=== PATIENT | male | born 1955 | race Caucasian/White ===

== ENCOUNTER 2017-03-02 05:39 | Outpatient (CLI) | payer MEDICAID ==
[~2017-03-02 05:39] MED LIST: AC500T PO; ASP325T PO; ASP81TEC PO; BUPR150T14 PO; CARV3.122 PO; CARV6.252 PO; CEFU500T34 PO; CEPH500C PO; CLPD75T PO; COLC0.6T7 PO; DIGO125T18 PO; DIGO125T91 PO; DIGO250T PO; FINA5TAB6 PO; FURO20TA4 PO; HYDR1TAB86 PO; IBP800T PO; LISI-556 PO; NAPR-243 PO; NAPR500T3 PO; POTA10CA43 PO; SIMV20TA3 PO; SIMV40TA4 PO; SPRN25T PO; TRAZ-28 PO
[2017-03-02] MEDS ORDERED: LISI40TA PO (13:13)
[2017-03-02] MEDS ORDERED: CARV12.53 PO (13:13)
[2017-03-02] MEDS ORDERED: HYDR12.56 PO (13:13)
[2017-03-02] MEDS ORDERED: LIFI1DRO OU (13:13)
== END 2017-03-02 13:20 ==
DX: Z01.818 Encounter for other preprocedural examination (principal); D22.61 Melanocytic nevi of right upper limb, including shoulder

== ENCOUNTER → 2017-12-11 | Outpatient (CLI) | payer MEDICAID ==
[~2017-12-11] MED LIST changes: +CARV12.53 PO; +HYDR-3820 PO; +HYDR12.56 PO; +LIFI1DRO OU; +LISI40TA PO; +NAPR-915 PO; -NAPR500T3 PO; +RT-ALBUINH IH
== END ==
LOC: CARD 07:45
PROVIDERS: ATTEND Internal Medicine Cardiovascular Disease
DX: I48.0 Paroxysmal atrial fibrillation (principal); I50.22 Chronic systolic (congestive) heart failure; I25.5 Ischemic cardiomyopathy; R55 Syncope and collapse; Z95.810 Presence of automatic (implantable) cardiac defibrillator
CPT/HCPCS: 93225; 93226

== ENCOUNTER 2018-10-23 09:39 | Outpatient (RCR) | payer MEDICAID ==
[2018-07-26 09:58] LABS: PROTHROMBIN TIME PATIENT 22.5 SEC (12.2-14.7)
[2018-08-06 09:47] LABS: INR 2.7 (0.8-1.4); PROTHROMBIN TIME PATIENT 28.6 SEC (12.2-14.7)
[2018-08-22 12:45] LABS: INR 2.6 (0.8-1.4); PROTHROMBIN TIME PATIENT 28.2 SEC (12.2-14.7)
[2018-09-19 09:06] LABS: INR 1.9 (0.8-1.4); PROTHROMBIN TIME PATIENT 21.5 SEC (12.2-14.7)
[~2018-10-23 09:39] MED LIST changes: +TRAZ-189 PO; -TRAZ-28 PO
[2018-10-23 10:04] LABS: INR 1.7 (0.8-1.4); PROTHROMBIN TIME PATIENT 20.4 SEC (12.2-14.7)
== END 2018-10-24 | disposition home or self-care (01) ==
LOC: LAB 09:39
PROVIDERS: ATTEND Internal Medicine Cardiovascular Disease
DX: I48.0 Paroxysmal atrial fibrillation (principal)
CPT/HCPCS: 36415; 85610

== ENCOUNTER 2018-11-09 12:26 | Outpatient (RCR) | payer MEDICAID, OTHER ==
[~2018-11-09 12:26] MED LIST changes: -TRAZ-189 PO; +TRAZ-222 PO
[2018-11-09 13:33] LABS: INR 3.1 (0.8-1.4); PROTHROMBIN TIME PATIENT 32.1 SEC (12.2-14.7)
[2018-11-16 09:06] LABS: INR 2.4 (0.8-1.4); PROTHROMBIN TIME PATIENT 26.3 SEC (12.2-14.7)
[2018-12-05 09:20] LABS: INR 2.5 (0.8-1.4); PROTHROMBIN TIME PATIENT 27.8 SEC (12.2-14.7)
== END 2019-02-07 | disposition home or self-care (01) ==
LOC: LAB 12:26
PROVIDERS: ATTEND Internal Medicine Cardiovascular Disease
DX: I48.0 Paroxysmal atrial fibrillation (principal)
CPT/HCPCS: 36415; 85610

== ENCOUNTER → 2018-11-20 | Outpatient (CLI) | payer MEDICAID, OTHER ==
[~2018-11-20] MED LIST changes: +CATHETER FLUSH 10 ML SYR IV PRN; +REGADENOSON 0.4 MG/5 ML SYR (LEXISCAN) IV ONE; +TRAZ-189 PO; -TRAZ-222 PO
[2018-11-20 09:25] VITALS: BP 132/91
[2018-11-20 09:28] VITALS: BP 136/92
--- NOTE | 2018-11-21 04:37 | STRESS TEST ---
DATE OF SERVICE: 11/20/2018 RESTING AND POST REGADENOSON TECHNETIUM-99M TETROFOSMIN SPECT CT IMAGING ORDERING PHYSICIAN: Idania Gardner APRN. PRIMARY PHYSICIAN: [facility]. OTHER PHYSICIAN: DESTINY Lin. CLINICAL DIAGNOSES: Coronary artery disease. Baseline images were carried out after injection of 10.73 mCi of technetium-99m Tetrofosmin. This was followed by 0.4 mg regadenoson and 29.4 mCi of technetium-99m Tetrofosmin for stress imaging. The electrocardiogram showed atrial fibrillation/flutter throughout the study. The electrocardiogram did not change significantly with the regadenoson infusion. The patient did not report any significant symptoms. Review of images at rest and following stress indicates anteroseptal and apical perfusion defect which is predominantly fixed. Gated images show anteroapical and septal hypokinesis. Left ventricular ejection fraction of 33%. Left ventricular end diastolic volume is 86 mL. TID is absent (0.9). CONCLUSIONS: 1. The study is indicative of anteroseptal and apical infarction with only a small amount of jacque-infarct ischemia. 2. Anteroseptal and apical hypokinesis. 3. Left ventricular ejection fraction is calculated to be 33%. 4. Atrial flutter/fibrillation is seen throughout the study. Job ID: [id number] DocumentID: [id number] Dictated Date: 11/20/2018 23:09:00 [employer] Date: 11/21/2018 04:36:08 Dictated By: JERRY MCGUIRE MD, MA, FACP, FACC,
== END ==
LOC: CARD 08:00
PROVIDERS: ATTEND Nurse Practitioner Family
DX: I25.10 Atherosclerotic heart disease of native coronary artery without angina pectoris (principal)
CPT/HCPCS: 78452; 93017

== ENCOUNTER 2019-01-04 09:20 | Outpatient (RCR) | payer OTHER ==
[~2019-01-04 09:20] MED LIST changes: -CATHETER FLUSH 10 ML SYR IV PRN; -REGADENOSON 0.4 MG/5 ML SYR (LEXISCAN) IV ONE; -TRAZ-189 PO; +TRAZ-222 PO
[2019-01-04 10:01] LABS: INR 2.6 (0.8-1.4); PROTHROMBIN TIME PATIENT 28.9 SEC (12.2-14.7)
== END 2019-04-04 | disposition still patient (30) ==
LOC: LAB 09:20
PROVIDERS: ATTEND Internal Medicine Cardiovascular Disease
DX: I48.0 Paroxysmal atrial fibrillation (principal)
CPT/HCPCS: 36415; 85610

== ENCOUNTER 2019-04-12 10:16 | Outpatient (RCR) | payer MEDICAID, OTHER ==
[2019-02-11 11:39] LABS: INR 2.4 (0.8-1.4); PROTHROMBIN TIME PATIENT 27.6 SEC (12.2-14.7)
[2019-03-13 10:53] LABS: INR 2.8 (0.8-1.4); PROTHROMBIN TIME PATIENT 30.3 SEC (12.2-14.7)
[2019-04-12 10:39] LABS: INR 2.7 (0.8-1.4); PROTHROMBIN TIME PATIENT 29.7 SEC (12.2-14.7)
== END 2019-05-12 | disposition home or self-care (01) ==
LOC: LAB 10:16
PROVIDERS: ATTEND Internal Medicine Cardiovascular Disease
DX: I48.0 Paroxysmal atrial fibrillation (principal)
CPT/HCPCS: 36415; 85610

== ENCOUNTER 2019-05-14 11:10 | Outpatient (RCR) | payer MEDICAID, OTHER ==
[2019-05-14 11:39] LABS: INR 2.8 (0.8-1.4); PROTHROMBIN TIME PATIENT 30.9 SEC (12.2-14.7)
== END 2019-08-12 | disposition home or self-care (01) ==
LOC: LAB 11:10
PROVIDERS: ATTEND Internal Medicine Cardiovascular Disease
DX: I48.0 Paroxysmal atrial fibrillation (principal)
CPT/HCPCS: 36415; 85610

== ENCOUNTER → 2019-06-13 | Outpatient (CLI) | payer MEDICAID ==
[2019-06-13 11:09] LABS: BASOPHILS % (AUTO) 1 % (0-10); EOSINOPHILS # (AUTO) 0.1 10^3/uL (0.0-0.3); EOSINOPHILS % (AUTO) 1 % (0-10); HEMATOCRIT 45 % (40-54); HEMOGLOBIN 15.6 G/DL (13.3-17.7); LYMPHOCYTES # (AUTO) 1.1 X 10^3 (1.0-4.0); LYMPHOCYTES % (AUTO) 17 % (12-44); MEAN CORPUSCULAR HEMOGLOBIN 32 PG (25-34); MEAN CORPUSCULAR HGB CONC 35 G/DL (32-36); MEAN CORPUSCULAR VOLUME 93 FL (80-99); MEAN PLATELET VOLUME 10.2 FL (7.4-10.4); MONOCYTES # (AUTO) 0.5 X 10^3 (0.0-1.0); MONOCYTES % (AUTO) 8 % (0-12); NEUTROPHILS # (AUTO) 4.8 X 10^3 (1.8-7.8); NEUTROPHILS % (AUTO) 74 % (42-75); PLATELET COUNT 195 10^3/uL (130-400); WHITE BLOOD COUNT 6.5 10^3/uL (4.3-11.0)
[2019-06-13 11:22] LABS: INR 2.8 (0.8-1.4); PROTHROMBIN TIME PATIENT 30.8 SEC (12.2-14.7)
[2019-06-13 11:30] LABS: ALANINE AMINOTRANSFERASE 18 U/L (0-55); ALBUMIN 4.3 GM/DL (3.2-4.5); ALKALINE PHOSPHATASE 59 U/L (40-136); BILIRUBIN,TOTAL 0.9 MG/DL (0.1-1.0); BUN/CREATININE RATIO 15; CALCIUM 9.4 MG/DL (8.5-10.1); CARBON DIOXIDE 30 MMOL/L (21-32); CHLORIDE 106 MMOL/L (98-107); CREATININE SERUM 1.17 MG/DL (0.60-1.30); GFR ESTIMATED > 60; GLUCOSE 82 MG/DL (70-105); MAGNESIUM 2.1 MG/DL (1.6-2.4); POTASSIUM 3.7 MMOL/L (3.6-5.0); SODIUM 143 MMOL/L (135-145); TOTAL PROTEIN 7.5 GM/DL (6.4-8.2)
== END ==
LOC: CARD 10:53
PROVIDERS: ATTEND Nurse Practitioner Family
DX: I48.0 Paroxysmal atrial fibrillation (principal)
CPT/HCPCS: 36415; 80053; 80162; 83735; 84443; 85025; 85610; 93225; 93226

== ENCOUNTER 2019-07-12 10:18 | Outpatient (RCR) | payer MEDICAID, OTHER ==
[2019-07-12 10:48] LABS: INR 2.8 (0.8-1.4); PROTHROMBIN TIME PATIENT 30.8 SEC (12.2-14.7)
== END 2019-09-11 | disposition home or self-care (01) ==
LOC: LAB 10:18
PROVIDERS: ATTEND Internal Medicine Cardiovascular Disease
DX: I48.0 Paroxysmal atrial fibrillation (principal)
CPT/HCPCS: 36415; 85610

== ENCOUNTER 2019-10-14 10:04 | Outpatient (RCR) | payer MEDICAID ==
[2019-08-13 11:29] LABS: INR 3.1 (0.8-1.4); PROTHROMBIN TIME PATIENT 33.3 SEC (12.2-14.7)
[2019-08-29 10:10] LABS: INR 3.3 (0.8-1.4)
[2019-09-13 10:38] LABS: PROTHROMBIN TIME PATIENT 32.3 SEC (12.2-14.7)
[2019-09-26 08:48] LABS: INR 1.4 (0.8-1.4)
[~2019-10-14 10:04] MED LIST changes: +ACHYD1T PO; -HYDR-3820 PO; -TRAZ-222 PO; +TRZ50T PO
[2019-10-14 10:23] LABS: INR 2.7 (0.8-1.4); PROTHROMBIN TIME PATIENT 29.7 SEC (12.2-14.7)
== END 2019-11-11 | disposition home or self-care (01) ==
LOC: LAB 10:04
PROVIDERS: ATTEND Internal Medicine Cardiovascular Disease
DX: I48.0 Paroxysmal atrial fibrillation (principal)
CPT/HCPCS: 36415; 85610

== ENCOUNTER 2020-02-06 07:57 | Outpatient (RCR) | payer MEDICAID, MEDICARE ==
[2019-11-12 10:45] LABS: INR 2.1 (0.8-1.4); PROTHROMBIN TIME PATIENT 24.8 SEC (12.2-14.7)
[2019-12-13 10:39] LABS: INR 3.2 (0.8-1.4); PROTHROMBIN TIME PATIENT 34.4 SEC (12.2-14.7)
[2019-12-23 10:07] LABS: INR 1.5 (0.8-1.4); PROTHROMBIN TIME PATIENT 18.6 SEC (12.2-14.7)
[2020-01-07 09:13] LABS: INR 2.6 (0.8-1.4)
[2020-02-06 08:21] LABS: INR 1.8 (0.8-1.4); PROTHROMBIN TIME PATIENT 21.2 SEC (12.2-14.7)
== END 2020-02-10 | disposition home or self-care (01) ==
LOC: LAB 07:57
PROVIDERS: ATTEND Internal Medicine Cardiovascular Disease
DX: I25.10 Atherosclerotic heart disease of native coronary artery without angina pectoris (principal); I48.0 Paroxysmal atrial fibrillation; I25.5 Ischemic cardiomyopathy
CPT/HCPCS: 36415; 85610

== ENCOUNTER 2020-04-18 15:05 | Emergency (ER) | payer MEDICARE, MEDICAID ==
[~2020-04-18] VITALS: Ht 183 cm; Wt 91.0 kg
[2020-04-18] MEDS ORDERED: HYDROcodone/APAP 5 MG/325 MG (LORTAB) TAB PO ONE (15:30)
--- NOTE | 2020-04-18 15:31 | ED GU-Male ---
General Chief Complaint: Male Reproductive Stated Complaint: TESTICLE PAIN/SWELLING Nursing Triage Note: Patient reports pain and L testiculer swelling. states it started yesterday evening and did not improve with pain medication Source: patient Exam Limitations: no limitations History of Present Illness Date Seen by Provider: Apr 18, 2020 Time Seen by Provider: 15:09 Initial Comments This 64-year-old man presents to the emergency room with complaints of left testicular pain and swelling that started yesterday. It has become intolerable today. He has had prior intermittent episodes which have typically been responsive to "pain pill". He has not been able to effectively treat it this ti me. He reports a remote history of testicular rupture that did not require orchiectomy. Knee rupture was caused by being kicked by a calf. He denies any significant dysuria. He is afebrile. He is on warfarin therapy for A. fib and had an INR of 1.6 yesterday. Allergies and Home Medications Allergies Coded Allergies: No Known Drug Allergies (Unverified , 10/08/10) Home Medications Albuterol Sulfate 1 Puff Puff, 2 PUFF IH Q4H 1 PUFF = 90 MCG Prescribed by: SAUNDRA MARTINEZ on 03/06/17 0909 Aspirin 81 Mg Tabec, 81 MG PO DAILY, (Reported) Bupropion HCl 150 Mg Tablet.er, 150 MG PO BID, (Reported) Carvedilol 12.5 Mg Tablet, 12.5 MG PO BID, (Reported) Digoxin 125 Mcg Tablet, 125 MCG PO DAILY, (Reported) Finasteride 5 Mg Tablet, 1 TAB PO DAILY, (Reported) Hydrochlorothiazide 12.5 Mg Tablet, 12.5 MG PO DAILY, (Reported) Hydrocodone Bit/Acetaminophen 1 Each Tablet, 1 TAB PO Q6H Prescribed by: ELIE CAMPBELL on 03/06/17 1020 Lifitegrast 1 Each Droperette, 1 DROP OU BID, (Reported) Lisinopril 40 Mg Tablet, 40 MG PO DAILY, (Reported) Naproxen 500 Mg Tablet, 500 MG PO BID, (Reported) Simvastatin 40 Mg Tablet, 40 MG PO HS, (Reported) Trazodone HCl 50 Mg Tablet, 25-100 MG PO HS PRN for PAIN-MILD, (Reported) take 1/2 to 2 (50mg) tab Patient Home Medication List Home Medication List Reviewed: Yes Review of Systems Review of Systems Constitutional: no symptoms reported EENTM: no symptoms reported Respiratory: no symptoms reported Cardiovascular: see HPI Gastrointestinal: no symptoms reported Genitourinary: see HPI Musculoskeletal: no symptoms reported Skin: no symptoms reported Psychiatric/Neurological: No Symptoms Reported Endocrine: No Symptoms Reported Hematologic/Lymphatic: See HPI Past Elwtncd-Wvnunb-Zjeeub Hx Past Med/Social Hx: Reviewed Nursing Past Med/Soc Hx Patient Social History Alcohol Use: Denies Use Recreational Drug Use: No Smoking Status: Former Smoker Former Smoker, Quit: Mar 02, 2013 Recent Foreign Travel: No Contact w/Someone Who Travel: No Recent Infectious Disease Expo: No Recent Hopitalizations: No Seasonal Allergies Seasonal Allergies: Yes (at times) Past Medical History Surgeries: Yes (nose x2, stents x2, ) Appendectomy, Coronary Stent, Pacemaker, Tonsillectomy Respiratory: Yes (REPORTS SOB WITH PHYSICAL EXERTION, RELATES TO POLLEN/GRASS ALLERGIES) Cardiac: Yes (pacemaker) Atrial Fibrillation, Coronary Artery Disease, Heart Attack, Hypertension Neurological: Yes Headaches /Migraines Reproductive Disorders: No Genitourinary: Yes (history of testicular rupture) Gastrointestinal: No Musculoskeletal: No Endocrine: No Cancer: No Psychosocial: No Integumentary: No Blood Disorders: No Family Medical History No Pertinent Family Hx Physical Exam Vital Signs Vital Signs - First Documented 04/18/20 15:11 Temp 36.8 Pulse 140 Resp 18 B/P (MAP) 118/105 (109) Pulse Ox 98 O2 Delivery Room Air Capillary Refill : Less Than 3 Seconds Height, Weight, BMI Height: 6'3.00" Weight: 214lbs. 0.0oz. 97.065755jq; 27.00 BMI Method:Stated General Appearance: WD/WN, no apparent distress HEENT: normal ENT inspection Cardiovascular: regular rate, rhythm, no edema, no murmur Respiratory: lungs clear, normal breath sounds, no respiratory distress Gastrointestinal: normal bowel sounds, non tender, soft Male: inguinal tenderness, testicular tenderness, other (there is tenderness throughout the left inguinal canal and left scrotum. The scrotal surface is e rythematous and tender. Testicle appears enlarged and firm. He does not tolerate palpation well. Right scrotum and testicles appear normal.) Extremities: normal inspection, no pedal edema Neurologic/Psychiatric: inventory management specialist II-XII nml as tested, no motor/sensory deficits, alert, normal mood/affect, oriented x 3 Skin: warm/dry, other (erythematous left scrotum) Progress/Results/Core Measures Suspected Sepsis Recent Fever Within 48 Hours: No Infection Criteria Present: None New/Unexplained Altered Menta: No Sepsis Screen: No Definite Risk SIRS Temperature: Pulse: 140 Respiratory Rate: 18 Blood Pressure 118 /105 Mean: 109 Results/Orders My Orders Orders - EMANUEL FISH MD Ua Culture If Indicated (04/18/20 15:09) Hydrocodone/Apap 5/325 Tablet (Lortab 5 (04/18/20 15:30) Vital Signs/I&O 04/18/20 15:11 Temp 36.8 Pulse 140 Resp 18 B/P (MAP) 118/105 (109) Pulse Ox 98 O2 Delivery Room Air Capillary Refill : Less Than 3 Seconds Blood Pressure Mean: 109 Progress Note : Progress Note Although I suspect epididymitis and/or orchitis, a torsion, abscess, or incarcerated hernia cannot be completely ruled out without ultrasound. Ultrasound services are not available at [facility] this weekend. Patient is being referred to [facility] for ultrasound. Case was discussed with Dr. Chamorro in the ER who accepts the transfer. Patient will go by private vehicle. He received a one hydrocodone tablet with a sip of water prior to transfer. Departure Impression Primary Impression: Left testicular pain Disposition: SHT-TRM HOSP Condition: Stable Departure-Patient Inst. Decision time for Depature: 15:32 Referrals: [facility] (PCP) Primary Care Physician JENI CLOUD (Family) Primary Care Physician Patient Instructions: NO INSTRUCTIONS GIVEN Add. Discharge Instructions: Go directly to [facility] and check into the ER for ultrasound of the scrotum. Do not eat or drink anything until otherwise instructed. [facility]'s address is: [address] [place] [address] All discharge instructions reviewed with patient and/or family. Voiced understanding. EMANUEL FISH MD Apr 18, 2020 15:30
[2020-04-18 15:50] VITALS: BP 128/93
== END 2020-04-18 15:50 | disposition short-term general hospital (02) ==
LOC: EDUNIT# 15:05 → ER 15:06
DX: N50.812 Left testicular pain (principal); I48.91 Unspecified atrial fibrillation; I10 Essential (primary) hypertension; I25.10 Atherosclerotic heart disease of native coronary artery without angina pectoris; I25.2 Old myocardial infarction; G43.909 Migraine, unspecified, not intractable, without status migrainosus; Z95.5 Presence of coronary angioplasty implant and graft; Z95.0 Presence of cardiac pacemaker; Z79.01 Long term (current) use of anticoagulants; Z79.82 Long term (current) use of aspirin; Z87.891 Personal history of nicotine dependence

== ENCOUNTER → 2020-04-21 | Outpatient (CLI) | payer MEDICARE, MEDICAID ==
[2020-04-21 12:22] LABS: BASOPHILS % (AUTO) 0 % (0-10); EOSINOPHILS # (AUTO) 0.1 10^3/uL (0.0-0.3); EOSINOPHILS % (AUTO) 1 % (0-10); HEMATOCRIT 41 % (40-54); HEMOGLOBIN 13.9 G/DL (13.3-17.7); LYMPHOCYTES # (AUTO) 0.5 X 10^3 (1.0-4.0); LYMPHOCYTES % (AUTO) 5 % (12-44); MEAN CORPUSCULAR HEMOGLOBIN 32 PG (25-34); MEAN CORPUSCULAR HGB CONC 34 G/DL (32-36); MEAN CORPUSCULAR VOLUME 93 FL (80-99); MONOCYTES % (AUTO) 10 % (0-12); NEUTROPHILS # (AUTO) 8.4 X 10^3 (1.8-7.8); NEUTROPHILS % (AUTO) 85 % (42-75); PLATELET COUNT 255 10^3/uL (130-400); RED CELL DISTRIBUTION WIDTH 12.1 % (10.0-14.5); WHITE BLOOD COUNT 9.9 10^3/uL (4.3-11.0)
[2020-04-21 12:42] LABS: ALBUMIN 3.9 GM/DL (3.2-4.5); BILIRUBIN,TOTAL 0.7 MG/DL (0.1-1.0); CALCIUM 9.4 MG/DL (8.5-10.1); CREATININE SERUM 2.21 MG/DL (0.60-1.30); POTASSIUM 3.4 MMOL/L (3.6-5.0); TOTAL PROTEIN 7.7 GM/DL (6.4-8.2)
[2020-04-21 13:06] LABS: EOSINOPHILS % (MANUAL) 1 %; LYMPHOCYTES % (MANUAL) 8 %; MONOCYTES % (MANUAL) 11 %; NEUTROPHILS % (MANUAL) 80 %; RBC MORPH NORMAL
== END ==
LOC: LAB 11:59
PROVIDERS: ATTEND Nurse Practitioner Family
DX: I25.10 Atherosclerotic heart disease of native coronary artery without angina pectoris (principal); I10 Essential (primary) hypertension
CPT/HCPCS: 36415; 80053; 80061; 85007; 85027

== ENCOUNTER 2020-05-11 07:58 | Outpatient (RCR) | payer MEDICARE, MEDICAID ==
[2020-02-18 08:09] LABS: BASOPHILS % (AUTO) 1 % (0-10); EOSINOPHILS # (AUTO) 0.1 10^3/uL (0.0-0.3); EOSINOPHILS % (AUTO) 1 % (0-10); HEMATOCRIT 44 % (40-54); LYMPHOCYTES # (AUTO) 1.2 X 10^3 (1.0-4.0); LYMPHOCYTES % (AUTO) 15 % (12-44); MEAN CORPUSCULAR HEMOGLOBIN 32 PG (25-34); MEAN CORPUSCULAR HGB CONC 34 G/DL (32-36); MEAN CORPUSCULAR VOLUME 93 FL (80-99); MEAN PLATELET VOLUME 9.8 FL (7.4-10.4); MONOCYTES # (AUTO) 0.7 X 10^3 (0.0-1.0); MONOCYTES % (AUTO) 8 % (0-12); NEUTROPHILS # (AUTO) 6.5 X 10^3 (1.8-7.8); NEUTROPHILS % (AUTO) 76 % (42-75); PLATELET COUNT 224 10^3/uL (130-400); WHITE BLOOD COUNT 8.5 10^3/uL (4.3-11.0)
[2020-02-18 08:17] LABS: INR 2.3 (0.8-1.4); PROTHROMBIN TIME PATIENT 26.7 SEC (12.2-14.7)
[2020-02-18 08:24] LABS: ALBUMIN 4.1 GM/DL (3.2-4.5); BILIRUBIN,TOTAL 0.8 MG/DL (0.1-1.0); CALCIUM 9.1 MG/DL (8.5-10.1); CREATININE SERUM 1.37 MG/DL (0.60-1.30); MAGNESIUM 2.1 MG/DL (1.6-2.4); POTASSIUM 3.7 MMOL/L (3.6-5.0); TOTAL PROTEIN 7.3 GM/DL (6.4-8.2)
[2020-03-02 08:33] LABS: INR 2.2 (0.8-1.4); PROTHROMBIN TIME PATIENT 25.3 SEC (12.2-14.7)
[2020-04-01 08:43] LABS: INR 3.3 (0.8-1.4); PROTHROMBIN TIME PATIENT 33.7 SEC (12.2-14.7)
[2020-04-17 09:07] LABS: INR 1.6 (0.8-1.4); PROTHROMBIN TIME PATIENT 19.6 SEC (12.2-14.7)
[2020-04-21 12:33] LABS: INR 2.9 (0.8-1.4); PROTHROMBIN TIME PATIENT 30.5 SEC (12.2-14.7)
[2020-04-24 08:52] LABS: INR 2.9 (0.8-1.4); PROTHROMBIN TIME PATIENT 30.9 SEC (12.2-14.7)
[2020-04-28 08:29] LABS: INR 3.4 (0.8-1.4); PROTHROMBIN TIME PATIENT 34.9 SEC (12.2-14.7)
[2020-04-30 09:11] LABS: INR 2.4 (0.8-1.4); PROTHROMBIN TIME PATIENT 26.8 SEC (12.2-14.7)
[2020-05-07 08:56] LABS: INR 4.5 (0.8-1.4)
[2020-05-11 08:46] LABS: INR 1.4 (0.8-1.4); PROTHROMBIN TIME PATIENT 17.3 SEC (12.2-14.7)
== END 2020-05-18 | disposition home or self-care (01) ==
LOC: LAB 07:58
PROVIDERS: ATTEND Internal Medicine Cardiovascular Disease
DX: I25.10 Atherosclerotic heart disease of native coronary artery without angina pectoris (principal); I48.0 Paroxysmal atrial fibrillation; I25.5 Ischemic cardiomyopathy; I65.23 Occlusion and stenosis of bilateral carotid arteries; I50.22 Chronic systolic (congestive) heart failure; E78.5 Hyperlipidemia, unspecified; Z87.898 Personal history of other specified conditions; Z95.810 Presence of automatic (implantable) cardiac defibrillator
CPT/HCPCS: 36415; 80053; 80061; 80162; 83735; 85025; 85610

== ENCOUNTER 2020-06-18 08:35 | Outpatient (RCR) | payer MEDICARE, MEDICAID ==
[2020-05-20 09:11] LABS: INR 2.8 (0.8-1.4)
[2020-06-18 08:59] LABS: INR 2.8 (0.8-1.4); PROTHROMBIN TIME PATIENT 29.6 SEC (12.2-14.7)
[2020-07-17 08:23] LABS: INR 2.7 (0.8-1.4); PROTHROMBIN TIME PATIENT 28.9 SEC (12.2-14.7)
== END 2020-08-18 | disposition home or self-care (01) ==
LOC: LAB 08:35
PROVIDERS: ATTEND Internal Medicine Cardiovascular Disease
DX: I25.10 Atherosclerotic heart disease of native coronary artery without angina pectoris (principal); I48.0 Paroxysmal atrial fibrillation; I25.5 Ischemic cardiomyopathy; I65.23 Occlusion and stenosis of bilateral carotid arteries; I50.22 Chronic systolic (congestive) heart failure; E78.5 Hyperlipidemia, unspecified; Z87.898 Personal history of other specified conditions; Z95.810 Presence of automatic (implantable) cardiac defibrillator
CPT/HCPCS: 36415; 85610

== ENCOUNTER 2020-08-13 09:03 | Outpatient (RCR) | payer MEDICARE, MEDICAID ==
[~2020-08-13 09:03] MED LIST changes: -LISI40TA PO; +LISI40TA9 PO
[2020-08-13 09:38] LABS: INR 2.8 (0.8-1.4); PROTHROMBIN TIME PATIENT 29.9 SEC (12.2-14.7)
[2020-08-13 09:43] LABS: ALBUMIN 4.5 GM/DL (3.2-4.5); POTASSIUM 4.2 MMOL/L (3.6-5.0)
[2020-08-13 09:44] LABS: CALCIUM 9.1 MG/DL (8.5-10.1)
[2020-08-13 09:46] LABS: TOTAL PROTEIN 8.2 GM/DL (6.4-8.2)
[2020-08-13 09:48] LABS: BILIRUBIN,TOTAL 0.8 MG/DL (0.1-1.0)
[2020-08-13 09:49] LABS: CREATININE SERUM 1.23 MG/DL (0.60-1.30)
== END 2020-11-11 | disposition home or self-care (01) ==
LOC: LAB 09:03
PROVIDERS: ATTEND Internal Medicine Cardiovascular Disease
DX: I25.10 Atherosclerotic heart disease of native coronary artery without angina pectoris (principal); I48.0 Paroxysmal atrial fibrillation; I25.5 Ischemic cardiomyopathy; E78.5 Hyperlipidemia, unspecified
CPT/HCPCS: 36415; 80053; 80061; 85610

== ENCOUNTER → 2020-09-15 | Outpatient (CLI) | payer MEDICARE, MEDICAID ==
[~2020-09-15] MED LIST changes: +LISI40TA PO; -LISI40TA9 PO
== END ==
LOC: LAB 09:53
PROVIDERS: ATTEND Urology
DX: N40.1 Benign prostatic hyperplasia with lower urinary tract symptoms (principal)
CPT/HCPCS: 36415; 84153

== ENCOUNTER 2020-11-11 09:38 | Outpatient (RCR) | payer MEDICAID, MEDICARE ==
[2020-09-15 10:29] LABS: INR 3.2 (0.8-1.4)
[2020-09-28 09:26] LABS: INR 2.6 (0.8-1.4); PROTHROMBIN TIME PATIENT 27.9 SEC (12.2-14.7)
[~2020-11-11 09:38] MED LIST changes: -LISI40TA PO; +LISI40TA9 PO
[2020-11-11 10:05] LABS: INR 2.4 (0.8-1.4); PROTHROMBIN TIME PATIENT 26.1 SEC (12.2-14.7)
== END 2020-12-14 | disposition home or self-care (01) ==
LOC: LAB 09:38
PROVIDERS: ATTEND Internal Medicine Cardiovascular Disease
DX: I48.0 Paroxysmal atrial fibrillation (principal); I25.10 Atherosclerotic heart disease of native coronary artery without angina pectoris; I25.5 Ischemic cardiomyopathy; I65.29 Occlusion and stenosis of unspecified carotid artery; I50.22 Chronic systolic (congestive) heart failure; E78.5 Hyperlipidemia, unspecified; Z87.898 Personal history of other specified conditions; Z95.810 Presence of automatic (implantable) cardiac defibrillator
CPT/HCPCS: 36415; 85610

== ENCOUNTER 2021-01-12 08:00 | Outpatient (RCR) | payer MEDICARE ==
[2021-01-12 08:34] LABS: INR 2.8 (0.8-1.4); PROTHROMBIN TIME PATIENT 30.1 SEC (12.2-14.7)
== END 2021-04-12 | disposition home or self-care (01) ==
LOC: LAB 08:00
PROVIDERS: ATTEND Internal Medicine Cardiovascular Disease
DX: I48.0 Paroxysmal atrial fibrillation (principal); I25.10 Atherosclerotic heart disease of native coronary artery without angina pectoris; I65.23 Occlusion and stenosis of bilateral carotid arteries; I25.5 Ischemic cardiomyopathy; I50.22 Chronic systolic (congestive) heart failure; E78.5 Hyperlipidemia, unspecified; R06.02 Shortness of breath; Z95.810 Presence of automatic (implantable) cardiac defibrillator
CPT/HCPCS: 36415; 85610

== ENCOUNTER 2021-02-11 09:05 | Outpatient (RCR) | payer MEDICARE ==
[2020-12-14 08:52] LABS: INR 2.4 (0.8-1.4); PROTHROMBIN TIME PATIENT 26.6 SEC (12.2-14.7)
[2020-12-14 09:34] LABS: ALANINE AMINOTRANSFERASE 26 U/L (0-55); ALBUMIN 4.2 GM/DL (3.2-4.5); ALKALINE PHOSPHATASE 60 U/L (40-136); BILIRUBIN,TOTAL 0.6 MG/DL (0.1-1.0); BUN/CREATININE RATIO 12; CARBON DIOXIDE 27 MMOL/L (21-32); CHLORIDE 104 MMOL/L (98-107); CHOLESTEROL 119 MG/DL (< 200); CREATININE SERUM 1.16 MG/DL (0.60-1.30); GFR ESTIMATED > 60; GLUCOSE 91 MG/DL (70-105); HDL CHOLESTEROL 33 MG/DL (40-60); POTASSIUM 3.8 MMOL/L (3.6-5.0); SODIUM 141 MMOL/L (135-145); TOTAL PROTEIN 7.1 GM/DL (6.4-8.2); TRIGLYCERIDES 253 MG/DL (<150); VLDL CHOLESTEROL 51 MG/DL (5-40)
[2021-02-11 09:27] LABS: INR 2.4 (0.8-1.4); PROTHROMBIN TIME PATIENT 26.8 SEC (12.2-14.7)
== END 2021-03-14 | disposition home or self-care (01) ==
LOC: LAB 09:05
PROVIDERS: ATTEND Internal Medicine Cardiovascular Disease
DX: I25.10 Atherosclerotic heart disease of native coronary artery without angina pectoris (principal); I48.0 Paroxysmal atrial fibrillation; I25.5 Ischemic cardiomyopathy; E78.5 Hyperlipidemia, unspecified
CPT/HCPCS: 36415; 80053; 80061; 85610

== ENCOUNTER → 2021-03-16 | Outpatient (CLI) | payer MEDICARE | LOC: LAB 07:37 | PROVIDERS: ATTEND Urology | DX: R97.20 Elevated prostate specific antigen [PSA] (principal) | CPT/HCPCS: 36415; 84153 ==

== ENCOUNTER → 2021-03-16 | Outpatient (CLI) | payer MEDICARE ==
[2021-03-16 08:08] LABS: INR 2.4 (0.8-1.4); PROTHROMBIN TIME PATIENT 26.5 SEC (12.2-14.7)
== END ==
LOC: LAB 07:34
PROVIDERS: ATTEND Internal Medicine Cardiovascular Disease
DX: I48.0 Paroxysmal atrial fibrillation (principal)
CPT/HCPCS: 36415; 85610

== ENCOUNTER 2021-04-13 08:00 | Outpatient (RCR) | payer MEDICARE ==
[2021-04-13 09:37] LABS: INR 1.5 (0.8-1.4); PROTHROMBIN TIME PATIENT 18.9 SEC (12.2-14.7)
[2021-04-21 07:26] LABS: INR 2.4 (0.8-1.4); PROTHROMBIN TIME PATIENT 26.4 SEC (12.2-14.7)
[2021-05-25] MEDS ORDERED: BUPR200T3 PO (10:19)
[2021-05-25] MEDS ORDERED: LISI-729 PO (10:19)
[2021-05-25] MEDS ORDERED: SIMV40TA25 PO (10:19)
[2021-05-25] MEDS ORDERED: WARF-48 PO ×2 (10:19)
[2021-05-25] MEDS ORDERED: DIGO250T3 PO (10:19)
[2021-05-25] MEDS ORDERED: DILT240C53 PO (10:19)
[2021-05-25] MEDS ORDERED: MECL-215 PO (10:19)
[2021-05-25] MEDS ORDERED: ASPI-1238 PO (10:19)
[2021-05-27] MEDS ORDERED: CEFD300C3 PO (12:29)
== END 2021-07-12 | disposition home or self-care (01) ==
LOC: LAB 08:00
PROVIDERS: ATTEND Internal Medicine Cardiovascular Disease
DX: I48.0 Paroxysmal atrial fibrillation (principal); I25.10 Atherosclerotic heart disease of native coronary artery without angina pectoris; I65.23 Occlusion and stenosis of bilateral carotid arteries; I25.5 Ischemic cardiomyopathy; I50.22 Chronic systolic (congestive) heart failure; E78.5 Hyperlipidemia, unspecified; Z87.898 Personal history of other specified conditions; Z95.810 Presence of automatic (implantable) cardiac defibrillator
CPT/HCPCS: 36415; 85610

== ENCOUNTER 2021-06-11 09:20 | Outpatient (RCR) | payer MEDICARE ==
[2021-05-03 09:14] LABS: INR 2.1 (0.8-1.4)
[2021-06-02 08:34] LABS: INR 1.5 (0.8-1.4); PROTHROMBIN TIME PATIENT 18.6 SEC (12.2-14.7)
[~2021-06-11 09:20] MED LIST changes: +ASPI-1238 PO; +BUPR200T3 PO; +CEFD300C3 PO; +DIGO250T3 PO; +DILT240C53 PO; +LISI5TAB20 PO; +MECL-215 PO; +SIMV40TA25 PO; +WARF-48 PO
[2021-06-11 10:04] LABS: INR 2.4 (0.8-1.4); PROTHROMBIN TIME PATIENT 26.2 SEC (12.2-14.7)
[2021-06-28 09:08] LABS: INR 3.6 (0.8-1.4); PROTHROMBIN TIME PATIENT 36.2 SEC (12.2-14.7)
[2021-07-05 10:12] LABS: INR 3.2 (0.8-1.4); PROTHROMBIN TIME PATIENT 32.9 SEC (12.2-14.7)
[2021-07-12 09:56] LABS: INR 2.6 (0.8-1.4); PROTHROMBIN TIME PATIENT 28.6 SEC (12.2-14.7)
[2021-07-21 08:30] LABS: INR 2.3 (0.8-1.4); PROTHROMBIN TIME PATIENT 25.3 SEC (12.2-14.7)
== END 2021-08-01 | disposition home or self-care (01) ==
LOC: LAB 09:20
PROVIDERS: ATTEND Internal Medicine Cardiovascular Disease
DX: I48.0 Paroxysmal atrial fibrillation (principal)
CPT/HCPCS: 36415; 85610

== ENCOUNTER 2021-08-13 09:33 | Outpatient (RCR) | payer MEDICARE ==
[2021-08-13 10:14] LABS: INR 2.3 (0.8-1.4); PROTHROMBIN TIME PATIENT 25.6 SEC (12.2-14.7)
== END 2021-09-10 | disposition home or self-care (01) ==
LOC: LAB 09:33
PROVIDERS: ATTEND Internal Medicine Cardiovascular Disease
DX: I48.0 Paroxysmal atrial fibrillation (principal)
CPT/HCPCS: 36415; 85610

== ENCOUNTER 2021-09-11 08:00 | Outpatient (RCR) | payer MEDICARE ==
[2021-09-15 09:36] LABS: INR 2.8 (0.8-1.4); PROTHROMBIN TIME PATIENT 30.1 SEC (12.2-14.7)
== END 2021-10-11 | disposition home or self-care (01) ==
LOC: LAB 08:00
PROVIDERS: ATTEND Internal Medicine Cardiovascular Disease
DX: I48.0 Paroxysmal atrial fibrillation (principal)
CPT/HCPCS: 36415; 85610

== ENCOUNTER → 2021-09-15 | Outpatient (CLI) | payer MEDICARE | LOC: LAB 08:31 | PROVIDERS: ATTEND Urology | DX: N40.1 Benign prostatic hyperplasia with lower urinary tract symptoms (principal); E29.1 Testicular hypofunction; R97.20 Elevated prostate specific antigen [PSA] | CPT/HCPCS: 36415; 84153; 84402; 84403 ==

== ENCOUNTER 2021-10-21 08:07 | Outpatient (RCR) | payer MEDICARE ==
[2021-10-21 08:44] LABS: INR 2.9 (0.8-1.4)
== END 2021-11-08 | disposition home or self-care (01) ==
LOC: LAB 08:07
PROVIDERS: ATTEND Internal Medicine Cardiovascular Disease
DX: I48.0 Paroxysmal atrial fibrillation (principal)
CPT/HCPCS: 36415; 85610

== ENCOUNTER → 2021-11-12 | Outpatient (CLI) | payer MEDICARE ==
[~2021-11-12] MED LIST changes: +CATHETER FLUSH 10 ML SYR IVP PRN; +REGADENOSON 0.4 MG/5 ML SYR (LEXISCAN) IV ONE
[2021-11-12 08:49] VITALS: BP 140/82
--- NOTE | 2021-11-14 15:24 | STRESS TEST ---
DATE OF SERVICE: 11/12/2021 RESTING AND POST REGADENOSON TECHNETIUM-99M TETROFOSMIN SPECT CT IMAGING ORDERING PHYSICIAN: Idania Gardner APRN PRIMARY PHYSICIAN: [facility]. OTHER PHYSICIAN: DESTINY Lin. CLINICAL DIAGNOSIS: Coronary artery disease. Baseline images were carried out after injection of 10.91 mCi of technetium-99m Tetrofosmin. This was followed by 0.4 mg regadenoson and 28.4 mCi of technetium-99m Tetrofosmin for stress imaging. Electrocardiogram showed atrial fibrillation at baseline. Ventricular rate was well controlled. There was incomplete right bundle branch block. The electrocardiogram did not change significantly with regadenoson infusion. The patient tolerated the procedure well. Review of images at rest and following stress indicates an apical and inferoseptal perfusion defect that appears fixed. Gated images show apical and inferoseptal hypokinesis. Left ventricular ejection fraction is calculated to be 51%. Left ventricular end-diastolic volume is 97 mL. CONCLUSIONS: 1. This study indicates apical and inferoseptal infarcts without significant ischemia. 2. Apical and inferoseptal hypokinesis. 3. Well preserved global left ventricular systolic function with a calculated ejection fraction of 51%. Job ID: [id number] DocumentID: [id number] Dictated Date: 11/14/2021 14:29:01 [employer] Date: 11/14/2021 15:23:05 Dictated By: JERRY MCGUIRE MD, MA, FACP, FACC,
== END ==
LOC: CARD 07:30
PROVIDERS: ATTEND Nurse Practitioner Family
DX: I25.10 Atherosclerotic heart disease of native coronary artery without angina pectoris (principal)
CPT/HCPCS: 78452; 93017; A9502

== ENCOUNTER 2021-11-16 08:22 | Outpatient (RCR) | payer MEDICARE ==
[~2021-11-16 08:22] MED LIST changes: -CATHETER FLUSH 10 ML SYR IVP PRN; -REGADENOSON 0.4 MG/5 ML SYR (LEXISCAN) IV ONE
[2021-11-16 08:59] LABS: INR 2.5 (0.8-1.4); PROTHROMBIN TIME PATIENT 27.5 SEC (12.2-14.7)
== END 2021-12-09 | disposition home or self-care (01) ==
LOC: LAB 08:22
PROVIDERS: ATTEND Internal Medicine Cardiovascular Disease
DX: I48.0 Paroxysmal atrial fibrillation (principal)
CPT/HCPCS: 36415; 85610

== ENCOUNTER 2021-12-10 08:00 | Outpatient (RCR) | payer MEDICARE ==
[~2021-12-10 08:00] MED LIST changes: +BUPR-105 PO; -BUPR150T14 PO; -BUPR200T3 PO; +BUPR200T7 PO
[2021-12-13 08:42] LABS: INR 2.3 (0.8-1.4)
== END 2022-01-08 | disposition home or self-care (01) ==
LOC: LAB 08:00
PROVIDERS: ATTEND Internal Medicine Cardiovascular Disease
DX: I48.0 Paroxysmal atrial fibrillation (principal)
CPT/HCPCS: 36415; 85610

== ENCOUNTER → 2021-12-30 | Outpatient (CLI) | payer MEDICARE ==
[~2021-12-30] MED LIST changes: -BUPR-105 PO; +BUPR150T14 PO; +BUPR200T3 PO; -BUPR200T7 PO
[2021-12-30 08:22] LABS: HEMATOCRIT 47 % (40-54); HEMOGLOBIN 15.8 g/dL (13.3-17.7); MEAN CORPUSCULAR HEMOGLOBIN 31 pg (25-34); MEAN CORPUSCULAR HGB CONC 34 g/dL (32-36); MEAN CORPUSCULAR VOLUME 93 fL (80-99); MEAN PLATELET VOLUME 9.3 fL (9.0-12.2); PLATELET COUNT 254 10^3/uL (130-400)
[2021-12-30 08:26] LABS: BILIRUBIN,URINE NEGATIVE (NEGATIVE); CLARITY,URINE CLOUDY; COLOR,URINE YELLOW; GLUCOSE, URINE (UA) NEGATIVE (NEGATIVE); KETONES,URINE NEGATIVE (NEGATIVE); LEUKOCYTE ESTERASE ,URINE TRACE (NEGATIVE); NITRITE,URINE POSITIVE (NEGATIVE); PROTEIN,URINE NEGATIVE (NEGATIVE)
[2021-12-30 08:45] LABS: BACTERIA,URINE LARGE /HPF
[2021-12-30 08:52] LABS: ALBUMIN 4.1 GM/DL (3.2-4.5); BILIRUBIN,TOTAL 0.8 MG/DL (0.1-1.0); CALCIUM 9.5 MG/DL (8.5-10.1); CREATININE SERUM 1.26 MG/DL (0.60-1.30); POTASSIUM 3.4 MMOL/L (3.6-5.0); TOTAL PROTEIN 7.7 GM/DL (6.4-8.2)
== END ==
LOC: LAB 08:05
PROVIDERS: ATTEND Internal Medicine Cardiovascular Disease
DX: R42 Dizziness and giddiness (principal); I48.0 Paroxysmal atrial fibrillation; I25.10 Atherosclerotic heart disease of native coronary artery without angina pectoris; I25.5 Ischemic cardiomyopathy; E78.2 Mixed hyperlipidemia; I11.0 Hypertensive heart disease with heart failure; I50.22 Chronic systolic (congestive) heart failure; I65.23 Occlusion and stenosis of bilateral carotid arteries; Z79.01 Long term (current) use of anticoagulants; Z95.810 Presence of automatic (implantable) cardiac defibrillator
CPT/HCPCS: 36415; 80053; 81000; 83735; 84443; 85027; 87077; 87088

== ENCOUNTER → 2022-01-06 | Outpatient (CLI) | payer MEDICARE ==
[~2022-01-06] MED LIST changes: +BUPR-105 PO; -BUPR150T14 PO; -BUPR200T3 PO; +BUPR200T7 PO
== END ==
LOC: CARD 13:00
PROVIDERS: ATTEND Internal Medicine Cardiovascular Disease
DX: R42 Dizziness and giddiness (principal)
CPT/HCPCS: 93225; 93226

== ENCOUNTER 2022-01-12 07:57 | Outpatient (RCR) | payer MEDICARE ==
[2022-01-12 08:22] LABS: INR 2.1 (0.8-1.4); PROTHROMBIN TIME PATIENT 23.8 SEC (12.2-14.7)
== END 2022-02-08 | disposition home or self-care (01) ==
LOC: LAB 07:57
PROVIDERS: ATTEND Internal Medicine Cardiovascular Disease
DX: I48.0 Paroxysmal atrial fibrillation (principal)
CPT/HCPCS: 36415; 85610

== ENCOUNTER 2022-02-24 07:47 | Outpatient (RCR) | payer MEDICARE ==
[2022-02-11 09:58] LABS: INR 1.8 (0.8-1.4); PROTHROMBIN TIME PATIENT 21.2 SEC (12.2-14.7)
[2022-02-24 08:16] LABS: INR 2.2 (0.8-1.4)
[2022-03-16] MEDS ORDERED: CEFD300C3 PO (11:47)
== END 2022-03-10 | disposition home or self-care (01) ==
LOC: LAB 07:47
PROVIDERS: ATTEND Nurse Practitioner Family
DX: I48.0 Paroxysmal atrial fibrillation (principal)
CPT/HCPCS: 36415; 85610

== ENCOUNTER 2022-03-13 07:54 | Observation (INO) | payer MEDICARE ==
[~2022-03-13] VITALS: Ht 188 cm; Wt 97.6 kg
[2022-03-13] VITALS (7 sets, daily range): BP systolic 114–170; BP diastolic 65–108
--- NOTE | 2022-03-13 08:14 | ED EENT ---
History of Present Illness General Chief Complaint: Ear Problems Stated Complaint: EAR PAIN/DIZZINESS Nursing Triage Note: PT ARRIVED PER EMS, PT CO OF L EAR PAIN FOR A FEW DAYS, PT HAS BEEN TAKING ANTI EAR GTT AND MECLAZINE. PT RATES PAIN . PT STATES OUT OF MECLAZINE. Source: patient Exam Limitations: no limitations History of Present Illness Date Seen by Provider: Mar 13, 2022 Time Seen by Provider: 07:52 Initial Comments Patient to the ER by EMS from home with chief complaint that he was trying to get out of the car to come be seen in the ER for his dizziness and had difficulty with standing up. For the past 2 to 3 weeks has been dealing with dizziness and left ear pain discomfort and pressure. He was diagnosed by Harrison Cloud his primary care provider with otitis externa and put on a topical antibiotic and steroid combination. He has been using this as well as meclizine but ran out of meclizine yesterday and now the dizziness is too great for him. He does not endorse a tremendous amount of pain. He has not had any fevers chills nausea vomiting diarrhea constipation chest pain shortness of air. He does not have a chronic history of ear infections or follow-up with an ENT. They noted at the time they started him on antibiotics he had quite a bit of dried wax occluding his ear canal and attempted to flush it out unsuccessfully. He was unable to tolerate the procedure due to pain. Allergies and Home Medications Allergies Coded Allergies: No Known Drug Allergies (Unverified , 10/08/10) Patient Home Medication List Home Medication List Reviewed: Yes Aspirin (Aspirin EC) 81 Mg Tablet.dr, 81 MG PO DAILY, (Reported) Entered as Reported by: JAQUELINE BOSWELL on 05/25/21 1019 Bupropion HCl (Bupropion HCl Sr) 200 Mg Tablet.er, 200 MG PO BID, (Reported) Entered as Reported by: JAQUELINE BOSWELL on 05/25/21 1019 Carvedilol (Carvedilol) 12.5 Mg Tablet, 12.5 MG PO BID, (Reported) Entered as Reported by: CAMILA VERGARA on 03/02/17 1313 Cefdinir (Cefdinir) 300 Mg Capsule, 300 MG PO BID Prescribed by: VEE BRAND on 05/27/21 1229 Digoxin (Digoxin) 250 Mcg Tablet, 250 MCG PO DAILY, (Reported) Entered as Reported by: JAQUELINE BOSWELL on 05/25/21 1019 Diltiazem HCl (Cartia Xt) 240 Mg Cap.er.24h, 240 MG PO DAILY, (Reported) Entered as Reported by: JAQUELINE BOSWELL on 05/25/21 101 Lisinopril (Lisinopril) 5 Mg Tablet, 5 MG PO DAILY, (Reported) Entered as Reported by: JAQUELINE BOSWELL on 05/25/21 101 Meclizine HCl (Meclizine HCl) 12.5 Mg Tablet, 12.5-25 MG PO Q8H PRN for DIZZINESS, (Reported) Entered as Reported by: JAQUELINE BOSWELL on 05/25/21 101 Simvastatin (Simvastatin) 40 Mg Tablet, 40 MG PO HS, (Reported) Entered as Reported by: JAQUELINE BOSWELL on 05/25/21 101 Warfarin Sodium (Warfarin Sodium) 5 Mg Tablet, 5 MG PO PERAZA,MO,TU,WE,TH,SA , (Reported) Entered as Reported by: JAQUELINE BOSWELL on 05/25/21 101 Warfarin Sodium (Warfarin Sodium) 5 Mg Tablet, 7.5 MG PO FRI, (Reported) Entered as Reported by: JAQUELINE BOSWELL on 05/25/21 101 Review of Systems Review of Systems Constitutional: No chills; dizziness; No fever Eyes: Denies Blindness, Denies Drainage Ears: See HPI, Pain; Denies Tinnitus, Denies Bloody Discharge, Denies Clear Discharge Nose: denies clots, denies congestion Mouth: denies clots, denies pain Throat: denies pain, denies swelling Respiratory: No cough, No phlegm Cardiovascular: No chest pain, No palpitations Gastrointestinal: No abdominal pain, No nausea, No vomiting All Other Systems Reviewed Negative Unless Noted: Yes Past Klczuyi-Utqnbi-Gnlyep Hx Patient Social History Tobacco Use?: No Smoking Status: Former Smoker Substance use?: No Alcohol Use?: No Pt feels they are or have been: No Immunizations Up To Date First/Initial COVID19 Vaccinat: 2020 Second COVID19 Vaccination Rory: 2020 Third COVID19 Vaccination Date: 2020 Seasonal Allergies Seasonal Allergies: Yes (at times) Past Medical History Surgery/Hospitalization HX: HEART SURG, APPY. B/P, AFIB Surgeries: Yes (nose x2, stents x2, ) Appendectomy, Coronary Stent, Pacemaker, Tonsillectomy Respiratory: Yes (REPORTS SOB WITH PHYSICAL EXERTION, RELATES TO POLLEN/GRASS ALLERGIES) Cardiac: Yes (pacemaker, ischemic cardiomyopathy) Atrial Fibrillation, Coronary Artery Disease, Heart Attack, Hypertension Neurological: Yes Headaches /Migraines Reproductive Disorders: No Genitourinary: Yes (history of testicular rupture) Gastrointestinal: No Musculoskeletal: No Endocrine: No HEENT: No Cancer: No Psychosocial: No Integumentary: No Blood Disorders: No Family Medical History Other Conditions/Hx Physical Exam Vital Signs Vital Signs - First Documented 03/13/22 07:56 Temp 36.7 Pulse 57 Resp 18 B/P (MAP) 146/90 (108) Pulse Ox 95 Height, Weight, BMI Height: 6'3.00" Weight: 214lbs. 0.0oz. [id number]; 28.00 BMI Method:Stated General Appearance: WD/WN, mild distress Eyes: bilateral eye normal inspection, bilateral eye PERRL Ears: right ear canal normal, right ear TM normal; left ear erythema (Mild ear canal erythema with swelling and tenderness to palpation and manipulation), left ear swelling, left ear tenderness, left ear other (TM unable to be seen as he has an occluded ear canal with dried cerumen.); bilateral ear auricle normal Nose: normal inspection, active bleeding, discharge Mouth/Throat: normal mouth inspection, pharynx normal Neck: full range of motion, normal inspection Cardiovascular: normal peripheral pulses, regular rate, rhythm Respiratory: lungs clear, normal breath sounds, no respiratory distress, no accessory muscle use Gastrointestinal: normal bowel sounds, non tender, soft Neurologic/Psychiatric: alert, normal mood/affect, oriented x 3 Progress/Results/Core Measures Results/Orders Lab Results Laboratory Tests Test 03/13/22 08:15 03/13/22 10:35 Range/Units White Blood Count 7.4 4.3-11.0 10^3/uL Red Blood Count 4.70 4.30-5.52 10^6/uL Hemoglobin 14.9 13.3-17.7 g/dL Hematocrit 44 40-54 % Mean Corpuscular Volume 93 80-99 fL Mean Corpuscular Hemoglobin 32 25-34 pg Mean Corpuscular Hemoglobin Concent 34 32-36 g/dL Red Cell Distribution Width 12.0 10.0-14.5 % Platelet Count 208 130-400 10^3/uL Mean Platelet Volume 10.2 9.0-12.2 fL Immature Granulocyte % (Auto) 1 % Neutrophils (%) (Auto) 79 H 42-75 % Lymphocytes (%) (Auto) 13 12-44 % Monocytes (%) (Auto) 7 0-12 % Eosinophils (%) (Auto) 0 0-10 % Basophils (%) (Auto) 1 0-10 % Neutrophils # (Auto) 5.8 1.8-7.8 10^3/uL Lymphocytes # (Auto) 1.0 1.0-4.0 10^3/uL Monocytes # (Auto) 0.5 0.0-1.0 10^3/uL Eosinophils # (Auto) 0.0 0.0-0.3 10^3/uL Basophils # (Auto) 0.0 0.0-0.1 10^3/uL Immature Granulocyte # (Auto) 0.0 0.0-0.1 10^3/uL Prothrombin Time 20.2 H 12.2-14.7 SEC INR Comment 1.7 H 0.8-1.4 Sodium Level 144 135-145 MMOL/L Potassium Level 3.6 3.6-5.0 MMOL/L Chloride Level 102 98-107 MMOL/L Carbon Dioxide Level 22 21-32 MMOL/L Anion Gap 20 H 5-14 MMOL/L Blood Urea Nitrogen 13 7-18 MG/DL Creatinine 0.96 0.60-1.30 MG/DL Estimat Glomerular Filtration Rate 87 BUN/Creatinine Ratio 14 Glucose Level 99 70-105 MG/DL Calcium Level 8.8 8.5-10.1 MG/DL Urine Color YELLOW Urine Clarity CLEAR Urine pH 6.0 5-9 Urine Specific [place] >=1.030 1.016-1.022 Urine Protein TRACE H NEGATIVE Urine Glucose (UA) NEGATIVE NEGATIVE Urine Ketones NEGATIVE NEGATIVE Urine Nitrite NEGATIVE NEGATIVE Urine Bilirubin NEGATIVE NEGATIVE Urine Urobilinogen 4.0 < = 1.0 MG/DL Urine Leukocyte Esterase 1+ H NEGATIVE Urine RBC (Auto) TRACE-I H NEGATIVE Urine RBC 2-5 H /HPF Urine WBC 10-25 H /HPF Urine Squamous Epithelial Cells NONE /HPF Urine Crystals NONE /LPF Urine Bacteria LARGE H /HPF Urine Casts NONE /LPF Urine Mucus NEGATIVE /LPF Urine Culture Indicated YES My Orders Orders - ILA LAY Meclizine Tablet (Antivert Tablet) (03/13/22 08:15) Amoxicillin/Clavulanate Tablet (Augmenti (03/13/22 08:15) Acetaminophen Tablet (Tylenol Tablet) (03/13/22 08:15) Orthostatic Vital Signs (Adult (03/13/22 08:05) Ed Iv/Invasive Line Start (03/13/22 08:58) Lactated Ringers (Lr 1000 Ml Iv Solution (03/13/22 09:00) Cbc With Automated Diff (03/13/22 08:58) Basic Metabolic Panel (03/13/22 08:58) Lactated Ringers (Lr 1000 Ml Iv Solution (03/13/22 09:02) Protime With Inr (03/13/22 09:25) Ua Culture If Indicated (03/13/22 10:36) Urine Culture (03/13/22 10:35) Ceftriaxone 1 Gm Pre-Mix (Rocephin 1 Gm (03/13/22 11:00) Medications Given in ED Current Medications Medications Dose Ordered Sig/Feliz Route Start Time Stop Time Status Last Admin Dose Admin Acetaminophen 1,000 mg ONCE ONCE PO 03/13/22 08:15 03/13/22 08:16 DC 03/13/22 08:14 1,000 MG Amoxicillin/ Clavulanate Potassium 875 mg ONCE ONCE PO 03/13/22 08:15 03/13/22 08:16 DC 03/13/22 08:14 875 MG Lactated Ringer's 1,000 ml @ 0 mls/hr Q0M ONCE IV 03/13/22 09:00 03/13/22 09:01 DC 03/13/22 09:19 1,000 MLS/HR Meclizine HCl 25 mg ONCE ONCE PO 03/13/22 08:15 03/13/22 08:16 DC 03/13/22 08:14 25 MG Vital Signs/I&O 03/13/22 03/13/22 07:56 08:56 Temp 36.7 Pulse 57 68 89 74 Resp 18 B/P (MAP) 146/90 (108) 148/78 (101) 154/101 (118) 156/108 (124) Pulse Ox 95 Blood Pressure Mean: 108 Progress Progress Note #1: Time: 08:22 Progress Note Plan to give a dose of meclizine and something to drink. Will also give him the first dose of antibiotics and some Tylenol for his discomfort which he rates as very mild. After his meclizine is kicked in we will try some orthostatic vital signs. If he is orthostatic in addition to being dizzy from his ear infection and will give him some IV fluids. In addition to his topical antibiotic and steroid we will put him on a p.o. antibiotic, refer him to ENT as well as put him on either Debrox or a solution to help loosen and remove the wax which may be complicating his ability to treat an otitis externa topically considering cerumen impaction. He has declined more aggressive measures of flushing out the wax at this time. Progress Note #2: Time: 10:04 Progress Note Orthostats were positive with an significant elevation in heart rate upon standing. A liter of fluids and check some basic labs later and the patient's symptoms are somewhat improved. No nausea or vomiting. We will try getting him up and walking him. Departure Communication (Admissions) Time/Spoke to Admitting Phy: 10:55 Discussed the case with Dr. Pham who agrees to do observation on the floor. Impression Primary Impression: UTI (urinary tract infection) Qualified Codes: N30.01 - Acute cystitis with hematuria Additional Impression: Dizziness Disposition: ADMITTED INPATIENT Condition: Stable Admissions Decision to Admit Reason: Admit from ER (General) Decision to Admit/Date: Mar 13, 2022 Time/Decision to Admit Time: 10:55 Departure-Patient Inst. Referrals: [facility] (PCP) Primary Care Physician JENI CLOUD (Family) Primary Care Physician ILA LAY Mar 13, 2022 08:14
[2022-03-13] MEDS ORDERED: ACETAMINOPHEN 500 MG TAB (TYLENOL) PO ONE (08:15)
[2022-03-13] MEDS ORDERED: AUGMENTIN 875 MG TAB (AMOXICILLIN/CLAVULANATE) PO ONE (08:15)
[2022-03-13] MEDS ORDERED: MECLIZINE 25 MG (ANTIVERT) TAB PO ONE (08:15)
[2022-03-13] MEDS ORDERED: LACTATED RINGERS 1,000 ML IV ONE ×2 (09:00→09:02)
[2022-03-13 09:27] LABS: BASOPHILS % (AUTO) 1 % (0-10); EOSINOPHILS % (AUTO) 0 % (0-10); HEMATOCRIT 44 % (40-54); HEMOGLOBIN 14.9 g/dL (13.3-17.7); LYMPHOCYTES % (AUTO) 13 % (12-44); MEAN CORPUSCULAR HEMOGLOBIN 32 pg (25-34); MEAN CORPUSCULAR HGB CONC 34 g/dL (32-36); MEAN CORPUSCULAR VOLUME 93 fL (80-99); MEAN PLATELET VOLUME 10.2 fL (9.0-12.2); MONOCYTES # (AUTO) 0.5 10^3/uL (0.0-1.0); MONOCYTES % (AUTO) 7 % (0-12); NEUTROPHILS # (AUTO) 5.8 10^3/uL (1.8-7.8); NEUTROPHILS % (AUTO) 79 % (42-75); PLATELET COUNT 208 10^3/uL (130-400); WHITE BLOOD COUNT 7.4 10^3/uL (4.3-11.0)
[2022-03-13 09:42] LABS: INR 1.7 (0.8-1.4); PROTHROMBIN TIME PATIENT 20.2 SEC (12.2-14.7)
[2022-03-13 09:48] LABS: POTASSIUM 3.6 MMOL/L (3.6-5.0)
[2022-03-13 09:49] LABS: CALCIUM 8.8 MG/DL (8.5-10.1)
[2022-03-13 09:54] LABS: CREATININE SERUM 0.96 MG/DL (0.60-1.30)
[2022-03-13 10:41] LABS: BILIRUBIN,URINE NEGATIVE (NEGATIVE); CLARITY,URINE CLEAR; COLOR,URINE YELLOW; GLUCOSE, URINE (UA) NEGATIVE (NEGATIVE); KETONES,URINE NEGATIVE (NEGATIVE); LEUKOCYTE ESTERASE ,URINE 1+ (NEGATIVE); NITRITE,URINE NEGATIVE (NEGATIVE); PROTEIN,URINE TRACE (NEGATIVE)
[2022-03-13 10:51] LABS: BACTERIA,URINE LARGE /HPF
[2022-03-13] MEDS ORDERED: cefTRIAXone 1 GM PRE-MIX 50 ML IV ONE (11:00)
[2022-03-13] MEDS ORDERED: CALCIUM CARBONATE 500 MG (TUMS) TAB.CHEW PO PRN (12:15)
[2022-03-13] MEDS ORDERED: diphenhydrAMINE 25 MG TAB (BENADRYL) PO PRN (12:15)
[2022-03-13] MEDS ORDERED: LACTULOSE SYRUP 10GM/15ML (ENULOSE) 30ML UDC PO PRN (12:15)
[2022-03-13] MEDS ORDERED: ONDANSETRON 4 MG (ZOFRAN) ORAL DISSOLVE TAB PO PRN (12:15)
[2022-03-13] MEDS ORDERED: polyethylene glycoL POWDER 17 GM (MIRALAX) PACK PO PRN (12:15)
[2022-03-13] MEDS ORDERED: MELATONIN 3 MG TABLET PO PRN (12:15)
[2022-03-13] MEDS ORDERED: ENOXAPARIN 40 MG/0.4 ML (LOVENOX) SYR SC SCH (12:15)
[2022-03-13] MEDS ORDERED: ACETAMINOPHEN 500 MG TAB (TYLENOL) PO PRN (12:15)
[2022-03-13] MEDS ORDERED: MECLIZINE 25 MG (ANTIVERT) TAB PO PRN ×2 (12:15)
[2022-03-13] MEDS ORDERED: diphenhydrAMINE 50 MG/ML INJ (BENADRYL) IVP PRN (12:15)
[2022-03-13] MEDS ORDERED: ONDANSETRON 4 MG/2 ML (SDV) Z0FRAN IV PRN (12:15)
[2022-03-13] MEDS ORDERED: morphine INJ 4 MG/ML 1 ML (VIAL/SYRINGE) IV PRN (12:15)
[2022-03-13] MEDS ORDERED: MILK OF MAGNESIA 400 MG/5 ML 30 ML UDC PO PRN (12:15)
[2022-03-13] MEDS ORDERED: ACETAMINOPHEN 325 MG TABLET PO PRN (12:15)
[2022-03-13] MEDS ORDERED: BISACODYL 10 MG SUPP (DULCOLAX) PR PRN (12:15)
[2022-03-13] MEDS ORDERED: cefTRIAXone 1 GM PRE-MIX 50 ML IV SCH (12:15)
[2022-03-13] MEDS ORDERED: ANTACID SUSP 30 ML UDC (MYLANTA) PO PRN (12:15)
[2022-03-13] MEDS ORDERED: LACTATED RINGERS 1,000 ML IV SCH (12:15)
[2022-03-13] MEDS: NS IV 1000 ML 1,000 ML IV SCH ×2 (12:16→23:42)
[2022-03-13] MEDS ORDERED: RT-ALBUTEROL SULF 2.5 MG/3 ML PRE-MIX VIAL INH PRN (14:15)
[2022-03-13] MEDS ORDERED: warFARin 5 MG (COUMADIN) TAB PO SCH (18:00)
[2022-03-13] MEDS: warFARin 5 MG (COUMADIN) TAB PO SCH (18:33)
[2022-03-13] MEDS: buPROPion SR 100 MG (WELLBUTRIN SR) TAB PO SCH (20:45)
[2022-03-13] MEDS: DOCUSATE SODIUM 100 MG (COLACE) CAP PO SCH (20:45)
[2022-03-13] MEDS: SENNOSIDES 8.6 MG (SENOKOT) TAB PO SCH (20:47)
[2022-03-13] MEDS ORDERED: NON-FORMULARY MEDICATION 1 EA EA (Simvastatin 40 MG) PO SCH (21:00)
[2022-03-13] MEDS ORDERED: BUPROPION HCL 200 MG PO SCH (21:00)
[2022-03-14 04:11] VITALS: BP 144/77
--- NOTE | 2022-03-14 05:35 | History & Physical-Hospitalist ---
History of Present Illness HPI/Chief Complaint Chief complaint: Vertigo with ear pain History of present illness: This is a 66-year-old male who presented to the ER w ith severe vertigo and otitis externa who could not return home due to severe dizziness. He was given Rocephin and gentle IV fluid and he feels much better but still very dizzy. We will continue supportive care. Source: patient Exam Limitations: no limitations Date Seen 03/14/22 Time Seen by a Provider: 05:45 Attending Physician Bladimir Niño - [facility] Admitting Physician: Angy Pham DO Attending Physician: Angy Pham DO Referring Physician Date of Admission Mar 13, 2022 at 11:00 Home Medications & Allergies Home Medications Reviewed patient Home Medication Reconciliation performed by pharmacy medication reconciliations timber management technician and/or nursing. Patients Allergies have been reviewed. Allergies Allergies Coded Allergies No Known Drug Allergies (Unverified10/08/10) Past Lpdtmpe-Uuvaas-Vcorvy Hx Patient Social History Marrital Status: single Employed/Student: retired Tobacco Use?: No Smoking Status: Former Smoker Use of E-Cig and/or Vaping dev: No Substance use?: No Alcohol Use?: No Pt feels they are or have been: No Immunizations Up To Date First/Initial COVID19 Vaccinat: 2020 Second COVID19 Vaccination Rory: 2020 Seasonal Allergies Seasonal Allergies: Yes (at times) Current Status Advance Directives: No Advance Directive Location: Home Communicates: Does Not Communicate Primary Language: Ugandan Preferred Spoken Language: Ugandan Is interpretation needed?: No Implanted or Applied Medical D: Pacemaker, Stents Past Medical History Surgeries: Appendectomy, Coronary Stent, Pacemaker, Tonsillectomy Atrial Fibrillation, Coronary Artery Disease, Heart Attack, Hypertension Headaches /Migraines Blood Disorders: No PMHx: Coronary artery disease with stenting and ballooning HTN Atrial flutter SurgHx: Appendectomy Mass removed from posterior neck, noncancerous Family Medical History Other Conditions/Hx Review of Systems Constitutional: see HPI, dizziness, malaise, weakness EENTM: no symptoms reported Respiratory: no symptoms reported Cardiovascular: no symptoms reported Gastrointestinal: no symptoms reported Genitourinary: no symptoms reported Musculoskeletal: no symptoms reported Skin: no symptoms reported All Other Systems Reviewed Negative Unless Noted: Yes Physical Exam Physical Exam Vital Signs Vital Signs - First Documented 03/13/22 03/13/22 07:56 12:25 Temp 36.7 Pulse 57 Resp 18 B/P (MAP) 146/90 (108) Pulse Ox 95 O2 Delivery Room Air Capillary Refill : Less Than 3 Seconds Height, Weight, BMI Height: 6'3.00" Weight: 214lbs. 0.0oz. 97.037100dn; 27.61 BMI Method:Stated General Appearance: No Apparent Distress Eyes: Right Eye Normal Inspection, Right Eye PERRL HEENT: PERRL/EOMI, TMs Normal, Normal ENT Inspection, Pharynx Normal, Moist Mucous Membranes Neck: Full Range of Motion, Normal Inspection, Non Tender Respiratory: Chest Non Tender, Lungs Clear, Normal Breath Sounds, No Accessory Muscle Use, No Respiratory Distress Cardiovascular: Regular Rate, Rhythm, No Edema, No Gallop, No JVD, No Murmur, Normal Peripheral Pulses Gastrointestinal: Normal Bowel Sounds, No Organomegaly, No Pulsatile Mass, Non Tender, Soft Back: Normal Inspection, No CVA Tenderness, No Vertebral Tenderness Extremity: Normal Capillary Refill, Normal Inspection, Normal Range of Motion, Non Tender, No Calf Tenderness, No Pedal Edema Neurologic/Psychiatric: Alert, Oriented x3, No Motor/Sensory Deficits, Normal Mood/Affect, Abnormal Gait Skin: Normal Color, Warm/Dry Lymphatic: No Adenopathy Results Results/Procedures Labs Laboratory Tests 03/13/22 08:15 03/14/22 05:18 Patient resulted labs reviewed. Assessment/Plan Admission Diagnosis Assessment: Severe vertigo Otitis externa Abnormal UA Plan: Supportive care PT Admission Status: Observation Diagnosis/Problems Diagnosis/Problems (1) Vertigo (2) UTI (urinary tract infection) Status: Acute Qualifiers: Urinary tract infection type: acute cystitis Hematuria presence: with hematuria Qualified Codes: N30.01 - Acute cystitis with hematuria ANGY PHAM DO Mar 14, 2022 05:34
[2022-03-14 05:48] LABS: BASOPHILS # (AUTO) 0.1 10^3/uL (0.0-0.1); BASOPHILS % (AUTO) 1 % (0-10); EOSINOPHILS % (AUTO) 1 % (0-10); HEMATOCRIT 43 % (40-54); HEMOGLOBIN 14.1 g/dL (13.3-17.7); LYMPHOCYTES # (AUTO) 1.2 10^3/uL (1.0-4.0); LYMPHOCYTES % (AUTO) 18 % (12-44); MEAN CORPUSCULAR HEMOGLOBIN 31 pg (25-34); MEAN CORPUSCULAR HGB CONC 33 g/dL (32-36); MEAN CORPUSCULAR VOLUME 94 fL (80-99); MEAN PLATELET VOLUME 9.5 fL (9.0-12.2); MONOCYTES # (AUTO) 0.7 10^3/uL (0.0-1.0); MONOCYTES % (AUTO) 10 % (0-12); NEUTROPHILS # (AUTO) 4.4 10^3/uL (1.8-7.8); NEUTROPHILS % (AUTO) 69 % (42-75); PLATELET COUNT 200 10^3/uL (130-400); WHITE BLOOD COUNT 6.3 10^3/uL (4.3-11.0)
[2022-03-14 05:57] LABS: ALBUMIN 3.7 GM/DL (3.2-4.5)
[2022-03-14 05:59] LABS: CALCIUM 8.9 MG/DL (8.5-10.1); INR 1.5 (0.8-1.4); PROTHROMBIN TIME PATIENT 18.4 SEC (12.2-14.7)
[2022-03-14 06:00] LABS: TOTAL PROTEIN 6.6 GM/DL (6.4-8.2)
[2022-03-14 06:02] LABS: BILIRUBIN,TOTAL 0.6 MG/DL (0.1-1.0)
[2022-03-14 06:03] LABS: CREATININE SERUM 0.95 MG/DL (0.60-1.30)
[2022-03-14 07:20] VITALS: BP 128/97
[2022-03-14] MEDS: ASPIRIN E.C. 81 MG (ECOTRIN) TAB PO SCH (08:08)
[2022-03-14] MEDS: lisINopril 5 MG (PRINIVIL) TABLET PO SCH (08:08)
[2022-03-14] MEDS: cefTRIAXone 1 GM PRE-MIX 50 ML IV SCH (08:08)
[2022-03-14] MEDS: DOCUSATE SODIUM 100 MG (COLACE) CAP PO SCH ×2 (08:09→20:32)
[2022-03-14] MEDS: buPROPion SR 100 MG (WELLBUTRIN SR) TAB PO SCH ×2 (08:09→20:32)
[2022-03-14] MEDS: SENNOSIDES 8.6 MG (SENOKOT) TAB PO SCH ×2 (08:09→20:32)
[2022-03-14] MEDS: DIGOXIN 0.25 MG (LANOXIN) TAB PO SCH (08:09)
[2022-03-14 11:30] VITALS: BP 135/82
--- NOTE | 2022-03-14 13:48 | Occupational Therapy Eval ---
OT Evaluation-General/PLF Medical Diagnosis Admission Date Mar 13, 2022 at 11:00 Medical Diagnosis: UTI, L middle ear infection Onset Date: Mar 13, 2022 Therapy Diagnosis Therapy Diagnosis: reduced balance, endurance Height/Weight Height (Feet): 6 Height (Inches): 3.00 Weight (Pounds): 214 Weight (Ounces): 0.0 Precautions Precautions/Isolations: Fall Prevention, Standard Precautions Referral Referral Reason: Evaluation/Treatment Medical History Pertinent Medical History: Atrial Fib, CAD, HTN Current History Pt presented to hospital with dizziness and weakness. Found to have UTI. 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 He was indep with adls and iadls prior to admission. He does not use any AD, but does own a walker. Reviewed History: Yes Social History Home: Apartment Current Living Status: Spouse Entry Into Home: Level Entry ADL-Prior Level of Function SCALE: Activities may be completed with or without assistive devices. 3-Zogwbbcpto-yntjrew completes the activity by him/herself with no assistance from a helper. 5-Set-up or Clean-up Assistance-helper sets up or cleans up; patient completes activity. [place] assists only prior to or following the activity. 4-Supervision or Touching Assistance-helper provides verbal cues and/or touching/steadying and/or contact guard assistance as patient completes activity. Assistance may be provided throughout the activity or intermittently. 3-Partial/Moderate Assistance-helper does LESS THAN HALF the effort. [place] lifts, holds or supports trunk or limbs, but provides less than half the effort. 2-Substantial/Maximal Assistance-helper does MORE THAN HALF the effort. [place] lifts or holds trunk or limbs and provides more than half the effort. 8-Crqxkabsw-htpscc does ALL the effort. Patient does none of the effort to complete the activity. Or, the assistance of 2 or more helpers is required for the patient to complete the activity. If activity was not attempted, code reason: 7-Patient Refused. 9-Not Applicable-not attempted and the patient did not perform the activity befo re the current illness, exacerbation or injury. 10-Not Attempted due to Environmental Limitations-(lack of equipment, weather re straints, etc.). 88-Not Attempted due to Medical Conditions or Safety Concerns. Self Care: Independent Functional Cognition: Independent OT Current Status Subjective Pt denies pain, pleasant, very talkative. Appearance Pt returned to supine in bed, all needs within reach at therapy departure. Mental Status/Objective Patient Orientation: Person, Place, Situation Attachments: IV Current Hand Dominance: Right Upper Extremity ROM WNL Upper Extremity Strength 4/5 throughout ADL-Treatment Eating (QC): 6 On/Off Footwear (QC): 4 Toileting Hygiene (QC): 4 Supine<>sit: indep. Pt demonstrated ability to don socks without difficulty. SBA to stand. After ~10 seconds of standing, pt losing balance x2 but able to self c orrect. Pt c/o dizziness. He was returned to sitting until dizziness subsided. He stood again, attempted to ambulate without AD. Again, loses balance. Pt provided with walker. Initially, CGA needed yet improves to SBA with increased distance and time. He was able to stand and lower onto toilet with SBA and use of grab bar. CGA for safety during clothing management. Education OT Patient Education: Correct positioning, Modified ADL techniques, Purpose of tx/functional activities, Safety issues, Transfer techniques Teaching Recipient: Patient Teaching Methods: Demonstration, Discussion Response to Teaching: Verbalize Understanding, Return Demonstration, Reinforce ment Needed OT Yarn Man Goals Yarn Man Goals Time Frame: Mar 25, 2022 Oral Hygiene (QC): 6 Shower/Bathe Self (QC): 5 Lower Body Dressing (QC): 5 On/Off Footwear (QC): 6 1=Demonstrate adherence to instructed precautions during ADL tasks. 2=Patient will verbalize/demonstrate understanding of assistive devices/modifications for ADL. 3=Patient will improve strength/tolerance for activity to enable patient to perform ADL's. OT Education/Plan Problem List/Assessment Assessment: Decreased Activ Tolerance, Decreased Safety Aware, Impaired Funct Balance, Impaired I ADL's, Impaired Self-Care Skills Discharge Recommendations Plan/Recommendations: Continue POC Therapy Discharge Recommendati: Post Acute OT (Home with family vs Home health pending progress ) Treatment Plan/Plan of Care Treatment,Training & Education: Yes Patient would benefit from OT for education, treatment and training to promote independence in ADL's, mobility, safety and/or upper extremity function for ADL's. Plan of Care: ADL Retraining, Functional Mobility, Group Exercise/Act as Ind, UE Funct Exercise/Act Treatment Duration: Mar 25, 2022 Frequency: 3 times per week (3-5x/week ) Estimated Hrs Per Day: .25 hour per day Agreement: Yes Time/GCodes Start Time: 13:09 Stop Time: 13:24 Total Time Billed (hr/min): 15 Billed Treatment Time 1 visit Dori Retana OT Mar 14, 2022 13:48
--- NOTE | 2022-03-14 13:52 | Physical Therapy Evaluation ---
PT Evaluation-General Medical Diagnosis Admission Date Mar 13, 2022 at 11:00 Medical Diagnosis: UTI, dizziness Onset Date: Mar 13, 2022 Therapy Diagnosis Therapy Diagnosis: impaired mobility, balance Height/Weight Height (Feet): 6 Height (Inches): 3.00 Weight (Pounds): 214 Weight (Ounces): 0.0 Precautions Precautions/Isolations: Fall Prevention, Standard Precautions Referral Physician: Angy Pham DO Reason for Referral: Evaluation/Treatment Medical History Additional Medical History Past Medical History Surgeries: Appendectomy, Coronary Stent, Pacemaker, Tonsillectomy Atrial Fibrillation, Coronary Artery Disease, Heart Attack, Hypertension Headaches /Migraines Blood Disorders: No PMHx: Coronary artery disease with stenting and ballooning HTN Atrial flutter SurgHx: Appendectomy Mass removed from posterior neck, noncancerous Reviewed History: Yes Social History Home: Apartment Current Living Status: Spouse Entry Into Home: Level Entry Prior Prior Level of Function SCALE: Activities may be completed with or without assistive devices. 3-Kpxoitjalh-psdledc completes the activity by him/herself with no assistance f rom a helper. 5-Set-up or Clean-up Assistance-helper sets up or cleans up; patient completes activity. [place] assists only prior to or following the activity. 4-Supervision or Touching Assistance-helper provides verbal cues and/or touching/steadying and/or contact guard assistance as patient completes activity. Assistance may be provided throughout the activity or intermittently. 3-Partial/Moderate Assistance-helper does LESS THAN HALF the effort. [place] lifts, holds or supports trunk or limbs, but provides less than half the effort. 2-Substantial/Maximal Assistance-helper does MORE THAN HALF the effort. [place] lifts or holds trunk or limbs and provides more than half the effort. 5-Iyktrcung-kzjofu does ALL the effort. Patient does none of the effort to complete the activity. Or, the assistance of 2 or more helpers is required for the patient to complete the activity. If activity was not attempted, code reason: 7-Patient Refused. 9-Not Applicable-not attempted and the patient did not perform the activity before the current illness, exacerbation or injury. 10-Not Attempted due to Environmental Limitations-(lack of equipment, weather restraints, etc.). 88-Not Attempted due to Medical Conditions or Safety Concerns. Bed Mobility: 6 Transfers (B,C,W/C): 6 Gait: 6 Stairs: 6 Indoor Mobility (Ambulation): Independent Stairs: Independent PT Evaluation-Current Subjective Patient in bed pre tx, agrees to PT, has no complaints of pain. Pt/Family Goals to be independent at home Objective Patient Orientation: Person, Place, Situation ROM/Strength ROM Lower Extremities WNL Strength Lower Extremities grossly 5/5 BLE Sensory Vision: Functional Hearing: Functional Sensation Right Lower Extremit: Intact Sensation Left Lower Extremity: Intact Transfers Roll Left to Right (QC): 6 Sit to Lying (QC): 6 Lying to Sitting/Side of Bed(Q: 6 Sit to Stand (QC): 4 Chair/Kjp-ng-Gnomd Xfer(QC): 4 Gait Does the Patient Walk?: Yes Mode of Locomotion: Walk Anticipated Mode of Locomotion: Walk Walk 10 feet (QC): 4 Walk 50 ft with 2 Turns(QC): 4 Walk 150 ft (QC): 4 Distance: 150' Gait Assistive Device: FWW Comments/Gait Description slow ambulation, unsteady on turns but no total LOB Balance Sitting Static: Normal Sitting Dynamic: Normal Standing Static: Fair Standing Dynamic: Poor Treatment BLE supine exercises x20 (AP, HS) Assessment/Needs Patient in bed post tx with nurse call, phone, tray, all needs met, bed alarm on. Patient is unsteady during transfers and ambulation and needs CGA and the use of a walker at this time Rehab Potential: Fair PT Coroner Forensic Technician Goals Usp Goals PT Usp Goals Time Frame: Mar 21, 2022 Roll Left & Right (QC): 6 Sit to Lying (QC): 6 Lying-Sitting on Side/Bed(QC): 6 Sit to Stand (QC): 6 Chair/Lej-tj-Ugape Xfer(QC): 6 Walk 10 feet (QC): 6 Walk 50ft with 2 Turns (QC): 6 Walk 150 ft (QC): 6 PT Plan Problem List Problem List: Activity Tolerance, Functional Strength, Safety, Balance, Gait, Transfer, ROM Treatment/Plan Treatment Plan: Continue Plan of Care Treatment Plan: Education, Functional Activity Faraz, Functional Strength, Gait, Safety, Therapeutic Exercise, Transfers Treatment Duration: Mar 21, 2022 Frequency: 6 times per week Estimated Hrs Per Day: .25 hour per day Patient and/or Family Agrees t: Yes Safety Risks/Education Patient Education: Gait Training, Transfer Techniques, Correct Positioning, Safety Issues Teaching Recipient: Patient Teaching Methods: Demonstration, Discussion Response to Teaching: Reinforcement Needed Discharge Recommendations Plan Patient will perform bed mobility and transfer training, balance and endurance training, functional strengthening, stair training, gait training, and education, to improve functional mobility and independence at home. Therapy Discharge Recommendati: Home & Family, Post Acute PT Time/GCodes Time In: 1309 Time Out: 1323 Total Billed Treatment Time: 14 Total Billed Treatment 1 visit MARLENY MCCOLLUM PT Mar 14, 2022 13:51
[2022-03-14 15:21] VITALS: BP 113/67
[2022-03-14] MEDS ORDERED: warFARin 5 MG (COUMADIN) TAB PO SCH (18:00)
[2022-03-14 19:24] VITALS: BP 165/86
[2022-03-15] VITALS (7 sets, daily range): BP systolic 105–134; BP diastolic 58–81
[2022-03-15 06:51] LABS: BASOPHILS # (AUTO) 0.1 10^3/uL (0.0-0.1); BASOPHILS % (AUTO) 1 % (0-10); EOSINOPHILS # (AUTO) 0.1 10^3/uL (0.0-0.3); EOSINOPHILS % (AUTO) 1 % (0-10); HEMATOCRIT 45 % (40-54); LYMPHOCYTES # (AUTO) 1.3 10^3/uL (1.0-4.0); LYMPHOCYTES % (AUTO) 19 % (12-44); MEAN CORPUSCULAR HEMOGLOBIN 31 pg (25-34); MEAN CORPUSCULAR HGB CONC 34 g/dL (32-36); MEAN CORPUSCULAR VOLUME 93 fL (80-99); MEAN PLATELET VOLUME 9.5 fL (9.0-12.2); MONOCYTES # (AUTO) 0.7 10^3/uL (0.0-1.0); MONOCYTES % (AUTO) 9 % (0-12); NEUTROPHILS % (AUTO) 70 % (42-75); PLATELET COUNT 210 10^3/uL (130-400); WHITE BLOOD COUNT 7.1 10^3/uL (4.3-11.0)
[2022-03-15 07:00] LABS: POTASSIUM 3.8 MMOL/L (3.6-5.0)
[2022-03-15 07:01] LABS: CALCIUM 9.2 MG/DL (8.5-10.1)
[2022-03-15 07:03] LABS: TOTAL PROTEIN 7.1 GM/DL (6.4-8.2)
[2022-03-15 07:04] LABS: BILIRUBIN,TOTAL 0.8 MG/DL (0.1-1.0)
[2022-03-15 07:06] LABS: CREATININE SERUM 1.06 MG/DL (0.60-1.30)
[2022-03-15] MEDS: ASPIRIN E.C. 81 MG (ECOTRIN) TAB PO SCH (09:41)
[2022-03-15] MEDS: DIGOXIN 0.25 MG (LANOXIN) TAB PO SCH (09:41)
[2022-03-15] MEDS: buPROPion SR 100 MG (WELLBUTRIN SR) TAB PO SCH ×2 (09:41→20:22)
[2022-03-15] MEDS: DOCUSATE SODIUM 100 MG (COLACE) CAP PO SCH ×2 (09:41→20:22)
[2022-03-15] MEDS: lisINopril 5 MG (PRINIVIL) TABLET PO SCH (09:41)
[2022-03-15] MEDS: SENNOSIDES 8.6 MG (SENOKOT) TAB PO SCH ×2 (09:41→20:22)
[2022-03-15] MEDS: cefTRIAXone 1 GM PRE-MIX 50 ML IV SCH (09:41)
--- NOTE | 2022-03-15 11:41 | Physical Therapy Daily Note ---
PT Daily Note-Current Subjective Patient agrees to PT. Mental Status Patient Orientation: Normal For Age Attachments: IV Transfers SCALE: Activities may be completed with or without assistive devices. 0-Pwolmvoixs-gnjsnva completes the activity by him/herself with no assistance from a helper. 5-Set-up or Clean-up Assistance-helper sets up or cleans up; patient completes activity. [place] assists only prior to or following the activity. 4-Supervision or Touching Assistance-helper provides verbal cues and/or touching/steadying and/or contact guard assistance as patient completes activity. Assistance may be provided throughout the activity or intermittently. 3-Partial/Moderate Assistance-helper does LESS THAN HALF the effort. [place] lifts, holds or supports trunk or limbs, but provides less than half the effort. 2-Substantial/Maximal Assistance-helper does MORE THAN HALF the effort. [place] lifts or holds trunk or limbs and provides more than half the effort. 0-Tneuyrehl-cypsgd does ALL the effort. Patient does none of the effort to complete the activity. Or, the assistance of 2 or more helpers is required for the patient to complete the activity. If activity was not attempted, code reason: 7-Patient Refused. 9-Not Applicable-not attempted and the patient did not perform the activity before the current illness, exacerbation or injury. 10-Not Attempted due to Environmental Limitations-(lack of equipment, weather restraints, etc.). 88-Not Attempted due to Medical Conditions or Safety Concerns. Lying to Sitting/Side of Bed(Q: 4 Sit to Stand (QC): 4 Chair/Oxd-im-Ntbyc Xfer(QC): 4 Gait Training Distance: 200' Walk 10 feet (QC): 4 Walk 50 ft with 2 Turns(QC): 4 Walk 150 ft (QC): 4 Gait Assistive Device: FWW safe and functional gait sequence with FWW use Assessment Patient up in recliner with needs met. Patient improved with gross motor skills and distance with ambulation. Continue to increase activity as tolerated by patient. PT Line Inspector Goals Line Inspector Goals PT Alf Goals Time Frame: Mar 21, 2022 Roll Left & Right (QC): 6 Sit to Lying (QC): 6 Lying-Sitting on Side/Bed(QC): 6 Sit to Stand (QC): 6 Chair/Eoc-sl-Istst Xfer(QC): 6 Walk 10 feet (QC): 6 Walk 50ft with 2 Turns (QC): 6 Walk 150 ft (QC): 6 PT Plan Treatment/Plan Treatment Plan: Continue Plan of Care Treatment Plan: Education, Functional Activity Faraz, Functional Strength, Gait, Safety, Therapeutic Exercise, Transfers Treatment Duration: Mar 21, 2022 Frequency: 6 times per week Estimated Hrs Per Day: .25 hour per day Patient and/or Family Agrees t: Yes Time/GCodes Time In: 1034 Time Out: 1044 Total Billed Treatment Time: 10 Total Billed Treatment 1 visit FA 10 min JERRY العلي PT Mar 15, 2022 11:41
[2022-03-15] MEDS ORDERED: RT-ALBUINH IH (13:08)
[2022-03-15] MEDS ORDERED: ATOR40TA70 PO (13:08)
[2022-03-15] MEDS ORDERED: ACET-2267 PO (13:09)
--- NOTE | 2022-03-15 14:36 | Occupational Ther Daily Note ---
OT Current Status-Daily Note Subjective Pt alert, sitting in recliner. Pt agrees to therapy. No c/o pain. Mental Status/Objective Patient Orientation: Person, Place, Time, Situation Attachments: IV ADL-Treatment Pt agrees to shower. Close SBA to CGA to ambulate using FWW from recliner to bed, 1 LOB. Pt sat throughout shower using shower bench, grabbars and hand held shower with supervision for safety. Pt leaning on wall in standing to don/doff underwear, SBA for safety. Pt able to don/doff upper body clothing by self after set up. After session, pt sitting in recliner with call light/phone in reach. All needs met in room. Therapy Code Descriptions/Definitions Functional [place] Measure: 0=Not Assessed/NA 4=Minimal Assistance 1=Total Assistance 5=Supervision or Setup 2=Maximal Assistance 6=Modified [place] 3=Moderate Assistance 7=Complete IndependenceSCALE: Activities may be completed with or without assistive devices. 0-Ugwiylcjiu-dzklpcs completes the activity by him/herself with no assistance from a helper. 5-Set-up or Clean-up Assistance-helper sets up or cleans up; patient completes activity. [place] assists only prior to or following the activity. 4-Supervision or Touching Assistance-helper provides verbal cues and/or touching/steadying and/or contact guard assistance as patient completes activity. Assistance may be provided throughout the activity or intermittently. 3-Partial/Moderate Assistance-helper does LESS THAN HALF the effort. [place] lifts, holds or supports trunk or limbs, but provides less than half the effort. 2-Substantial/Maximal Assistance-helper does MORE THAN HALF the effort. [place] lifts or holds trunk or limbs and provides more than half the effort. 9-Eryfqndyc-tabebl does ALL the effort. Patient does none of the effort to complete the activity. Or, the assistance of 2 or more helpers is required for the patient to complete the activity. If activity was not attempted, code reason: 7-Patient Refused. 9-Not Applicable-not attempted and the patient did not perform the activity before the current illness, exacerbation or injury. 10-Not Attempted due to Environmental Limitations-(lack of equipment, weather restraints, etc.). 88-Not Attempted due to Medical Conditions or Safety Concerns. Shower/Bathe Self (QC): 4 Lower Body Dressing (QC): 4 On/Off Footwear: 5 OT Fci Goals Fci Goals Time Frame: Mar 25, 2022 Oral Hygiene (QC): 6 Shower/Bathe Self (QC): 5 Lower Body Dressing (QC): 5 On/Off Footwear (QC): 6 1=Demonstrate adherence to instructed precautions during ADL tasks. 2=Patient will verbalize/demonstrate understanding of assistive devices/modifications for ADL. 3=Patient will improve strength/tolerance for activity to enable patient to perform ADL's. OT Education/Plan Problem List/Assessment Assessment: Decreased Activ Tolerance, Decreased Safety Aware, Impaired Funct Balance, Impaired Self-Care Skills Discharge Recommendations Plan/Recommendations: Continue POC Treatment Plan/Plan of Care Patient would benefit from OT for education, treatment and training to promote independence in ADL's, mobility, safety and/or upper extremity function for ADL's. Plan of Care: ADL Retraining, Functional Mobility, Group Exercise/Act as Ind, UE Funct Exercise/Act Treatment Duration: Mar 25, 2022 Frequency: 3 times per week (3-5x/week ) Estimated Hrs Per Day: .25 hour per day Agreement: Yes Rehab Potential: Fair Time/GCodes Start Time: 13:30 Stop Time: 14:00 Total Time Billed (hr/min): 30 Billed Treatment Time 1visit-ADL 2 (30 min) GLORIA PEREZ Mar 15, 2022 14:36
--- NOTE | 2022-03-15 15:42 | Progress Note ---
Subjective Subjective/Events-last exam Pt states he is feeling better but still dizzy when he gets up, sometimes when he turns his head. He was able to walk with PT, but feels he might be worried if he was to try to walk completely independently. Objective Exam Last Set of Vital Signs Vital Signs Date Time Temp Pulse Resp B/P (MAP) Pulse Ox O2 Delivery O2 Flow Rate FiO2 03/15/22 11:13 37.0 69 18 131/67 (88) 92 Room Air Capillary Refill : Less Than 3 Seconds I&O Intake and Output 03/15/22 00:00 Intake Total 2500 ml Output Total 2525 ml Balance -25 ml Intake Oral 1500 ml IV Total 1000 ml Output Urine Total 2525 ml # Voids 1 # Bowel Movements 1 General: Alert, No Acute Distress HEENT: Other (bilateral debris in ear canals, no clear erythema of TMs bilaterally) Lungs: Clear to Auscultation, Normal Air Movement Heart: Regular Rate, No Murmurs Neuro: Normal Speech Psych/Mental Status: Mood NL Results/Procedures Lab Laboratory Tests 03/15/22 06:37: White Blood Count 7.1, Red Blood Count 4.83, Hemoglobin 15.0, Hematocrit 45, Mean Corpuscular Volume 93, Mean Corpuscular Hemoglobin 31, Mean Corpuscular Hemoglobin Concent 34, Red Cell Distribution Width 12.4, Platelet Count 210, Mean Platelet Volume 9.5, Immature Granulocyte % (Auto) 0, Neutrophils (%) (Auto) 70, Lymphocytes (%) (Auto) 19, Monocytes (%) (Auto) 9, Eosinophils (%) (Auto) 1, Basophils (%) (Auto) 1, Neutrophils # (Auto) 5.0, Lymphocytes # (Auto) 1.3, Monocytes # (Auto) 0.7, Eosinophils # (Auto) 0.1, Basophils # (Auto) 0.1, Immature Granulocyte # (Auto) 0.0, Sodium Level 140, Potassium Level 3.8, Chloride Level 102, Carbon Dioxide Level 25, Anion Gap 13, Blood Urea Nitrogen 12, Creatinine 1.06, Estimat Glomerular Filtration Rate 77, BUN/Creatinine Ratio 11, Glucose Level 91, Calcium Level 9.2, Corrected Calcium 9.2, Total Bilirubin 0.8, Aspartate Amino Transf (AST/SGOT) 17, Alanine Aminotransferase (ALT/SGPT) 18, Alkaline Phosphatase 79, Total Protein 7.1, Albumin 4.0 Microbiology 03/13/22 Urine Culture - Final, Complete Escherichia coli Assessment/Plan Assessment/Plan (1) Urinary tract infection Status: Acute Assessment & Plan: E coli resistant to amp and floxacins. On ceftriaxone. Qualifiers: Qualified Codes: N30.01 - Acute cystitis with hematuria (2) Dizziness Status: Acute Assessment & Plan: Possibly partly related to ear infection/cerumen. (3) Vertigo Status: Acute Assessment & Plan: Meclizine as needed. PT. (4) Coronary artery disease Status: Chronic (5) Chronic systolic (congestive) heart failure Status: Chronic (6) Atrial flutter, chronic Status: Chronic (7) DVT prophylaxis Status: Acute Assessment & Plan: Home coumadin VEE BRAND MD Mar 15, 2022 15:42
[2022-03-15] MEDS: warFARin 5 MG (COUMADIN) TAB PO SCH (17:48)
[2022-03-16 05:20] LABS: BASOPHILS # (AUTO) 0.1 10^3/uL (0.0-0.1); BASOPHILS % (AUTO) 1 % (0-10); EOSINOPHILS # (AUTO) 0.1 10^3/uL (0.0-0.3); EOSINOPHILS % (AUTO) 1 % (0-10); HEMATOCRIT 46 % (40-54); HEMOGLOBIN 15.1 g/dL (13.3-17.7); LYMPHOCYTES # (AUTO) 1.3 10^3/uL (1.0-4.0); LYMPHOCYTES % (AUTO) 18 % (12-44); MEAN CORPUSCULAR HEMOGLOBIN 31 pg (25-34); MEAN CORPUSCULAR HGB CONC 33 g/dL (32-36); MEAN CORPUSCULAR VOLUME 94 fL (80-99); MEAN PLATELET VOLUME 9.6 fL (9.0-12.2); MONOCYTES # (AUTO) 0.7 10^3/uL (0.0-1.0); MONOCYTES % (AUTO) 10 % (0-12); NEUTROPHILS # (AUTO) 4.9 10^3/uL (1.8-7.8); NEUTROPHILS % (AUTO) 69 % (42-75); PLATELET COUNT 204 10^3/uL (130-400); WHITE BLOOD COUNT 7.1 10^3/uL (4.3-11.0)
[2022-03-16 05:37] LABS: INR 1.4 (0.8-1.4); PROTHROMBIN TIME PATIENT 17.3 SEC (12.2-14.7)
[2022-03-16 05:38] LABS: ALBUMIN 3.9 GM/DL (3.2-4.5); POTASSIUM 4.1 MMOL/L (3.6-5.0)
[2022-03-16 05:40] LABS: TOTAL PROTEIN 6.9 GM/DL (6.4-8.2)
[2022-03-16 05:42] LABS: BILIRUBIN,TOTAL 0.8 MG/DL (0.1-1.0)
[2022-03-16 05:44] LABS: CREATININE SERUM 1.24 MG/DL (0.60-1.30)
[2022-03-16 07:31] VITALS: BP 141/79
[2022-03-16] MEDS: cefTRIAXone 1 GM PRE-MIX 50 ML IV SCH (08:49)
[2022-03-16] MEDS: DOCUSATE SODIUM 100 MG (COLACE) CAP PO SCH ×2 (08:57→09:34)
[2022-03-16] MEDS: SENNOSIDES 8.6 MG (SENOKOT) TAB PO SCH ×2 (08:57→09:35)
[2022-03-16] MEDS: buPROPion SR 100 MG (WELLBUTRIN SR) TAB PO SCH (08:57)
[2022-03-16] MEDS: lisINopril 5 MG (PRINIVIL) TABLET PO SCH (08:57)
[2022-03-16] MEDS: ASPIRIN E.C. 81 MG (ECOTRIN) TAB PO SCH (08:57)
[2022-03-16] MEDS: DIGOXIN 0.25 MG (LANOXIN) TAB PO SCH (09:01)
--- NOTE | 2022-03-16 09:49 | Physical Therapy Daily Note ---
PT Daily Note-Current Subjective Patient in bed pre tx, agrees to PT, has no complaints of pain. Appearance Patient in bed post tx with nurse call, phone, tray, all needs met. Mental Status Patient Orientation: Person, Place, Situation Transfers SCALE: Activities may be completed with or without assistive devices. 7-Xwkmvubthh-rvwssfc completes the activity by him/herself with no assistance from a helper. 5-Set-up or Clean-up Assistance-helper sets up or cleans up; patient completes activity. Wayne assists only prior to or following the activity. 4-Supervision or Touching Assistance-helper provides verbal cues and/or touching/steadying and/or contact guard assistance as patient completes activity. Assistance may be provided throughout the activity or intermittently. 3-Partial/Moderate Assistance-helper does LESS THAN HALF the effort. Wayne lifts, holds or supports trunk or limbs, but provides less than half the effort. 2-Substantial/Maximal Assistance-helper does MORE THAN HALF the effort. Wayne lifts or holds trunk or limbs and provides more than half the effort. 7-Uzjgyghsz-jzzhee does ALL the effort. Patient does none of the effort to complete the activity. Or, the assistance of 2 or more helpers is required for the patient to complete the activity. If activity was not attempted, code reason: 7-Patient Refused. 9-Not Applicable-not attempted and the patient did not perform the activity before the current illness, exacerbation or injury. 10-Not Attempted due to Environmental Limitations-(lack of equipment, weather restraints, etc.). 88-Not Attempted due to Medical Conditions or Safety Concerns. Roll Left & Right (QC): 6 Sit to Lying (QC): 6 Lying to Sitting/Side of Bed(Q: 6 Sit to Stand (QC): 4 Chair/Iap-xb-Bnyed Xfer(QC): 4 Gait Training Distance: 200' Walk 10 feet (QC): 4 Walk 50 ft with 2 Turns(QC): 4 Walk 150 ft (QC): 4 Gait Persons Needed: 1 Gait Assistive Device: None Patient insisted on not using the rolling walker to ambulate. He was unsteady initially upon standing, CGA during ambulation, had unsteadiness but no LOB, very slow ambulation. Treatments bed mobility and transfers, ambulation Assessment Current Status: Poor Progress Patient CGA for ambulation due to unsteadiness, would benefit from using a walker to improve balance and prevent falls at home PT Senior Care Goals Cloth Doffer Goals PT Senior Care Goals Time Frame: Mar 21, 2022 Roll Left & Right (QC): 6 Sit to Lying (QC): 6 Lying-Sitting on Side/Bed(QC): 6 Sit to Stand (QC): 6 Chair/Bed-zo-Qqrrc Xfer(QC): 6 Walk 10 feet (QC): 6 Walk 50ft with 2 Turns (QC): 6 Walk 150 ft (QC): 6 PT Plan Problem List Problem List: Activity Tolerance, Functional Strength, Safety, Balance, Gait, Transfer, ROM Treatment/Plan Treatment Plan: Continue Plan of Care Treatment Plan: Education, Functional Activity Faraz, Functional Strength, Gait, Safety, Therapeutic Exercise, Transfers Treatment Duration: Mar 21, 2022 Frequency: 6 times per week Estimated Hrs Per Day: .25 hour per day Patient and/or Family Agrees t: Yes Safety Risks/Education Patient Education: Gait Training, Transfer Techniques, Correct Positioning, Safety Issues Teaching Recipient: Patient Teaching Methods: Demonstration, Discussion Response to Teaching: Reinforcement Needed Time/GCodes Time In: 926 Time Out: 935 Total Billed Treatment Time: 9 Total Billed Treatment 1 visit GT 9' MARLENY GREGORIO PT Mar 16, 2022 09:49
--- NOTE | 2022-03-16 11:23 | Occupational Ther Daily Note ---
OT Current Status-Daily Note Subjective Pt alert, lying in bed. Pt hyperverbal during session, cues to focus on task required. No c/o pain. Pt states that the physician said he could go home after dinner. Mental Status/Objective Patient Orientation: Person, Place, Time, Situation Attachments: IV ADL-Treatment Therapy Code Descriptions/Definitions Functional [place] Measure: 0=Not Assessed/NA 4=Minimal Assistance 1=Total Assistance 5=Supervision or Setup 2=Maximal Assistance 6=Modified [place] 3=Moderate Assistance 7=Complete IndependenceSCALE: Activities may be completed with or without assistive devices. 0-Dxyhosbxql-aklatwt completes the activity by him/herself with no assistance from a helper. 5-Set-up or Clean-up Assistance-helper sets up or cleans up; patient completes activity. Vado assists only prior to or following the activity. 4-Supervision or Touching Assistance-helper provides verbal cues and/or touching/steadying and/or contact guard assistance as patient completes activity. Assistance may be provided throughout the activity or intermittently. 3-Partial/Moderate Assistance-helper does LESS THAN HALF the effort. Vado lifts, holds or supports trunk or limbs, but provides less than half the effort. 2-Substantial/Maximal Assistance-helper does MORE THAN HALF the effort. Vado lifts or holds trunk or limbs and provides more than half the effort. 9-Asdkwroxy-lttnsz does ALL the effort. Patient does none of the effort to complete the activity. Or, the assistance of 2 or more helpers is required for the patient to complete the activity. If activity was not attempted, code reason: 7-Patient Refused. 9-Not Applicable-not attempted and the patient did not perform the activity before the current illness, exacerbation or injury. 10-Not Attempted due to Environmental Limitations-(lack of equipment, weather restraints, etc.). 88-Not Attempted due to Medical Conditions or Safety Concerns. Other Treatment Skilled instruction for correct technique when completing B UE exercises to increase strength. Pt required gestural and verbal cues to complete with correct technique. 3 B UE exercises against gravity completed 2 sets 10 reps with min cues to complete. Pt demonstrated decreased B UE coordination and fatigue during exercises and required cue to refocus pt on task. Pt stated that he has been getting up and taking self to bathroom. After session, pt lying in bed with call light/phone in reach. All needs met in room. OT Shelter Goals Shelter Goals Time Frame: Mar 25, 2022 Oral Hygiene (QC): 6 Shower/Bathe Self (QC): 5 Lower Body Dressing (QC): 5 On/Off Footwear (QC): 6 1=Demonstrate adherence to instructed precautions during ADL tasks. 2=Patient will verbalize/demonstrate understanding of assistive devices/modifications for ADL. 3=Patient will improve strength/tolerance for activity to enable patient to perform ADL's. OT Education/Plan Problem List/Assessment Assessment: Decreased Activ Tolerance, Decreased UE Strength, Impaired Coordination, Impaired Funct Balance Discharge Recommendations Plan/Recommendations: Continue POC Treatment Plan/Plan of Care Patient would benefit from OT for education, treatment and training to promote independence in ADL's, mobility, safety and/or upper extremity function for ADL's. Plan of Care: ADL Retraining, Functional Mobility, Group Exercise/Act as Ind, UE Funct Exercise/Act Treatment Duration: Mar 25, 2022 Frequency: 3 times per week (3-5x/week ) Estimated Hrs Per Day: .25 hour per day Agreement: Yes Rehab Potential: Fair Time/GCodes Start Time: 10:50 Stop Time: 11:07 Total Time Billed (hr/min): 17 Billed Treatment Time 1 visit-EX 1 (17 min) GLORIA PEREZ Mar 16, 2022 11:23
[2022-03-16] MEDS ORDERED: CEFD300C3 PO (11:47)
--- NOTE | 2022-03-16 11:51 | Discharge Summary ---
Discharge Summary Hospital Course Problems/Diagnosis: (1) Urinary tract infection Status: Acute Assessment & Plan: E coli resistant to amp and floxacins. On ceftriaxone inpatient, discharged with cefdinir to complete total of 7 day course. Qualifiers: Qualified Codes: N30.01 - Acute cystitis with hematuria (2) Dizziness Status: Acute Assessment & Plan: Possibly partly related to ear infection/cerumen. Improved and able to walk independently in halls before discharge. (3) Vertigo Status: Acute Assessment & Plan: Meclizine as needed. PT. (4) Coronary artery disease Status: Chronic (5) Chronic systolic (congestive) heart failure Status: Chronic (6) Atrial flutter, chronic Status: Chronic Hospital Course Date of Admission: Mar 13, 2022 at 11:00 Admission Diagnosis : Family Physician/Provider: Sai Holliday Date of Discharge: 03/16/22 Discharge Diagnosis: See problem list Hospital Course: See problem list Labs and Pending Lab Test: Laboratory Tests 03/16/22 05:10: White Blood Count 7.1, Red Blood Count 4.87, Hemoglobin 15.1, Hematocrit 46, Mean Corpuscular Volume 94, Mean Corpuscular Hemoglobin 31, Mean Corpuscular Hemoglobin Concent 33, Red Cell Distribution Width 12.3, Platelet Count 204, Mean Platelet Volume 9.6, Immature Granulocyte % (Auto) 1, Neutrophils (%) (Auto) 69, Lymphocytes (%) (Auto) 18, Monocytes (%) (Auto) 10, Eosinophils (%) (Auto) 1, Basophils (%) (Auto) 1, Neutrophils # (Auto) 4.9, Lymphocytes # (Auto) 1.3, Monocytes # (Auto) 0.7, Eosinophils # (Auto) 0.1, Basophils # (Auto) 0.1, Immature Granulocyte # (Auto) 0.0, Prothrombin Time 17.3H, INR Comment 1.4, Sodium Level 138, Potassium Level 4.1, Chloride Level 104, Carbon Dioxide Level 23, Anion Gap 11, Blood Urea Nitrogen 21H, Creatinine 1.24, Estimat Glomerular Filtration Rate 64, BUN/Creatinine Ratio 17, Glucose Level 102, Calcium Level 9.0, Corrected Calcium 9.1, Total Bilirubin 0.8, Aspartate Amino Transf ( AST/SGOT) 18, Alanine Aminotransferase (ALT/SGPT) 19, Alkaline Phosphatase 70, Total Protein 6.9, Albumin 3.9 Microbiology 03/13/22 Urine Culture - Final, Complete Escherichia coli Home Meds Active Cefdinir 300 Mg Capsule 300 Mg PO BID Reported Tylenol Extra Strength (Acetaminophen) 500 Mg Tablet 2,000 Mg PO Q8H PRN TAKES 4 (500MG) TABS Proair Hfa (Albuterol Sulfate) 1 Puff Puff 2 Puff IH Q4H PRN 1 PUFF = 90 MCG Atorvastatin Calcium 40 Mg Tablet 40 Mg PO DAILY Meclizine HCl 12.5 Mg Tablet 12.5-25 Mg PO Q8H PRN Aspirin EC (Aspirin) 81 Mg Tablet.dr 81 Mg PO DAILY Warfarin Sodium 5 Mg Tablet 7.5 Mg PO FRI TAKES 1 & (5MG) TABS TAKES AT BEDTIME Warfarin Sodium 5 Mg Tablet 5 Mg PO PERAZA,MO,,,,SA TAKES AT BEDTIME Digoxin 250 Mcg Tablet 250 Mcg PO DAILY Bupropion HCl Sr (Bupropion HCl) 200 Mg Tablet.er 200 Mg PO BID Lisinopril 5 Mg Tablet 5 Mg PO DAILY Cartia Xt (Diltiazem HCl) 240 Mg Cap.er.24h 240 Mg PO DAILY Carvedilol 12.5 Mg Tablet 12.5 Mg PO BID Assessment/Pt DC Instructions Follow up with primary provider within a week of discharge. Discharge Diet: Cardiac Diet Activity as Tolerated: Yes Discharge Physical Examination Allergies: Coded Allergies: No Known Drug Allergies (Unverified , 10/08/10) General Appearance: WD/WN Respiratory: Lungs Clear, Normal Breath Sounds Cardiovascular: Regular Rate, Rhythm, No Murmur Gastrointestinal: Normal Bowel Sounds, Non Tender, Soft Skin: Warm/Dry Neurologic/Psychiatric: Alert, Normal Mood/Affect VEE BRAND MD Mar 16, 2022 11:51
[2022-03-16 14:23] VITALS: BP 141/79
[2022-03-18] MEDS ORDERED: warFARin 5 MG (COUMADIN) TAB PO SCH (18:00)
== END 2022-03-16 14:25 | disposition home or self-care (01) ==
LOC: EDUNIT# 07:54 → ER 07:55 → 4TH 11:00
PROVIDERS: ADMIT Internal Medicine; ATTEND Family Medicine
DX: N39.0 Urinary tract infection, site not specified (principal); B96.20 Unspecified Escherichia coli [E. coli] as the cause of diseases classified elsewhere; Z16.11 Resistance to penicillins; R42 Dizziness and giddiness; I25.10 Atherosclerotic heart disease of native coronary artery without angina pectoris; I48.92 Unspecified atrial flutter; I50.22 Chronic systolic (congestive) heart failure; Z79.899 Other long term (current) drug therapy; Z87.891 Personal history of nicotine dependence
CPT/HCPCS: 80048; 80053 ×3; 81000; 85025 ×4; 85610 ×3; 87077; 87088; 87186; 94760; 96361 ×3; 96366; 96374; 96376 ×2; 97110; 97116; 97162; 97165; 97530; 97535; 99284; G0378; 36415

== ENCOUNTER 2022-03-25 08:15 | Outpatient (RCR) | payer MEDICARE ==
[~2022-03-25 08:15] MED LIST changes: +ACET-2267 PO; +ATOR40TA70 PO
[2022-03-25 08:49] LABS: INR 1.8 (0.8-1.4); PROTHROMBIN TIME PATIENT 21.4 SEC (12.2-14.7)
== END 2022-04-10 | disposition home or self-care (01) ==
LOC: LAB 08:15
PROVIDERS: ATTEND Nurse Practitioner Family
DX: I48.0 Paroxysmal atrial fibrillation (principal)
CPT/HCPCS: 36415; 85610

== ENCOUNTER 2022-04-29 08:26 | Outpatient (RCR) | payer MEDICARE ==
[2022-04-15 08:40] LABS: INR 1.5 (0.8-1.4); PROTHROMBIN TIME PATIENT 18.7 SEC (12.2-14.7)
[2022-04-29 08:46] LABS: PROTHROMBIN TIME PATIENT 23.4 SEC (12.2-14.7)
== END 2022-05-11 | disposition home or self-care (01) ==
LOC: LAB 08:26
PROVIDERS: ATTEND Nurse Practitioner Family
DX: I48.0 Paroxysmal atrial fibrillation (principal)
CPT/HCPCS: 36415; 85610

== ENCOUNTER → 2022-06-10 | Outpatient (RCR) | payer MEDICARE ==
[2022-05-27 12:45] LABS: INR 1.6 (0.8-1.4); PROTHROMBIN TIME PATIENT 19.7 SEC (12.2-14.7)
[2022-06-10 08:54] LABS: INR 2.8 (0.8-1.4)
== END | disposition home or self-care (01) ==
LOC: LAB 05-27 08:26
PROVIDERS: ATTEND Nurse Practitioner Family
DX: I48.0 Paroxysmal atrial fibrillation (principal)
CPT/HCPCS: 36415; 85610

== ENCOUNTER 2022-07-15 09:35 | Outpatient (RCR) | payer MEDICARE ==
[~2022-07-15 09:35] MED LIST changes: +ALBU8.5H6 IH; -RT-ALBUINH IH
[2022-07-15 10:22] LABS: PROTHROMBIN TIME PATIENT 23.5 SEC (12.2-14.7)
== END 2022-08-10 | disposition home or self-care (01) ==
LOC: LAB 09:35
PROVIDERS: ATTEND Nurse Practitioner Family
DX: I48.0 Paroxysmal atrial fibrillation (principal)
CPT/HCPCS: 36415; 85610

== ENCOUNTER 2022-08-15 09:59 | Outpatient (RCR) | payer MEDICARE ==
[2022-08-15 10:47] LABS: INR 1.7 (0.8-1.4); PROTHROMBIN TIME PATIENT 20.5 SEC (12.2-14.7)
[2022-08-26 09:33] LABS: PROTHROMBIN TIME PATIENT 31.3 SEC (12.2-14.7)
[2022-08-26 09:45] LABS: CALCIUM 9.8 MG/DL (8.5-10.1); CREATININE SERUM 1.31 MG/DL (0.60-1.30); POTASSIUM 3.9 MMOL/L (3.6-5.0)
== END 2022-09-10 | disposition home or self-care (01) ==
LOC: LAB 09:59
PROVIDERS: ATTEND Nurse Practitioner Family
DX: I48.0 Paroxysmal atrial fibrillation (principal)
CPT/HCPCS: 36415; 80048; 85610

== ENCOUNTER 2022-10-18 17:14 | Emergency (ER) | payer MEDICARE ==
[2022-10-18 18:17] LABS: BASOPHILS # (AUTO) 0.1 10^3/uL (0.0-0.1); BASOPHILS % (AUTO) 1 % (0-10); EOSINOPHILS % (AUTO) 0 % (0-10); HEMATOCRIT 40 % (40-54); LYMPHOCYTES % (AUTO) 8 % (12-44); MEAN CORPUSCULAR HEMOGLOBIN 32 pg (25-34); MEAN CORPUSCULAR HGB CONC 35 g/dL (32-36); MEAN CORPUSCULAR VOLUME 93 fL (80-99); MEAN PLATELET VOLUME 9.6 fL (9.0-12.2); MONOCYTES # (AUTO) 0.8 10^3/uL (0.0-1.0); MONOCYTES % (AUTO) 6 % (0-12); NEUTROPHILS # (AUTO) 11.2 10^3/uL (1.8-7.8); NEUTROPHILS % (AUTO) 85 % (42-75); PLATELET COUNT 235 10^3/uL (130-400); WHITE BLOOD COUNT 13.2 10^3/uL (4.3-11.0)
[2022-10-18 18:26] LABS: ALBUMIN 3.8 GM/DL (3.2-4.5); POTASSIUM 3.9 MMOL/L (3.6-5.0)
[2022-10-18 18:27] LABS: CALCIUM 8.9 MG/DL (8.5-10.1)
[2022-10-18 18:29] LABS: TOTAL PROTEIN 6.9 GM/DL (6.4-8.2)
[2022-10-18 18:30] LABS: BILIRUBIN,TOTAL 0.8 MG/DL (0.1-1.0)
[2022-10-18] MEDS ORDERED: LACTATED RINGERS 1,000 ML IV SCH (18:30)
[2022-10-18 18:32] LABS: CREATININE SERUM 1.11 MG/DL (0.60-1.30)
--- NOTE | 2022-10-18 18:33 | Diagnostic Imaging Report ---
Indication: Shoulder pain, fall. Time of Exam: 6:04 PM Correlation is made with prior chest 05/24/2021. Cardiac defibrillator is in place. Right hemidiaphragm appears elevated. There is some atelectasis in the right base. There may be some pleural fluid as well. No definite rib fracture is seen. There is no pneumothorax. The left lung is clear. IMPRESSION: There is right basilar atelectasis and potentially minimal pleural fluid. No definite rib fracture is seen, however, if there is concern for a rib fracture, dedicated rib films would be useful for further evaluation. Dictated by: Dictated on workstation # [id number]
--- NOTE | 2022-10-18 18:34 | Diagnostic Imaging Report ---
Indication: Fall and right shoulder pain. Time of Exam: 6:08 PM 2 views right clavicle show normal acromioclavicular alignment. Clavicle appears intact. No fractures are seen. IMPRESSION: No acute abnormality is detected. Dictated by: Dictated on workstation # [id number]
[2022-10-18] MEDS ORDERED: ONDANSETRON 4 MG/2 ML (SDV) Z0FRAN IVP ONE (18:45)
--- NOTE | 2022-10-18 19:41 | ED Fall/Injury ---
General Chief Complaint: Trauma-Non Activation Stated Complaint: FALL Nursing Triage Note: PT TO [facility] BY [facility] WITH C/O R SHOULDER PAIN AFTER FALLING IN THE DIRT AROUND 330 THIS AFTERNOON. PT ALSO C/O R RIB PAIN Source: patient Exam Limitations: no limitations History of Present Illness Date Seen by Provider: Oct 18, 2022 Time Seen by Provider: 17:15 Initial Comments Patient is a 67-year-old male who presents to the emergency department via EMS with right shoulder and right lateral rib pain after mechanical fall at 330 this afternoon. He states he was trying to stay home but states his rib pain got progressively worse thus he came to the ER for further evaluation. Repeatedly s tates he did not hit his head. Patient is currently on Coumadin. Denies any pain or injury outside of his right shoulder and right chest wall. States the chest pain is worse with deep inspiration or palpation of the affected area. Patient states he took 7 regular strength Tylenols since the injury occurred but states the pain has not been decreased. Allergies and Home Medications Allergies Coded Allergies: No Known Drug Allergies (Unverified , 10/08/10) Patient Home Medication List Home Medication List Reviewed: Yes Acetaminophen (Tylenol Extra Strength) 500 Mg Tablet, 2,000 MG PO Q8H PRN for PAIN-MILD (1-4), (Reported) Entered as Reported by: BLAIRE OTT on 03/15/22 1309 Albuterol Sulfate (Ventolin Hfa) 1 Puff Puff, 2 PUFF IH Q4H PRN for SHORTNESS OF BREATH, (Reported) Entered as Reported by: BLAIRE OTT on 03/15/22 1308 Aspirin (Aspirin EC) 81 Mg Tablet.dr, 81 MG PO DAILY, (Reported) Entered as Reported by: JAQUELINE BOSWELL on 05/25/21 1019 Atorvastatin Calcium (Atorvastatin Calcium) 40 Mg Tablet, 40 MG PO DAILY, (Reported) Entered as Reported by: BLAIRE OTT on 03/15/22 1308 Bupropion HCl (Bupropion HCl Sr) 200 Mg Tablet.er, 200 MG PO BID, (Reported) Entered as Reported by: JAQUELINE BOSWELL on 05/25/21 1019 Carvedilol (Carvedilol) 12.5 Mg Tablet, 12.5 MG PO BID, (Reported) Entered as Reported by: CAMILA VERGARA on 03/02/17 1313 Cefdinir (Cefdinir) 300 Mg Capsule, 300 MG PO BID Prescribed by: VEE BRAND on 03/16/22 1147 Digoxin (Digoxin) 250 Mcg Tablet, 250 MCG PO DAILY, (Reported) Entered as Reported by: JAQUELINE BOSWELL on 05/25/21 1019 Diltiazem HCl (Cartia Xt) 240 Mg Cap.er.24h, 240 MG PO DAILY, (Reported) Entered as Reported by: JAQUELINE BOSWELL on 05/25/21 1019 Lisinopril (Lisinopril) 5 Mg Tablet, 5 MG PO DAILY, (Reported) Entered as Reported by: JAQUELINE BOSWELL on 05/25/21 1019 Meclizine HCl (Meclizine HCl) 12.5 Mg Tablet, 12.5-25 MG PO Q8H PRN for DIZZINESS, (Reported) Entered as Reported by: JAQUELINE BOSWELL on 05/25/21 1019 Warfarin Sodium (Warfarin Sodium) 5 Mg Tablet, 5 MG PO PERAZA,MO,TU,WE,TH,SA , (Reported) Entered as Reported by: JAQUELINE BOSWELL on 05/25/21 1019 Warfarin Sodium (Warfarin Sodium) 5 Mg Tablet, 7.5 MG PO FRI, (Reported) Entered as Reported by: JAQUELINE BOSWELL on 05/25/21 1019 Review of Systems Review of Systems Constitutional: no symptoms reported Eyes: No Symptoms Reported Ears, Nose, Mouth, Throat: no symptoms reported Respiratory: no symptoms reported Cardiovascular: see HPI, chest pain Gastrointestinal: no symptoms reported Genitourinary: no symptoms reported Musculoskeletal: see HPI, joint pain Skin: no symptoms reported Psychiatric/Neurological: No Symptoms Reported Past Psvfetr-Kzqtfo-Sqgzoe Hx Patient Social History Tobacco Use?: No Substance use?: No Alcohol Use?: No Pt feels they are or have been: No Immunizations Up To Date Influenza Vaccine Up-to-Date: No; Not Current First/Initial COVID19 Vaccinat: 2020 Second COVID19 Vaccination Rory: 2020 Third COVID19 Vaccination Date: 2020 COVID19 Vaccine Paste Maker: Teravac Seasonal Allergies Seasonal Allergies: Yes (at times) Past Medical History Surgery/Hospitalization HX: HEART SURG, APPY. B/P, AFIB HTN, COPD Surgeries: Yes (nose x2, stents x2, ) Appendectomy, Coronary Stent, Pacemaker, Tonsillectomy Respiratory: Yes (REPORTS SOB WITH PHYSICAL EXERTION, RELATES TO POLLEN/GRASS ALLERGIES) Cardiac: Yes (pacemaker, ischemic cardiomyopathy) Atrial Fibrillation, Coronary Artery Disease, Heart Attack, Hypertension Neurological: Yes Headaches /Migraines Reproductive Disorders: No Genitourinary: Yes (history of testicular rupture) Gastrointestinal: No Musculoskeletal: No Endocrine: No HEENT: No Cancer: No Psychosocial: No Integumentary: No Blood Disorders: No Family Medical History Other Conditions/Hx Physical Exam Vital Signs Vital Signs - First Documented 10/18/22 17:15 Temp 37.1 Pulse 65 Resp 18 B/P (MAP) 125/81 (96) Capillary Refill : Height, Weight, BMI Height: 6'3.00" Weight: 214lbs. 0.0oz. [id number]; 27.61 BMI Method:Stated General Appearance: WD/WN, no apparent distress HEENT: PERRL/EOMI, normal ENT inspection, TMs normal, pharynx normal Neck: non-tender, full range of motion Cardiovascular: regular rate, rhythm Respiratory: chest non-tender, lungs clear, normal breath sounds, no respiratory distress, no accessory muscle use Gastrointestinal: normal bowel sounds, non tender, soft, no organomegaly, no pulsatile mass Extremities: normal range of motion, non-tender, normal inspection, no pedal edema, no calf tenderness Neurologic/Psychiatric: no motor/sensory deficits, alert, normal mood/affect, oriented x 3 Skin: normal color, warm/dry Brooke Coma Score Best Eye Response: (4) Open Spontaneously Best Verbal Response: (5) Oriented Best Motor Response: (6) Obeys Commands [place] Total: 15 Progress/Results/Core Measures Results/Orders Lab Results Laboratory Tests Test 10/18/22 18:01 10/18/22 18:05 Range/Units Glucometer 125 H 70-110 MG/DL White Blood Count 13.2 H 4.3-11.0 10^3/uL Red Blood Count 4.35 4.30-5.52 10^6/uL Hemoglobin 14.0 13.3-17.7 g/dL Hematocrit 40 40-54 % Mean Corpuscular Volume 93 80-99 fL Mean Corpuscular Hemoglobin 32 25-34 pg Mean Corpuscular Hemoglobin Concent 35 32-36 g/dL Red Cell Distribution Width 11.9 10.0-14.5 % Platelet Count 235 130-400 10^3/uL Mean Platelet Volume 9.6 9.0-12.2 fL Immature Granulocyte % (Auto) 1 % Neutrophils (%) (Auto) 85 H 42-75 % Lymphocytes (%) (Auto) 8 L 12-44 % Monocytes (%) (Auto) 6 0-12 % Eosinophils (%) (Auto) 0 0-10 % Basophils (%) (Auto) 1 0-10 % Neutrophils # (Auto) 11.2 H 1.8-7.8 10^3/uL Lymphocytes # (Auto) 1.0 1.0-4.0 10^3/uL Monocytes # (Auto) 0.8 0.0-1.0 10^3/uL Eosinophils # (Auto) 0.0 0.0-0.3 10^3/uL Basophils # (Auto) 0.1 0.0-0.1 10^3/uL Immature Granulocyte # (Auto) 0.1 0.0-0.1 10^3/uL Sodium Level 137 135-145 MMOL/L Potassium Level 3.9 3.6-5.0 MMOL/L Chloride Level 103 98-107 MMOL/L Carbon Dioxide Level 22 21-32 MMOL/L Anion Gap 12 5-14 MMOL/L Blood Urea Nitrogen 15 7-18 MG/DL Creatinine 1.11 0.60-1.30 MG/DL Estimat Glomerular Filtration Rate 72 BUN/Creatinine Ratio 14 Glucose Level 141 H 70-105 MG/DL Calcium Level 8.9 8.5-10.1 MG/DL Corrected Calcium 9.1 8.5-10.1 MG/DL Total Bilirubin 0.8 0.1-1.0 MG/DL Aspartate Amino Transf (AST/SGOT) 18 5-34 U/L Alanine Aminotransferase (ALT/SGPT) 24 0-55 U/L Alkaline Phosphatase 66 40-136 U/L Total Protein 6.9 6.4-8.2 GM/DL Albumin 3.8 3.2-4.5 GM/DL My Orders Orders - DANIELLE HENDRIX APRN Chest 1 View, Ap/Pa Only (10/18/22 17:19) Oxycodone Immediate Rel Tablet (Oxyir Ta (10/18/22 17:30) Cbc With Automated Diff (10/18/22 18:01) Comprehensive Metabolic Panel (10/18/22 18:01) Iv/Invasive Line Insertion .IV INSERT (10/18/22 18:01) Ekg Tracing (10/18/22 18:01) Clavicle, Right (10/18/22 18:09) Lactated Ringers (Lr 1000 Ml Iv Solution (10/18/22 18:30) Ondansetron Injection (Zofran Injectio (10/18/22 18:45) Orthostatic Vital Signs (Adult (10/18/22 18:49) Rx-Hydrocodone/Apap 5-325 Mg (Rx-Vicodin (10/18/22 20:15) Medications Given in ED Current Medications Medications Dose Ordered Sig/Feliz Route Start Time Stop Time Status Last Admin Dose Admin Ondansetron HCl 4 mg ONCE ONCE IVP 10/18/22 18:45 10/18/22 18:46 DC 10/18/22 18:47 4 MG Oxycodone HCl 5 mg ONCE ONCE PO 10/18/22 17:30 10/18/22 17:31 DC 10/18/22 17:33 5 MG Vital Signs/I&O 10/18/22 10/18/22 10/18/22 17:15 19:58 20:15 Temp 37.1 37.1 Pulse 65 85 80 89 86 Resp 18 18 B/P (MAP) 125/81 (96) 104/72 (83) 115/77 109/72 (84) 108/50 (69) Blood Pressure Mean: 96 FSBG Bedside Testing Finger Stick Blood Glucose: 125 Blood Glucose Action Taken: HENDRIX NOTIFIED Progress Progress Note : Progress Note Patient is nontoxic and well-hydrated on exam. No focal neurologic deficits appreciated. No adventitious lung sounds or increased work of breathing noted. Vital signs are reassuring. No step-off or crepitus noted on examination of the right lateral chest wall. Patient endorses pain in the right clavicular area. Patient was able to move himself with minimal assistance from the EMS stretcher to the ER stretcher. Orders placed for chest x-ray and right clavicle x-ray. Reportedly have a witnessed syncopal episode while in the radiology suite. Patient was sitting upright on a stool anticipation of obtaining radiographs when he syncopized. Patient did not fall and patient did not hit his head. The loss of consciousness only lasted handful of seconds before the patient awoke. Patient does state he feels weak and "not good" after the loss of consciousness occurred. Patient denies any chest pain, shortness of air, headache. Patient is still able to answer questions appropriately. No indication for cross- sectional imaging of the head this patient persists in his statement that he did not hit his head and there are no focal neurologic deficits appreciated. Patient's vital signs remained stable. Orders placed for CBC, CMP, IV placement, and liter bolus of LR. Patient was also given an oral dose of oxycodone shortly after his arrival. Acetaminophen containing narcotic combination unable to be given due to patient's large ingestion of acetaminophen shortly prior to arrival. X-ray of the chest and x-ray of the right clavicle are both acutely negative. CBC and CMP are unremarkable. Specifically there is no evidence of anemia on CBC and there is no significant metabolic derangement on CMP. Patient will be discharged home with recommendations for supportive care and close follow-up with PCP. Return precautions for symptomology daniel stearns Patient verbalized understanding. Departure Impression Primary Impression: Fall on same level Qualified Codes: W18.30XA - Fall on same level, unspecified, initial encoun ter Additional Impression: Contusion of ribs Qualified Codes: S20.211A - Contusion of right front wall of thorax, initial encounter Disposition: 01 HOME, SELF-CARE Condition: Stable Departure-Patient Inst. Decision time for Depature: 20:00 Referrals: [facility] (PCP) Primary Care Physician JENI CLOUD (Family) Primary Care Physician Patient Instructions: Rib Fracture or Bruised Rib ED DANIELLE HENDRIX APRN Oct 18, 2022 19:41
[2022-10-18 19:58] VITALS: BP_SYST 104; BP_SYST 108; BP_SYST 109; BP_DIAS 50; BP_DIAS 72
[2022-10-18 20:15] VITALS: BP 115/77
== END 2022-10-18 20:24 | disposition home or self-care (01) ==
LOC: EDUNIT# 17:14 → ER 17:15
DX: S20.211A Contusion of right front wall of thorax, initial encounter (principal); I48.91 Unspecified atrial fibrillation; Z79.01 Long term (current) use of anticoagulants; W18.30XA Fall on same level, unspecified, initial encounter
CPT/HCPCS: 36415; 71045; 73000; 80053; 82947; 85025; 93005

== ENCOUNTER → 2022-11-29 | Outpatient (CLI) | payer MEDICARE ==
[2022-11-29 09:06] LABS: BASOPHILS # (AUTO) 0.1 10^3/uL (0.0-0.1); BASOPHILS % (AUTO) 1 % (0-10); EOSINOPHILS # (AUTO) 0.2 10^3/uL (0.0-0.3); EOSINOPHILS % (AUTO) 3 % (0-10); HEMATOCRIT 43 % (40-54); HEMOGLOBIN 14.4 g/dL (13.3-17.7); LYMPHOCYTES # (AUTO) 1.1 10^3/uL (1.0-4.0); LYMPHOCYTES % (AUTO) 17 % (12-44); MEAN CORPUSCULAR HEMOGLOBIN 31 pg (25-34); MEAN CORPUSCULAR HGB CONC 33 g/dL (32-36); MEAN CORPUSCULAR VOLUME 94 fL (80-99); MEAN PLATELET VOLUME 9.5 fL (9.0-12.2); MONOCYTES # (AUTO) 0.5 10^3/uL (0.0-1.0); MONOCYTES % (AUTO) 8 % (0-12); NEUTROPHILS # (AUTO) 4.4 10^3/uL (1.8-7.8); NEUTROPHILS % (AUTO) 70 % (42-75); PLATELET COUNT 244 10^3/uL (130-400); WHITE BLOOD COUNT 6.3 10^3/uL (4.3-11.0)
[2022-11-29 09:16] LABS: POTASSIUM 3.5 MMOL/L (3.6-5.0)
[2022-11-29 09:17] LABS: CALCIUM 9.5 MG/DL (8.5-10.1)
[2022-11-29 09:18] LABS: PROTHROMBIN TIME PATIENT 14.1 SEC (12.2-14.7)
[2022-11-29 09:22] LABS: CREATININE SERUM 1.16 MG/DL (0.60-1.30)
[2022-11-29 09:24] LABS: MAGNESIUM 1.7 MG/DL (1.6-2.4)
== END ==
LOC: LAB 08:42
PROVIDERS: ATTEND Internal Medicine Cardiovascular Disease
DX: I48.0 Paroxysmal atrial fibrillation (principal)
CPT/HCPCS: 36415; 80048; 83735; 85025; 85610

== ENCOUNTER → 2022-12-12 | Outpatient (CLI) | payer MEDICARE ==
[2022-12-12 09:22] LABS: BASOPHILS # (AUTO) 0.1 10^3/uL (0.0-0.1); BASOPHILS % (AUTO) 1 % (0-10); EOSINOPHILS # (AUTO) 0.4 10^3/uL (0.0-0.3); EOSINOPHILS % (AUTO) 5 % (0-10); HEMATOCRIT 47 % (40-54); HEMOGLOBIN 15.7 g/dL (13.3-17.7); LYMPHOCYTES # (AUTO) 1.2 10^3/uL (1.0-4.0); LYMPHOCYTES % (AUTO) 17 % (12-44); MEAN CORPUSCULAR HEMOGLOBIN 31 pg (25-34); MEAN CORPUSCULAR HGB CONC 34 g/dL (32-36); MEAN CORPUSCULAR VOLUME 92 fL (80-99); MEAN PLATELET VOLUME 9.3 fL (9.0-12.2); MONOCYTES # (AUTO) 0.6 10^3/uL (0.0-1.0); MONOCYTES % (AUTO) 8 % (0-12); NEUTROPHILS # (AUTO) 5.1 10^3/uL (1.8-7.8); NEUTROPHILS % (AUTO) 69 % (42-75); PLATELET COUNT 268 10^3/uL (130-400); WHITE BLOOD COUNT 7.4 10^3/uL (4.3-11.0)
[2022-12-12 09:33] LABS: INR 3.5 (0.8-1.4); PROTHROMBIN TIME PATIENT 35.5 SEC (12.2-14.7)
[2022-12-12 09:35] LABS: ALBUMIN 4.2 GM/DL (3.2-4.5); POTASSIUM 3.2 MMOL/L (3.6-5.0)
[2022-12-12 09:36] LABS: CALCIUM 9.5 MG/DL (8.5-10.1)
[2022-12-12 09:37] LABS: TOTAL PROTEIN 7.6 GM/DL (6.4-8.2)
[2022-12-12 09:39] LABS: BILIRUBIN,TOTAL 0.7 MG/DL (0.1-1.0)
[2022-12-12 09:41] LABS: CREATININE SERUM 1.08 MG/DL (0.60-1.30)
== END ==
LOC: LAB 09:03
PROVIDERS: ATTEND Internal Medicine Cardiovascular Disease
DX: I48.0 Paroxysmal atrial fibrillation (principal); I25.10 Atherosclerotic heart disease of native coronary artery without angina pectoris; I25.5 Ischemic cardiomyopathy; I11.0 Hypertensive heart disease with heart failure; I50.22 Chronic systolic (congestive) heart failure; I65.23 Occlusion and stenosis of bilateral carotid arteries; R42 Dizziness and giddiness; E78.2 Mixed hyperlipidemia; Z95.810 Presence of automatic (implantable) cardiac defibrillator; Z79.01 Long term (current) use of anticoagulants
CPT/HCPCS: 36415; 80053; 80061; 80162; 84443; 85025; 85610

== ENCOUNTER → 2022-12-19 | Outpatient (CLI) | payer MEDICARE ==
[~2022-12-19] MED LIST changes: +TMSL.4C PO
[2022-12-19 09:08] LABS: POTASSIUM 3.5 MMOL/L (3.6-5.0)
[2022-12-19 09:10] LABS: CALCIUM 9.2 MG/DL (8.5-10.1)
[2022-12-19 09:14] LABS: CREATININE SERUM 1.15 MG/DL (0.60-1.30)
[2022-12-19 09:17] LABS: MAGNESIUM 1.9 MG/DL (1.6-2.4)
== END ==
LOC: LAB 08:44
PROVIDERS: ATTEND Internal Medicine Cardiovascular Disease
DX: E87.6 Hypokalemia (principal)
CPT/HCPCS: 36415; 80048; 83735

== ENCOUNTER 2022-12-20 15:30 | Emergency (ER) | payer MEDICARE ==
[~2022-12-20] VITALS: Ht 185 cm; Wt 92.0 kg
[~2022-12-20 15:30] MED LIST changes: -TMSL.4C PO
[2022-12-20] MEDS ORDERED: morphine INJ 10 MG/ML 1ML (SYR OR VIAL) IVP STA (16:52)
[2022-12-20 16:54] LABS: BILIRUBIN,URINE NEGATIVE (NEGATIVE); CLARITY,URINE CLEAR; COLOR,URINE ORANGE; GLUCOSE, URINE (UA) NEGATIVE (NEGATIVE); KETONES,URINE NEGATIVE (NEGATIVE); LEUKOCYTE ESTERASE ,URINE TRACE (NEGATIVE); NITRITE,URINE NEGATIVE (NEGATIVE); PROTEIN,URINE TRACE (NEGATIVE)
--- NOTE | 2022-12-20 16:57 | ED Abdominal Pain ---
General Chief Complaint: Abdominal/GI Problems Stated Complaint: ABDOMINAL PAIN Nursing Triage Note: PT STATES LRQ PAIN FOR 2 DAYS, PAINFUL URINATION AND CONSTIPATION FOR ABOUT A WK Source of Information: Patient Exam Limitations: No Limitations History of Present Illness Date Seen by Provider: Dec 20, 2022 Time Seen by Provider: 15:35 Initial Comments 67yoM with PMH of CAD s/p stenting, ischemic cardiomyopathy, A-fib on warfarin coming in due to right lower quadrant abdominal pain. This been going on for 2 days. He states it is difficult to urinate and hurts at times. Is been constipated for the past several days, last bowel movement 2 to 3 days ago. He is passing flatus. He was referred from [facility]. Denies any prior abdominal surgery history, but does have BPH. Otherwise denying any chest pain, shortness of breath, nausea, vomiting, diarrhea, weakness, numbness, or any other concerns. Allergies and Home Medications Allergies Coded Allergies: No Known Drug Allergies (Unverified , 10/08/10) Patient Home Medication List Home Medication List Reviewed: Yes Acetaminophen (Tylenol Extra Strength) 500 Mg Tablet, 2,000 MG PO Q8H PRN for PAIN-MILD (1-4), (Reported) Entered as Reported by: BLAIRE OTT on 03/15/22 1309 Albuterol Sulfate (Ventolin Hfa) 1 Puff Puff, 2 PUFF IH Q4H PRN for SHORTNESS OF BREATH, (Reported) Entered as Reported by: BLAIRE OTT on 03/15/22 1308 Aspirin (Aspirin EC) 81 Mg Tablet.dr, 81 MG PO DAILY, (Reported) Entered as Reported by: JAQUELINE BOSWELL on 05/25/21 1019 Atorvastatin Calcium (Atorvastatin Calcium) 40 Mg Tablet, 40 MG PO DAILY, (Reported) Entered as Reported by: BLAIRE OTT on 03/15/22 1308 Bupropion HCl (Bupropion HCl Sr) 200 Mg Tablet.er, 200 MG PO BID, (Reported) Entered as Reported by: JAQUELINE BOSWELL on 05/25/21 1019 Carvedilol (Carvedilol) 12.5 Mg Tablet, 12.5 MG PO BID, (Reported) Entered as Reported by: CAMILA VERGARA on 03/02/17 1313 Cefdinir (Cefdinir) 300 Mg Capsule, 300 MG PO BID Prescribed by: VEE BRAND on 03/16/22 1147 Digoxin (Digoxin) 250 Mcg Tablet, 250 MCG PO DAILY, (Reported) Entered as Reported by: JAQUELINE BOSEWLL on 05/25/21 1019 Diltiazem HCl (Cartia Xt) 240 Mg Cap.er.24h, 240 MG PO DAILY, (Reported) Entered as Reported by: JAQUELINE BOSWELL on 05/25/21 1019 Lisinopril (Lisinopril) 5 Mg Tablet, 5 MG PO DAILY, (Reported) Entered as Reported by: JAQUELINE BOSWELL on 05/25/21 1019 Meclizine HCl (Meclizine HCl) 12.5 Mg Tablet, 12.5-25 MG PO Q8H PRN for DIZZINESS, (Reported) Entered as Reported by: JAQUELINE BOSWELL on 05/25/21 1019 Warfarin Sodium (Warfarin Sodium) 5 Mg Tablet, 5 MG PO PERAZA,MO,TU,WE,TH,SA , (Reported) Entered as Reported by: JAQUELINE BOSWELL on 05/25/21 1019 Warfarin Sodium (Warfarin Sodium) 5 Mg Tablet, 7.5 MG PO FRI, (Reported) Entered as Reported by: JAQUELINE BOSWELL on 05/25/21 1019 Review of Systems Review of Systems Constitutional: No fever EENTM: No Symptoms Reported Respiratory: No Symptoms Reported Cardiovascular: No Symptoms Reported Gastrointestinal: See HPI Genitourinary: See HPI Musculoskeletal: no symptoms reported Skin: no symptoms reported Psychiatric/Neurological: No Symptoms Reported Endocrine: No Symptoms Reported Hematologic/Lymphatic: No Symptoms Reported Past Rttwuyu-Xtouss-Ntjgkt Hx Patient Social History Tobacco Use?: Yes Smoking Status: Former Smoker Substance use?: No Alcohol Use?: No Immunizations Up To Date First/Initial COVID19 Vaccinat: 2020 Second COVID19 Vaccination Rory: 2020 Third COVID19 Vaccination Date: 2020 Seasonal Allergies Seasonal Allergies: Yes (at times) Past Medical History Surgery/Hospitalization HX: HEART SURG, APPY. B/P, AFIB HTN, COPD Surgeries: Yes (nose x2, stents x2, ) Appendectomy, Coronary Stent, Pacemaker, Tonsillectomy Respiratory: Yes (REPORTS SOB WITH PHYSICAL EXERTION, RELATES TO POLLEN/GRASS ALLERGIES) Cardiac: Yes (pacemaker, ischemic cardiomyopathy) Atrial Fibrillation, Coronary Artery Disease, Heart Attack, Hypertension Neurological: Yes Headaches /Migraines Reproductive Disorders: No Genitourinary: Yes (history of testicular rupture) Gastrointestinal: No Musculoskeletal: No Endocrine: No HEENT: No Cancer: No Psychosocial: No Integumentary: No Blood Disorders: No Family Medical History Other Conditions/Hx Physical Exam Vital Signs Vital Signs - First Documented 12/20/22 16:15 Temp 36.9 Pulse 99 Resp 20 B/P (MAP) 117/81 (93) Pulse Ox 94 O2 Delivery Room Air Capillary Refill : Less Than 3 Seconds Height/Weight/BMI Height: 6'3.00" Weight: 214lbs. 0.0oz. 97.898910cw; 26.00 BMI Method:Stated General Appearance: WD/WN, no apparent distress HEENT: PERRL/EOMI, normal ENT inspection, pharynx normal Neck: non-tender, full range of motion, supple, normal inspection Respiratory: chest non-tender, lungs clear, normal breath sounds, no r espiratory distress, no accessory muscle use Cardiovascular: regular rate, rhythm, no edema, no murmur Gastrointestinal: normal bowel sounds, soft; No distended, No guarding, No rebound; tenderness Extremities: normal range of motion, non-tender, normal inspection, no pedal edema, no calf tenderness, normal capillary refill Back: normal inspection, no CVA tenderness Neurologic/Psychiatric: no motor/sensory deficits, alert, normal mood/affect Skin: normal color, warm/dry Progress/Results/Core Measures Results/Orders Lab Results Laboratory Tests Test 12/20/22 16:35 12/20/22 16:58 Range/Units Urine Color ORANGE Urine Clarity CLEAR Urine pH 6.0 5-9 Urine Specific [place] >=1.030 1.016-1.022 Urine Protein TRACE H NEGATIVE Urine Glucose (UA) NEGATIVE NEGATIVE Urine Ketones NEGATIVE NEGATIVE Urine Nitrite NEGATIVE NEGATIVE Urine Bilirubin NEGATIVE NEGATIVE Urine Urobilinogen 2.0 < = 1.0 MG/DL Urine Leukocyte Esterase TRACE H NEGATIVE Urine RBC (Auto) NEGATIVE NEGATIVE Urine RBC 0-2 /HPF Urine WBC 5-10 H /HPF Urine Squamous Epithelial Cells 0-2 /HPF Urine Crystals NONE /LPF Urine Bacteria FEW H /HPF Urine Casts PRESENT /LPF Urine Hyaline Casts 2-5 H /LPF Urine Mucus LARGE H /LPF Urine Culture Indicated YES White Blood Count 11.2 H 4.3-11.0 10^3/uL Red Blood Count 4.82 4.30-5.52 10^6/uL Hemoglobin 15.1 13.3-17.7 g/dL Hematocrit 43 40-54 % Mean Corpuscular Volume 90 80-99 fL Mean Corpuscular Hemoglobin 31 25-34 pg Mean Corpuscular Hemoglobin Concent 35 32-36 g/dL Red Cell Distribution Width 11.9 10.0-14.5 % Platelet Count 301 130-400 10^3/uL Mean Platelet Volume 9.4 9.0-12.2 fL Immature Granulocyte % (Auto) 0 % Neutrophils (%) (Auto) 72 42-75 % Lymphocytes (%) (Auto) 11 L 12-44 % Monocytes (%) (Auto) 10 0-12 % Eosinophils (%) (Auto) 6 0-10 % Basophils (%) (Auto) 1 0-10 % Neutrophils # (Auto) 8.1 H 1.8-7.8 10^3/uL Lymphocytes # (Auto) 1.2 1.0-4.0 10^3/uL Monocytes # (Auto) 1.1 H 0.0-1.0 10^3/uL Eosinophils # (Auto) 0.6 H 0.0-0.3 10^3/uL Basophils # (Auto) 0.1 0.0-0.1 10^3/uL Immature Granulocyte # (Auto) 0.1 0.0-0.1 10^3/uL Sodium Level 138 135-145 MMOL/L Potassium Level 3.1 L 3.6-5.0 MMOL/L Chloride Level 102 98-107 MMOL/L Carbon Dioxide Level 24 21-32 MMOL/L Anion Gap 12 5-14 MMOL/L Blood Urea Nitrogen 19 H 7-18 MG/DL Creatinine 1.07 0.60-1.30 MG/DL Estimat Glomerular Filtration Rate 76 BUN/Creatinine Ratio 18 Glucose Level 98 70-105 MG/DL Calcium Level 9.5 8.5-10.1 MG/DL Corrected Calcium 9.4 8.5-10.1 MG/DL Magnesium Level 2.0 1.6-2.4 MG/DL Total Bilirubin 1.0 0.1-1.0 MG/DL Aspartate Amino Transf (AST/SGOT) 15 5-34 U/L Alanine Aminotransferase (ALT/SGPT) 20 0-55 U/L Alkaline Phosphatase 90 40-136 U/L Total Protein 7.6 6.4-8.2 GM/DL Albumin 4.1 3.2-4.5 GM/DL Lipase 32 8-78 U/L My Orders Orders - CHELA DOOLEY MD Ct Abd/Pelv W (Appendicitis) (12/20/22 16:52) Ed Iv/Invasive Line Start (12/20/22 16:52) Cbc With Automated Diff (12/20/22 16:52) Comprehensive Metabolic Panel (12/20/22 16:52) Lipase (12/20/22 16:52) Magnesium (12/20/22 16:52) Morphine Injection (Morphine Injection (12/20/22 16:52) Ondansetron Injection (Zofran Injectio (12/20/22 17:00) Iohexol Injection (Omnipaque 350 Mg/Ml 1 (12/20/22 17:00) Ns (Ivpb) (Sodium Chloride 0.9% Ivpb Bag (12/20/22 17:00) Ceftriaxone 1 Gm Pre-Mix (Rocephin 1 Gm (12/20/22 18:30) Medications Given in ED Current Medications Medications Dose Ordered Sig/Feliz Route Start Time Stop Time Status Last Admin Dose Admin Iohexol 100 ml ONCE ONCE IV 12/20/22 17:00 12/20/22 17:01 DC 12/20/22 17:38 80 ML Ondansetron HCl 4 mg ONCE ONCE IVP 12/20/22 17:00 12/20/22 17:01 DC 12/20/22 17:02 4 MG Sodium Chloride 100 ml ONCE ONCE IV 12/20/22 17:00 12/20/22 17:01 DC 12/20/22 17:38 80 ML Vital Signs/I&O 12/20/22 16:15 Temp 36.9 Pulse 99 Resp 20 B/P (MAP) 117/81 (93) Pulse Ox 94 O2 Delivery Room Air Blood Pressure Mean: 93 Progress Progress Note : Progress Note 67-year-old male presenting for lower abdominal pain. ABCs were intact and vitals were stable on presentation. Physical exam with right lower quadrant tenderness. An IV was placed and basic labs were obtained and were significant for normal white blood cell count, normal kidney function, essentially normal electrolytes. CT abdomen and pelvis ordered and interpreted by me showing no obvious hydronephrosis, no inflammation in his right lower quadrant. The radiology read shows enlarged prostate and a ring object in his bladder. He is emptying his bladder decently, does not require Torres at this time. His urine does have some concerns for infection so he was given ceftriaxone and will be sent home on antibiotics. He has a pleural effusion on his CT, he is not complaining of shortness of breath or chest pain, and this was not his issue today. I will have him follow-up as an outpatient regarding this. Diagnostic Imaging Diagonstic Imaging: CT (abd/pelvis) Comments [facility] [place], [place] NAME: ROB SHELTON [facility] REC#: [id number] PT STATUS: REG ER : 1955 PHYSICIAN: CHELA DOOLEY MD ADMIT DATE: 12/20/22/ER Draft Date of Exam:12/20/22 CT ABD/PELV W (APPENDICITIS) PROCEDURE: CT abdomen and pelvis with contrast, rule out appendicitis. TECHNIQUE: Multiple contiguous axial images were obtained through the abdomen and pelvis after the administration of intravenous contrast. All CT scans use one or more of the following dose optimizing techniques: automated exposure control, MA and/or KvP adjustment based on patient size and exam type or iterative reconstruction. INDICATION: Right lower quadrant abdominal pain COMPARISON: 03/05/2014 There is a large right pleural effusion. Coronary artery calcifications are noted. No focal hepatic, gallbladder, pancreatic, adrenal gland or splenic abnormality is seen. Kidneys are also unremarkable. There is no hydronephrosis. The appendix is surgically absent. Numerous diverticula are again seen along the left colon most pronounced in the sigmoid segment, however, there is no evidence of pericolonic edema or inflammation. There is marked prostamegaly which indents the bladder base in a similar fashion to the previous study. There is now an approximately 1.7 x 0.4 cm ring shaped object within the lumen of the urinary bladder. This could represent stone or other retained object. Induration in the right inguinal canal is again noted. IMPRESSION: Large right pleural effusion has developed since previous study. There is extensive prostamegaly with ring shaped object in the bladder lumen which could be calcific or other retained object and clinical correlation would be useful. There is no evidence of focal inflammation in patient who has undergone previous appendectomy. Dictated on workstation # [id number] Dict: 12/20/22 1749 Trans: 12/20/22 1756 SHAYAN [id number] Interpreted by: REZA PRUETT MD Electronically signed by: Departure Impression Primary Impression: Cystitis Additional Impression: BPH (benign prostatic hyperplasia) Qualified Codes: N40.1 - Benign prostatic hyperplasia with lower urinary tract symptoms; R35.0 - Frequency of micturition Disposition: HOME, SELF-CARE Condition: Stable Departure-Patient Inst. Decision time for Depature: 18:25 [facility] Physician JENI CLOUD (Family) Primary Care Physician Patient Instructions: Urinary Tract Infection, Adult ED Add. Discharge Instructions: You have an infection in your bladder which is likely the cause of the pain. Your prostate is enlarged which makes this difficult to treat. You will be on antibiotics for the next week. Follow-up with your regular doctor as you do have some fluid on your right lung as well. Scripts Tamsulosin HCl (Flomax) 0.4 Mg Cap 0.4 MG PO DAILY for 30 Days, #30 CAP Prov: CHELA DOOLEY MD 12/20/22 Cefdinir (Cefdinir) 300 Mg Capsule 300 MG PO BID for 7 Days, #14 CAP 0 Refills Prov: CHELA DOOLEY MD 12/20/22 CHELA DOOLEY MD Dec 20, 2022 16:57
[2022-12-20] MEDS ORDERED: IOHEXOL 350 MG/ML 100 ML (OMNIPAQUE 350) VIAL IV ONE (17:00)
[2022-12-20] MEDS ORDERED: NS 100 ML (IVPB) BAG IV ONE (17:00)
[2022-12-20] MEDS ORDERED: ONDANSETRON 4 MG/2 ML (SDV) Z0FRAN IVP ONE (17:00)
[2022-12-20 17:06] LABS: BASOPHILS # (AUTO) 0.1 10^3/uL (0.0-0.1); BASOPHILS % (AUTO) 1 % (0-10); EOSINOPHILS # (AUTO) 0.6 10^3/uL (0.0-0.3); EOSINOPHILS % (AUTO) 6 % (0-10); HEMATOCRIT 43 % (40-54); HEMOGLOBIN 15.1 g/dL (13.3-17.7); LYMPHOCYTES # (AUTO) 1.2 10^3/uL (1.0-4.0); LYMPHOCYTES % (AUTO) 11 % (12-44); MEAN CORPUSCULAR HEMOGLOBIN 31 pg (25-34); MEAN CORPUSCULAR HGB CONC 35 g/dL (32-36); MEAN CORPUSCULAR VOLUME 90 fL (80-99); MEAN PLATELET VOLUME 9.4 fL (9.0-12.2); MONOCYTES # (AUTO) 1.1 10^3/uL (0.0-1.0); MONOCYTES % (AUTO) 10 % (0-12); NEUTROPHILS # (AUTO) 8.1 10^3/uL (1.8-7.8); NEUTROPHILS % (AUTO) 72 % (42-75); PLATELET COUNT 301 10^3/uL (130-400); WHITE BLOOD COUNT 11.2 10^3/uL (4.3-11.0)
[2022-12-20 17:07] LABS: BACTERIA,URINE FEW /HPF; RBC,URINE 0-2 /HPF; SQUAMOUS EPITHELIAL CELL,UR 0-2 /HPF
[2022-12-20 17:13] LABS: ALBUMIN 4.1 GM/DL (3.2-4.5); POTASSIUM 3.1 MMOL/L (3.6-5.0)
[2022-12-20 17:14] LABS: CALCIUM 9.5 MG/DL (8.5-10.1)
[2022-12-20 17:15] LABS: TOTAL PROTEIN 7.6 GM/DL (6.4-8.2)
[2022-12-20 17:19] LABS: CREATININE SERUM 1.07 MG/DL (0.60-1.30)
--- NOTE | 2022-12-20 17:58 | Diagnostic Imaging Report ---
PROCEDURE: CT abdomen and pelvis with contrast, rule out appendicitis. TECHNIQUE: Multiple contiguous axial images were obtained through the abdomen and pelvis after the administration of intravenous contrast. All CT scans use one or more of the following dose optimizing techniques: automated exposure control, MA and/or KvP adjustment based on patient size and exam type or iterative reconstruction. INDICATION: Right lower quadrant abdominal pain COMPARISON: 03/05/2014 There is a large right pleural effusion. Coronary artery calcifications are noted. No focal hepatic, gallbladder, pancreatic, adrenal gland or splenic abnormality is seen. Kidneys are also unremarkable. There is no hydronephrosis. The appendix is surgically absent. Numerous diverticula are again seen along the left colon most pronounced in the sigmoid segment, however, there is no evidence of pericolonic edema or inflammation. There is marked prostamegaly which indents the bladder base in a similar fashion to the previous study. There is now an approximately 1.7 x 0.4 cm ring shaped object within the lumen of the urinary bladder. This could represent stone or other retained object. Induration in the right inguinal canal is again noted. IMPRESSION: Large right pleural effusion has developed since previous study. There is extensive prostamegaly with ring shaped object in the bladder lumen which could be calcific or other retained object and clinical correlation would be useful. There is no evidence of focal inflammation in patient who has undergone previous appendectomy. Dictated by: Dictated on workstation # [id number]
[2022-12-20] MEDS ORDERED: CEFD300C3 PO (18:19)
[2022-12-20] MEDS ORDERED: TMSL.4C PO (18:22)
[2022-12-20] MEDS ORDERED: cefTRIAXone PRE-MIX 50 ML IV ONE (18:30)
[2022-12-20 19:15] VITALS: BP 129/89
== END 2022-12-20 19:15 | disposition home or self-care (01) ==
LOC: EDUNIT# 15:30 → ER 15:33
DX: N30.90 Cystitis, unspecified without hematuria (principal); N40.1 Benign prostatic hyperplasia with lower urinary tract symptoms; R30.0 Dysuria; I48.91 Unspecified atrial fibrillation; Z79.01 Long term (current) use of anticoagulants; Z87.891 Personal history of nicotine dependence
CPT/HCPCS: 36415; 74177; 80053; 81000; 83690; 83735; 85025; 87088

== ENCOUNTER 2022-12-28 14:08 | Inpatient (IN) | payer MEDICARE ==
[~2022-12-28] VITALS: Ht 185.4 cm; Wt 83.1 kg
[~2022-12-28 14:08] MED LIST changes: +TMSL.4C PO
[2022-12-28] MEDS ORDERED: NS IV 1000 ML 1,000 ML IV STA ×2 (14:21→17:31)
--- NOTE | 2022-12-28 14:21 | ED General ---
General Stated Complaint: NAUSEA | VOMITING | ABD PAIN History of Present Illness Date Seen by Provider: Dec 28, 2022 Time Seen by Provider: 14:21 Initial Comments 67-year-old male sent in from Dr. Edwards's office. Patient was seen and because he is "ill" patient been ill for at least a week. Patient was seen here on 12/20/2022 and diagnosed with acute cystitis. He presents today because 7 lower abdominal pain, dry heaving nausea vomiting difficulty keeping anything down. He has been seen at [place] also. Patient has a history of A-fib, flutter that is chronic with a EF of 40% per Dr. Edwards. He does not feel it is tachycardia her symptoms are cardiac related but more dehydration and ill. Allergies and Home Medications Allergies Coded Allergies: No Known Drug Allergies (Unverified , 12/28/22) Patient Home Medication List Home Medication List Reviewed: Yes Acetaminophen (Tylenol Extra Strength) 500 Mg Tablet, 2,000 MG PO Q8H PRN for PAIN-MILD (1-4), (Reported) Entered as Reported by: BLAIRE OTT on 03/15/22 1309 Albuterol Sulfate (Ventolin Hfa) 1 Puff Puff, 2 PUFF IH Q4H PRN for SHORTNESS OF BREATH, (Reported) Entered as Reported by: BLAIRE OTT on 03/15/22 1308 Aspirin (Aspirin EC) 81 Mg Tablet.dr, 81 MG PO DAILY, (Reported) Entered as Reported by: JAQUELINE BOSWELL on 05/25/21 1019 Atorvastatin Calcium (Atorvastatin Calcium) 40 Mg Tablet, 40 MG PO DAILY, (Reported) Entered as Reported by: BLAIRE OTT on 03/15/22 1308 Bupropion HCl (Bupropion HCl Sr) 200 Mg Tablet.er, 200 MG PO BID, (Reported) Entered as Reported by: JAQUELINE BOSWELL on 05/25/21 1019 Carvedilol (Carvedilol) 12.5 Mg Tablet, 12.5 MG PO BID, (Reported) Entered as Reported by: CAMILA VERGARA on 03/02/17 1313 Cefdinir (Cefdinir) 300 Mg Capsule, 300 MG PO BID Prescribed by: VEE BRAND on 03/16/22 1147 Cefdinir (Cefdinir) 300 Mg Capsule, 300 MG PO BID Prescribed by: CHELA DOOLEY on 12/20/22 1819 Digoxin (Digoxin) 250 Mcg Tablet, 250 MCG PO DAILY, (Reported) Entered as Reported by: JAQUELINE BOSWELL on 05/25/21 101 Diltiazem HCl (Cartia Xt) 240 Mg Cap.er.24h, 240 MG PO DAILY, (Reported) Entered as Reported by: JAQUELINE BOSWELL on 05/25/21 101 Lisinopril (Lisinopril) 5 Mg Tablet, 5 MG PO DAILY, (Reported) Entered as Reported by: JAQUELINE BOSWELL on 05/25/21 1019 Meclizine HCl (Meclizine HCl) 12.5 Mg Tablet, 12.5-25 MG PO Q8H PRN for DIZZINESS, (Reported) Entered as Reported by: JAQUELINE BOSWELL on 05/25/21 1019 Tamsulosin HCl (Flomax) 0.4 Mg Cap, 0.4 MG PO DAILY Prescribed by: CHELA DOOLEY on 12/20/22 182 Warfarin Sodium (Warfarin Sodium) 5 Mg Tablet, 5 MG PO PERAZA,MO,TU,WE,TH,SA , (Reported) Entered as Reported by: JAQUELINE BOSWELL on 05/25/21 101 Warfarin Sodium (Warfarin Sodium) 5 Mg Tablet, 7.5 MG PO MON, (Reported) Entered as Reported by: JAQUELINE BOSWELL on 05/25/21 101 Review of Systems Review of Systems Constitutional: malaise Cardiovascular: no symptoms reported Gastrointestinal: abdominal pain, nausea, vomiting Musculoskeletal: no symptoms reported Psychiatric/Neurological: No Symptoms Reported Past Kprwclz-Hoswug-Fldclt Hx Immunizations Up To Date First/Initial COVID19 Vaccinat: 2020 Second COVID19 Vaccination Rory: 2020 Third COVID19 Vaccination Date: 2020 Seasonal Allergies Seasonal Allergies: Yes (at times) Past Medical History Surgery/Hospitalization HX: HEART SURG, APPY. B/P, AFIB HTN, COPD Surgeries: Yes (nose x2, stents x2, ) Appendectomy, Coronary Stent, Pacemaker, Tonsillectomy Respiratory: Yes (REPORTS SOB WITH PHYSICAL EXERTION, RELATES TO POLLEN/GRASS ALLERGIES) Cardiac: Yes (pacemaker, ischemic cardiomyopathy) Atrial Fibrillation, Coronary Artery Disease, Heart Attack, Hypertension Neurological: Yes Headaches /Migraines Reproductive Disorders: No Genitourinary: Yes (history of testicular rupture) Gastrointestinal: No Musculoskeletal: No Endocrine: No HEENT: No Cancer: No Psychosocial: No Integumentary: No Blood Disorders: No Family Medical History Other Conditions/Hx Physical Exam Vital Signs Vital Signs - First Documented 12/28/22 12/28/22 14:15 15:23 Temp 37.3 Pulse 154 Resp 18 B/P (MAP) 126/92 (103) Pulse Ox 95 O2 Delivery Room Air O2 Flow Rate 2.00 Capillary Refill : Height, Weight, BMI Height: 6'3.00" Weight: 214lbs. 0.0oz. 97.125484pd; 26.00 BMI Method:Stated General Appearance: Chronically ill, Other (Disheveled/unkept) Respiratory: Lungs Clear, Normal Breath Sounds Cardiovascular: No Edema, Tachycardia Gastrointestinal: Non Tender, Soft Neurologic/Psychiatric: Alert, Normal Mood/Affect Focused Exam Lactate Level 12/28/22 14:30: Lactic Acid Level 1.85 Lactic Acid Level Laboratory Tests Test 12/28/22 14:30 Lactic Acid Level 1.85 MMOL/L (0.50-2.00) Progress/Results/Core Measures Suspected Sepsis SIRS Temperature: Pulse: Respiratory Rate: Laboratory Tests 12/28/22 14:30: White Blood Count 14.6H Blood Pressure / Mean: 12/28/22 14:30: Lactic Acid Level 1.85 Laboratory Tests 12/28/22 14:30: Creatinine 1.23, Platelet Count 477H, Total Bilirubin 1.2H Results/Orders Lab Results Laboratory Tests Test 12/28/22 14:30 12/28/22 14:50 Range/Units White Blood Count 14.6 H 4.3-11.0 10^3/uL Red Blood Count 5.38 4.30-5.52 10^6/uL Hemoglobin 16.5 13.3-17.7 g/dL Hematocrit 48 40-54 % Mean Corpuscular Volume 90 80-99 fL Mean Corpuscular Hemoglobin 31 25-34 pg Mean Corpuscular Hemoglobin Concent 34 32-36 g/dL Red Cell Distribution Width 12.0 10.0-14.5 % Platelet Count 477 H 130-400 10^3/uL Mean Platelet Volume 9.7 9.0-12.2 fL Immature Granulocyte % (Auto) 1 % Neutrophils (%) (Auto) 76 H 42-75 % Lymphocytes (%) (Auto) 9 L 12-44 % Monocytes (%) (Auto) 11 0-12 % Eosinophils (%) (Auto) 3 0-10 % Basophils (%) (Auto) 1 0-10 % Neutrophils # (Auto) 11.1 H 1.8-7.8 10^3/uL Lymphocytes # (Auto) 1.4 1.0-4.0 10^3/uL Monocytes # (Auto) 1.6 H 0.0-1.0 10^3/uL Eosinophils # (Auto) 0.4 H 0.0-0.3 10^3/uL Basophils # (Auto) 0.1 0.0-0.1 10^3/uL Immature Granulocyte # (Auto) 0.1 0.0-0.1 10^3/uL Neutrophils % (Manual) 83 % Lymphocytes % (Manual) 9 % Monocytes % (Manual) 6 % Eosinophils % (Manual) 2 % Basophils % (Manual) 0 % Band Neutrophils 0 % Blood Morphology Comment NORMAL Sodium Level 139 135-145 MMOL/L Potassium Level 3.0 L 3.6-5.0 MMOL/L Chloride Level 93 L 98-107 MMOL/L Carbon Dioxide Level 29 21-32 MMOL/L Anion Gap 17 H 5-14 MMOL/L Blood Urea Nitrogen 18 7-18 MG/DL Creatinine 1.23 0.60-1.30 MG/DL Estimat Glomerular Filtration Rate 64 BUN/Creatinine Ratio 15 Glucose Level 122 H 70-105 MG/DL Lactic Acid Level 1.85 0.50-2.00 MMOL/L Calcium Level 10.0 8.5-10.1 MG/DL Corrected Calcium 10.2 H 8.5-10.1 MG/DL Total Bilirubin 1.2 H 0.1-1.0 MG/DL Aspartate Amino Transf (AST/SGOT) 44 H 5-34 U/L Alanine Aminotransferase (ALT/SGPT) 48 0-55 U/L Alkaline Phosphatase 97 40-136 U/L Total Protein 8.4 H 6.4-8.2 GM/DL Albumin 3.8 3.2-4.5 GM/DL Lipase 130 H 8-78 U/L Serum Alcohol < 10 <10 MG/DL Urine Color ORANGE Urine Clarity SL CLOUDY Urine pH 6.0 5-9 Urine Specific [place] >=1.030 1.016-1.022 Urine Protein 2+ H NEGATIVE Urine Glucose (UA) TRACE H NEGATIVE Urine Ketones NEGATIVE NEGATIVE Urine Nitrite NEGATIVE NEGATIVE Urine Bilirubin 2+ H NEGATIVE Urine Urobilinogen 4.0 < = 1.0 MG/DL Urine Leukocyte Esterase 1+ H NEGATIVE Urine RBC (Auto) TRACE-I H NEGATIVE Urine RBC RARE /HPF Urine WBC 10-25 H /HPF Urine Squamous Epithelial Cells RARE /HPF Urine Crystals NONE /LPF Urine Bacteria FEW H /HPF Urine Casts NONE /LPF Urine Mucus SMALL H /LPF Urine Culture Indicated YES Urine Opiates Screen NEGATIVE NEGATIVE Urine Oxycodone Screen NEGATIVE NEGATIVE Urine Methadone Screen NEGATIVE NEGATIVE Urine Propoxyphene Screen NEGATIVE NEGATIVE Urine Barbiturates Screen NEGATIVE NEGATIVE Ur Tricyclic Antidepressants Screen NEGATIVE NEGATIVE Urine Phencyclidine Screen NEGATIVE NEGATIVE Urine Amphetamines Screen NEGATIVE NEGATIVE Urine Methamphetamines Screen NEGATIVE NEGATIVE Urine Benzodiazepines Screen NEGATIVE NEGATIVE Urine Cocaine Screen NEGATIVE NEGATIVE Urine Cannabinoids Screen NEGATIVE NEGATIVE My Orders Orders - RENO,SHEYLA L DO Alcohol (12/28/22 14:21) Cbc With Automated Diff (12/28/22 14:21) Comprehensive Metabolic Panel (12/28/22 14:21) Drug Screen Stat (Urine) (12/28/22 14:21) Lactic Acid Analyzer (12/28/22 14:21) Lipase (12/28/22 14:21) Ua Culture If Indicated (12/28/22 14:21) Ondansetron Injection (Zofran Injectio (12/28/22 14:30) Ns Iv 1000 Ml (Sodium Chloride 0.9%) (12/28/22 14:21) Manual Differential (12/28/22 14:30) Urine Culture (12/28/22 14:50) Diltiazem Injection (Cardizem Injection) (12/28/22 15:15) Chest Pa/Lat (2 View) (12/28/22 15:31) Abdomen, Flat & Upright/Decub (12/28/22 15:31) Enoxaparin Injection (Lovenox Injection) (12/28/22 15:45) Diltiazem Injection (Cardizem Injection) (12/28/22 16:15) Ekg Tracing (12/28/22 16:51) Diltiazem Cd 24 Hr Capsule (Cardizem Cd (12/29/22 09:00) Diltiazem Cd 24 Hr Capsule (Cardizem Cd (12/28/22 17:08) Metoprolol Tartrate Injection (Lopressor (12/28/22 17:30) Potassium Cl 10meq/50ml Ivpb (Kcl 10 Meq (12/28/22 17:30) Ns Iv 1000 Ml (Sodium Chloride 0.9%) (12/28/22 17:31) Lactic Acid Analyzer (12/28/22 17:55) Blood Culture (12/28/22 17:55) Ed Admission (Communication) (12/28/22 17:55) Medications Given in ED Current Medications Medications Dose Ordered Sig/Feliz Route Start Time Stop Time Status Last Admin Dose Admin Diltiazem HCl 20 mg ONCE ONCE IVP 12/28/22 15:15 12/28/22 15:16 DC 12/28/22 15:23 20 MG Diltiazem HCl 30 mg ONCE ONCE IVP 12/28/22 16:15 12/28/22 16:16 DC 12/28/22 16:17 30 MG Enoxaparin Sodium 90 mg ONCE ONCE SC 12/28/22 15:45 12/28/22 15:46 DC 12/28/22 15:46 90 MG Metoprolol Tartrate 5 mg ONCE ONCE IV 12/28/22 17:30 12/28/22 17:31 DC 12/28/22 17:42 5 MG Ondansetron HCl 4 mg ONCE ONCE IVP 12/28/22 14:30 12/28/22 14:31 DC 12/28/22 14:37 4 MG Vital Signs/I&O 12/28/22 12/28/22 12/28/22 12/28/22 14:15 15:23 15:23 16:17 Temp 37.3 Pulse 154 147 156 Resp 18 B/P (MAP) 126/92 (103) 127/95 122/100 Pulse Ox 95 O2 Delivery Room Air Nasal Cannula O2 Flow Rate 2.00 Capillary Refill : Progress Note : Progress Note Patient's diagnostic studies were ordered reviewed and interpreted by me. Patient's chest x-ray and abdominal x-ray were ordered, reviewed with initial in terpretation by me and findings with patient per radiology report. Patient with known chronic atrial for flutter. Despite IV fluids he had remained in flutter so he was given 20 Cardizem initially IV then additional 30 mg Cardizem as needed with showing response. I did provide him with 240 mg Cardizem extended release and 5 metoprolol IV. He had tremendous response with heart rates in the 70s. Patient does have known pleural effusion. I will admit patient to Dr. Pham for observation to ensure that he keeps his p.o. fluids down and is fully hydrated. Dr. Lau was notified after admission and visit with Dr. Pham for evaluation of patient's pleural effusion. Patient is stable and discharged home. Dr. Pham will put an acute admission orders. Patient EKG x2 were ordered with initial evaluation by me. Please see EKG results. Patient was stable upon admission to the floor ECG Initial ECG Impression Date: Dec 28, 2022 Initial ECG Impression Time: 15:40 Initial ECG Rate: 154 Initial ECG Rhythm: A Fib/Flutter Comment atrial flutter EKG : EKG Time: 16:59 Rhythm: A Fib/Flutter Comment atrial flutter 2:1 Departure Impression Primary Impression: Nausea & vomiting Qualified Codes: R11.2 - Nausea with vomiting, unspecified Additional Impressions: Atrial flutter, chronic Pleural effusion Hypokalemia Disposition: ADMITTED INPATIENT Condition: Stable Admissions Decision to Admit Reason: Admit from ER (General) Decision to Admit/Date: Dec 28, 2022 Time/Decision to Admit Time: 17:45 Departure-Patient Inst. Referrals: ANJEL MURPHY (PCP/Family) Primary Care Physician SHEYLA RENO DO Dec 28, 2022 14:21
[2022-12-28] MEDS ORDERED: ONDANSETRON 4 MG/2 ML (SDV) Z0FRAN IVP ONE (14:30)
[2022-12-28 14:34] LABS: BASOPHILS # (AUTO) 0.1 10^3/uL (0.0-0.1); BASOPHILS % (AUTO) 1 % (0-10); EOSINOPHILS # (AUTO) 0.4 10^3/uL (0.0-0.3); EOSINOPHILS % (AUTO) 3 % (0-10); HEMATOCRIT 48 % (40-54); HEMOGLOBIN 16.5 g/dL (13.3-17.7); LYMPHOCYTES # (AUTO) 1.4 10^3/uL (1.0-4.0); LYMPHOCYTES % (AUTO) 9 % (12-44); MEAN CORPUSCULAR HEMOGLOBIN 31 pg (25-34); MEAN CORPUSCULAR HGB CONC 34 g/dL (32-36); MEAN CORPUSCULAR VOLUME 90 fL (80-99); MEAN PLATELET VOLUME 9.7 fL (9.0-12.2); MONOCYTES # (AUTO) 1.6 10^3/uL (0.0-1.0); MONOCYTES % (AUTO) 11 % (0-12); NEUTROPHILS # (AUTO) 11.1 10^3/uL (1.8-7.8); NEUTROPHILS % (AUTO) 76 % (42-75); PLATELET COUNT 477 10^3/uL (130-400); WHITE BLOOD COUNT 14.6 10^3/uL (4.3-11.0)
[2022-12-28 14:52] LABS: BAND NEUTROPHILS 0 %; BASOPHILS % (MANUAL) 0 %; EOSINOPHILS % (MANUAL) 2 %; LYMPHOCYTES % (MANUAL) 9 %; MONOCYTES % (MANUAL) 6 %; NEUTROPHILS % (MANUAL) 83 %; RBC MORPH NORMAL
[2022-12-28 14:53] LABS: ALBUMIN 3.8 GM/DL (3.2-4.5); CHLORIDE 93 MMOL/L (98-107); SODIUM 139 MMOL/L (135-145)
[2022-12-28 14:55] LABS: GLUCOSE 122 MG/DL (70-105); TOTAL PROTEIN 8.4 GM/DL (6.4-8.2)
[2022-12-28 14:56] LABS: CLARITY,URINE SL CLOUDY; COLOR,URINE ORANGE; GLUCOSE, URINE (UA) TRACE (NEGATIVE); KETONES,URINE NEGATIVE (NEGATIVE); LEUKOCYTE ESTERASE ,URINE 1+ (NEGATIVE); NITRITE,URINE NEGATIVE (NEGATIVE); PROTEIN,URINE 2+ (NEGATIVE)
[2022-12-28 14:56] LABS: CARBON DIOXIDE 29 MMOL/L (21-32)
[2022-12-28 14:57] LABS: BILIRUBIN,TOTAL 1.2 MG/DL (0.1-1.0)
[2022-12-28 14:59] LABS: ALKALINE PHOSPHATASE 97 U/L (40-136); CREATININE SERUM 1.23 MG/DL (0.60-1.30); GFR ESTIMATED 64
[2022-12-28 15:00] LABS: BUN/CREATININE RATIO 15
[2022-12-28 15:02] LABS: ALANINE AMINOTRANSFERASE 48 U/L (0-55); LIPASE 130 U/L (8-78)
[2022-12-28 15:04] LABS: BACTERIA,URINE FEW /HPF; BILIRUBIN,URINE 2+ (NEGATIVE); RBC,URINE RARE /HPF; SQUAMOUS EPITHELIAL CELL,UR RARE /HPF
[2022-12-28 15:07] LABS: AMPHETAMINE SCREEN, URINE NEGATIVE (NEGATIVE); BARBITURATE SCREEN URINE NEGATIVE (NEGATIVE); BENZODIAZEPINES SCREEN URINE NEGATIVE (NEGATIVE); CANNABINOID SCREEN, URINE NEGATIVE (NEGATIVE); COCAINE SCREEN URINE NEGATIVE (NEGATIVE); METHADONE STAT NEGATIVE (NEGATIVE); OPIATE SCREEN URINE NEGATIVE (NEGATIVE); OXYCODONE STAT NEGATIVE (NEGATIVE); PROPOXYPHENE STAT NEGATIVE (NEGATIVE); TRICYCLIC ANTIDEPRESSANTS SCRE NEGATIVE (NEGATIVE)
[2022-12-28] MEDS ORDERED: ENOXAPARIN 100 MG/1 ML (LOVENOX) SYR SC ONE (15:45)
--- NOTE | 2022-12-28 16:14 | Diagnostic Imaging Report ---
INDICATION: Hypoxia. PA and lateral views of the chest are obtained with comparison made to study of 08/27/2013. FINDINGS: There has been significant volume loss in the right lung with elevated right hemidiaphragm as well as right upper lobe atelectasis. There is also right pleural fluid and/or thickening. Left chest wall pacemaker device remains in place. There is no evidence of pneumothorax, and the left lung remains well expanded. IMPRESSION: Pleural fluid and atelectasis in the right lung with associated diaphragmatic elevation. Consideration could be given to bronchoscopy for further assessment, or diagnostic thoracentesis could be considered. Dictated by: Dictated on workstation # [id number]
--- NOTE | 2022-12-28 16:26 | Diagnostic Imaging Report ---
ABDOMEN, FLAT UPRIGHT/DECUB INDICATION: Abdominal pain. COMPARISON: Chest radiograph from earlier same day. TECHNIQUE: Supine and upright AP views of the abdomen. FINDINGS: Nonobstructive bowel gas pattern. No free intraperitoneal air. No abnormal soft tissue mineralizations. Please see chest radiograph report for details of pathology in the right lower hemithorax. IMPRESSION: No free intraperitoneal air or bowel obstruction. Dictated by: Dictated on workstation # [id number]
[2022-12-28] MEDS ORDERED: dilTIAZem120 MG (CARDIZEM CD) CAP PO ONE (17:08)
[2022-12-28] MEDS ORDERED: meTOprolol 5 MG/5 ML (LOPRESSOR) VIAL IV ONE (17:30)
[2022-12-28] MEDS: POTASSIUM CL 10MEQ/50ML IVPB 50 ML IV SCH ×2 (17:42→18:59)
[2022-12-28] MEDS ORDERED: ONDANSETRON 4 MG/2 ML (SDV) Z0FRAN IV PRN (19:00)
[2022-12-28] MEDS ORDERED: CALCIUM CARBONATE 500 MG (TUMS) TAB.CHEW PO PRN (19:00)
[2022-12-28] MEDS ORDERED: ANTACID SUSP 30 ML UDC (MYLANTA) PO PRN (19:00)
[2022-12-28] MEDS ORDERED: HYDROmorphone 2 MG/ML VIAL (DILAUDID) IV PRN (19:00)
[2022-12-28] MEDS ORDERED: ONDANSETRON 4 MG (ZOFRAN) ORAL DISSOLVE TAB PO PRN (19:00)
[2022-12-28] MEDS ORDERED: polyethylene glycoL POWDER 17 GM (MIRALAX) PACK PO PRN (19:00)
[2022-12-28] MEDS ORDERED: BISACODYL 10 MG SUPP (DULCOLAX) PR PRN (19:00)
[2022-12-28] MEDS ORDERED: PHARMACY TO DOSE IV SCH (19:00)
[2022-12-28] MEDS ORDERED: MELATONIN 3 MG TABLET PO PRN (19:00)
[2022-12-28] MEDS ORDERED: NS IV 500 ML 500 ML IV PRN (19:00)
[2022-12-28] MEDS ORDERED: diphenhydrAMINE 50 MG/ML INJ (BENADRYL) IVP PRN (19:00)
[2022-12-28] MEDS ORDERED: LACTULOSE SYRUP 10GM/15ML (ENULOSE) 30ML UDC PO PRN (19:00)
[2022-12-28] MEDS ORDERED: ACETAMINOPHEN 325 MG TABLET PO PRN (19:00)
[2022-12-28] MEDS ORDERED: diphenhydrAMINE 25 MG TAB (BENADRYL) PO PRN (19:00)
[2022-12-28] MEDS ORDERED: dilTIAZem DRIP PRE-MIX 125 ML IV SCH (19:00)
[2022-12-28] MEDS ORDERED: MILK OF MAGNESIA 400 MG/5 ML 30 ML UDC PO PRN (19:00)
[2022-12-28] MEDS ORDERED: dilTIAZem DRIP PRE-MIX 125 ML IV ONE (19:03)
[2022-12-28] MEDS: NOREPINEPHRINE 8 MG/250 ML 250 ML IV SCH (19:07)
[2022-12-28 19:12] LABS: INR 2.7 (0.8-1.4); PROTHROMBIN TIME PATIENT 28.8 SEC (12.2-14.7)
[2022-12-28 19:27] VITALS: BP 126/92
[2022-12-28] MEDS ORDERED: VANCOMYCIN 1,750 MG/NS 500 ML IVPB IV NR ×2 (19:30)
--- NOTE | 2022-12-28 19:38 | Tele-ICU Consult ---
History of Present Illness History of Present Illness Date Seen by Provider: Dec 28, 2022 Time Seen by Provider: 19:38 Date of Admission 12/28/22 History of Present Illness (Tele-ICU Physician , Progress Note ) Service provided via interactive audio and video telecommunications [facility] to a patient admitted to ICU bed in [facility]. Patient is seen today due to persistent need of ICU care Available chart/ vitals / labs / Images reviewed Video assessment done using teleICU camera, rest of exam as per RN He is a 67-year-old male with past medical history of coronary artery disease status post stent placement, hypertension, chronic atrial fibrillation with pacemaker placement presented to the emergency room with a complaint of nausea vomiting not feeling well for about a week. In the emergency room he is found to have a atrial fibrillation with rapid ventricular rate and urine analysis suggestive of urinary tract infection. Hence he is admitted to the intensive care unit on a Cardizem drip. He denies any fever. Now after giving Zofran he does not have vomitings but he still feels some nauseous. He is started on meropenem by the primary care physician. Impression 1. Atrial fibrillation with rapid ventricular rate 2. Possible urinary tract infection 3. Dehydration 4. History of coronary artery disease and hypertension Recommendations 1. Continue hydration with IV fluids 2. Cardizem drip to control atrial fibrillation and as needed Lopressor per cardiology. Cardiology consultation has been requested 3. IV meropenem to be continued and monitor any urine cultures. 4. DVT prophylaxis and anticoagulation per cardiology to prevent stroke. He is already given 1 dose of Lovenox. Coordination of care with primary care physician and bedside consultants. I am remotely monitoring this patient from Tele icu station in [place]. I am unable to do the bedside exam, and history/physical and pertinent information is taken from other notes in the computer and bedside staff. Certain portions of this document may have been dictated utilizing voice recognition technology such as [employer]. Inherent to this technology, typographical and grammatical errors may exist. As much as I am diligent to identify and correct to these mistakes, some errors may remain in the document. Critical care time devoted to this patient today is approximately is 35 minutes Allergies and Home Medications Allergies Coded Allergies: No Known Drug Allergies (Unverified , 12/28/22) Home Medications Acetaminophen 500 Mg Tablet, 2,000 MG PO Q8H PRN for PAIN-MILD (1-4), (Reported) TAKES 4 (500MG) TABS Albuterol Sulfate 1 Puff Puff, 2 PUFF IH Q4H PRN for SHORTNESS OF BREATH, (Reported) 1 PUFF = 90 MCG Aspirin 81 Mg Tablet.dr, 81 MG PO DAILY, (Reported) Atorvastatin Calcium 40 Mg Tablet, 40 MG PO DAILY, (Reported) Bupropion HCl 200 Mg Tablet.er, 200 MG PO BID, (Reported) Carvedilol 12.5 Mg Tablet, 12.5 MG PO BID, (Reported) Cefdinir 300 Mg Capsule, 300 MG PO BID Prescribed by: VEE BRAND on 03/16/22 1147 Cefdinir 300 Mg Capsule, 300 MG PO BID Prescribed by: CHELA DOOLEY on 12/20/22 181 Digoxin 250 Mcg Tablet, 250 MCG PO DAILY, (Reported) Diltiazem HCl 240 Mg Cap.er.24h, 240 MG PO DAILY, (Reported) Lisinopril 5 Mg Tablet, 5 MG PO DAILY, (Reported) Meclizine HCl 12.5 Mg Tablet, 12.5-25 MG PO Q8H PRN for DIZZINESS, (Reported) Tamsulosin HCl 0.4 Mg Cap, 0.4 MG PO DAILY Prescribed by: CHELA DOOLEY on 12/20/22 182 Warfarin Sodium 5 Mg Tablet, 5 MG PO PERAZA,MO,,,,SA , (Reported) TAKES AT BEDTIME Warfarin Sodium 5 Mg Tablet, 7.5 MG PO FRI, (Reported) TAKES 1 & (5MG) TABS TAKES AT BEDTIME Past Medical/Social/Family Hx Patient Social History Tobacco Use?: No Substance use?: No Alcohol Use?: No Pt stated abuse/neglect: No Immunizations Up To Date Influenza Vaccine Up-to-Date: No; Not Current First/Initial COVID19 Vaccinat: 2020, ONE SHOT Second COVID19 Vaccination Rory: 2020 Tetanus Booster (TDap): Unknown Current Status Advance Directives: Yes Advance Directive Location: FULL CODE Communicates: Verbally Primary Language: Colombian Preferred Spoken Language: Colombian Implanted or Applied Medical D: None Past Medical History PMHx: Coronary artery disease with stenting and ballooning HTN Atrial flutter SurgHx: Appendectomy Mass removed from posterior neck, noncancerous Review of Systems Constitutional: see HPI, weakness Focused Exam Lactate Level 12/28/22 14:30: Lactic Acid Level 1.85 12/28/22 18:05: Lactic Acid Level 1.07 Height, Weight, BMI Height: 6'3.00" Weight: 214lbs. 0.0oz. 97.015171ez; 26.00 BMI Method:Stated Lactic Acid Level Laboratory Tests Test 12/28/22 18:05 Lactic Acid Level 1.07 MMOL/L (0.50-2.00) Exam Exam Patient acknowledged, consented, and participated in this virtual visit which was conducted using real time audio/video Vital Signs Date Time Temp Pulse Resp B/P (MAP) Pulse Ox O2 Delivery O2 Flow Rate FiO2 12/28/22 19:07 126 117/84 12/28/22 19:00 37.0 121 20 117/84 (95) Nasal Cannula 2.00 95.00 12/28/22 18:59 122 12/28/22 18:30 74 121/82 95 Nasal Cannula 12/28/22 16:17 156 122/100 12/28/22 15:23 Nasal Cannula 2.00 12/28/22 15:23 147 127/95 12/28/22 14:15 37.3 154 18 126/92 (103) 95 Room Air Height & Weight Height: 6'3.00" Weight: 214lbs. 0.0oz. 97.589413gs; 26.00 BMI Method:Stated General Appearance: Chronically ill, Other (Disheveled/unkept) Respiratory: Lungs Clear, Normal Breath Sounds Cardiovascular: No Edema, Tachycardia Capillary Refill: Less Than 3 Seconds Neurologic/Psychiatric: Alert, Normal Mood/Affect Results Lab Laboratory Tests 12/28/22 14:30 Assessment/Plan Assessment/Plan as above Critical Care: Critically Ill Patient Time spent with patient (mins): 35 ISAAC RUBIO MD Dec 28, 2022 19:38
[2022-12-28] MEDS ORDERED: RT-ALBUTEROL SULF 2.5 MG/3 ML PRE-MIX VIAL INH PRN (19:45)
[2022-12-28] MEDS: NS IV 1000 ML 1,000 ML IV SCH (19:56)
[2022-12-28] MEDS: MEROPENEM 500 MG in NS (IVPB) 100 ML IV SCH (20:04)
--- NOTE | 2022-12-28 20:32 | Tele-ICU Consult ---
History of Present Illness History of Present Illness Date of Admission History of Present Illness (Tele-ICU Physician , Progress Note ) Service provided via interactive audio and video telecommunications E-CARE system to a patient admitted to ICU bed in [facility]. Patient is seen today due to persistent need of ICU care Available chart/ vitals / labs / Images reviewed Video assessment done using teleICU camera, rest of exam as per RN He is a 67-year-old male with past medical history of coronary artery disease status post stent placement, hypertension, chronic atrial fibrillation with pacemaker placement presented to the emergency room with a complaint of nausea vomiting not feeling well for about a week. In the emergency room he is found to have a atrial fibrillation with rapid ventricular rate and urine analysis suggestive of urinary tract infection. Hence he is admitted to the intensive care unit on a Cardizem drip. He denies any fever. Now after giving Zofran he does not have vomitings but he still feels some nauseous. He is started on meropenem by the primary care physician. Impression 1. Atrial fibrillation with rapid ventricular rate 2. Possible urinary tract infection 3. Dehydration 4. History of coronary artery disease and hypertension 5. Right sided large pleural effusion most likely due to chf however other etiologies can not be ruled out. Recommendations 1. Continue hydration with IV fluids 2. Cardizem drip to control atrial fibrillation and as needed Lopressor per cardiology. Cardiology consultation has been requested 3. IV meropenem to be continued and monitor any urine cultures. 4. DVT prophylaxis and anticoagulation per cardiology to prevent stroke. He is already given 1 dose of Lovenox. 5. Surgical consultation for thoracentesis Coordination of care with primary care physician and bedside consultants. I am remotely monitoring this patient from Tele icu station in [place]. I am unable to do the bedside exam, and history/physical and pertinent information is taken from other notes in the computer and bedside staff. Certain portions of this document may have been dictated utilizing voice recognition technology such as Lorena Gaxiola. Inherent to this technology, typographical and grammatical errors may exist. As much as I am diligent to identify and correct to these mistakes, some errors may remain in the document. Critical care time devoted to this patient today is approximately is 35 minutes Allergies and Home Medications Allergies Coded Allergies: No Known Drug Allergies (Unverified , 12/28/22) Home Medications Acetaminophen 500 Mg Tablet, 2,000 MG PO Q8H PRN for PAIN-MILD (1-4), (Reported) TAKES 4 (500MG) TABS Albuterol Sulfate 1 Puff Puff, 2 PUFF IH Q4H PRN for SHORTNESS OF BREATH, (Reported) 1 PUFF = 90 MCG Aspirin 81 Mg Tablet.dr, 81 MG PO DAILY, (Reported) Atorvastatin Calcium 40 Mg Tablet, 40 MG PO DAILY, (Reported) Bupropion HCl 200 Mg Tablet.er, 200 MG PO BID, (Reported) Carvedilol 12.5 Mg Tablet, 12.5 MG PO BID, (Reported) Cefdinir 300 Mg Capsule, 300 MG PO BID Prescribed by: VEE BRAND on 03/16/22 1147 Cefdinir 300 Mg Capsule, 300 MG PO BID Prescribed by: CHELA DOOLEY on 12/20/22 181 Digoxin 250 Mcg Tablet, 250 MCG PO DAILY, (Reported) Diltiazem HCl 240 Mg Cap.er.24h, 240 MG PO DAILY, (Reported) Lisinopril 5 Mg Tablet, 5 MG PO DAILY, (Reported) Meclizine HCl 12.5 Mg Tablet, 12.5-25 MG PO Q8H PRN for DIZZINESS, (Reported) Tamsulosin HCl 0.4 Mg Cap, 0.4 MG PO DAILY Prescribed by: CHELA DOOLEY on 12/20/22 182 Warfarin Sodium 5 Mg Tablet, 5 MG PO PERAZA,MO,,,,SA , (Reported) TAKES AT BEDTIME Warfarin Sodium 5 Mg Tablet, 7.5 MG PO FRI, (Reported) TAKES 1 & (5MG) TABS TAKES AT BEDTIME Past Medical/Social/Family Hx Patient Social History Tobacco Use?: No Substance use?: No Alcohol Use?: No Pt stated abuse/neglect: No Immunizations Up To Date Influenza Vaccine Up-to-Date: No; Not Current First/Initial COVID19 Vaccinat: 2020, ONE SHOT Second COVID19 Vaccination Rory: 2020 Tetanus Booster (TDap): Unknown Current Status Advance Directives: Yes Advance Directive Location: FULL CODE Communicates: Verbally Primary Language: Chinese Preferred Spoken Language: Chinese Implanted or Applied Medical D: None Past Medical History PMHx: Coronary artery disease with stenting and ballooning HTN Atrial flutter SurgHx: Appendectomy Mass removed from posterior neck, noncancerous Focused Exam Lactate Level 12/28/22 14:30: Lactic Acid Level 1.85 12/28/22 18:05: Lactic Acid Level 1.07 Height, Weight, BMI Height: 6'3.00" Weight: 214lbs. 0.0oz. 97.274333yp; 26.00 BMI Method:Stated Lactic Acid Level Laboratory Tests Test 12/28/22 18:05 Lactic Acid Level 1.07 MMOL/L (0.50-2.00) Exam Exam Patient acknowledged, consented, and participated in this virtual visit which was conducted using real time audio/video Vital Signs Date Time Temp Pulse Resp B/P (MAP) Pulse Ox O2 Delivery O2 Flow Rate FiO2 12/28/22 19:39 36.5 12/28/22 19:27 37.3 154 95 21 12/28/22 19:07 126 117/84 12/28/22 19:00 121 12/28/22 19:00 37.0 121 20 117/84 (95) Nasal Cannula 2.00 95.00 12/28/22 18:59 122 12/28/22 18:30 74 121/82 95 Nasal Cannula 12/28/22 16:17 156 122/100 12/28/22 15:23 Nasal Cannula 2.00 12/28/22 15:23 147 127/95 12/28/22 14:15 37.3 154 18 126/92 (103) 95 Room Air Height & Weight Height: 6'3.00" Weight: 214lbs. 0.0oz. 97.362488eu; 26.00 BMI Method:Stated General Appearance: Chronically ill, Other (Disheveled/unkept) Respiratory: Lungs Clear, Normal Breath Sounds Cardiovascular: No Edema, Tachycardia Capillary Refill: Less Than 3 Seconds Neurologic/Psychiatric: Alert, Normal Mood/Affect Results Lab Laboratory Tests 12/28/22 14:30 ISAAC RUBIO MD Dec 28, 2022 20:32
[2022-12-28] MEDS ORDERED: NS IV 500 ML 500 ML ONE (20:34)
[2022-12-28] MEDS ORDERED: VANCOMYCIN 1000 MG/VIAL ONE (20:34)
[2022-12-28] MEDS ORDERED: VANCOMYCIN 750 MG/VIAL IV ONE (20:34)
[2022-12-28] MEDS: DOCUSATE SODIUM 100 MG (COLACE) CAP PO SCH (21:39)
[2022-12-28] MEDS: SENNOSIDES 8.6 MG (SENOKOT) TAB PO SCH (21:39)
--- NOTE | 2022-12-29 00:04 | CONSULTATION REPORT ---
ADMITTING PHYSICIAN: Dr. Pham. ATTENDING SUB ARC OPERATOR: JENI Rocha. HISTORY OF PRESENT ILLNESS: The patient is a 67-year-old male with history of multiple medical problems encompassing atrial fibrillation, heart failure and coronary artery disease. He was seen at his drugless doctor's office for feeling ill for the past week as well as worsening shortness of breath. He also reports lower abdominal pain as well as nausea. Laboratory work did show that he is dehydrated and also had a urinary tract infection. Chest x-ray was also performed, which did show consolidation of the right upper lobe of the lung as well as possible pleural effusion as well as a possible pleural thickening. He has also had a previous history of pleural effusion in the past as well. PAST MEDICAL HISTORY: Hypertension, coronary artery disease, hypercholesterolemia, atrial fibrillation, COPD, ischemic cardiomyopathy, migraine headaches. PAST SURGICAL HISTORY: Appendectomy, nasal surgery, cardiac catheterization with stent placement x2, pacemaker implantation. ALLERGIES: NO KNOWN DRUG ALLERGIES. MEDICATIONS: Albuterol 1 puff q.4 hours p.r.n., aspirin 81 mg daily, atorvastatin 40 mg daily, bupropion 200 mg b.i.d., carvedilol 12.5 mg b.i.d., cefdinir 300 mg b.i.d., digoxin 250 mcg daily, diltiazem 240 mg daily, lisinopril 5 mg daily, meclizine 12.5/25 mg every 8 hours p.r.n., tamsulosin 0.4 mg daily. Coumadin 5 mg 5 days a week, 7.5 mg 2 days a week. SOCIAL HISTORY: Previous smoke, negative alcohol. FAMILY HISTORY: Noncontributory. REVIEW OF SYSTEMS: This is a well-nourished male. Currently in no acute distress. He does have feelings of fatigue as well as exertional shortness of breath. No new cough or sputum production. No chest pain, palpitations, diaphoresis. Intermittent episodes of nausea and anorexia. No vomiting. No known red blood per rectum, nor any dark tarry stools. No fever, chills, no recent inadvertent weight loss. All other review of systems negative. PHYSICAL EXAMINATION: VITAL Signs: Temperature 36.5, blood pressure 116/90, pulse 74, respirations 19, pulse ox 91% on room air. CHEST: Decreased breath sounds bilaterally, greater on the right side. Scattered wheezes and rhonchi bilaterally. HEART: Regular. No murmurs. EXTREMITIES: +1/3 bilateral lower extremity edema. Negative Homans sign. HEENT: No scleral icterus. No cervical lymphadenopathy. ABDOMEN: Soft, nondistended, mild discomfort upon deep palpation. No peritoneal signs. No hernias. SKIN: Warm, dry. LABORATORY DATA: WBC 14.6, hemoglobin 16.5, hematocrit 48, platelets 477, BUN 18, creatinine 1.23, total bilirubin 1.2, lipase 130. INR 2.7. Urinalysis, positive leukocyte esterase and few bacteria. ASSESSMENT AND PLAN: A 67-year-old male with history of atrial fibrillation, coronary artery disease, ischemic cardiomyopathy and congestive heart failure with worsening shortness of breath as well as possible right-sided pleural effusion and consolidation of the right upper lobe of the lung. He also has developed nausea as well as crampy abdominal pain. We will get an ultrasound of the right chest to identify possibility of pleural effusion as well as possible marking for the thoracentesis. We will also proceed with an ultrasound of the gallbladder for possibility of gallbladder disease including chronic calculous cholecystitis or acalculous cholecystitis, which may be the etiology of his nausea and abdominal pain. Also, if after thoracentesis and evacuation of pleural effusion, and the patient continues to have consolidation of the right upper lobe. This may indicate mucus plugging and he may benefit from therapeutic bronchoscopy, bronchial washout and evacuation of mucus plugs. Job ID: [id number] DocumentID: [id number] Dictated Date: 12/28/2022 23:16:43 Manager Logistic Date: 12/29/2022 00:02:00 Dictated By: ERNST OLMOS MD [facility]
[2022-12-29] MEDS: MEROPENEM 500 MG in NS (IVPB) 100 ML IV SCH ×4 (01:57→19:48)
[2022-12-29 05:09] LABS: ALBUMIN 2.8 GM/DL (3.2-4.5); POTASSIUM 3.1 MMOL/L (3.6-5.0)
[2022-12-29 05:11] LABS: CALCIUM 8.3 MG/DL (8.5-10.1)
[2022-12-29 05:12] LABS: TOTAL PROTEIN 6.3 GM/DL (6.4-8.2)
[2022-12-29 05:14] LABS: BILIRUBIN,TOTAL 0.7 MG/DL (0.1-1.0)
[2022-12-29 05:16] LABS: CREATININE SERUM 0.81 MG/DL (0.60-1.30)
[2022-12-29 05:24] LABS: BASOPHILS # (AUTO) 0.1 10^3/uL (0.0-0.1); BASOPHILS % (AUTO) 1 % (0-10); EOSINOPHILS # (AUTO) 0.4 10^3/uL (0.0-0.3); EOSINOPHILS % (AUTO) 5 % (0-10); HEMATOCRIT 38 % (40-54); HEMOGLOBIN 12.7 g/dL (13.3-17.7); LYMPHOCYTES # (AUTO) 0.8 10^3/uL (1.0-4.0); LYMPHOCYTES % (AUTO) 9 % (12-44); MEAN CORPUSCULAR HEMOGLOBIN 31 pg (25-34); MEAN CORPUSCULAR HGB CONC 34 g/dL (32-36); MEAN CORPUSCULAR VOLUME 92 fL (80-99); MEAN PLATELET VOLUME 9.7 fL (9.0-12.2); MONOCYTES # (AUTO) 0.9 10^3/uL (0.0-1.0); MONOCYTES % (AUTO) 11 % (0-12); NEUTROPHILS # (AUTO) 6.1 10^3/uL (1.8-7.8); NEUTROPHILS % (AUTO) 74 % (42-75); PLATELET COUNT 304 10^3/uL (130-400); WHITE BLOOD COUNT 8.3 10^3/uL (4.3-11.0)
[2022-12-29] MEDS: NS IV 1000 ML 1,000 ML IV SCH ×2 (05:31→05:55)
[2022-12-29 05:37] LABS: INR 2.7 (0.8-1.4); PROTHROMBIN TIME PATIENT 29.1 SEC (12.2-14.7)
[2022-12-29] MEDS ORDERED: POTASSIUM CL 10MEQ/50ML IVPB 50 ML IV SCH (06:00)
[2022-12-29] MEDS ORDERED: KCL 20 MEQ TAB (K-DUR) PO SCH (06:00)
[2022-12-29] MEDS ORDERED: MAGNESIUM 1 GM/100 ML IVPB 100 ML IV SCH (06:00)
[2022-12-29] MEDS ORDERED: KCL 20 MEQ TAB (K-DUR) PO ONE ×2 (06:00→08:00)
--- NOTE | 2022-12-29 07:55 | Consultation-Cardiology ---
HPI-Cardiology Cardiology Consultation: Date of Consultation 12/29/22 Time Seen by a Provider: 08:25 Date of Admission 12-28-22 Attending Physician Noe Mace Admitting Physician Admitting Physician: Angy Pham DO Attending Physician: Angy hPam DO Consulting Physician Kera Prince MD Provider requesting consult: Dr. Pham HPI: Chief Complaint: Lower abd pain, low urine out put Mr. Shelton is a 67 yo man admittd to ICU 7 from the ED with lower abdominal pain for nearly a week, worsening. Has had a low urine output. has had nausea and dry heaves. Has not been able to keep any meds down. Had not had any meds yesterday. Spit up meds from the night before as well. was diagnosed with UTI at [facility]. Since then, he has also been to the ER at [facility] and was diagnosed with cystitis and prostate enlargement. Does not report specific chest pain. Notes shortness of breath that is much worse than before. Review of Systems-Cardiology Review of Systems Constitutional: As described under HPI Eyes: No vision change Ears/Nose/Throat: No epistaxis, No recent hearing loss Respiratory: As described under HPI Cardiovascular: As described under HPI Gastrointestinal: As described under HPI Genitourinary: As described under HPI Musculoskeletal: No joint pain Skin: No rash on exposed areas, No ulcerations on exposed areas Psychiatric/Neurological: No anxiety, No depression, No seizure, No focal weakness, No syncope Hematologic: No bleeding abnormalities [id number] Hx Patient Social History Smoking Status: Former Smoker Have you traveled recently?: No Alcohol Use?: No Pt feels they are or have been: No Past Medical History PMH As described under Assessment. Family Medical History Family Medical History: Reports father had CAD and mother had HTN. Allergies and Home Medications Allergies Coded Allergies: No Known Drug Allergies (Unverified , 12/28/22) Patient Home Medication List Acetaminophen (Tylenol Extra Strength) 500 Mg Tablet, 2,000 MG PO Q6H PRN for PAIN-MILD (1-4), (Reported) Entered as Reported by: BLAIRE OTT on 03/15/22 1309 Last Action: Reviewed Aspirin (Aspirin EC) 81 Mg Tablet., 81 MG PO DAILY, (Reported) Entered as Reported by: JAQUELINE BOSWELL on 05/25/21 1019 Last Action: Reviewed Atorvastatin Calcium (Atorvastatin Calcium) 40 Mg Tablet, 40 MG PO DAILY, (Reported) Entered as Reported by: BLAIRE OTT on 03/15/22 1308 Last Action: Reviewed Bupropion HCl (Bupropion HCl Sr) 200 Mg Tablet.er, 200 MG PO BID, (Reported) Entered as Reported by: JAQUELINE BOSWELL on 05/25/21 101 Last Action: Reviewed Carvedilol (Carvedilol) 12.5 Mg Tablet, 12.5 MG PO BID, (Reported) Entered as Reported by: CAMILA VERGARA on 03/02/17 1313 Last Action: Reviewed Digoxin (Digoxin) 250 Mcg Tablet, 250 MCG PO DAILY, (Reported) Entered as Reported by: JAQUELINE BOSWELL on 05/25/211018 Last Action: Reviewed Diltiazem HCl (Cartia Xt) 240 Mg Cap.er.24h, 240 MG PO DAILY, (Reported) Entered as Reported by: JAQUELINE BOSWELL on 05/25/21 101 Last Action: Reviewed Lisinopril (Lisinopril) 5 Mg Tablet, 5 MG PO DAILY, (Reported) Entered as Reported by: JAQUELINE BOSWELL on 05/25/211018 Last Action: Reviewed Magnesium Hydroxide (Dulcolax) 1,200 Mg Tab.chew, 600 MG PO Q6H PRN for CONSTIPATION-7TH LINE, (Reported) Entered as Reported by: JAQUELINE BOSWELL on 12/29/22 113 Last Action: Reviewed Tamsulosin HCl (Flomax) 0.4 Mg Cap, 0.4 MG PO DAILY, (Reported) Entered as Reported by: JAQUELINE BOSWELL on 12/29/221132 Last Action: Reviewed Tramadol HCl (Tramadol HCl) 50 Mg Tablet, 50 MG PO Q8H PRN for PAIN-MODERATE (5- 7), (Reported) Entered as Reported by: JAQUELINE BOSWELL on 12/29/221132 Last Action: Reviewed Warfarin Sodium (Warfarin Sodium) 5 Mg Tablet, 5 MG PO PERAZA,MO,WE,TH,FR @HS, (Reported) Entered as Reported by: JAQUELINE BOSWELL on 05/25/211018 Last Action: Reviewed Warfarin Sodium (Warfarin Sodium) 5 Mg Tablet, 7.5 MG PO TU,SA @HS, (Reported) Entered as Reported by: JAQUELINE BOSWELL on 05/25/21 1019 Last Action: Reviewed Discontinued Medications Albuterol Sulfate (Ventolin Hfa) 1 Puff Puff, 2 PUFF IH Q4H PRN for SHORTNESS OF BREATH, (Reported) Discontinued Reason: No Longer Taking Entered as Reported by: BLAIRE OTT on 03/15/22 1308 Last Action: Discontinued Cefdinir (Cefdinir) 300 Mg Capsule, 300 MG PO BID Discontinued Reason: No Longer Taking Prescribed by: VEE BRAND on 03/16/22 1147 Last Action: Discontinued Cefdinir (Cefdinir) 300 Mg Capsule, 300 MG PO BID Discontinued Reason: No Longer Taking Prescribed by: CHELA DOOLEY on 12/20/22 181 Last Action: Discontinued Meclizine HCl (Meclizine HCl) 12.5 Mg Tablet, 12.5-25 MG PO Q8H PRN for DIZZINESS, (Reported) Discontinued Reason: No Longer Taking Entered as Reported by: JAQUELINE BOSWELL on 05/25/21 1019 Last Action: Discontinued Tamsulosin HCl (Flomax) 0.4 Mg Cap, 0.4 MG PO DAILY Discontinued Reason: Duplicate Order Prescribed by: CHELA DOOLEY on 12/20/22 182 Last Action: Discontinued Physical Exam-Cardiology Physical Exam Vital Signs/I&O 12/29/22 12/29/22 12/29/22 12/29/22 04:00 04:00 05:00 06:00 Temp 36.5 Pulse 73 73 73 Resp 24 24 22 B/P (MAP) 118/73 (88) 127/72 (90) 126/78 (94) Pulse Ox 92 92 93 O2 Delivery Nasal Cannula Nasal Cannula Nasal Cannula O2 Flow Rate 2.00 2.00 2.00 12/29/22 12/29/22 12/29/22 12/29/22 07:00 07:00 08:00 08:01 Temp 36.9 Pulse 73 73 73 Resp 23 29 B/P (MAP) 129/77 (94) 124/75 (91) Pulse Ox 91 93 O2 Delivery Nasal Cannula Nasal Cannula O2 Flow Rate 2.00 2.00 12/29/22 12/29/22 12/29/22 09:00 10:00 13:00 Pulse 88 93 74 Resp 20 18 B/P (MAP) 128/75 (92) 136/80 (98) Pulse Ox 91 93 O2 Delivery Nasal Cannula Nasal Cannula O2 Flow Rate 2.00 2.00 12/29/22 00:00 Intake Total 1967.5 ml Output Total 150 ml Balance 1817.5 ml Capillary Refill : Less Than 3 Seconds Constitutional: AAO x 3, well-developed, well-nourished HEENT: PERRL, hearing is well preserved; No oral hygience is good Neck: No carotid bruit; carotid pulses are 2 + bilaterally Respiratory: No accessory muscle use, No respiratory distress; other (diminished RLL) Cardiovascular: irregularly irregular; No JVD; S1 and S2 Gastrointestinal: tender (LLQ tenderness), soft; No guarding Extremities: no lower extremity edema bilateral Neurologic/Psychiatric: grossly intact (moves all extremities) Skin: No rash on exposed areas, No ulcerations on exposed areas Data Review Labs Laboratory Tests 12/28/22 18:05: Lactic Acid Level 1.07 12/29/22 04:05: Sodium Level 139, Potassium Level 3.1L, Chloride Level 101, Carbon Dioxide Level 24, Anion Gap 14, Blood Urea Nitrogen 16, Creatinine 0.81, Estimat Glomerular Filtration Rate 96, BUN/Creatinine Ratio 20, Glucose Level 88, Calcium Level 8.3L, Corrected Calcium 9.3, Phosphorus Level 3.0, Magnesium Level 2.0, Total Bilirubin 0.7, Aspartate Amino Transf (AST/SGOT) 26, Alanine Aminotransferase (ALT/SGPT) 32, Alkaline Phosphatase 67, Total Protein 6.3L, Albumin 2.8L 12/29/22 05:17: White Blood Count 8.3, Red Blood Count 4.11L, Hemoglobin 12.7#L, Hematocrit 38L, Mean Corpuscular Volume 92, Mean Corpuscular Hemoglobin 31, Mean Corpuscular Hemoglobin Concent 34, Red Cell Distribution Width 12.1, Platelet Count 304, Mean Platelet Volume 9.7, Immature Granulocyte % (Auto) 0, Neutrophils (%) (Auto) 74, Lymphocytes (%) (Auto) 9L, Monocytes (%) (Auto) 11, Eosinophils (%) (Auto) 5, Basophils (%) (Auto) 1, Neutrophils # (Auto) 6.1, Lymphocytes # (Auto) 0.8L, Monocytes # (Auto) 0.9, Eosinophils # (Auto) 0.4H, Basophils # (Auto) 0.1, Immature Granulocyte # (Auto) 0.0, Prothrombin Time 29.1H, INR Comment 2.7H Microbiology 12/28/22 MRSA Screen - Final, Complete MRSA not isolated Radiology NAME: ROB SHELTON [facility] REC#: [id number] PT STATUS: ADM [place] : 1955 PHYSICIAN: SHEYLA RENO DO ADMIT DATE: 12/28/22/ICU Signed Date of Exam:12/28/22 ABDOMEN, FLAT & UPRIGHT/DECUB ABDOMEN, FLAT UPRIGHT/DECUB INDICATION: Abdominal pain. COMPARISON: Chest radiograph from earlier same day. TECHNIQUE: Supine and upright AP views of the abdomen. FINDINGS: Nonobstructive bowel gas pattern. No free intraperitoneal air. No abnormal soft tissue mineralizations. Please see chest radiograph report for details of pathology in the right lower hemithorax. IMPRESSION: No free intraperitoneal air or bowel obstruction. Dictated by: Dictated on workstation # [id number] Dict: 12/28/221622 Trans: 12/28/221941 [id number] [id number] Interpreted by: NANDO MEJIA MD Electronically signed by: NANDO MEJIA MD 12/28/221941 NAME: ROB SHELTON [facility] REC#: [id number] PT STATUS: REG ER : 1955 PHYSICIAN: SHEYLA RENO DO ADMIT DATE: 12/28/22/ER Draft Date of Exam:12/28/22 CHEST PA/LAT (2 VIEW) INDICATION: Hypoxia. PA and lateral views of the chest are obtained with comparison made to study of 08/27/2013. FINDINGS: There has been significant volume loss in the right lung with elevated right hemidiaphragm as well as right upper lobe atelectasis. There is also right pleural fluid and/or thickening. Left chest wall pacemaker device remains in place. There is no evidence of pneumothorax, and the left lung remains well expanded. IMPRESSION: Pleural fluid and atelectasis in the right lung with associated diaphragmatic elevation. Consideration could be given to bronchoscopy for further assessment, or diagnostic thoracentesis could be considered. Dictated on workstation # [id number] Dict: 12/28/22 1606 Trans: 12/28/22 1614 [id number] Interpreted by: REZA PRUETT MD Electronically signed by: ECG Impression ECG Comment A-flutter A/P-Cardiology Assessment/Admission Diagnosis Acute illness: - UTI - management per medical services - Acute abdomen - managed by Dr. Lau Large right pleural effusion - ?thoracentesis today per Dr. Lau Dizziness and poor balance since early December 2021 - Holter of 01-06-22 showed rare PVC, infreq PAC, A-fib throughout the study with controlled vent response. Av HR 70 bpm. No signif monster. No VT - symptoms improved after stopping Xarelto Permanent a-fib/flutter - first diagnosed on ECG of 12/06/17, now permanent - OAC with warfarin for stroke prophylaxis - Holter of 06/13/19: A fib throughout study, avg vent rate 91 bpm, no VT or significant monster - rate controlled Intolerant to Xarelto (marked dizziness and poor balance) CAD - Coronary artery disease with history of Promus 3x18 mm stent to the LAD per cardiac cath by Dr. Aaron in September 2010. - Most recent Cardiac cath of Aug 2013 showed patent LAD stent, LVEF 30-35%, and normal LVEDP - MPI of November 2018 showed anteroseptal and apical myocardial infarction with only a small amt of jacque-infarct ischemia. Anteroseptal and apical hypokinesis. Atrial flutter/fib seen throughout the study. LVEF 38%. - MPI of 11-14-21 showed: This study indicates apical and inferoseptal infarcts without significant ischemia. Apical and inferoseptal hypokinesis. Well preserved global left ventricular systolic function with a calculated ejection fraction of 51%. Ischemic CM - Chronic systolic CHF, clinically compensated - S/p single chamber ICD: placement on 08/27/13 for SCD prophylaxis, functioning normally per interrogation of 10/20/21 - Echocardiogram of 01/01/18 showed mild impairment of LV systolic funciton with and LVEF of 35-40%, apical hypokinesis, enlargement of LA, PASP WNL - Echocardiogram of 05-25-21 showed LVEF 40-45%. LA mod dilated. PASP 25-30 mmHg HLP - statin therapy Carotid dz: - Mild carotid arterial disease per u/s of 06/11/21 HTN - controlled H/o Tobaccoism - quit in early January 2014. We have advised him to continue to refrain from tobacco use - Elevated PSA being followed by Dr Lisa Hollingsworth-sided epididymoorchitis and hydrocele in 2018 or 2019, managed at [facility] ER and f/u with Dr Favio Aguirre (urologist) and with his pcp. Currently followed by Dr Gonzalez, according to the patient Discussion and Recomendations Abdominal pain - undetermined etiology - management per Dr. Lau Large right pleural effusion - ? thoracentesis later today by Dr. Lau A-fib/flutter - rate improved with Cardizem gtt - change to oral Cardizem - hold home dose of Dig - OAC with Coumadin - INR therapeutic - currently being held d/t possible thoracentesis later today - ok to hold - resume when ok with surgical services - cover with Lovenox if needed Hypokalemia - undetermined etiology - replace Further recs will be based on his hospital course We would like to thank Dr. Pham for this consult RUBEN LEGGETT Dec 29, 2022 07:55
--- NOTE | 2022-12-29 08:56 | Diagnostic Imaging Report ---
INDICATION: Pneumonia. Comparison is made with prior exam of 10/18/22 FINDINGS: There is an increasing infiltrate and effusion in the right lung. Heart size is normal. Left lung is clear. No pneumothorax. Pacemaker overlies left hemithorax. IMPRESSION: Increasing infiltrate and effusion in the right lung. Dictated by: Dictated on workstation # [id number]
[2022-12-29] MEDS: DOCUSATE SODIUM 100 MG (COLACE) CAP PO SCH ×2 (09:00→21:02)
[2022-12-29] MEDS: SENNOSIDES 8.6 MG (SENOKOT) TAB PO SCH ×2 (09:00→21:02)
[2022-12-29] MEDS: NOREPINEPHRINE 8 MG/250 ML 250 ML IV SCH (09:01)
[2022-12-29] MEDS: VANCOMYCIN 1 GM/NS 250 ML IVPB IV SCH ×4 (09:23→19:50)
[2022-12-29] MEDS ORDERED: TMSL.4C PO (11:33)
[2022-12-29] MEDS ORDERED: TRM50T PO (11:33)
[2022-12-29] MEDS ORDERED: [UNRECOGNIZED DRUG - CODE] PO (11:33)
--- NOTE | 2022-12-29 13:17 | Consultation-Cardiology ---
HPI-Cardiology Cardiology Consultation: Date of Consultation 12/29/22 Time Seen by a Provider: 12:10 Date of Admission Attending Physician Noe Mace Admitting Physician Admitting Physician: Angy Pham DO Attending Physician: Angy Pham DO Consulting Physician JERRY MCGUIRE MD, MA, FACP, FACC, FSCAI, CCDS Physician requesting consultation: Dr Pham HPI: Chief Complaint: Lower abd pain, low urine out put Mr. Laurent is a 67 yo man admittd to ICU 7 from the ED with lower abdominal pain for nearly a week, worsening. Has had a low urine output. has had nausea and dry heaves. Has not been able to keep any meds down. Had not had any meds yesterday. Spit up meds from the night before as well. was diagnosed with UTI at [facility]. Since then, he has also been to the ER at [facility] and was diagnosed with cystitis and prostate enlargement. Does not report specific chest pain. Notes shortness of breath that is much worse than before. Notes improvement of symptoms since admission. Review of Systems-Cardiology Review of Systems Constitutional: As described under HPI Eyes: No vision change Ears/Nose/Throat: No epistaxis, No recent hearing loss Respiratory: As described under HPI Cardiovascular: As described under HPI Gastrointestinal: As described under HPI Genitourinary: As described under HPI Musculoskeletal: No joint pain Skin: No rash on exposed areas, No ulcerations on exposed areas Psychiatric/Neurological: No anxiety, No depression, No seizure, No focal weakness, No syncope Hematologic: No bleeding abnormalities KTO-Bivwcy-Whgcgv Hx Patient Social History Smoking Status: Former Smoker Have you traveled recently?: No Alcohol Use?: No Pt feels they are or have been: No Past Medical History PMH As described under Assessment. Family Medical History Family Medical History: Reports father had CAD and mother had HTN. Allergies and Home Medications Allergies Coded Allergies: No Known Drug Allergies (Unverified , 12/28/22) Patient Home Medication List Home Medication List Reviewed: Yes Acetaminophen (Tylenol Extra Strength) 500 Mg Tablet, 2,000 MG PO Q6H PRN for PAIN-MILD (1-4), (Reported) Entered as Reported by: BLAIRE OTT on 03/15/22 8728 Last Action: Reviewed Aspirin (Aspirin EC) 81 Mg Tablet., 81 MG PO DAILY, (Reported) Entered as Reported by: JAQUELINE BOSWELL on 05/25/21 101 Last Action: Reviewed Atorvastatin Calcium (Atorvastatin Calcium) 40 Mg Tablet, 40 MG PO DAILY, (Reported) Entered as Reported by: BLAIRE OTT on 03/15/22 1308 Last Action: Reviewed Bupropion HCl (Bupropion HCl Sr) 200 Mg Tablet.er, 200 MG PO BID, (Reported) Entered as Reported by: JAQUELINE BOSWELL on 05/25/21 101 Last Action: Reviewed Carvedilol (Carvedilol) 12.5 Mg Tablet, 12.5 MG PO BID, (Reported) Entered as Reported by: CAMILA VERGARA on 03/02/17 1313 Last Action: Reviewed Digoxin (Digoxin) 250 Mcg Tablet, 250 MCG PO DAILY, (Reported) Entered as Reported by: JAQUELINE BOSWELL on 05/25/211018 Last Action: Reviewed Diltiazem HCl (Cartia Xt) 240 Mg Cap.er.24h, 240 MG PO DAILY, (Reported) Entered as Reported by: JAQUELINE BOSWLEL on 05/25/21 101 Last Action: Reviewed Lisinopril (Lisinopril) 5 Mg Tablet, 5 MG PO DAILY, (Reported) Entered as Reported by: JAQUELINE BOSWELL on 05/25/211018 Last Action: Reviewed Magnesium Hydroxide (Dulcolax) 1,200 Mg Tab.chew, 600 MG PO Q6H PRN for CONSTIPATION-7TH LINE, (Reported) Entered as Reported by: JAQUELINE BOSWELL on 12/29/22 113 Last Action: Reviewed Tamsulosin HCl (Flomax) 0.4 Mg Cap, 0.4 MG PO DAILY, (Reported) Entered as Reported by: JAQUELINE BOSWELL on 12/29/221132 Last Action: Reviewed Tramadol HCl (Tramadol HCl) 50 Mg Tablet, 50 MG PO Q8H PRN for PAIN-MODERATE (5- 7), (Reported) Entered as Reported by: JAQUELINE BOSWELL on 12/29/221132 Last Action: Reviewed Warfarin Sodium (Warfarin Sodium) 5 Mg Tablet, 5 MG PO PERAZA,MO,WE,TH,FR @HS, (Reported) Entered as Reported by: JAQUELINE BOSWELL on 05/25/211018 Last Action: Reviewed Warfarin Sodium (Warfarin Sodium) 5 Mg Tablet, 7.5 MG PO TU,SA @HS, (Reported) Entered as Reported by: JAQUELINE BOSWELL on 05/25/21 1019 Last Action: Reviewed Discontinued Medications Albuterol Sulfate (Ventolin Hfa) 1 Puff Puff, 2 PUFF IH Q4H PRN for SHORTNESS OF BREATH, (Reported) Discontinued Reason: No Longer Taking Entered as Reported by: BLAIRE OTT on 03/15/22 1308 Last Action: Discontinued Cefdinir (Cefdinir) 300 Mg Capsule, 300 MG PO BID Discontinued Reason: No Longer Taking Prescribed by: VEE BRAND on 03/16/22 1147 Last Action: Discontinued Cefdinir (Cefdinir) 300 Mg Capsule, 300 MG PO BID Discontinued Reason: No Longer Taking Prescribed by: CHELA DOOLEY on 12/20/22 1819 Last Action: Discontinued Meclizine HCl (Meclizine HCl) 12.5 Mg Tablet, 12.5-25 MG PO Q8H PRN for DIZZINESS, (Reported) Discontinued Reason: No Longer Taking Entered as Reported by: JAQUELINE BOSWELL on 05/25/21 1019 Last Action: Discontinued Tamsulosin HCl (Flomax) 0.4 Mg Cap, 0.4 MG PO DAILY Discontinued Reason: Duplicate Order Prescribed by: CHELA DOOLEY on 12/20/22 182 Last Action: Discontinued Physical Exam-Cardiology Physical Exam Vital Signs/I&O 12/29/22 12/29/22 12/29/22 12/29/22 02:00 03:00 04:00 04:00 Temp 36.5 Pulse 72 72 73 Resp 14 17 24 B/P (MAP) 121/73 (89) 117/73 (88) 118/73 (88) Pulse Ox 94 93 92 O2 Delivery Nasal Cannula Nasal Cannula Nasal Cannula O2 Flow Rate 2.00 2.00 2.00 12/29/22 12/29/22 12/29/22 12/29/22 05:00 06:00 07:00 07:00 Pulse 73 73 73 73 Resp B/P (MAP) 127/72 (90) 126/78 (94) 129/77 (94) Pulse Ox 92 93 91 O2 Delivery Nasal Cannula Nasal Cannula Nasal Cannula O2 Flow Rate 2.00 2.00 2.00 12/29/22 12/29/22 12/29/22 12/29/22 08:00 08:01 09:00 10:00 Temp 36.9 Pulse 73 88 93 Resp 29 20 18 B/P (MAP) 124/75 (91) 128/75 (92) 136/80 (98) Pulse Ox 93 91 93 O2 Delivery Nasal Cannula Nasal Cannula Nasal Cannula O2 Flow Rate 2.00 2.00 2.00 12/29/22 00:00 Intake Total 1967.5 ml Output Total 150 ml Balance 1817.5 ml Capillary Refill : Less Than 3 Seconds Constitutional: AAO x 3, well-developed, well-nourished HEENT: PERRL, hearing is well preserved; No oral hygience is good Neck: No carotid bruit; carotid pulses are 2 + bilaterally Respiratory: No accessory muscle use, No respiratory distress; other ( diminished RLL) Cardiovascular: irregularly irregular; No JVD; S1 and S2 Gastrointestinal: tender (LLQ tenderness), soft; No guarding Extremities: no lower extremity edema bilateral Neurologic/Psychiatric: grossly intact (moves all extremities) Skin: No rash on exposed areas, No ulcerations on exposed areas Data Review Labs Laboratory Tests 12/28/22 14:24: Prothrombin Time 28.8H, INR Comment 2.7H 12/28/22 14:30: White Blood Count 14.6H, Red Blood Count 5.38, Hemoglobin 16.5, Hematocrit 48, Mean Corpuscular Volume 90, Mean Corpuscular Hemoglobin 31, Mean Corpuscular Hemoglobin Concent 34, Red Cell Distribution Width 12.0, Platelet Count 477H, Mean Platelet Volume 9.7, Immature Granulocyte % (Auto) 1, Neutrophils (%) (Auto) 76H, Lymphocytes (%) (Auto) 9L, Monocytes (%) (Auto) 11, Eosinophils (%) (Auto) 3, Basophils (%) (Auto) 1, Neutrophils # (Auto) 11.1H, Lymphocytes # (Auto) 1.4, Monocytes # (Auto) 1.6H, Eosinophils # (Auto) 0.4H, Basophils # (Auto) 0.1, Immature Granulocyte # (Auto) 0.1, Neutrophils % (Manual) 83, Lymphocytes % (Manual) 9, Monocytes % (Manual) 6, Eosinophils % (Manual) 2, Basophils % (Manual) 0, Band Neutrophils 0, Blood Morphology Comment NORMAL, Sodium Level 139, Potassium Level 3.0L, Chloride Level 93L, Carbon Dioxide Level 29, Anion Gap 17H, Blood Urea Nitrogen 18, Creatinine 1.23, Estimat Glomerular Filtration Rate 64, BUN/Creatinine Ratio 15, Glucose Level 122H, Lactic Acid Level 1.85, Calcium Level 10.0, Corrected Calcium 10.2H, Total Bilirubin 1.2H, Aspartate Amino Transf (AST/SGOT) 44H, Alanine Aminotransferase (ALT/SGPT) 48, Alkaline Phosphatase 97, Total Protein 8.4H, Albumin 3.8, Lipase 130H, Serum Alcohol < 10 12/28/22 14:50: Urine Color ORANGE, Urine Clarity SL CLOUDY, Urine pH 6.0, Urine Specific Chester >=1.030, Urine Protein 2+H, Urine Glucose (UA) TRACEH, Urine Ketones NEGATIVE, Urine Nitrite NEGATIVE, Urine Bilirubin 2+H, Urine Urobilinogen 4.0, Urine Leukocyte Esterase 1+H, Urine RBC (Auto) TRACE-IH, Urine RBC RARE, Urine WBC 10-25H, Urine Squamous Epithelial Cells RARE, Urine Crystals NONE, Urine Bacteria FEWH, Urine Casts NONE, Urine Mucus SMALLH, Urine Culture Indicated YES, Urine Opiates Screen NEGATIVE, Urine Oxycodone Screen NEGATIVE, Urine Methadone Screen NEGATIVE, Urine Propoxyphene Screen NEGATIVE, Urine Barbiturates Screen NEGATIVE, Ur Tricyclic Antidepressants Screen NEGATIVE, Urine Phencyclidine Screen NEGATIVE, Urine Amphetamines Screen NEGATIVE, Urine Methamphetamines Screen NEGATIVE, Urine Benzodiazepines Screen NEGATIVE, Urine Cocaine Screen NEGATIVE, Urine Cannabinoids Screen NEGATIVE 12/28/22 18:05: Lactic Acid Level 1.07 12/29/22 04:05: Sodium Level 139, Potassium Level 3.1L, Chloride Level 101, Carbon Dioxide Level 24, Anion Gap 14, Blood Urea Nitrogen 16, Creatinine 0.81, Estimat Glomerular Filtration Rate 96, BUN/Creatinine Ratio 20, Glucose Level 88, Calcium Level 8.3L, Corrected Calcium 9.3, Phosphorus Level 3.0, Magnesium Level 2.0, Total Bilirubin 0.7, Aspartate Amino Transf (AST/SGOT) 26, Alanine Aminotransferase (ALT/SGPT) 32, Alkaline Phosphatase 67, Total Protein 6.3L, Albumin 2.8L 12/29/22 05:17: White Blood Count 8.3, Red Blood Count 4.11L, Hemoglobin 12.7#L, Hematocrit 38L, Mean Corpuscular Volume 92, Mean Corpuscular Hemoglobin 31, Mean Corpuscular Hemoglobin Concent 34, Red Cell Distribution Width 12.1, Platelet Count 304, Mean Platelet Volume 9.7, Immature Granulocyte % (Auto) 0, Neutrophils (%) (Auto) 74, Lymphocytes (%) (Auto) 9L, Monocytes (%) (Auto) 11, Eosinophils (%) (Auto) 5, Basophils (%) (Auto) 1, Neutrophils # (Auto) 6.1, Lymphocytes # (Auto) 0.8L, Monocytes # (Auto) 0.9, Eosinophils # (Auto) 0.4H, Basophils # (Auto) 0.1, Immature Granulocyte # (Auto) 0.0, Prothrombin Time 29.1H, INR Comment 2.7H A/P-Cardiology Assessment/Admission Diagnosis Acute illness: - UTI - management per Medical services - Acute abdomen - managed by Dr. Lau Large right pleural effusion - thoracentesis planned by Dr. Lau Dizziness and poor balance since early December 2021 - Holter of 01-06-22 showed rare PVC, infreq PAC, A-fib throughout the study with controlled vent response. Av HR 70 bpm. No signif monster. No VT - symptoms improved after stopping Xarelto Permanent a-fib/flutter - first diagnosed on ECG of 12/06/17, now permanent - OAC with warfarin for stroke prophylaxis - Holter of 06/13/19: A fib throughout study, avg vent rate 91 bpm, no VT or significant monster - rate controlled Intolerant to Xarelto (marked dizziness and poor balance) CAD - Coronary artery disease with history of Promus 3x18 mm stent to the LAD per cardiac cath by Dr. Aaron in September 2010. - Most recent Cardiac cath of Aug 2013 showed patent LAD stent, LVEF 30-35%, and normal LVEDP - MPI of November 2018 showed anteroseptal and apical myocardial infarction with only a small amt of jacque-infarct ischemia. Anteroseptal and apical hypokinesis. Atrial flutter/fib seen throughout the study. LVEF 38%. - MPI of 11-14-21 showed: This study indicates apical and inferoseptal infarcts without significant ischemia. Apical and inferoseptal hypokinesis. Well preserved global left ventricular systolic function with a calculated ejection fraction of 51%. Ischemic CM - Chronic systolic CHF, clinically compensated - S/p single chamber ICD: placement on 08/27/13 for SCD prophylaxis, functioning normally per interrogation of 10/20/21 - Echocardiogram of 01/01/18 showed mild impairment of LV systolic funciton with and LVEF of 35-40%, apical hypokinesis, enlargement of LA, PASP WNL - Echocardiogram of 05-25-21 showed LVEF 40-45%. LA mod dilated. PASP 25-30 mmHg HLP - statin therapy Carotid dz: - Mild carotid arterial disease per u/s of 06/11/21 HTN - controlled H/o Tobaccoism - quit in early January 2014. We have advised him to continue to refrain from tobacco use - Elevated PSA being followed by Dr Gonzalez - L-sided epididymoorchitis and hydrocele in 2018 or 2019, managed at [facility] ER and f/u with Dr Favio Aguirre (urologist) and with his pcp. Currently followed by Dr Gonzalez, according to the patient Discussion and Recomendations * Warfarin being held for thoracentesis. Please resume after procedure safely concluded * Abdominal pain and UTI are being managed by Dr Pham * Has chronically been on long-acting dilt with good vent rate control and has done well on this med. Continue * Replenish electrolytes * iv fluids as needed and as tolerated * Monitor labs JERRY MCGUIRE MD FACP [facility] CCDS Dec 29, 2022 13:17
--- NOTE | 2022-12-29 13:44 | History & Physical-Hospitalist ---
KELVIN JAIMES 12/29/22 1343: History of Present Illness HPI/Chief Complaint This patient is a 67 year old male with a past medicla history significant for Chronic Atrial Flutter, CAD w/ stents, and HTN who presented to the ED yesterday for acute lower abd pain (03/20) and N/V for the past 1.5 weeks. He was recently here on 12/20 for cystitis at which point he was given a prescription for cefdinir 300mg PO BID. In the ED he was found to be in atrial flutter with RVR and was started on cardizem drip and given IV Metoprolol. He is on warfarin and asa at home. He reports being unable to keep down his medications at home. His vitals were otherwise unremarkable. His labwork revealed WBC 14.6, K+ 3.o. His urinalysis was postive for Protein, glucose, Leuk, RBC, WBC and few bacteria. It was sent for culture. His Coag study revelaed INR was appropriate at 2.7. CXR in the ED incidentally showed significant volume loss in right lung second to pleuratl fluid and atelectasis w/ associated diaphragmatic elevation and the recommendation by radiology for thoracentsis. The patient reports having some fatigue at this time but otherwise reports feeling well. He denies LH, CP, palpitations, abd pain, N/V, numbness/weakness at this time. Source: patient, old records Date Seen 12/29/22 Time Seen by a Provider: 08:40 Attending Physician Noe Mace PCP Admitting Physician: Angy Mcfadden DO Attending Physician: Angy Mcfadden DO Referring Physician Date of Admission Dec 28, 2022 at 18:36 Home Medications & Allergies Home Medications Reviewed patient Home Medication Reconciliation performed by pharmacy medication reconciliations plastic surgery technician and/or nursing. Patients Allergies have been reviewed. Allergies Allergies Coded Allergies No Known Drug Allergies (Unverified12/28/22) Past Gpgxyyg-Itoynv-Nzigvb Hx Patient Social History Tobacco Use?: No Smoking Status: Former Smoker Smokeless Tobacco Frequency: Never a User Use of E-Cig and/or Vaping dev: No Substance use?: No Alcohol Use?: No Pt feels they are or have been: No Immunizations Up To Date First/Initial COVID19 Vaccinat: 2020, ONE SHOT Second COVID19 Vaccination Rory: 2020 Tetanus Booster (TDap): Unknown Seasonal Allergies Seasonal Allergies: Yes (at times) Current Status Advance Directives: No Advance Directive Location: FULL CODE Communicates: Verbally Primary Language: Frisian Preferred Spoken Language: Frisian Is interpretation needed?: No Implanted or Applied Medical D: Stents Past Medical History Surgeries: Appendectomy, Coronary Stent, Pacemaker, Tonsillectomy Atrial Fibrillation, Coronary Artery Disease, Heart Attack, Hypertension Headaches /Migraines Blood Disorders: No PMHx: Coronary artery disease with stenting and ballooning HTN Atrial flutter SurgHx: Appendectomy Mass removed from posterior neck, noncancerous Family Medical History No Pertinent Family Hx, Other Conditions/Hx Review of Systems Constitutional: malaise EENTM: No hearing loss, No vision loss Respiratory: No cough, No short of breath Cardiovascular: No chest pain, No palpitations Gastrointestinal: No abdominal pain; nausea (none currently), vomiting (none currently) Genitourinary: No dysuria, No hematuria Musculoskeletal: no symptoms reported Skin: no symptoms reported Psychiatric/Neurological: No Symptoms Reported Physical Exam Physical Exam Vital Signs Vital Signs - First Documented 12/28/22 12/28/22 12/28/22 14:15 15:23 19:27 Temp 37.3 Pulse 154 Resp 18 B/P (MAP) 126/92 (103) Pulse Ox 95 O2 Delivery Room Air O2 Flow Rate 2.00 FiO2 21 Capillary Refill : Less Than 3 Seconds Height, Weight, BMI Height: 6'3.00" Weight: 214lbs. 0.0oz. [id number]; 26.06 BMI Method:Stated General Appearance: No Apparent Distress, WD/WN Eyes: Bilateral Eye PERRL, Bilateral Eye EOMI HEENT: PERRL/EOMI, Moist Mucous Membranes Neck: Non Tender, Supple Respiratory: Chest Non Tender, Lungs Clear, No Accessory Muscle Use, No Respiratory Distress, Decreased Breath Sounds (RLL) Cardiovascular: No Murmur, Normal Peripheral Pulses, Irregularly Irregular Back: No CVA Tenderness, No Vertebral Tenderness Extremity: Normal Capillary Refill, Non Tender, No Calf Tenderness, No Pedal Edema Neurologic/Psychiatric: Alert, Oriented x3, No Motor/Sensory Deficits Skin: Normal Color, Warm/Dry Lymphatic: No Adenopathy Results Results/Procedures Labs Laboratory Tests 12/28/22 14:30 12/29/22 04:05 12/29/22 05:17 Patient resulted labs reviewed. Imaging: Reviewed Imaging Films Imaging NAME: ROB [facility] REC#: [id number] PT STATUS: ADM [place] : 1955 PHYSICIAN: SHEYLA RENO DO ADMIT DATE: 12/28/22/ICU Signed Date of Exam:12/28/22 CHEST PA/LAT (2 VIEW) INDICATION: Hypoxia. PA and lateral views of the chest are obtained with comparison made to study of 08/27/2013. FINDINGS: There has been significant volume loss in the right lung with elevated right hemidiaphragm as well as right upper lobe atelectasis. There is also right pleural fluid and/or thickening. Left chest wall pacemaker device remains in place. There is no evidence of pneumothorax, and the left lung remains well expanded. IMPRESSION: Pleural fluid and atelectasis in the right lung with associated diaphragmatic elevation. Consideration could be given to bronchoscopy for further assessment, or diagnostic thoracentesis could be considered. Dictated by: Dictated on workstation # [id number] Dict: 12/28/22 1606 Trans: 12/29/22 0834 MK [id number] Interpreted by: REZA PRUETT MD Electronically signed by: REZA PRUETT MD 12/29/22 0834 NAME: ROB [facility] REC#: [id number] PT STATUS: ADM [place] : 1955 PHYSICIAN: ANGY MCFADDEN DO ADMIT DATE: 12/28/22/ICU Signed Date of Exam:12/29/22 CHEST 1 VIEW, AP/PA ONLY INDICATION: Pneumonia. Comparison is made with prior exam of 10/18/22 FINDINGS: There is an increasing infiltrate and effusion in the right lung. Heart size is normal. Left lung is clear. No pneumothorax. Pacemaker overlies left hemithorax. IMPRESSION: Increasing infiltrate and effusion in the right lung. Dictated by: Dictated on workstation # [id number] Dict: 12/29/22 [id number] Trans: 12/29/22 1202 CLIFFORD [id number] Interpreted by: FELIX LUCIO MD Electronically signed by: FELIX LUCIO MD 12/29/22 1202 Assessment/Plan Admission Diagnosis Atrial flutter w/ RVR, UTI Assessment and Plan afib/flutter with RVR -Rate controlled at this time. still in afib. Switched from Cardizem IV --> oral this morning. ASA and therapeutic lovenox rather than warfarin. -Consult cardiology and appreciate recommendations UTI -Failed outpatient therapy. Meropenem 500mg Q6 IV and Vancomycin 1g Q12 IV. For UTI and probable RLL pneumonia RLL pneumonia/effusion -Per 12/28 CXR report -> significant volume loss in right lung due to pleural fluid & atelectasis w/ associated diaphragm elevation -12/29 CXR showed similar effusion with increased infiltrate suggestive of RLL pneumonia. -IV abx initiated as above and Dr. Quiroz consulted for possible thoracentesis. Hx CAD HTN HLD Diet: as tolerated DVT proph: Lovenox ANGY MCFADDEN DO 12/30/22 0447: History of Present Illness Source: patient Past Vsjfcqh-Jizysn-Pvdkpx Hx Patient Social History Marrital Status: single Employed/Student: retired Smoking Status: Current Everyday Smoker Past Medical History Atrial Fibrillation, High Cholesterol, Hypertension Review of Systems Constitutional: see HPI Respiratory: dyspnea on exertion Physical Exam Physical Exam General Appearance: No Apparent Distress, Chronically ill Respiratory: No Accessory Muscle Use, No Respiratory Distress, Decreased Breath Sounds (RLL) Cardiovascular: Irregularly Irregular Assessment/Plan Admission Diagnosis Admission Status: Inpatient Order (span 2 midnights) Reason for Inpatient Admission: effusion with af rvr Supervisory-Addendum Brief Verification & Attestation Participated in pt care: history, MDM, physical Personally performed: exam, history, MDM, supervision of care Care discussed with: Medical Student Procedures: n/a Results interpretation: Verified all documentation Verification and Attestation of Medical Student E/M Service A medical student performed and documented this service in my presence. I reviewed and verified all information documented by the medical student and made modifications to such information, when appropriate. I personally performed the physical exam and medical decision making. Angy Mcfadden, Dec 30, 2022,04:47 KELVIN JAIMES Dec 29, 2022 13:43 ANGY MCFADDEN DO Dec 30, 2022 04:47
--- NOTE | 2022-12-29 15:42 | Diagnostic Imaging Report ---
PROCEDURE: US Abdomen, limited. TECHNIQUE: Multiple realtime grayscale images were obtained over the abdomen in various projections. INDICATION: Abdominal pain. FINDINGS: Grayscale imaging of the gallbladder reveals no intraluminal filling defect apart from possible gallbladder sludge. There is no gallbladder wall thickening or pericholecystic fluid. No intra or extrahepatic biliary ductal dilatation is identified. Bowel gas does limit assessment of the abdominal contents. No pancreatic, right renal, abdominal aortic or inferior vena caval abnormality is documented. No ascites was noted. IMPRESSION: There may be sludge in the gallbladder lumen without other evidence of acute abnormality in the right upper quadrant. Dictated by: Dictated on workstation # [id number]
[2022-12-29 17:39] VITALS: BP 133/77
[2022-12-29 19:50] VITALS: BP 112/69
[2022-12-29 19:54] VITALS: BP 148/90
[2022-12-29 23:28] VITALS: BP 131/88
[2022-12-30] MEDS: MEROPENEM 500 MG in NS (IVPB) 100 ML IV SCH ×4 (00:39→19:24)
[2022-12-30 03:49] VITALS: BP 136/76
[2022-12-30 05:56] LABS: BASOPHILS # (AUTO) 0.1 10^3/uL (0.0-0.1); BASOPHILS % (AUTO) 1 % (0-10); EOSINOPHILS # (AUTO) 0.3 10^3/uL (0.0-0.3); EOSINOPHILS % (AUTO) 4 % (0-10); HEMATOCRIT 40 % (40-54); HEMOGLOBIN 13.2 g/dL (13.3-17.7); LYMPHOCYTES # (AUTO) 0.8 10^3/uL (1.0-4.0); LYMPHOCYTES % (AUTO) 11 % (12-44); MEAN CORPUSCULAR HEMOGLOBIN 30 pg (25-34); MEAN CORPUSCULAR HGB CONC 33 g/dL (32-36); MEAN CORPUSCULAR VOLUME 92 fL (80-99); MONOCYTES # (AUTO) 0.5 10^3/uL (0.0-1.0); MONOCYTES % (AUTO) 7 % (0-12); NEUTROPHILS # (AUTO) 5.9 10^3/uL (1.8-7.8); NEUTROPHILS % (AUTO) 77 % (42-75); PLATELET COUNT 310 10^3/uL (130-400); WHITE BLOOD COUNT 7.7 10^3/uL (4.3-11.0)
[2022-12-30 06:25] LABS: ALBUMIN 3.3 GM/DL (3.2-4.5); BILIRUBIN,TOTAL 0.9 MG/DL (0.1-1.0); CALCIUM 9.2 MG/DL (8.5-10.1); CREATININE SERUM 0.84 MG/DL (0.60-1.30); MAGNESIUM 1.7 MG/DL (1.6-2.4); POTASSIUM 3.8 MMOL/L (3.6-5.0); TOTAL PROTEIN 7.2 GM/DL (6.4-8.2)
[2022-12-30] MEDS: VANCOMYCIN 1 GM/NS 250 ML IVPB IV SCH ×2 (08:21)
[2022-12-30] MEDS: DOCUSATE SODIUM 100 MG (COLACE) CAP PO SCH ×2 (08:30→20:28)
[2022-12-30] MEDS: SENNOSIDES 8.6 MG (SENOKOT) TAB PO SCH ×2 (08:31→20:28)
[2022-12-30 08:37] VITALS: BP 147/87
[2022-12-30 08:40] VITALS: BP 147/87
--- NOTE | 2022-12-30 10:31 | Diagnostic Imaging Report ---
CHEST 1 VIEW, AP/PA ONLY Indication: Pneumonia Comparison: 12/29/2022 Findings: Persistent large right pleural effusion. Right basilar pulmonary opacities are similar. Left lung remains clear. No mediastinal shift. Normal heart size. Stable left pectoral transvenous AICD. Impression: 1. Unchanged large right pleural effusion. Dictated by: Dictated on workstation # [id number]
--- NOTE | 2022-12-30 11:58 | Progress Note ---
Subjective Date Seen by a Provider: Dec 30, 2022 Time Seen by a Provider: 11:30 Subjective/Events-last exam doing better. still has some SOB however much improved since admission. cxr today shows the right pleural eff. Focused Exam Lactate Level 12/28/22 14:30: Lactic Acid Level 1.85 12/28/22 18:05: Lactic Acid Level 1.07 Objective Exam Vital Signs Date Time Temp Pulse Resp B/P (MAP) Pulse Ox O2 Delivery O2 Flow Rate FiO2 12/30/22 08:40 37.2 113 20 147/87 (107) 92 Nasal Cannula 2.00 12/30/22 08:37 37.8 113 20 147/87 (107) 92 Nasal Cannula 2.00 12/30/22 08:00 Nasal Cannula 2.00 12/30/22 07:00 123 12/30/22 03:49 36.2 78 18 136/76 (96) 92 Nasal Cannula 2.00 12/30/22 01:00 97 12/29/22 23:28 36.8 101 18 131/88 (102) 92 Nasal Cannula 2.00 12/29/22 20:56 Nasal Cannula 2.00 12/29/22 19:54 37.2 105 18 148/90 (109) 91 Nasal Cannula 2.00 12/29/22 19:50 37.2 100 18 112/69 (83) 90 Nasal Cannula 2.00 12/29/22 19:00 99 12/29/22 17:39 36.8 94 18 133/77 (95) 91 Nasal Cannula 2.00 12/29/22 17:15 Nasal Cannula 2.00 12/29/22 15:50 37.2 12/29/22 13:00 74 I & O 12/30/22 07:00 Intake Total 850 ml Output Total 1225 ml Balance -375 ml Capillary Refill : Less Than 3 Seconds General Appearance: No Apparent Distress HEENT: PERRL/EOMI Neck: Full Range of Motion Respiratory: Chest Non Tender, Decreased Breath Sounds, Wheezing Cardiovascular: Regular Rate, Rhythm Gastrointestinal: normal bowel sounds, soft, tenderness Extremity: Normal Capillary Refill Neurologic/Psychiatric: Alert, Oriented x3 Skin: Normal Color Lymphatic: No Adenopathy Results Lab Laboratory Tests 12/30/22 05:15: White Blood Count 7.7, Red Blood Count 4.38, Hemoglobin 13.2L, Hematocrit 40, Mean Corpuscular Volume 92, Mean Corpuscular Hemoglobin 30, Mean Corpuscular Hemoglobin Concent 33, Red Cell Distribution Width 12.1, Platelet Count 310, Mean Platelet Volume 10.0, Immature Granulocyte % (Auto) 1, Neutrophils (%) (Auto) 77H, Lymphocytes (%) (Auto) 11L, Monocytes (%) (Auto) 7, Eosinophils (%) (Auto) 4, Basophils (%) (Auto) 1, Neutrophils # (Auto) 5.9, Lymphocytes # (Auto) 0.8L, Monocytes # (Auto) 0.5, Eosinophils # (Auto) 0.3, Basophils # (Auto) 0.1, Immature Granulocyte # (Auto) 0.1, Sodium Level 140, Potassium Level 3.8, Chloride Level 101, Carbon Dioxide Level 24, Anion Gap 15H, Blood Urea Nitrogen 14, Creatinine 0.84, Estimat Glomerular Filtration Rate 95, BUN/Creatinine Ratio 17, Glucose Level 84, Calcium Level 9.2, Corrected Calcium 9.8, Magnesium Level 1.7, Total Bilirubin 0.9, Aspartate Amino Transf (AST/SGOT) 45H, Alanine Aminotransferase (ALT/SGPT) 42, Alkaline Phosphatase 77, Total Protein 7.2, Albumin 3.3 Microbiology 12/28/22 Blood Culture - Preliminary, Resulted No growth 12/28/22 MRSA Screen - Final, Complete MRSA not isolated 12/28/22 Urine Culture - Final, Complete NO GROWTH Assessment/Plan Assessment/Plan Assess & Plan/Chief Complaint sx right pleural effusion and chronic calculous cholecystitis. will proceed with right thorocentesis. likely proceed with laparoscopic cholecystectomy as OP when cardiac cleared and able to ween down coumadin anticoagulation. ERNST OLMOS MD Dec 30, 2022 11:58
--- NOTE | 2022-12-30 12:04 | Progress Note - Hospitalist ---
KELVIN JAIMES 12/30/22 1204: Subjective HPI/CC On Admission Date Seen by Provider: Dec 30, 2022 Time Seen by Provider: 08:30 This patient is a 67 year old male with a past medicla history significant for Chronic Atrial Flutter, CAD w/ stents, and HTN who presented to the ED yesterday for acute lower abd pain (03/20) and N/V for the past 1.5 weeks. He was recently here on 12/20 for cystitis at which point he was given a prescription for cefdinir 300mg PO BID. In the ED he was found to be in atrial flutter with RVR and was started on cardizem drip and given IV Metoprolol. He is on warfarin and asa at home. He reports being unable to keep down his medications at home. His vitals were otherwise unremarkable. His labwork revealed WBC 14.6, K+ 3.o. His urinalysis was postive for Protein, glucose, Leuk, RBC, WBC and few bacteria. It was sent for culture. His Coag study revelaed INR was appropriate at 2.7. CXR in the ED incidentally showed significant volume loss in right lung second to pleuratl fluid and atelectasis w/ associated diaphragmatic elevation and the recommendation by radiology for thoracentsis. The patient reports having some fatigue at this time but otherwise reports feeling well. He denies LH, CP, palpitations, abd pain, N/V, numbness/weakness at this time. Subjective/Events-last exam This patient was awake sitting up in bed eating breakfast when seen this morning. He ended up not having the thoracentesis yesterday due to Concerns By Dr. Quiroz who he reports was planning to reassess today. Repeat CXR this morning appears similar to yesterday's imaging if not mildly worse. Radiology report is pending. He continues to have irregular heart beat with times of RVR. He was tachycardic this morning wheen seen at around 120bpm but had just received his cardizem 240mg PO QD. He reports feeling well at time and denies LH, CP, palpitations, SOB, abd pain, Numbness/weakness arms or legs. Review of Systems General: No Chills, No Fatigue HEENT: No Head Aches, No Visual Changes Pulmonary: No Dyspnea, No Cough Cardiovascular: No: Chest Pain, Palpitations Gastrointestinal: No: Nausea, Vomiting, Abdominal Pain Genitourinary: No Dysuria, No Hematuria Neurological: No: Weakness, Numbness Focused Exam Lactate Level 12/28/22 14:30: Lactic Acid Level 1.85 12/28/22 18:05: Lactic Acid Level 1.07 Objective Exam Vital Signs Vital Signs Date Time Temp Pulse Resp B/P (MAP) Pulse Ox O2 Delivery O2 Flow Rate FiO2 12/30/22 08:40 37.2 113 20 147/87 (107) 92 Nasal Cannula 2.00 12/28/22 19:27 21 Capillary Refill : Less Than 3 Seconds General Appearance: No Apparent Distress, WD/WN HEENT: PERRL/EOMI, Pharynx Normal, Moist Mucous Membranes Respiratory: Chest Non Tender; No No Accessory Muscle Use; Decreased Breath Sounds (RML & RLL); No Wheezing Cardiovascular: No Murmur, Normal Peripheral Pulses, Irregularly Irregular, Tachycardia (120's whilein the room) Gastrointestinal: Normal Bowel Sounds, Non Tender, Soft Extremity: Normal Capillary Refill, Non Tender, No Calf Tenderness, No Pedal Edema Neurologic/Psychiatric: Alert, Oriented x3, No Motor/Sensory Deficits, Normal Mood/Affect Skin: Normal Color, Warm/Dry Lymphatic: No Adenopathy Results/Procedures Lab Laboratory Tests 12/30/22 05:15 Patient resulted labs reviewed. Imaging: Reviewed Imaging Films Assessment/Plan Assessment and Plan Assess & Plan/Chief Complaint afib/flutter with RVR -Overnight the patient was having elevated HR in the 90's-100's that elevated up to the 120's this morning. EKG this morning showed a flutter with RVR. Was given cardizem 240mg PO this morning. Lovenox held at this time for planned thoracentesis. Cardiology consulted and helping manage. -Consult cardiology and appreciate recommendations UTI -Urine culture revealed No growth. Will continue abx for possible pneumonia, but does not appear to have UTI based on results. RLL pneumonia/effusion -Per 12/28 CXR report -> significant volume loss in right lung due to pleural fluid & atelectasis w/ associated diaphragm elevation -12/29 CXR showed similar effusion with increased infiltrate suggestive of RLL pneumonia. -12/30 CXR unchanged from previous -IV abx initiated as above and Dr. Quiroz consulted for possible thor acentesis. Unable to yesterday due to risk for bleeding. ASA and lovenox held for now. HTN HLD Diet: as tolerated DVT proph: SCD's ANGY MCFADDEN DO 12/30/22 1641: Supervisory-Addendum Brief Verification & Attestation Participated in pt care: history, MDM, physical Personally performed: exam, history, MDM, supervision of care Care discussed with: Medical Student Procedures: n/a Results interpretation: Verified all documentation Verification and Attestation of Medical Student E/M Service A medical student performed and documented this service in my presence. I reviewed and verified all information documented by the medical student and made modifications to such information, when appropriate. I personally performed the physical exam and medical decision making. Angy Mcfadden, Dec 30, 2022,16:41 KELVIN JAIMES Dec 30, 2022 12:04 ANGY MCFADDEN DO Dec 30, 2022 16:41
[2022-12-30] MEDS ORDERED: LIDOCAINE 1% INJ 10 ML VIAL ONE (12:52)
--- NOTE | 2022-12-30 13:33 | Physical Therapy Evaluation ---
PT Evaluation-General Medical Diagnosis Admission Date Dec 30, 2022 at 11:10 Medical Diagnosis: A-flutter, chronic N/V Onset Date: Dec 30, 2022 Therapy Diagnosis Therapy Diagnosis: debility Height/Weight Height (Feet): 6 Height (Inches): 3.00 Weight (Pounds): 214 Weight (Ounces): 0.0 Precautions Precautions/Isolations: Fall Prevention, Standard Precautions Referral Physician: Vero Reason for Referral: Evaluation/Treatment Medical History Pertinent Medical History: Atrial Fib, CAD, HTN, [place] Current History ER secondary to feeling ill Reviewed History: Yes Social History Home: Apartment Current Living Status: Spouse Prior Prior Level of Function SCALE: Activities may be completed with or without assistive devices. 0-Racqjsozsb-gbjtfie completes the activity by him/herself with no assistance from a helper. 5-Set-up or Clean-up Assistance-helper sets up or cleans up; patient completes activity. [place] assists only prior to or following the activity. 4-Supervision or Touching Assistance-helper provides verbal cues and/or touchi ng/steadying and/or contact guard assistance as patient completes activity. Assistance may be provided throughout the activity or intermittently. 3-Partial/Moderate Assistance-helper does LESS THAN HALF the effort. [place] lifts, holds or supports trunk or limbs, but provides less than half the effort. 2-Substantial/Maximal Assistance-helper does MORE THAN HALF the effort. [place] lifts or holds trunk or limbs and provides more than half the effort. 8-Cqarsopjy-gwyvuf does ALL the effort. Patient does none of the effort to complete the activity. Or, the assistance of 2 or more helpers is required for the patient to complete the activity. If activity was not attempted, code reason: 7-Patient Refused. 9-Not Applicable-not attempted and the patient did not perform the activity before the current illness, exacerbation or injury. 10-Not Attempted due to Environmental Limitations-(lack of equipment, weather restraints, etc.). 88-Not Attempted due to Medical Conditions or Safety Concerns. Bed Mobility: 6 Transfers (B,C,W/C): 6 Gait: 6 Stairs: 6 Indoor Mobility (Ambulation): Independent Stairs: Independent Prior Devices Use: None PT Evaluation-Current Subjective Patient agrees to PT. Objective Patient Orientation: Normal For Age ROM/Strength ROM Lower Extremities bilateral LE WFL Strength Lower Extremities 4/5 grossly bilateral LE all planes Integumentary/Posture Bowel Incontinence: No Bladder Incontinence: No Posture slightly kyphotic Neuromuscular (Tone, Coordination, Reflexes) grossly intact Sensory Vision: Functional Hearing: Functional Transfers Lying to Sitting/Side of Bed(Q: 6 Sit to Stand (QC): 6 Chair/Ndc-ws-Drccj Xfer(QC): 6 Gait Mode of Locomotion: Walk Anticipated Mode of Locomotion: Walk Walk 10 feet (QC): 6 Walk 50 ft with 2 Turns(QC): 6 Walk 150 ft (QC): 6 Distance: 500' Gait Assistive Device: None Comments/Gait Description safe and functional with no deviation Balance Sitting Static: Normal Sitting Dynamic: Normal Standing Static: Normal Standing Dynamic: Normal Assessment/Needs Patient is currently at independent [facility] with all gross motor skills and does not require skilled PT intervention. Rehab Potential: Fair PT Plan Treatment/Plan Treatment Plan: Discontinue PT, goals met Treatment Duration: Dec 30, 2022 Frequency: 1 time per week Estimated Hrs Per Day: .25 hour per day Patient and/or Family Agrees t: Yes Time Time In: 1245 Time Out: 1257 DATE: Dec 30, 2022 Total Billed Treatment Time: 12 Total Billed Treatment 1 visit EVLow 12 min JERRY العلي PT Dec 30, 2022 13:32
[2022-12-30 14:01] LABS: BODY FLUID RBC COUNT 0.592 10^6/uL; BODY FLUID WBC TOTAL COUNT 2.389 10^3/uL
[2022-12-30 14:04] LABS: BODY FLUID APPEARENCE MKD BLDY; BODY FLUID COLOR RED
[2022-12-30 14:52] LABS: BODY FLUID SOURCE PLEURAL; GLUCOSE,BODY FLUID 95 MG/DL; TOTAL PROTEIN,BODY FLUID 4.3 G/DL
[2022-12-30 15:25] VITALS: BP 132/72
[2022-12-30 16:22] LABS: BODY FLUID PH 7.7
--- NOTE | 2022-12-30 16:27 | Diagnostic Imaging Report ---
EXAMINATION: Chest 1 view HISTORY: Post thoracentesis. COMPARISON: 12/30/2022. FINDINGS: Right pleural effusion has decreased in size and is small to moderate. No pneumothorax. Left lung is clear. Heart size is normal. Pacemaker is present. IMPRESSION: 1. Decrease in size with ohxeg-en-kwqggajq right pleural effusion without pneumothorax. Dictated by: Dictated on workstation # [id number]
[2022-12-30 19:37] VITALS: BP 136/86
--- NOTE | 2022-12-30 21:10 | OPERATIVE REPORT ---
DATE OF SERVICE: 12/30/2022 ADMITTING PHYSICIAN: Dr. Pham. PREOPERATIVE DIAGNOSIS: Symptomatic right pleural effusion. POSTOPERATIVE DIAGNOSES: Chronic hemothorax likely mixed with transudative fluid from the pleural lining. PROCEDURE: Right thoracentesis. SURGEON: Ernst Olmos MD ANESTHESIA: Local. ESTIMATED BLOOD LOSS: Minimal. FINDINGS: A 2800 mL of blood-tinged thin transudative fluid, likely indicating a previous intraparietal bleed. DISPOSITION: The patient tolerated the procedure well. INDICATIONS: The patient is a 67-year-old male who presented to the Emergency Department with a 1-week history of worsening shortness of breath as well as weakness. He does have underlying medical problems including COPD, ischemic cardiomyopathy and congestive heart failure. The patient is also on Coumadin. He also reports that he has fallen a few times in the past few weeks due to his weakness. Chest x-rays were consistent with a significant sized right sided pleural effusion as well as ultrasound. DESCRIPTION OF PROCEDURE: Back was prepped and draped in standard surgical fashion. 1% lidocaine was then used to anesthetize the overlying skin, muscle layers as well as the pleural lining at approximately the eighth intercostal space posterolaterally. A vertical skin incision was then made using an 11 blade and the catheter and trocar were then introduced withdrawing of old dark blood-tinged transudative fluid. The catheter was then advanced over trocar and connected to vacuum bottles where 2800 mL of the same type of fluid was evacuated. Catheter was then removed under positive pressure ventilation and Op-Site placed. The patient tolerated the procedure well. We will get a post-procedure chest x-ray and send the fluid off for cytology as well as laboratory analysis. Job ID: [id number] DocumentID: [id number] Dictated Date: 12/30/2022 13:35:02 [employer] Date: 12/30/2022 21:08:00 Dictated By: ERNST OLMOS MD [facility]
[2022-12-30 23:11] VITALS: BP 150/86
[2022-12-31] MEDS: MEROPENEM 500 MG in NS (IVPB) 100 ML IV SCH ×4 (02:00→20:12)
[2022-12-31 03:38] VITALS: BP 118/69
[2022-12-31 05:23] LABS: BASOPHILS # (AUTO) 0.1 10^3/uL (0.0-0.1); BASOPHILS % (AUTO) 1 % (0-10); EOSINOPHILS # (AUTO) 0.4 10^3/uL (0.0-0.3); EOSINOPHILS % (AUTO) 4 % (0-10); HEMATOCRIT 39 % (40-54); LYMPHOCYTES # (AUTO) 1.1 10^3/uL (1.0-4.0); LYMPHOCYTES % (AUTO) 12 % (12-44); MEAN CORPUSCULAR HEMOGLOBIN 30 pg (25-34); MEAN CORPUSCULAR HGB CONC 34 g/dL (32-36); MEAN CORPUSCULAR VOLUME 90 fL (80-99); MEAN PLATELET VOLUME 9.6 fL (9.0-12.2); MONOCYTES # (AUTO) 0.8 10^3/uL (0.0-1.0); MONOCYTES % (AUTO) 9 % (0-12); NEUTROPHILS # (AUTO) 6.6 10^3/uL (1.8-7.8); NEUTROPHILS % (AUTO) 73 % (42-75); PLATELET COUNT 311 10^3/uL (130-400)
[2022-12-31 05:50] LABS: ALBUMIN 2.9 GM/DL (3.2-4.5); BILIRUBIN,TOTAL 0.7 MG/DL (0.1-1.0); CALCIUM 8.7 MG/DL (8.5-10.1); CREATININE SERUM 0.79 MG/DL (0.60-1.30); MAGNESIUM 1.6 MG/DL (1.6-2.4); POTASSIUM 3.2 MMOL/L (3.6-5.0); TOTAL PROTEIN 6.2 GM/DL (6.4-8.2)
--- NOTE | 2022-12-31 06:01 | Progress Note - Hospitalist ---
Subjective HPI/CC On Admission Date Seen by Provider: Dec 31, 2022 Time Seen by Provider: 11:00 This patient is a 67 year old male with a past medicla history significant for Chronic Atrial Flutter, CAD w/ stents, and HTN who presented to the ED yesterday for acute lower abd pain (03/20) and N/V for the past 1.5 weeks. He was recently here on 12/20 for cystitis at which point he was given a prescription for cefdinir 300mg PO BID. In the ED he was found to be in atrial flutter with RVR and was started on cardizem drip and given IV Metoprolol. He is on warfarin and asa at home. He reports being unable to keep down his medications at home. His vitals were otherwise unremarkable. His labwork revealed WBC 14.6, K+ 3.o. His urinalysis was postive for Protein, glucose, Leuk, RBC, WBC and few bacteria. It was sent for culture. His Coag study revelaed INR was appropriate at 2.7. CXR in the ED incidentally showed significant volume loss in right lung second to pleuratl fluid and atelectasis w/ associated diaphragmatic elevation and the recommendation by radiology for thoracentsis. The patient reports having some fatigue at this time but otherwise reports feeling well. He denies LH, CP, palpitations, abd pain, N/V, numbness/weakness at this time. Subjective/Events-last exam Thoracentesis yesterday removed [id number] Reviewed cultures No pain reported at bedside No BM yet Eating well O2 maintained he does not use it at home Review of Systems General: Fatigue, Malaise Pulmonary: Dyspnea Focused Exam Lactate Level 12/28/22 18:05: Lactic Acid Level 1.07 Objective Exam Vital Signs Vital Signs Date Time Temp Pulse Resp B/P (MAP) Pulse Ox O2 Delivery O2 Flow Rate FiO2 12/31/22 12:48 116 12/31/22 11:18 36.8 18 111/65 (80) 93 Nasal Cannula 2.00 12/28/22 19:27 21 Capillary Refill : Less Than 3 Seconds General Appearance: No Apparent Distress, WD/WN, Chronically ill Respiratory: Lungs Clear, Normal Breath Sounds, Decreased Breath Sounds (right) Cardiovascular: Regular Rate, Rhythm Neurologic/Psychiatric: Alert, Oriented x3, No Motor/Sensory Deficits, Normal Mood/Affect Results/Procedures Lab Laboratory Tests 12/31/22 05:12 Patient resulted labs reviewed. Imaging: Reviewed Imaging Films Assessment/Plan Assessment and Plan Assess & Plan/Chief Complaint afib/flutter with RVR -Overnight the patient was having elevated HR in the 90's-100's that elevated up to the 120's this morning. EKG this morning showed a flutter with RVR. Was given cardizem 240mg PO this morning. Lovenox held at this time for planned thoracentesis. Cardiology consulted and helping manage. -Consult cardiology and appreciate recommendations UTI -Urine culture revealed No growth. Will continue abx for possible pneumonia, but does not appear to have UTI based on results. RLL pneumonia/effusion -Per 12/28 CXR report -> significant volume loss in right lung due to pleural fluid & atelectasis w/ associated diaphragm elevation -12/29 CXR showed similar effusion with increased infiltrate suggestive of RLL pneumonia. -12/30 CXR unchanged from previous -IV abx initiated as above and Dr. Quiroz consulted for possible thoracentesis. Unable to yesterday due to risk for bleeding. ASA and lovenox held for now. HTN HLD Diet: as tolerated DVT proph: SCD's Critical Care Critically Ill Patient LESADYAN GALLAGHER Dec 31, 2022 06:01
[2022-12-31 07:41] VITALS: BP 114/68
[2022-12-31] MEDS: DOCUSATE SODIUM 100 MG (COLACE) CAP PO SCH ×2 (08:06→20:13)
[2022-12-31] MEDS: SENNOSIDES 8.6 MG (SENOKOT) TAB PO SCH ×2 (08:06→20:13)
--- NOTE | 2022-12-31 09:49 | Diagnostic Imaging Report ---
EXAMINATION: Chest 1 view HISTORY: Pneumonia COMPARISON: 12/30/2022 FINDINGS: Extensive right-sided airspace opacities and moderate right pleural effusion are unchanged. Left lung is clear. Pacemaker is present. Heart size is normal. IMPRESSION: 1. Extensive right-sided airspace opacities and moderate pleural effusion are unchanged in keeping with pneumonia. Dictated by: Dictated on workstation # [id number]
[2022-12-31] MEDS: MAGNESIUM 1 GM/100 ML IVPB 100 ML IV SCH ×4 (11:11→13:50)
[2022-12-31] MEDS: POTASSIUM CL 10MEQ/50ML IVPB 50 ML IV SCH ×4 (11:11→13:50)
[2022-12-31 11:18] VITALS: BP 111/65
--- NOTE | 2022-12-31 11:37 | Progress Note ---
Subjective Date Seen by a Provider: Dec 31, 2022 Time Seen by a Provider: 10:40 Subjective/Events-last exam Patient seen with Dr. Lau. Patient reports doing well. Denies any chest pain, SOB, abdominal pain, nausea, or vomiting. Tolerating diet and ambulating. Focused Exam Lactate Level 12/28/22 14:30: Lactic Acid Level 1.85 12/28/22 18:05: Lactic Acid Level 1.07 Objective Exam Vital Signs Date Time Temp Pulse Resp B/P (MAP) Pulse Ox O2 Delivery O2 Flow Rate FiO2 12/31/22 11:18 36.8 55 18 111/65 (80) 93 Nasal Cannula 2.00 12/31/22 10:49 95 Nasal Cannula 2.00 12/31/22 08:00 Nasal Cannula 4.00 12/31/22 07:41 36.9 53 18 114/68 (83) 92 Nasal Cannula 5.00 12/31/22 07:00 121 12/31/22 03:38 36.9 59 18 118/69 (85) 93 Nasal Cannula 5.00 12/31/22 01:00 118 12/30/22 23:11 37.1 103 20 150/86 (107) 91 Nasal Cannula 5.00 12/30/22 19:46 93 Nasal Cannula 4.00 12/30/22 19:37 37.3 108 20 136/86 (103) 93 Nasal Cannula 4.00 12/30/22 19:00 119 12/30/22 15:25 36.8 100 22 132/72 (92) 92 Nasal Cannula 2.00 12/30/22 14:37 76 98 Nasal Cannula 2.00 12/30/22 13:45 115 90 Nasal Cannula 2.00 12/30/22 12:46 130 12/30/22 12:30 37.1 124 20 91 Nasal Cannula 2.00 I & O 12/31/22 07:00 Intake Total 2420 ml Output Total 1200 ml Balance 1220 ml Capillary Refill : Less Than 3 Seconds General Appearance: No Apparent Distress, WD/WN Neck: Normal Inspection, Supple Respiratory: No Accessory Muscle Use, No Respiratory Distress Gastrointestinal: normal bowel sounds, non tender, soft Extremity: Normal Inspection, Normal Range of Motion Neurologic/Psychiatric: Alert, Oriented x3 Skin: Normal Color, Warm/Dry Results Lab Laboratory Tests 12/30/22 13:15: Body Fluid Source PLEURAL, Body Fluid Color RED, Body Fluid Appearance MKD BLDY, Body Fluid pH 7.7, Body Fluid WBC 2.389, Body Fluid RBC 0.592, Body Fl Polynuc lear WBCs (%)(Auto) 28.8, Body Fluid Mononuclear Cells % Auto 71.2, Body Fluid Slide Review Yes, Body Fluid Glucose 95, Body Fluid Total Protein 4.3 12/31/22 05:12: White Blood Count 9.0, Red Blood Count 4.30, Hemoglobin 13.0L, Hematocrit 39L, Mean Corpuscular Volume 90, Mean Corpuscular Hemoglobin 30, Mean Corpuscular Hemoglobin Concent 34, Red Cell Distribution Width 12.1, Platelet Count 311, Mean Platelet Volume 9.6, Immature Granulocyte % (Auto) 1, Neutrophils (%) (Auto) 73, Lymphocytes (%) (Auto) 12, Monocytes (%) (Auto) 9, Eosinophils (%) (Auto) 4, Basophils (%) (Auto) 1, Neutrophils # (Auto) 6.6, Lymphocytes # (Auto) 1.1, Monocytes # (Auto) 0.8, Eosinophils # (Auto) 0.4H, Basophils # (Auto) 0.1, Immature Granulocyte # (Auto) 0.1, Sodium Level 139, Potassium Level 3.2L, Chlo ride Level 102, Carbon Dioxide Level 25, Anion Gap 12, Blood Urea Nitrogen 10, Creatinine 0.79, Estimat Glomerular Filtration Rate 97, BUN/Creatinine Ratio 13, Glucose Level 107H, Calcium Level 8.7, Corrected Calcium 9.6, Magnesium Level 1.6, Total Bilirubin 0.7, Aspartate Amino Transf (AST/SGOT) 33, Alanine Aminotransferase (ALT/SGPT) 37, Alkaline Phosphatase 65, Total Protein 6.2L, Albumin 2.9L Microbiology 12/30/22 Gram Stain - Final, Resulted 12/30/22 Body Fluid Culture, Resulted Pending 12/28/22 Blood Culture - Preliminary, Resulted No growth 12/28/22 MRSA Screen - Final, Complete MRSA not isolated 12/28/22 Urine Culture - Final, Complete NO GROWTH Assessment/Plan Assessment/Plan Assess & Plan/Chief Complaint sx right pleural effusion and chronic calculous cholecystitis. VSS WBC 9.0 Hgb 12.0 Chest x-ray showed continued Extensive right-sided airspace opacities and moderate pleural effusion are unchanged in keeping with pneumonia. likely proceed with laparoscopic cholecystectomy as OP when cardiac cleared and able to ween down coumadin anticoagulation. LUIS KAUR [employer] Dec 31, 2022 11:37
[2022-12-31] MEDS ORDERED: ACETAMINOPHEN 500 MG TAB (TYLENOL) PO PRN (14:45)
[2022-12-31] MEDS ORDERED: MAGNESIUM HYDROXIDE PO PRN (14:45)
--- NOTE | 2022-12-31 14:57 | Cardiology Progress Note ---
Subjective Date Seen by Provider: Dec 31, 2022 Time Seen by Provider: 12:00 Subjective/Events-last exam No acute issues overnight. Patient's heart rates have been in the 110s to 120s. Patient is not experiencing palpitations Focused Exam Lactate Level 12/28/22 18:05: Lactic Acid Level 1.07 Objective-Cardiology Exam Last Set of Vital Signs Vital Signs 12/28/22 12/31/22 12/31/22 19:27 11:18 12:48 Temp 36.8 Pulse 116 Resp 18 B/P (MAP) 111/65 (80) Pulse Ox 93 O2 Delivery Nasal Cannula O2 Flow Rate 2.00 FiO2 21 I&O Intake and Output 12/31/22 00:00 Intake Total 2420 ml Output Total 1300 ml Balance 1120 ml Intake Oral 2070 ml IV Total 350 ml Output Urine Total 1300 ml # Voids 11 # Bowel Movements 3 Other physical findings Gen: No acute distress; A+O x 3, sitting comfortably in the bed Neck: soft supple, no cervical LAD Lungs: diminished breath sounds in bilateral lung adam. Relatively absent breath sounds in R base-detention up; no sudheer wheezing, rales or rhonchi CV: nl s1/s2, no m-g-r, tachycardic, irreg, irreg Abd: soft nt nd, no HSM, + BS Ext: wwp, no c-c-e; 2+ DP and femoral pulses skin: no lesions rashes or ecchymoses are noted. Results Lab Laboratory Tests 12/31/22 05:12 A/P-Cardiology Assessment/Plan ## UTI - management per Medical services - Acute abdomen - managed by Dr. Lau ## Dizziness and poor balance since early December 2021 - Holter of 01-06-22 showed rare PVC, infreq PAC, A-fib throughout the study with controlled vent response. Av HR 70 bpm. No signif monster. No VT - symptoms improved after stopping Xarelto ## Permanent a-fib/flutter - first diagnosed on ECG of 12/06/17, now permanent - OAC with warfarin for stroke prophylaxis- restart warfarin - Holter of 06/13/19: A fib throughout study, avg vent rate 91 bpm, no VT or significant monster - rate controlled - restart digoxin, coreg and re-asssess HRs in AM;; if still elevated, could consider short term diltiazem drip ## Intolerant to Xarelto (marked dizziness and poor balance) ## CAD - Coronary artery disease with history of Promus 3x18 mm stent to the LAD per cardiac cath by Dr. Aaron in September 2010. - Most recent Cardiac cath of Aug 2013 showed patent LAD stent, LVEF 30-35%, and normal LVEDP - MPI of November 2018 showed anteroseptal and apical myocardial infarction with only a small amt of jacque-infarct ischemia. Anteroseptal and apical hypokinesis. Atrial flutter/fib seen throughout the study. LVEF 38%. - MPI of 11-14-21 showed: This study indicates apical and inferoseptal infarcts without significant ischemia. Apical and inferoseptal hypokinesis. Well preserved global left ventricular systolic function with a calculated ejection fraction of 51%. ## Ischemic CM - Chronic systolic CHF, clinically compensated - S/p single chamber ICD: placement on 08/27/13 for SCD prophylaxis, functioning normally per interrogation of 10/20/21 - Echocardiogram of 01/01/18 showed mild impairment of LV systolic funciton with and LVEF of 35-40%, apical hypokinesis, enlargement of LA, PASP WNL - Echocardiogram of 05-25-21 showed LVEF 40-45%. LA mod dilated. PASP 25-30 mmHg ## HLD - restart statin today. ## HTN; SBPs 110-150/60-80s - restart coreg at half dose - cont dilt - restart lisinopril ## Pneumonia with right sided effusion - 2.8L blood tinged transudative fluid removed from the Right lung on 12/30- pt nots breathing improved NOEL GOINS MD Dec 31, 2022 14:57
[2022-12-31] MEDS ORDERED: MILK OF MAGNESIA 400 MG/5 ML 30 ML UDC PO PRN ×2 (15:00)
[2022-12-31 16:03] VITALS: BP 113/70
[2022-12-31] MEDS: warFARin 5 MG (COUMADIN) TAB PO SCH (18:29)
[2022-12-31 19:52] VITALS: BP 125/76
[2022-12-31] MEDS: buPROPion SR 100 MG (WELLBUTRIN SR) TAB PO SCH (20:12)
[2022-12-31] MEDS ORDERED: BUPROPION HCL 200 MG PO SCH (21:00)
[2023-01-01] VITALS (7 sets, daily range): BP systolic 106–124; BP diastolic 66–75
[2023-01-01] MEDS: MEROPENEM 500 MG in NS (IVPB) 100 ML IV SCH ×4 (02:21→19:15)
[2023-01-01 05:48] LABS: BASOPHILS # (AUTO) 0.1 10^3/uL (0.0-0.1); BASOPHILS % (AUTO) 1 % (0-10); EOSINOPHILS # (AUTO) 0.5 10^3/uL (0.0-0.3); EOSINOPHILS % (AUTO) 6 % (0-10); HEMATOCRIT 37 % (40-54); HEMOGLOBIN 12.4 g/dL (13.3-17.7); LYMPHOCYTES # (AUTO) 0.8 10^3/uL (1.0-4.0); LYMPHOCYTES % (AUTO) 10 % (12-44); MEAN CORPUSCULAR HEMOGLOBIN 30 pg (25-34); MEAN CORPUSCULAR HGB CONC 34 g/dL (32-36); MEAN CORPUSCULAR VOLUME 91 fL (80-99); MEAN PLATELET VOLUME 10.4 fL (9.0-12.2); MONOCYTES # (AUTO) 0.8 10^3/uL (0.0-1.0); MONOCYTES % (AUTO) 9 % (0-12); NEUTROPHILS # (AUTO) 6.3 10^3/uL (1.8-7.8); NEUTROPHILS % (AUTO) 74 % (42-75); PLATELET COUNT 310 10^3/uL (130-400); WHITE BLOOD COUNT 8.5 10^3/uL (4.3-11.0)
[2023-01-01 06:10] LABS: ALBUMIN 2.8 GM/DL (3.2-4.5); POTASSIUM 3.4 MMOL/L (3.6-5.0)
[2023-01-01 06:12] LABS: CALCIUM 8.4 MG/DL (8.5-10.1)
[2023-01-01 06:15] LABS: BILIRUBIN,TOTAL 0.6 MG/DL (0.1-1.0)
[2023-01-01 06:16] LABS: CREATININE SERUM 0.84 MG/DL (0.60-1.30)
[2023-01-01 06:19] LABS: MAGNESIUM 2.3 MG/DL (1.6-2.4)
--- NOTE | 2023-01-01 06:27 | Progress Note - Hospitalist ---
Subjective HPI/CC On Admission Date Seen by Provider: Jan 01, 2023 Time Seen by Provider: 11:00 This patient is a 67 year old male with a past medicla history significant for Chronic Atrial Flutter, CAD w/ stents, and HTN who presented to the ED yesterday for acute lower abd pain (03/20) and N/V for the past 1.5 weeks. He was recently here on 12/20 for cystitis at which point he was given a prescription for cefdinir 300mg PO BID. In the ED he was found to be in atrial flutter with RVR and was started on cardizem drip and given IV Metoprolol. He is on warfarin and asa at home. He reports being unable to keep down his medications at home. His vitals were otherwise unremarkable. His labwork revealed WBC 14.6, K+ 3.o. His urinalysis was postive for Protein, glucose, Leuk, RBC, WBC and few bacteria. It was sent for culture. His Coag study revelaed INR was appropriate at 2.7. CXR in the ED incidentally showed significant volume loss in right lung second to pleuratl fluid and atelectasis w/ associated diaphragmatic elevation and the recommendation by radiology for thoracentsis. The patient reports having some fatigue at this time but otherwise reports feeling well. He denies LH, CP, palpitations, abd pain, N/V, numbness/weakness at this time. Subjective/Events-last exam No major issues Weaning O2 off No pain reported Walking better INR checking tomorrow restarted Coumadin Review of Systems General: Fatigue, Malaise Objective Exam Vital Signs Vital Signs Date Time Temp Pulse Resp B/P (MAP) Pulse Ox O2 Delivery O2 Flow Rate FiO2 01/01/23 11:15 36.6 74 18 119/67 (84) 93 Nasal Cannula 2.00 12/28/22 19:27 21 Capillary Refill : Less Than 3 Seconds General Appearance: No Apparent Distress, WD/WN, Chronically ill Respiratory: Lungs Clear, Normal Breath Sounds, Decreased Breath Sounds Cardiovascular: Regular Rate, Rhythm Neurologic/Psychiatric: Alert, Oriented x3 Results/Procedures Lab Laboratory Tests 01/01/23 05:06 Patient resulted labs reviewed. Imaging: Reviewed Imaging Films Assessment/Plan Assessment and Plan Assess & Plan/Chief Complaint afib/flutter with RVR -The patient was having elevated HR in the 90's-100's that elevated up to the 120's this morning. EKG this morning showed a flutter with RVR. Was given cardizem 240mg PO this morning. Lovenox held at this time for planned thoracentesis. Cardiology consulted and helping manage. -Consult cardiology and appreciate recommendations UTI -Urine culture revealed No growth. Will continue abx for possible pneumonia, but does not appear to have UTI based on results. RLL pneumonia/effusion -Per 12/28 CXR report -> significant volume loss in right lung due to pleural fluid & atelectasis w/ associated diaphragm elevation -12/29 CXR showed similar effusion with increased infiltrate suggestive of RLL pneumonia. -12/30 CXR unchanged from previous -s/p thoracentesis 2800cc removed HTN HLD Diet: as tolerated DVT proph: SCD's with Coumadin Critical Care Critically Ill Patient DYAN MCFADDEN DO Jan 01, 2023 06:27
[2023-01-01] MEDS: ASPIRIN E.C. 81 MG (ECOTRIN) TAB PO SCH (07:47)
[2023-01-01] MEDS: DIGOXIN 0.25 MG (LANOXIN) TAB PO SCH (07:47)
[2023-01-01] MEDS: buPROPion SR 100 MG (WELLBUTRIN SR) TAB PO SCH ×2 (07:47→19:15)
[2023-01-01] MEDS: lisINopril 5 MG (PRINIVIL) TABLET PO SCH (07:48)
[2023-01-01] MEDS: DOCUSATE SODIUM 100 MG (COLACE) CAP PO SCH ×2 (07:48→19:16)
[2023-01-01] MEDS: TAMSULOSIN 0.4 MG (FLOMAX) CAP PO SCH (07:48)
[2023-01-01] MEDS: SENNOSIDES 8.6 MG (SENOKOT) TAB PO SCH ×2 (07:48→19:16)
--- NOTE | 2023-01-01 09:52 | Progress Note ---
Subjective Date Seen by a Provider: Jan 01, 2023 Time Seen by a Provider: 09:30 Subjective/Events-last exam Patient seen with Dr. Lau. Patient reports doing well. Denies any SOB or difficulty breathing. Tolerating diet. Objective Exam Vital Signs Date Time Temp Pulse Resp B/P (MAP) Pulse Ox O2 Delivery O2 Flow Rate FiO2 01/01/23 08:08 36.6 77 18 115/66 (82) 92 Nasal Cannula 2.00 01/01/23 08:00 Nasal Cannula 2.00 01/01/23 07:00 103 01/01/23 03:58 36.2 97 18 123/75 (91) 91 Nasal Cannula 2.00 01/01/23 01:00 72 01/01/23 00:14 36.2 70 18 116/73 (87) 92 Nasal Cannula 2.00 12/31/22 20:13 Nasal Cannula 2.00 12/31/22 19:52 36.3 77 18 125/76 (92) 94 Nasal Cannula 2.00 12/31/22 19:00 88 12/31/22 18:32 Nasal Cannula 1.50 12/31/22 16:03 36.6 74 16 113/70 (84) 93 Nasal Cannula 2.00 12/31/22 15:02 93 Nasal Cannula 1.50 12/31/22 12:48 116 12/31/22 11:18 36.8 55 18 111/65 (80) 93 Nasal Cannula 2.00 12/31/22 10:49 95 Nasal Cannula 2.00 12/31/22 10:00 Nasal Cannula 2.00 I & O 01/01/23 07:00 Intake Total 2610 ml Output Total 2300 ml Balance 310 ml Capillary Refill : Less Than 3 Seconds General Appearance: No Apparent Distress, WD/WN Neck: Normal Inspection, Supple Respiratory: No Accessory Muscle Use, No Respiratory Distress Gastrointestinal: normal bowel sounds, non tender, soft Extremity: Normal Inspection, Normal Range of Motion Neurologic/Psychiatric: Alert, Oriented x3 Skin: Normal Color, Warm/Dry Results Lab Laboratory Tests 01/01/23 05:06: White Blood Count 8.5, Red Blood Count 4.08L, Hemoglobin 12.4L, Hematocrit 37L, Mean Corpuscular Volume 91, Mean Corpuscular Hemoglobin 30, Mean Corpuscular Hemoglobin Concent 34, Red Cell Distribution Width 12.2, Platelet Count 310, Mean Platelet Volume 10.4, Immature Granulocyte % (Auto) 1, Neutrophils (%) (Auto) 74, Lymphocytes (%) (Auto) 10L, Monocytes (%) (Auto) 9, Eosinophils (%) (Auto) 6, Basophils (%) (Auto) 1, Neutrophils # (Auto) 6.3, Lymphocytes # (Auto) 0.8L, Monocytes # (Auto) 0.8, Eosinophils # (Auto) 0.5H, Basophils # (Auto) 0.1, Immature Granulocyte # (Auto) 0.1, Sodium Level 138, Potassium Level 3.4L, Chloride Level 101, Carbon Dioxide Level 27, Anion Gap 10, Blood Urea Nitrogen 10, Creatinine 0.84, Estimat Glomerular Filtration Rate 95, BUN/Creatinine Ratio 12, Glucose Level 150H, Calcium Level 8.4L, Corrected Calcium 9.4, Magnesium Level 2.3, Total Bilirubin 0.6, Aspartate Amino Transf (AST/SGOT) 28, Alanine Aminotransferase (ALT/SGPT) 33, Alkaline Phosphatase 65, Total Protein 6.0L, Albumin 2.8L Microbiology 12/30/22 Gram Stain - Final, Resulted 12/30/22 Body Fluid Culture, Resulted Pending 12/28/22 Blood Culture - Preliminary, Resulted No growth 12/28/22 MRSA Screen - Final, Complete MRSA not isolated 12/28/22 Urine Culture - Final, Complete NO GROWTH Assessment/Plan Assessment/Plan Assess & Plan/Chief Complaint sx right pleural effusion and chronic calculous cholecystitis. VSS WBC 8.5 Hgb 12.4 Chest x-ray showed continued Extensive right-sided airspace opacity along with a pleural effusion suggesting continued pneumonia, generally stable perhaps minimally improved. likely proceed with laparoscopic cholecystectomy as OP when cardiac cleared and able to ween down coumadin anticoagulation. LUIS KAUR DELICATESSEN CLERK Jan 01, 2023 09:52
--- NOTE | 2023-01-01 10:05 | Diagnostic Imaging Report ---
INDICATION: Pneumonia, follow-up. TECHNIQUE: Single view chest 5:53 AM. CORRELATION STUDY: 12/31/2022 FINDINGS: Left-sided pacemaker. Heart size and mediastinum are stable. Extensive opacity throughout the right lung again demonstrated. Moderate right pleural effusion. Left lung remains well-inflated and clear. IMPRESSION: 1. Extensive right-sided airspace opacity along with a pleural effusion suggesting continued pneumonia, generally stable perhaps minimally improved. Dictated by: Dictated on workstation # [id number]
[2023-01-01] MEDS ORDERED: KCL 20 MEQ TAB (K-DUR) PO NR (11:45)
--- NOTE | 2023-01-01 12:02 | Cardiology Progress Note ---
Subjective Date Seen by Provider: Jan 01, 2023 Time Seen by Provider: 09:30 Subjective/Events-last exam No acute issues overnight. Doing well. HRs improved after re-initiation of rate control regimen Objective-Cardiology Exam Last Set of Vital Signs Vital Signs 12/28/22 01/01/23 19:27 11:15 Temp 36.6 Pulse 74 Resp 18 B/P (MAP) 119/67 (84) Pulse Ox 93 O2 Delivery Nasal Cannula O2 Flow Rate 2.00 FiO2 21 I&O Intake and Output 01/01/23 00:00 Intake Total 2610 ml Output Total 2350 ml Balance 260 ml Intake Oral 1710 ml IV Total 900 ml Output Urine Total 2350 ml # Bowel Movements 1 Other physical findings Gen: No acute distress; A+O x 3, sitting comfortably in the bed Neck: soft supple, no cervical LAD Lungs: diminished breath sounds in bilateral lung adam. Relatively absent breath sounds in R base-senior living up; no sudheer wheezing, rales or rhonchi CV: nl s1/s2, no m-g-r, irreg, irreg, not tachycardic Abd: soft nt nd, no HSM, + BS Ext: wwp, no c-c-e; 2+ DP and femoral pulses skin: no lesions rashes or ecchymoses are noted. Results Lab Laboratory Tests 01/01/23 05:06 A/P-Cardiology Assessment/Plan ## UTI - management per Medical services - Acute abdomen - managed by Dr. Lau ## Dizziness and poor balance since early December 2021 - Holter of 01-06-22 showed rare PVC, infreq PAC, A-fib throughout the study with controlled vent response. Av HR 70 bpm. No signif monster. No VT - symptoms improved after stopping Xarelto ## Permanent a-fib/flutter - first diagnosed on ECG of 12/06/17, now permanent - OAC with warfarin for stroke prophylaxis- restart warfarin - Holter of 06/13/19: A fib throughout study, avg vent rate 91 bpm, no VT or significant monster - restart digoxin, coreg and re-assess HRs in AM; HRs improved tody to 50-100s; cont current regimen - if becomes persistently tachycardic, could consider short term diltiazem drip ## Intolerant to Xarelto (marked dizziness and poor balance) ## CAD - Coronary artery disease with history of Promus 3x18 mm stent to the LAD per cardiac cath by Dr. Aaron in September 2010. - Most recent Cardiac cath of Aug 2013 showed patent LAD stent, LVEF 30-35%, and normal LVEDP - MPI of November 2018 showed anteroseptal and apical myocardial infarction with only a small amt of jacque-infarct ischemia. Anteroseptal and apical hypokinesis. Atrial flutter/fib seen throughout the study. LVEF 38%. - MPI of 11-14-21 showed: This study indicates apical and inferoseptal infarcts without significant ischemia. Apical and inferoseptal hypokinesis. Well preserved global left ventricular systolic function with a calculated ejection fraction of 51%. ## Ischemic CM - Chronic systolic CHF, clinically compensated - S/p single chamber ICD: placement on 08/27/13 for SCD prophylaxis, functioning normally per interrogation of 10/20/21 - Echocardiogram of 01/01/18 showed mild impairment of LV systolic funciton with and LVEF of 35-40%, apical hypokinesis, enlargement of LA, PASP WNL - Echocardiogram of 05-25-21 showed LVEF 40-45%. LA mod dilated. PASP 25-30 mmHg ## HLD - cont statin ## HTN; SBPs 110-120s; - cont coreg at half home dose, dilt, and lisinopril - if BPs creeps up, increase coreg to 12.5 bid ## Pneumonia with right sided effusion - 2.8L blood tinged transudative fluid removed from the Right lung on 12/30- pt nots breathing improved NOEL GOINS MD Jan 01, 2023 12:02
[2023-01-01] MEDS: warFARin 5 MG (COUMADIN) TAB PO SCH (17:15)
[2023-01-02] VITALS (8 sets, daily range): BP systolic 100–123; BP diastolic 59–87
[2023-01-02] MEDS: MEROPENEM 500 MG in NS (IVPB) 100 ML IV SCH ×4 (01:38→19:34)
[2023-01-02] MEDS: KCL 20 MEQ TAB (K-DUR) PO SCH (05:34)
[2023-01-02 05:58] LABS: BASOPHILS # (AUTO) 0.1 10^3/uL (0.0-0.1); BASOPHILS % (AUTO) 1 % (0-10); EOSINOPHILS # (AUTO) 0.5 10^3/uL (0.0-0.3); EOSINOPHILS % (AUTO) 6 % (0-10); HEMATOCRIT 36 % (40-54); LYMPHOCYTES # (AUTO) 0.8 10^3/uL (1.0-4.0); LYMPHOCYTES % (AUTO) 11 % (12-44); MEAN CORPUSCULAR HEMOGLOBIN 30 pg (25-34); MEAN CORPUSCULAR HGB CONC 33 g/dL (32-36); MEAN CORPUSCULAR VOLUME 90 fL (80-99); MEAN PLATELET VOLUME 10.1 fL (9.0-12.2); MONOCYTES # (AUTO) 0.6 10^3/uL (0.0-1.0); MONOCYTES % (AUTO) 9 % (0-12); NEUTROPHILS # (AUTO) 5.4 10^3/uL (1.8-7.8); NEUTROPHILS % (AUTO) 73 % (42-75); PLATELET COUNT 325 10^3/uL (130-400); WHITE BLOOD COUNT 7.4 10^3/uL (4.3-11.0)
[2023-01-02 06:08] LABS: ALBUMIN 2.8 GM/DL (3.2-4.5); POTASSIUM 3.3 MMOL/L (3.6-5.0)
[2023-01-02 06:09] LABS: INR 1.3 (0.8-1.4); PROTHROMBIN TIME PATIENT 16.7 SEC (12.2-14.7)
[2023-01-02 06:10] LABS: CALCIUM 8.4 MG/DL (8.5-10.1)
[2023-01-02 06:13] LABS: BILIRUBIN,TOTAL 0.5 MG/DL (0.1-1.0)
[2023-01-02 06:15] LABS: CREATININE SERUM 0.83 MG/DL (0.60-1.30)
[2023-01-02 06:17] LABS: MAGNESIUM 1.9 MG/DL (1.6-2.4)
[2023-01-02] MEDS: DIGOXIN 0.25 MG (LANOXIN) TAB PO SCH (08:18)
[2023-01-02] MEDS: lisINopril 5 MG (PRINIVIL) TABLET PO SCH (08:18)
[2023-01-02] MEDS: buPROPion SR 100 MG (WELLBUTRIN SR) TAB PO SCH ×2 (08:18→19:34)
[2023-01-02] MEDS: TAMSULOSIN 0.4 MG (FLOMAX) CAP PO SCH (08:18)
[2023-01-02] MEDS: ASPIRIN E.C. 81 MG (ECOTRIN) TAB PO SCH (08:18)
[2023-01-02] MEDS: DOCUSATE SODIUM 100 MG (COLACE) CAP PO SCH ×2 (08:19→19:34)
[2023-01-02] MEDS: SENNOSIDES 8.6 MG (SENOKOT) TAB PO SCH ×2 (08:19→19:34)
[2023-01-02] MEDS ORDERED: SPIRONOLACTONE 25 MG (ALDACTONE) TAB PO NR (09:30)
--- NOTE | 2023-01-02 09:49 | Progress Note - Cardiology ---
Cardiology SOAP Progress Note Objective: I&O/Vital Signs 01/03/23 01/03/23 01/03/23 01/03/23 01:00 03:43 07:20 07:37 Temp 36.7 36.3 Pulse 70 75 81 65 Resp 16 18 B/P (MAP) 117/70 (86) 116/76 (89) Pulse Ox 92 94 O2 Delivery Room Air Room Air 01/03/23 01/03/23 01/03/23 07:46 08:00 11:08 Temp 36.4 Pulse 65 Resp 18 B/P (MAP) 120/77 (91) Pulse Ox 94 96 O2 Delivery Room Air Room Air Room Air 01/03/23 00:00 Intake Total 1380 ml Output Total 510 ml Balance 870 ml Weight (Pounds): 214 Weight (Ounces): 0.0 Weight (Calculated Kilograms): 97.978823 Constitutional: AAO x 3, well-developed, well-nourished Respiratory: No accessory muscle use, No respiratory distress; other (diminished RLL) Cardiovascular: irregularly irregular; No JVD; S1 and S2 Gastrointestional: tender (LLQ tenderness), soft; No guarding Extremities: no lower extremity edema bilateral Neurologic/Psychiatric: grossly intact (moves all extremities) Skin: No rash on exposed areas, No ulcerations on exposed areas Results/Procedures: Labs Laboratory Tests 01/03/23 04:57: White Blood Count 7.3, Red Blood Count 4.08L, Hemoglobin 12.4L, Hematocrit 37L, Mean Corpuscular Volume 91, Mean Corpuscular Hemoglobin 30, Mean Corpuscular Hemoglobin Concent 34, Red Cell Distribution Width 12.1, Platelet Count 342, Mean Platelet Volume 10.1, Immature Granulocyte % (Auto) 1, Neutrophils (%) (Auto) 69, Lymphocytes (%) (Auto) 15, Monocytes (%) (Auto) 10, Eosinophils (%) (Auto) 5, Basophils (%) (Auto) 1, Neutrophils # (Auto) 5.0, Lymphocytes # (Auto) 1.1, Monocytes # (Auto) 0.7, Eosinophils # (Auto) 0.4H, Basophils # (Auto) 0.1, Immature Granulocyte # (Auto) 0.1, Prothrombin Time 17.4H, INR Comment 1.4, Sodium Level 138, Potassium Level 3.9, Chloride Level 103, Carbon Dioxide Level 28, Anion Gap 7, Blood Urea Nitrogen 11, Creatinine 0.86, Estimat Glomerular Filtration Rate 94, BUN/Creatinine Ratio 13, Glucose Level 100, Calcium Level 8.7, Corrected Calcium 9.5, Magnesium Level 1.8, Total Bilirubin 0.5, Aspartate Amino Transf (AST/SGOT) 37H, Alanine Aminotransferase (ALT/SGPT) 47, Alkaline Phosphatase 64, Total Protein 6.4, Albumin 3.0L, Digoxin Level 0.42L Microbiology 12/30/22 Gram Stain - Final, Complete 12/30/22 Body Fluid Culture - Final, Complete No growth 12/28/22 Blood Culture - Preliminary, Resulted No growth 12/28/22 MRSA Screen - Final, Complete MRSA not isolated 12/28/22 Urine Culture - Final, Complete NO GROWTH A/P: Assessment: Acute illness: - UTI - management per Medical services - Acute abdomen - managed by Dr. Lau Large right pleural effusion - thoracentesis planned by Dr. Lau Dizziness and poor balance since early December 2021 - Holter of 01-06-22 showed rare PVC, infreq PAC, A-fib throughout the study with controlled vent response. Av HR 70 bpm. No signif monster. No VT - symptoms improved after stopping Xarelto Permanent a-fib/flutter - first diagnosed on ECG of 12/06/17, now permanent - OAC with warfarin for stroke prophylaxis - Holter of 06/13/19: A fib throughout study, avg vent rate 91 bpm, no VT or significant monster - rate controlled Intolerant to Xarelto (marked dizziness and poor balance) CAD - Coronary artery disease with history of Promus 3x18 mm stent to the LAD per cardiac cath by Dr. Aaron in September 2010. - Most recent Cardiac cath of Aug 2013 showed patent LAD stent, LVEF 30-35%, and normal LVEDP - MPI of November 2018 showed anteroseptal and apical myocardial infarction with only a small amt of jacque-infarct ischemia. Anteroseptal and apical hypokinesis. Atrial flutter/fib seen throughout the study. LVEF 38%. - MPI of 11-14-21 showed: This study indicates apical and inferoseptal infarcts without significant ischemia. Apical and inferoseptal hypokinesis. Well preserved global left hi tricular systolic function with a calculated ejection fraction of 51%. Ischemic CM - Chronic systolic CHF, clinically compensated - S/p single chamber ICD: placement on 08/27/13 for SCD prophylaxis, functioning normally per interrogation of 10/20/21 - Echocardiogram of 01/01/18 showed mild impairment of LV systolic funciton with and LVEF of 35-40%, apical hypokinesis, enlargement of LA, PASP WNL - Echocardiogram of 05-25-21 showed LVEF 40-45%. LA mod dilated. PASP 25-30 mmHg HLP - statin therapy Carotid dz: - Mild carotid arterial disease per u/s of 06/11/21 HTN - controlled H/o Tobaccoism - quit in early January 2014. We have advised him to continue to refrain from tobacco use - Elevated PSA being followed by Dr Gonzalez - Darrick-sided epididymoorchitis and hydrocele in 2018 or 2019, managed at [facility] ER and f/u with Dr Favio Aguirre (urologist) and with his pcp. Currently followed by Dr Gonzaelz, according to the patient Plan: * Sub-therapeutic INR (warfarin had been on hold d/t thoracentesis) - it has been resumed - Lovenox until INR 2.0 or greater * Abdominal pain and UTI are being managed by Dr Pham * HR not well controlled - increase BB * Check digoxin level * Echocardiogram today * D/t chronically low potassium of undetermined etiology and h/o somewhat low LVEF we will start Aldactone * Replenish electrolytes * Monitor labs * We have reviewed records from [facility] Dodge Jan 02, 2023 09:49
[2023-01-02] MEDS: ENOXAPARIN 100 MG/1 ML (LOVENOX) SYR SC SCH ×2 (10:14→21:18)
--- NOTE | 2023-01-02 12:21 | Progress Note - Cardiology ---
Cardiology SOAP Progress Note Subjective: Gen weakness and malaise present No focal weakness Shortness of breath better No cp or palp or syncope No swelling No n/v/d Objective: I&O/Vital Signs 01/02/23 01/02/23 01/02/23 01/02/23 01:00 03:47 07:17 08:00 Temp 36.1 Pulse 90 104 102 Resp 18 B/P (MAP) 123/75 (91) Pulse Ox 91 O2 Delivery Room Air Room Air 01/02/23 01/02/23 08:02 11:57 Temp 36.9 36.7 Pulse 87 58 Resp 19 19 B/P (MAP) 123/87 (99) 115/80 (92) Pulse Ox 93 94 O2 Delivery Room Air Room Air 01/02/23 00:00 Intake Total 1980 ml Balance 1980 ml Weight (Pounds): 214 Weight (Ounces): 0.0 Weight (Calculated Kilograms): 97.450802 Constitutional: AAO x 3, well-developed, well-nourished Respiratory: No accessory muscle use, No respiratory distress; other (diminished RLL) Cardiovascular: irregularly irregular; No JVD; S1 and S2 Gastrointestional: tender (LLQ tenderness), soft; No guarding Extremities: no lower extremity edema bilateral Neurologic/Psychiatric: grossly intact (moves all extremities) Skin: No rash on exposed areas, No ulcerations on exposed areas Results/Procedures: Labs Laboratory Tests 01/02/23 05:06: White Blood Count 7.4, Red Blood Count 3.99L, Hemoglobin 12.0L, Hematocrit 36L, Mean Corpuscular Volume 90, Mean Corpuscular Hemoglobin 30, Mean Corpuscular Hemoglobin Concent 33, Red Cell Distribution Width 12.2, Platelet Count 325, Mean Platelet Volume 10.1, Immature Granulocyte % (Auto) 1, Neutrophils (%) (A uto) 73, Lymphocytes (%) (Auto) 11L, Monocytes (%) (Auto) 9, Eosinophils (%) (A uto) 6, Basophils (%) (Auto) 1, Neutrophils # (Auto) 5.4, Lymphocytes # (Auto) 0.8L, Monocytes # (Auto) 0.6, Eosinophils # (Auto) 0.5H, Basophils # (Auto) 0.1, Immature Granulocyte # (Auto) 0.0, Prothrombin Time 16.7H, INR Comment 1.3, S odium Level 137, Potassium Level 3.3L, Chloride Level 102, Carbon Dioxide Level 26, Anion Gap 9, Blood Urea Nitrogen 13, Creatinine 0.83, Estimat Glomerular Filtration Rate 95, BUN/Creatinine Ratio 16, Glucose Level 136H, Calcium Level 8.4L, Corrected Calcium 9.4, Magnesium Level 1.9, Total Bilirubin 0.5, Aspartate Amino Transf (AST/SGOT) 32, Alanine Aminotransferase (ALT/SGPT) 40, Alkaline Phosphatase 70, Total Protein 6.0L, Albumin 2.8L Microbiology 12/30/22 Gram Stain - Final, Resulted 12/30/22 Body Fluid Culture - Preliminary, Resulted No growth 12/28/22 Blood Culture - Preliminary, Resulted No growth 12/28/22 MRSA Screen - Final, Complete MRSA not isolated 12/28/22 Urine Culture - Final, Complete NO GROWTH Laboratory Tests 01/01/23 05:06 01/02/23 05:06 A/P: Assessment: Acute illness: - UTI - management per Medical services - Acute abdomen - managed by Dr. Lau Large right pleural effusion - thoracentesis (2800 ml) on 12/30/[address] Lau Dizziness and poor balance since early December 2021 - Holter of 01-06-22 showed rare PVC, infreq PAC, A-fib throughout the study with controlled vent response. Av HR 70 bpm. No signif monster. No VT - symptoms improved after stopping Xarelto Permanent a-fib/flutter - first diagnosed on ECG of 12/06/17, now permanent - OAC with warfarin for stroke prophylaxis - Holter of 06/13/19: A fib throughout study, avg vent rate 91 bpm, no VT or significant monster - rate not well controlled Intolerant to Xarelto (marked dizziness and poor balance) CAD - Coronary artery disease with history of Promus 3x18 mm stent to the LAD per cardiac cath by Dr. Aaron in September 2010. - Most recent Cardiac cath of Aug 2013 showed patent LAD stent, LVEF 30-35%, and normal LVEDP - MPI of November 2018 showed anteroseptal and apical myocardial infarction with only a small amt of jacque-infarct ischemia. Anteroseptal and apical hypokinesis. Atrial flutter/fib seen throughout the study. LVEF 38%. - MPI of 11-14-21 showed: This study indicates apical and inferoseptal infarcts without significant ischemia. Apical and inferoseptal hypokinesis. Well preserved global left ventricular systolic function with a calculated ejection fraction of 51%. Ischemic CM - Chronic systolic CHF, clinically compensated - S/p single chamber ICD: placement on 08/27/13 for SCD prophylaxis, functioning normally per interrogation of 10/20/21 - Echocardiogram of 01/01/18 showed mild impairment of LV systolic funciton with and LVEF of 35-40%, apical hypokinesis, enlargement of LA, PASP WNL - Echocardiogram of 05-25-21 showed LVEF 40-45%. LA mod dilated. PASP 25-30 mmHg HLP - statin therapy Carotid dz: - Mild carotid arterial disease per u/s of 06/11/21 HTN - controlled H/o Tobaccoism - quit in early January 2014. We have advised him to continue to refrain from tobacco use - Elevated PSA being followed by Dr Gonzalez - L-sided epididymoorchitis and hydrocele in 2018 or 2019, managed at [facility] ER and f/u with Dr Favio Aguirre (urologist) and with his pcp. Currently followed by Dr Gonzalez, according to the patient Plan: * Sub-therapeutic INR (warfarin had been on hold d/t thoracentesis) - it has been resumed - Lovenox until INR 2.0 or greater * Abdominal pain and UTI are being managed by Dr Pham * HR not well controlled - increase BB * Check digoxin level * Echocardiogram today * D/t chronically low potassium of undetermined etiology and h/o somewhat low LVEF we will start Aldactone * Replenish electrolytes * Monitor labs * We have reviewed records from Dr. Ayala and I also discussed the case with JERRY Castaneda MD FACP FAC CCDS Jan 02, 2023 12:21
--- NOTE | 2023-01-02 12:31 | Progress Note ---
Subjective Subjective/Events-last exam Pt states he is feeling okay. Objective Exam Last Set of Vital Signs Vital Signs Date Time Temp Pulse Resp B/P (MAP) Pulse Ox O2 Delivery O2 Flow Rate FiO2 01/02/23 11:57 36.7 58 19 115/80 (92) 94 Room Air 01/01/23 11:15 2.00 12/28/22 19:27 21 Capillary Refill : Less Than 3 Seconds I&O Intake and Output 01/02/23 00:00 Intake Total 2280 ml Output Total 300 ml Balance 1980 ml Intake Oral 2080 ml IV Total 200 ml Output Urine Total 300 ml # Voids 6 # Bowel Movements 3 General: Alert, No Acute Distress Lungs: Other (nearly absent air movement right lung base) Heart: Other (irregularly irregular) Extremities: No Edema Neuro: Normal Speech Psych/Mental Status: Mental Status NL Results/Procedures Lab Laboratory Tests 01/02/23 05:06: White Blood Count 7.4, Red Blood Count 3.99L, Hemoglobin 12.0L, Hematocrit 36L, Mean Corpuscular Volume 90, Mean Corpuscular Hemoglobin 30, Mean Corpuscular Hemoglobin Concent 33, Red Cell Distribution Width 12.2, Platelet Count 325, Mean Platelet Volume 10.1, Immature Granulocyte % (Auto) 1, Neutrophils (%) (Auto) 73, Lymphocytes (%) (Auto) 11L, Monocytes (%) (Auto) 9, Eosinophils (%) (Auto) 6, Basophils (%) (Auto) 1, Neutrophils # (Auto) 5.4, Lymphocytes # (Auto) 0.8L, Monocytes # (Auto) 0.6, Eosinophils # (Auto) 0.5H, Basophils # (Auto) 0.1, Immature Granulocyte # (Auto) 0.0, Prothrombin Time 16.7H, INR Comment 1.3, Sodium Level 137, Potassium Level 3.3L, Chloride Level 102, Carbon Dioxide Level 26, Anion Gap 9, Blood Urea Nitrogen 13, Creatinine 0.83, Estimat Glomerular Filtration Rate 95, BUN/Creatinine Ratio 16, Glucose Level 136H, Calcium Level 8.4L, Corrected Calcium 9.4, Magnesium Level 1.9, Total Bilirubin 0.5, Aspartate Amino Transf (AST/SGOT) 32, Alanine Aminotransferase (ALT/SGPT) 40, Alkaline Phosphatase 70, Total Protein 6.0L, Albumin 2.8L Microbiology 12/30/22 Gram Stain - Final, Resulted 12/30/22 Body Fluid Culture - Preliminary, Resulted No growth 12/28/22 Blood Culture - Preliminary, Resulted No growth 12/28/22 MRSA Screen - Final, Complete MRSA not isolated 12/28/22 Urine Culture - Final, Complete NO GROWTH Radiology NAME: ROB SHELTON [facility] REC#: [id number] PT STATUS: ADM [place] : 1955 PHYSICIAN: SHEYLA RENO DO ADMIT DATE: 12/28/22/ICU Signed Date of Exam:12/28/22 ABDOMEN, FLAT & UPRIGHT/DECUB ABDOMEN, FLAT UPRIGHT/DECUB INDICATION: Abdominal pain. COMPARISON: Chest radiograph from earlier same day. TECHNIQUE: Supine and upright AP views of the abdomen. FINDINGS: Nonobstructive bowel gas pattern. No free intraperitoneal air. No abnormal soft tissue mineralizations. Please see chest radiograph report for details of pathology in the right lower hemithorax. IMPRESSION: No free intraperitoneal air or bowel obstruction. Dictated by: Dictated on workstation # [id number] Dict: 12/28/22 1623 Trans: 12/28/221941 AS6 [id number] Interpreted by: NANDO MEJIA MD Electronically signed by: NANDO MEJIA MD 12/28/221941 NAME: ROB SHELTON [facility] REC#: [id number] PT STATUS: REG ER : 1955 PHYSICIAN: SHEYLA RENO DO ADMIT DATE: 12/28/22/ER Draft Date of Exam:12/28/22 CHEST PA/LAT (2 VIEW) INDICATION: Hypoxia. PA and lateral views of the chest are obtained with comparison made to study of 08/27/2013. FINDINGS: There has been significant volume loss in the right lung with elevated right hemidiaphragm as well as right upper lobe atelectasis. There is also right pleural fluid and/or thickening. Left chest wall pacemaker device remains in place. There is no evidence of pneumothorax, and the left lung remains well expanded. IMPRESSION: Pleural fluid and atelectasis in the right lung with associated diaphragmatic elevation. Consideration could be given to bronchoscopy for further assessment, or diagnostic thoracentesis could be considered. Dictated on workstation # [id number] Dict: 12/28/22 1606 Trans: 12/28/22 1614 [id number] Interpreted by: REZA PRUETT MD Electronically signed by: Assessment/Plan Assessment/Plan Assessment & Plan Afib/flutter with RVR on admit- improved but remains mildly tachycardic, appreciate Cardiology recs/adjustments RLL pneumonia/effusion -12/28 CXR with significant volume loss in right lung due to pleural fluid and atelectasis -s/p thoracentesis 2800cc removed -On room air today, continued on meropenem HTN HLD VEE BRAND MD Jan 02, 2023 12:31
--- NOTE | 2023-01-02 12:59 | Diagnostic Imaging Report ---
INDICATION: Pneumonia, pleural effusion. COMPARISON: 01/01/2023. TECHNIQUE: Single radiograph of the chest dated 01/02/2023. FINDINGS: Pacer/AICD is again noted with the battery pack overlying the left chest. The cardiac silhouette is within normal limits in size. No significant pulmonary vascular congestion. The left lung is clear. Right-sided pleural parenchymal opacity is again identified, appearing stable from the prior examination. This includes dense consolidation within the medial right lung base. No pneumothorax. No acute osseous abnormality. IMPRESSION: Persistent right-sided opacities, favored to relate to pleural fluid with adjacent atelectasis and/or infiltrate. However, radiographic follow-up is recommended as underlying obstructing mass lesion is not excluded on this examination, particularly within the right infrahilar location. If these opacities do not improve on subsequent imaging, then a dedicated CT of the chest would be necessary. Dictated by: Dictated on workstation # [id number]
[2023-01-02] MEDS: warFARin 5 MG (COUMADIN) TAB PO SCH (17:11)
[2023-01-03] VITALS (7 sets, daily range): BP systolic 106–125; BP diastolic 67–77
[2023-01-03] MEDS: MEROPENEM 500 MG in NS (IVPB) 100 ML IV SCH ×3 (01:03→13:40)
[2023-01-03] MEDS: KCL 20 MEQ TAB (K-DUR) PO SCH (05:34)
[2023-01-03 05:52] LABS: BASOPHILS # (AUTO) 0.1 10^3/uL (0.0-0.1); BASOPHILS % (AUTO) 1 % (0-10); EOSINOPHILS # (AUTO) 0.4 10^3/uL (0.0-0.3); EOSINOPHILS % (AUTO) 5 % (0-10); HEMATOCRIT 37 % (40-54); HEMOGLOBIN 12.4 g/dL (13.3-17.7); LYMPHOCYTES # (AUTO) 1.1 10^3/uL (1.0-4.0); LYMPHOCYTES % (AUTO) 15 % (12-44); MEAN CORPUSCULAR HEMOGLOBIN 30 pg (25-34); MEAN CORPUSCULAR HGB CONC 34 g/dL (32-36); MEAN CORPUSCULAR VOLUME 91 fL (80-99); MEAN PLATELET VOLUME 10.1 fL (9.0-12.2); MONOCYTES # (AUTO) 0.7 10^3/uL (0.0-1.0); MONOCYTES % (AUTO) 10 % (0-12); NEUTROPHILS % (AUTO) 69 % (42-75); PLATELET COUNT 342 10^3/uL (130-400); WHITE BLOOD COUNT 7.3 10^3/uL (4.3-11.0)
[2023-01-03 06:04] LABS: INR 1.4 (0.8-1.4); PROTHROMBIN TIME PATIENT 17.4 SEC (12.2-14.7)
[2023-01-03 06:13] LABS: BILIRUBIN,TOTAL 0.5 MG/DL (0.1-1.0); CALCIUM 8.7 MG/DL (8.5-10.1); CREATININE SERUM 0.86 MG/DL (0.60-1.30); MAGNESIUM 1.8 MG/DL (1.6-2.4); POTASSIUM 3.9 MMOL/L (3.6-5.0); TOTAL PROTEIN 6.4 GM/DL (6.4-8.2)
--- NOTE | 2023-01-03 07:30 | Diagnostic Imaging Report ---
Indication: Pneumonia, right pleural effusion Frontal chest obtained at 4:39 a.m. and compared with yesterday. There is no change in pacemaker device. Heart is normal size. Extensive right-sided infiltrate is noted. There appears to be increased right pleural fluid compared to the prior study. The left lung is clear. There is no pneumothorax. Impression: No change in diffuse right-sided infiltrate with increasing right pleural effusion compared to the prior study. Dictated by: Dictated on workstation # [id number]
[2023-01-03] MEDS: ENOXAPARIN 100 MG/1 ML (LOVENOX) SYR SC SCH ×2 (08:46→20:46)
[2023-01-03] MEDS: TAMSULOSIN 0.4 MG (FLOMAX) CAP PO SCH (08:46)
[2023-01-03] MEDS: lisINopril 5 MG (PRINIVIL) TABLET PO SCH (08:46)
[2023-01-03] MEDS: buPROPion SR 100 MG (WELLBUTRIN SR) TAB PO SCH ×2 (08:47→20:45)
[2023-01-03] MEDS: SPIRONOLACTONE 25 MG (ALDACTONE) TAB PO SCH (08:47)
[2023-01-03] MEDS: ASPIRIN E.C. 81 MG (ECOTRIN) TAB PO SCH (08:47)
[2023-01-03] MEDS: DIGOXIN 0.25 MG (LANOXIN) TAB PO SCH (08:47)
[2023-01-03] MEDS: DOCUSATE SODIUM 100 MG (COLACE) CAP PO SCH ×2 (08:53→20:46)
[2023-01-03] MEDS: SENNOSIDES 8.6 MG (SENOKOT) TAB PO SCH ×2 (08:53→20:46)
--- NOTE | 2023-01-03 12:12 | Diagnostic Imaging Report ---
PROCEDURE: CT chest without contrast. TECHNIQUE: Multiple contiguous axial images were obtained through the chest without the use of intravenous contrast. Auto Exposure Controls were utilized during the CT exam to meet ALARA standards for radiation dose reduction. INDICATION: Right pleural effusion. COMPARISON: Limited to overlap levels obtained at abdominal CT 12/20/2021. FINDINGS: A large unilateral right pleural effusion is unchanged where included in the [id number] on prior measuring a maximal AP depth of 11 cm. Left pleural space negative. There is coronary artery atherosclerotic vascular calcifications with a nonaneurysmal thoracic aorta. Adjacent to the azygos fissure, there is some subsegmental atelectasis as well as some right infrahilar and lower lobe passive atelectasis adjacent to the pleural fluid. The left lung is clear. There is no pneumothorax. There is no axillary, hilar or mediastinal lymphadenopathy. No acute or suspicious bony abnormality. The visible upper abdomen nonacute. IMPRESSION: 1. Large residual or recurrent right pleural effusion without sudheer loculation. There are zones of associated atelectasis with clear left chest and no thoracic adenopathy. 2. Coronary artery atherosclerotic vascular calcifications. Dictated by: Dictated on workstation # [id number]
--- NOTE | 2023-01-03 13:05 | Progress Note - Cardiology ---
Cardiology SOAP Progress Note Subjective: Shortness of breath with activity No shortness of breath at rest No n/v/d No focal weakness Gen weakness present No focal weakness Objective: I&O/Vital Signs 01/03/23 01/03/23 01/03/23 01/03/23 01:00 03:43 07:20 07:37 Temp 36.7 36.3 Pulse 70 75 81 65 Resp 16 18 B/P (MAP) 117/70 (86) 116/76 (89) Pulse Ox 92 94 O2 Delivery Room Air Room Air 01/03/23 01/03/23 01/03/23 01/03/23 07:46 08:00 11:08 12:26 Temp 36.4 Pulse 65 68 Resp 18 B/P (MAP) 120/77 (91) Pulse Ox 94 96 O2 Delivery Room Air Room Air Room Air 01/03/23 00:00 Intake Total 1380 ml Output Total 510 ml Balance 870 ml Weight (Pounds): 214 Weight (Ounces): 0.0 Weight (Calculated Kilograms): 97.312849 Constitutional: AAO x 3, well-developed, well-nourished Respiratory: No accessory muscle use, No respiratory distress; other (diminished RLL) Cardiovascular: irregularly irregular; No JVD; S1 and S2 Gastrointestional: tender (LLQ tenderness), soft; No guarding Extremities: no lower extremity edema bilateral Neurologic/Psychiatric: other (moves all extremities) Skin: No rash on exposed areas, No ulcerations on exposed areas Results/Procedures: Labs Laboratory Tests 01/03/23 04:57: White Blood Count 7.3, Red Blood Count 4.08L, Hemoglobin 12.4L, Hematocrit 37L, Mean Corpuscular Volume 91, Mean Corpuscular Hemoglobin 30, Mean Corpuscular Hemoglobin Concent 34, Red Cell Distribution Width 12.1, Platelet Count 342, Mean Platelet Volume 10.1, Immature Granulocyte % (Auto) 1, Neutrophils (%) (Auto) 69, Lymphocytes (%) (Auto) 15, Monocytes (%) (Auto) 10, Eosinophils (%) (Auto) 5, Basophils (%) (Auto) 1, Neutrophils # (Auto) 5.0, Lymphocytes # (Auto) 1.1, Monocytes # (Auto) 0.7, Eosinophils # (Auto) 0.4H, Basophils # (Auto) 0.1, Immature Granulocyte # (Auto) 0.1, Prothrombin Time 17.4H, INR Comment 1.4, Sodium Level 138, Potassium Level 3.9, Chloride Level 103, Carbon Dioxide Level 28, Anion Gap 7, Blood Urea Nitrogen 11, Creatinine 0.86, Estimat Glomerular Filtration Rate 94, BUN/Creatinine Ratio 13, Glucose Level 100, Calcium Level 8.7, Corrected Calcium 9.5, Magnesium Level 1.8, Total Bilirubin 0.5, Aspartate Amino Transf (AST/SGOT) 37H, Alanine Aminotransferase (ALT/SGPT) 47, Alkaline Phosphatase 64, Total Protein 6.4, Albumin 3.0L, Digoxin Level 0.42L Microbiology 12/30/22 Gram Stain - Final, Complete 12/30/22 Body Fluid Culture - Final, Complete No growth 12/28/22 Blood Culture - Preliminary, Resulted No growth 12/28/22 MRSA Screen - Final, Complete MRSA not isolated 12/28/22 Urine Culture - Final, Complete NO GROWTH A/P: Assessment: Acute illness: - UTI - management per Medical services - Acute abdomen - managed by Dr. Lau Large right pleural effusion - thoracentesis (2800 ml) on 12/30/[address] Lau - recurrent / persistent R pleural eff on CT of 01/03/23 Dizziness and poor balance since early December 2021 - Holter of 01-06-22 showed rare PVC, infreq PAC, A-fib throughout the study with controlled vent response. Av HR 70 bpm. No signif monster. No VT - symptoms improved after stopping Xarelto Permanent a-fib/flutter - first diagnosed on ECG of 12/06/17, now permanent - OAC with warfarin for stroke prophylaxis - Holter of 06/13/19: A fib throughout study, avg vent rate 91 bpm, no VT or significant monster - rate not well controlled Intolerant to Xarelto (marked dizziness and poor balance) CAD - Coronary artery disease with history of Promus 3x18 mm stent to the LAD per cardiac cath by Dr. Aaron in September 2010. - Most recent Cardiac cath of Aug 2013 showed patent LAD stent, LVEF 30-35%, and normal LVEDP - MPI of November 2018 showed anteroseptal and apical myocardial infarction with only a small amt of jacque-infarct ischemia. Anteroseptal and apical hypokinesis. Atrial flutter/fib seen throughout the study. LVEF 38%. - MPI of 11-14-21 showed: This study indicates apical and inferoseptal infarcts without significant ischemia. Apical and inferoseptal hypokinesis. Well preserved global left ventricular systolic function with a calculated ejection fraction of 51%. Ischemic CM - Chronic systolic CHF, clinically compensated - S/p single chamber ICD: placement on 08/27/13 for SCD prophylaxis, functioning normally per interrogation of 10/20/21 - Echocardiogram of 01/01/18 showed mild impairment of LV systolic funciton with and LVEF of 35-40%, apical hypokinesis, enlargement of LA, PASP WNL - Echocardiogram of 05-25-21 showed LVEF 40-45%. LA mod dilated. PASP 25-30 mmHg - Echo on 01-01-25: LVEF 40-45%, R pleural eff HLP - statin therapy Carotid dz: - Mild carotid arterial disease per u/s of 06/11/21 HTN - controlled H/o Tobaccoism - quit in early January 2014. We have advised him to continue to refrain from tobacco use - Elevated PSA being followed by Dr Gonzalez - L-sided epididymoorchitis and hydrocele in 2019 or 2019, managed at [facility] ER and f/u with Dr Favio Aguirre (urologist) and with his pcp. Currently followed by Dr Gonzalez, according to the patient Plan: * We recommend repeat thoracentesis * Sub-therapeutic INR (warfarin had been on hold d/t thoracentesis) - it has been resumed - Lovenox until INR 2.0 or greater. May hold warfarin & Lovenox for thoracentesis * Abdominal pain and UTI are being managed by Dr Pham * HR better after increase in BB * D/t chronically low potassium of undetermined etiology and h/o somewhat low LVEF we have started Aldactone * Monitor labs JERRY MCGUIRE MD FACP FAC CCDS Jan 03, 2023 13:05
--- NOTE | 2023-01-03 15:52 | Progress Note ---
Subjective Subjective/Events-last exam Pt seen about 1120. He states he is feeling pretty well, denies concerns. Is somewhat surprised to hear his xray shows worsening recurrence of effusion. Objective Exam Last Set of Vital Signs Vital Signs Date Time Temp Pulse Resp B/P (MAP) Pulse Ox O2 Delivery O2 Flow Rate FiO2 01/03/23 15:04 36.6 70 18 125/70 (88) 92 Room Air 01/02/23 19:00 2.00 2.00 12/28/22 19:27 21 Capillary Refill : Less Than 3 Seconds I&O Intake and Output 01/03/23 00:00 Intake Total 1680 ml Output Total 1310 ml Balance 370 ml Intake Oral 1480 ml IV Total 200 ml Output Urine Total 1310 ml # Voids 2 # Bowel Movements 5 General: Alert, No Acute Distress Lungs: Other (decreased air movement/nearly absent at right base) Heart: Regular Rate, No Murmurs Abdomen: Normal Bowel Sounds, Soft Extremities: No Edema Neuro: Normal Speech Psych/Mental Status: Mood NL Results/Procedures Lab Laboratory Tests 01/03/23 04:57: White Blood Count 7.3, Red Blood Count 4.08L, Hemoglobin 12.4L, Hematocrit 37L, Mean Corpuscular Volume 91, Mean Corpuscular Hemoglobin 30, Mean Corpuscular Hemoglobin Concent 34, Red Cell Distribution Width 12.1, Platelet Count 342, Mean Platelet Volume 10.1, Immature Granulocyte % (Auto) 1, Neutrophils (%) (Auto) 69, Lymphocytes (%) (Auto) 15, Monocytes (%) (Auto) 10, Eosinophils (%) (Auto) 5, Basophils (%) (Auto) 1, Neutrophils # (Auto) 5.0, Lymphocytes # (Auto) 1.1, Monocytes # (Auto) 0.7, Eosinophils # (Auto) 0.4H, Basophils # (Auto) 0.1, Immature Granulocyte # (Auto) 0.1, Prothrombin Time 17.4H, INR Comment 1.4, Sodium Level 138, Potassium Level 3.9, Chloride Level 103, Carbon Dioxide Level 28, Anion Gap 7, Blood Urea Nitrogen 11, Creatinine 0.86, Estimat Glomerular Filtration Rate 94, BUN/Creatinine Ratio 13, Glucose Level 100, Calcium Level 8.7, Corrected Calcium 9.5, Magnesium Level 1.8, Total Bilirubin 0.5, Aspartate Amino Transf (AST/SGOT) 37H, Alanine Aminotransferase (ALT/SGPT) 47, Alkaline Phosphatase 64, Total Protein 6.4, Albumin 3.0L, Digoxin Level 0.42L Microbiology 12/30/22 Gram Stain - Final, Complete 12/30/22 Body Fluid Culture - Final, Complete No growth 12/28/22 Blood Culture - Preliminary, Resulted No growth 12/28/22 MRSA Screen - Final, Complete MRSA not isolated 12/28/22 Urine Culture - Final, Complete NO GROWTH Radiology NAME: ROB SHELTON [facility] REC#: [id number] PT STATUS: ADM [place] : 1955 PHYSICIAN: SHEYLA RENO DO ADMIT DATE: 12/28/22/ICU Signed Date of Exam:12/28/22 ABDOMEN, FLAT & UPRIGHT/DECUB ABDOMEN, FLAT UPRIGHT/DECUB INDICATION: Abdominal pain. COMPARISON: Chest radiograph from earlier same day. TECHNIQUE: Supine and upright AP views of the abdomen. FINDINGS: Nonobstructive bowel gas pattern. No free intraperitoneal air. No abnormal soft tissue mineralizations. Please see chest radiograph report for details of pathology in the right lower hemithorax. IMPRESSION: No free intraperitoneal air or bowel obstruction. Dictated by: Dictated on workstation # [id number] Dict: 12/28/221622 Trans: 12/28/221941 AS6 [id number] Interpreted by: NANDO MEJIA MD Electronically signed by: NANDO MEJIA MD 12/28/221941 NAME: ROB SHELTON [facility] REC#: [id number] PT STATUS: REG ER : 1955 PHYSICIAN: SHEYLA RENO DO ADMIT DATE: 12/28/22/ER Draft Date of Exam:12/28/22 CHEST PA/LAT (2 VIEW) INDICATION: Hypoxia. PA and lateral views of the chest are obtained with comparison made to study of 08/27/2013. FINDINGS: There has been significant volume loss in the right lung with elevated right hemidiaphragm as well as right upper lobe atelectasis. There is also right pleural fluid and/or thickening. Left chest wall pacemaker device remains in place. There is no evidence of pneumothorax, and the left lung remains well expanded. IMPRESSION: Pleural fluid and atelectasis in the right lung with associated diaphragmatic elevation. Consideration could be given to bronchoscopy for further assessment, or diagnostic thoracentesis could be considered. Dictated on workstation # [id number] Dict: 12/28/22 1606 Trans: 12/28/22 1614 [id number] Interpreted by: REZA PRUETT MD Electronically signed by: Assessment/Plan Assessment/Plan (1) Nausea & vomiting Status: Resolved Assessment & Plan: Initially came in with complaint of nausea/vomiting after being treated for UTI (culture negative from 12/20 and this stay) and RVR. Now resolved. Qualifiers: Qualified Codes: R11.2 - Nausea with vomiting, unspecified (2) Pleural effusion Status: Acute Assessment & Plan: s/p thoracentesis 12/30 with bloody fluid. Cytology negative for malignancy. LDH not done, unable to determine Light's criteria. Consider parapneumonic, but is recurring in spite of 6 days of broad spectrum antibiotics. Possible CHF related. Consider repeat thoracentesis today due to recurrence. (3) Pneumonia Status: Acute Assessment & Plan: Possible parapneumonic effusion, started on Meropenem on admit. Did have leukocytosis on admit, and tachycardia but was in a fib RVR. No lactic acidosis or end orgran issues. Unclear if true infection underlying. Meropenem day 6. Qualifiers: (4) Atrial flutter, chronic Status: Chronic Assessment & Plan: RVR on admit, improved at this time. Appreciate Cardiology recommendations. Warfarin was held for thoracentesis and later resumed, placed on treatment dose enox while resuming. (5) Chronic systolic (congestive) heart failure Status: Chronic (6) Coronary artery disease Status: Chronic (7) DVT prophylaxis Status: Acute Assessment & Plan: Enox/warfarin VEE BRAND MD Jan 03, 2023 15:52
[2023-01-03] MEDS: warFARin 5 MG (COUMADIN) TAB PO SCH (17:06)
[2023-01-03] MEDS: CEFDINIR 300 MG (OMNICEF) CAP PO SCH (20:45)
[2023-01-04 03:30] VITALS: BP 115/53
[2023-01-04] MEDS: KCL 20 MEQ TAB (K-DUR) PO SCH (05:33)
[2023-01-04 06:07] LABS: BASOPHILS # (AUTO) 0.1 10^3/uL (0.0-0.1); BASOPHILS % (AUTO) 1 % (0-10); EOSINOPHILS # (AUTO) 0.4 10^3/uL (0.0-0.3); EOSINOPHILS % (AUTO) 5 % (0-10); HEMATOCRIT 37 % (40-54); HEMOGLOBIN 12.5 g/dL (13.3-17.7); LYMPHOCYTES % (AUTO) 15 % (12-44); MEAN CORPUSCULAR HEMOGLOBIN 30 pg (25-34); MEAN CORPUSCULAR HGB CONC 34 g/dL (32-36); MEAN CORPUSCULAR VOLUME 91 fL (80-99); MEAN PLATELET VOLUME 10.3 fL (9.0-12.2); MONOCYTES # (AUTO) 0.6 10^3/uL (0.0-1.0); MONOCYTES % (AUTO) 9 % (0-12); NEUTROPHILS # (AUTO) 4.9 10^3/uL (1.8-7.8); NEUTROPHILS % (AUTO) 70 % (42-75); PLATELET COUNT 354 10^3/uL (130-400)
[2023-01-04 06:16] LABS: ALBUMIN 3.1 GM/DL (3.2-4.5)
[2023-01-04 06:17] LABS: POTASSIUM 4.4 MMOL/L (3.6-5.0)
[2023-01-04 06:19] LABS: TOTAL PROTEIN 6.6 GM/DL (6.4-8.2)
[2023-01-04 06:21] LABS: BILIRUBIN,TOTAL 0.6 MG/DL (0.1-1.0)
[2023-01-04 06:23] LABS: CREATININE SERUM 0.82 MG/DL (0.60-1.30)
[2023-01-04 06:25] LABS: MAGNESIUM 1.9 MG/DL (1.6-2.4)
[2023-01-04 06:26] LABS: INR 1.5 (0.8-1.4); PROTHROMBIN TIME PATIENT 18.3 SEC (12.2-14.7)
[2023-01-04 07:32] VITALS: BP 128/75
[2023-01-04] MEDS: DOCUSATE SODIUM 100 MG (COLACE) CAP PO SCH ×2 (07:39→19:55)
[2023-01-04] MEDS: SENNOSIDES 8.6 MG (SENOKOT) TAB PO SCH ×2 (07:39→19:55)
[2023-01-04] MEDS: lisINopril 5 MG (PRINIVIL) TABLET PO SCH (07:48)
[2023-01-04] MEDS: TAMSULOSIN 0.4 MG (FLOMAX) CAP PO SCH (07:48)
[2023-01-04] MEDS: CEFDINIR 300 MG (OMNICEF) CAP PO SCH ×2 (07:48→19:59)
[2023-01-04] MEDS: buPROPion SR 100 MG (WELLBUTRIN SR) TAB PO SCH ×2 (07:48→19:59)
[2023-01-04] MEDS: DIGOXIN 0.25 MG (LANOXIN) TAB PO SCH (07:49)
[2023-01-04] MEDS: SPIRONOLACTONE 25 MG (ALDACTONE) TAB PO SCH (07:49)
[2023-01-04] MEDS: ASPIRIN E.C. 81 MG (ECOTRIN) TAB PO SCH (07:49)
--- NOTE | 2023-01-04 08:49 | Diagnostic Imaging Report ---
INDICATION: 67-year-old male, pneumonia, right pleural effusion, follow-up. TECHNIQUE: Single view chest 5:15 AM. CORRELATION STUDY: 01/03/2023 FINDINGS: Left-sided unipolar pacemaker. Opacity through the right lung likely largely attributed to the known effusion along with some compressive atelectasis and/or consolidation. Compared to prior, the amount of fluid does appear to be perhaps slightly decreased. Left lung remains clear. Heart size generally stable but largely obscured. IMPRESSION: 1. Continued significant opacification the right lung likely combination of the known sizable effusion along with some compressive atelectasis and or consolidation. Amount of fluid does however appear to be slightly diminished from prior. Dictated by: Dictated on workstation # [id number]
--- NOTE | 2023-01-04 09:14 | Progress Note - Cardiology ---
Cardiology SOAP Progress Note Subjective: Sitting up in bed No c/o CP Feels SOB is better today, but not back to baseline No c/o LE swelling States he has been up ambulating in the halls Objective: I&O/Vital Signs 01/05/23 01/06/23 01/06/23 01/06/23 23:36 01:20 04:59 07:00 Temp 36.4 36.2 Pulse 90 63 56 88 Resp 20 18 B/P (MAP) 100/67 (78) 106/69 (81) Pulse Ox 94 93 O2 Delivery Nasal Cannula Nasal Cannula O2 Flow Rate 2.00 2.00 01/06/23 08:00 Temp 36.5 Pulse 84 Resp 18 B/P (MAP) 105/68 (80) Pulse Ox 94 O2 Delivery Nasal Cannula O2 Flow Rate 2.00 01/06/23 00:00 Intake Total 830 ml Output Total 775 ml Balance 55 ml Weight (Pounds): 214 Weight (Ounces): 0.0 Weight (Calculated Kilograms): 97.507422 Constitutional: AAO x 3, well-developed, well-nourished Respiratory: No accessory muscle use, No respiratory distress; other (diminished RLL) Cardiovascular: irregularly irregular; No JVD; S1 and S2 Gastrointestional: tender (LLQ tenderness), soft; No guarding Extremities: no lower extremity edema bilateral Neurologic/Psychiatric: other (moves all extremities) Skin: No rash on exposed areas, No ulcerations on exposed areas Results/Procedures: Labs Laboratory Tests 01/05/23 18:11: Glucometer 129H 01/06/23 05:18: White Blood Count 8.6, Red Blood Count 4.40, Hemoglobin 13.2L, Hematocrit 40, Mean Corpuscular Volume 90, Mean Corpuscular Hemoglobin 30, Mean Corpuscular Hemoglobin Concent 33, Red Cell Distribution Width 12.6, Platelet Count 394, Mean Platelet Volume 10.0, Immature Granulocyte % (Auto) 1, Neutrophils (%) (Auto) 73, Lymphocytes (%) (Auto) 13, Monocytes (%) (Auto) 8, Eosinophils (%) (Auto) 5, Basophils (%) (Auto) 1, Neutrophils # (Auto) 6.2, Lymphocytes # (Auto) 1.2, Monocytes # (Auto) 0.7, Eosinophils # (Auto) 0.4H, Basophils # (Auto) 0.1, Immature Granulocyte # (Auto) 0.1, Prothrombin Time 22.7H, INR Comment 2.0H, Sodium Level 136, Potassium Level 4.7, Chloride Level 101, Carbon Dioxide Level 25, Anion Gap 10, Blood Urea Nitrogen 20H, Creatinine 1.10, Estimat Glomerular Filtration Rate 73, BUN/Creatinine Ratio 18, Glucose Level 100, Calcium Level 9.0, Corrected Calcium 9.6, Magnesium Level 2.0, Total Bilirubin 0.8, Aspartate Amino Transf (AST/SGOT) 33, Alanine Aminotransferase (ALT/SGPT) 41, Alkaline Phosphatase 79, Total Protein 6.7, Albumin 3.2 Microbiology 01/04/23 Gram Stain - Final, Resulted 01/04/23 Anaerobic Culture, Resulted Pending 01/04/23 Body Fluid Culture - Preliminary, Resulted No growth 12/28/22 Blood Culture - Final, Complete No growth 12/28/22 MRSA Screen - Final, Complete MRSA not isolated 12/28/22 Urine Culture - Final, Complete NO GROWTH Procedures NAME: ROB SHELTON [facility] REC#: [id number] PT STATUS: ADM IN : 1955 PHYSICIAN: DYAN MCFADDEN DO ADMIT DATE: 12/30/22 Draft Date of Exam:01/04/23 CHEST 1 VIEW, AP/PA ONLY INDICATION: 67-year-old male, pneumonia, right pleural effusion, follow-up. TECHNIQUE: Single view chest 5:15 AM. CORRELATION STUDY: 01/03/2023 FINDINGS: Left-sided unipolar pacemaker. Opacity through the right lung likely largely attributed to the known effusion along with some compressive atelectasis and/or consolidation. Compared to prior, the amount of fluid does appear to be perhaps slightly decreased. Left lung remains clear. Heart size generally stable but largely obscured. IMPRESSION: 1. Continued significant opacification the right lung likely combination of the known sizable effusion along with some compressive atelectasis and or consolidation. Amount of fluid does however appear to be slightly diminished from prior. Dictated on workstation # [id number] Dict: 01/04/2321 Trans: 01/04/23 0848 CLIFFORD [id number] Interpreted by: JANET WILCOX DO Electronically signed by: A/P: Assessment: Acute illness: - UTI - management per Medical services - Acute abdomen - managed by Dr. Lau - clinically improving Large right pleural effusion - thoracentesis (2800 ml) on 12/30/[address] Lau - recurrent / persistent R pleural eff on CT of 01/03/23 Dizziness and poor balance since early December 2021 - Holter of 01-06-22 showed rare PVC, infreq PAC, A-fib throughout the study with controlled vent response. Av HR 70 bpm. No signif monster. No VT - symptoms improved after stopping Xarelto Permanent a-fib/flutter - first diagnosed on ECG of 12/06/17, now permanent - OAC with warfarin for stroke prophylaxis - Holter of 06/13/19: A fib throughout study, avg vent rate 91 bpm, no VT or significant monster - rate not well controlled Intolerant to Xarelto (marked dizziness and poor balance) CAD - Coronary artery disease with history of Promus 3x18 mm stent to the LAD per cardiac cath by Dr. Aaron in September 2010. - Most recent Cardiac cath of Aug 2013 showed patent LAD stent, LVEF 30-35%, and normal LVEDP - MPI of November 2018 showed anteroseptal and apical myocardial infarction with only a small amt of jacque-infarct ischemia. Anteroseptal and apical hypokinesis. Atrial flutter/fib seen throughout the study. LVEF 38%. - MPI of 11-14-21 showed: This study indicates apical and inferoseptal infarcts without significant ischemia. Apical and inferoseptal hypokinesis. Well preserved global left ventricular systolic function with a calculated ejection fraction of 51%. Ischemic CM - Chronic systolic CHF, clinically compensated - S/p single chamber ICD: placement on 08/27/13 for SCD prophylaxis, functioning normally per interrogation of 10/20/21 - Echocardiogram of 01/01/18 showed mild impairment of LV systolic funciton with and LVEF of 35-40%, apical hypokinesis, enlargement of LA, PASP WNL - Echocardiogram of 05-25-21 showed LVEF 40-45%. LA mod dilated. PASP 25-30 mmHg - Echo on 01-01-25: LVEF 40-45%, R pleural eff HLP - statin therapy Carotid dz: - Mild carotid arterial disease per u/s of 06/11/21 HTN - controlled H/o Tobaccoism - quit in early January 2014. We have advised him to continue to refrain from tobacc o use - Elevated PSA being followed by Dr Gonzalez - Darrick-sided epididymoorchitis and hydrocele in 2018 or 2019, managed at [facility] ER and f/u with Dr Favio Aguirre (urologist) and with his pcp. Currently followed by Dr Gonzalez, according to the patient Plan: * We recommend repeat thoracentesis * Sub-therapeutic INR (warfarin had been on hold d/t thoracentesis) - it has been resumed - Lovenox until INR 2.0 or greater. May hold warfarin & Lovenox for thoracentesis * Abdominal pain and UTI are being managed by Dr Mcfadden * Chronically low potassium has resolved with initiation of Aldactone - potassium rising - monitor closely * Monitor labs RUBEN LEGGETT Jan 04, 2023 09:14
[2023-01-04] MEDS: ENOXAPARIN 100 MG/1 ML (LOVENOX) SYR SC SCH ×2 (09:43→22:13)
[2023-01-04 11:05] VITALS: BP 122/76
--- NOTE | 2023-01-04 13:18 | Progress Note - Cardiology ---
Cardiology SOAP Progress Note Subjective: No cp or palp or syncope Shortness of breath with activity No focal weakness Gen weakness present No n/v/d Objective: I&O/Vital Signs 01/04/23 01/04/23 01/04/23 01/04/23 03:30 07:23 07:32 07:53 Temp 36.5 36.4 Pulse 70 90 82 Resp 18 18 B/P (MAP) 115/53 (73) 128/75 (92) Pulse Ox 92 91 O2 Delivery Room Air Room Air Room Air O2 Flow Rate 0.00 0.00 01/04/23 01/04/23 01/04/23 11:05 11:17 12:45 Temp 36.6 Pulse 85 86 Resp 18 B/P (MAP) 122/76 (91) Pulse Ox 93 O2 Delivery Room Air Room Air 01/04/23 00:00 Intake Total 1280 ml Output Total 750 ml Balance 530 ml Weight (Pounds): 214 Weight (Ounces): 0.0 Weight (Calculated Kilograms): 97.117817 Constitutional: AAO x 3, well-developed, well-nourished Respiratory: No accessory muscle use, No respiratory distress; other (diminished RLL) Cardiovascular: irregularly irregular; No JVD; S1 and S2 Gastrointestional: tender (LLQ tenderness), soft; No guarding Extremities: no lower extremity edema bilateral Neurologic/Psychiatric: other (moves all extremities) Skin: No rash on exposed areas, No ulcerations on exposed areas Results/Procedures: Labs Laboratory Tests 01/04/23 05:32: White Blood Count 7.0, Red Blood Count 4.11L, Hemoglobin 12.5L, Hematocrit 37L, Mean Corpuscular Volume 91, Mean Corpuscular Hemoglobin 30, Mean Corpuscular Hemoglobin Concent 34, Red Cell Distribution Width 12.3, Platelet Count 354, Mean Platelet Volume 10.3, Immature Granulocyte % (Auto) 1, Neutrophils (%) (Auto) 70, Lymphocytes (%) (Auto) 15, Monocytes (%) (Auto) 9, Eosinophils (%) (Auto) 5, Basophils (%) (Auto) 1, Neutrophils # (Auto) 4.9, Lymphocytes # (Auto) 1.0, Monocytes # (Auto) 0.6, Eosinophils # (Auto) 0.4H, Basophils # (Auto) 0.1, Immature Granulocyte # (Auto) 0.0, Prothrombin Time 18.3H, INR Comment 1.5H, Sodium Level 136, Potassium Level 4.4, Chloride Level 102, Carbon Dioxide Level 24, Anion Gap 10, Blood Urea Nitrogen 10, Creatinine 0.82, Estimat Glomerular Filtration Rate 96, BUN/Creatinine Ratio 12, Glucose Level 87, Calcium Level 9.0, Corrected Calcium 9.7, Magnesium Level 1.9, Total Bilirubin 0.6, Aspartate Amino Transf (AST/SGOT) 30, Alanine Aminotransferase (ALT/SGPT) 41, Alkaline Phosphatase 70, Total Protein 6.6, Albumin 3.1L Microbiology 12/30/22 Gram Stain - Final, Complete 12/30/22 Body Fluid Culture - Final, Complete No growth 12/28/22 Blood Culture - Preliminary, Resulted No growth 12/28/22 MRSA Screen - Final, Complete MRSA not isolated 12/28/22 Urine Culture - Final, Complete NO GROWTH Laboratory Tests 01/03/23 04:57 01/04/23 05:32 A/P: Assessment: Acute illness: - UTI - management per Medical services - Acute abdomen - managed by Dr. Lau - clinically improving Large right pleural effusion - thoracentesis (2800 ml) on 12/30/[address] Lau - recurrent / persistent R pleural eff on CT of 01/03/23 Dizziness and poor balance since early December 2021 - Holter of 01-06-22 showed rare PVC, infreq PAC, A-fib throughout the study with controlled vent response. Av HR 70 bpm. No signif monster. No VT - symptoms improved after stopping Xarelto Permanent a-fib/flutter - first diagnosed on ECG of 12/06/17, now permanent - OAC with warfarin for stroke prophylaxis - Holter of 06/13/19: A fib throughout study, avg vent rate 91 bpm, no VT or significant monster - rate not well controlled Intolerant to Xarelto (marked dizziness and poor balance) CAD - Coronary artery disease with history of Promus 3x18 mm stent to the LAD per cardiac cath by Dr. Aaron in September 2010. - Most recent Cardiac cath of Aug 2013 showed patent LAD stent, LVEF 30-35%, and normal LVEDP - MPI of November 2018 showed anteroseptal and apical myocardial infarction with only a small amt of jacque-infarct ischemia. Anteroseptal and apical hypokinesis. Atrial flutter/fib seen throughout the study. LVEF 38%. - MPI of 11-14-21 showed: This study indicates apical and inferoseptal infarcts without significant ischemia. Apical and inferoseptal hypokinesis. Well preserved global left ventricular systolic function with a calculated ejection fraction of 51%. Ischemic CM - Chronic systolic CHF, clinically compensated - S/p single chamber ICD: placement on 08/27/13 for SCD prophylaxis, functioning normally per interrogation of 10/20/21 - Echocardiogram of 01/01/18 showed mild impairment of LV systolic funciton with and LVEF of 35-40%, apical hypokinesis, enlargement of LA, PASP WNL - Echocardiogram of 05-25-21 showed LVEF 40-45%. LA mod dilated. PASP 25-30 mmHg - Echo on 01-01-25: LVEF 40-45%, R pleural eff HLP - statin therapy Carotid dz: - Mild carotid arterial disease per u/s of 06/11/21 HTN - controlled H/o Tobaccoism - quit in early January 2014. We have advised him to continue to refrain from tobacco use - Elevated PSA being followed by Dr Gonzalez - L-sided epididymoorchitis and hydrocele in 2019 or 2019, managed at [facility] ER and f/u with Dr Favio Aguirre (urologist) and with his pcp. Currently followed by Dr Gonzalez, according to the patient Plan: * We recommend repeat thoracentesis * Sub-therapeutic INR (warfarin had been on hold d/t thoracentesis) - it has been resumed - Lovenox until INR 2.0 or greater. May hold warfarin & Lovenox for thoracentesis * Abdominal pain and UTI are being managed by Dr Pham * Chronically low potassium has resolved with initiation of Aldactone - potassium rising - monitor closely * Monitor labs JERRY MCGUIRE MD FACP FAC CCDS Jan 04, 2023 13:18
[2023-01-04 15:45] VITALS: BP 121/71
[2023-01-04] MEDS ORDERED: LIDOCAINE 1% INJ 10 ML VIAL INJ ONE (16:00)
--- NOTE | 2023-01-04 16:26 | Progress Note ---
Subjective Date Seen by a Provider: Jan 04, 2023 Time Seen by a Provider: 14:00 Subjective/Events-last exam doing well. no new SOB. no cough or sputum production. tolerating diet w/o abd pain. recurrent right pl eff on CT, cxr and u/s. Objective Exam Vital Signs Date Time Temp Pulse Resp B/P (MAP) Pulse Ox O2 Delivery O2 Flow Rate FiO2 01/04/23 15:45 37.1 65 20 121/71 (88) 92 Room Air 01/04/23 12:45 86 01/04/23 11:17 Room Air 01/04/23 11:05 36.6 85 18 122/76 (91) 93 Room Air 01/04/23 07:53 Room Air 01/04/23 07:32 36.4 82 18 128/75 (92) 91 Room Air 01/04/23 07:23 90 01/04/23 03:30 36.5 70 18 115/53 (73) 92 Room Air 0.00 0.00 01/04/23 01:00 65 01/03/23 23:43 36.5 79 18 106/67 (80) 92 Room Air 0.00 0.00 01/03/23 20:59 Room Air 01/03/23 19:10 36.5 85 18 119/70 (86) Room Air 01/03/23 19:05 36.6 70 92 21 01/03/23 19:03 Room Air 01/03/23 19:00 87 I & O 01/04/23 07:00 Intake Total 1530 ml Output Total 1200 ml Balance 330 ml Capillary Refill : Less Than 3 Seconds General Appearance: No Apparent Distress HEENT: PERRL/EOMI Neck: Full Range of Motion Respiratory: Chest Non Tender, Decreased Breath Sounds Cardiovascular: Regular Rate, Rhythm Gastrointestinal: normal bowel sounds, non tender, soft Extremity: Normal Capillary Refill Neurologic/Psychiatric: Alert, Oriented x3 Skin: Normal Color Lymphatic: No Adenopathy Results Lab Laboratory Tests 01/04/23 05:32: White Blood Count 7.0, Red Blood Count 4.11L, Hemoglobin 12.5L, Hematocrit 37L, Mean Corpuscular Volume 91, Mean Corpuscular Hemoglobin 30, Mean Corpuscular Hemoglobin Concent 34, Red Cell Distribution Width 12.3, Platelet Count 354, Mean Platelet Volume 10.3, Immature Granulocyte % (Auto) 1, Neutrophils (%) (Auto) 70, Lymphocytes (%) (Auto) 15, Monocytes (%) (Auto) 9, Eosinophils (%) (Auto) 5, Basophils (%) (Auto) 1, Neutrophils # (Auto) 4.9, Lymphocytes # (Auto) 1.0, Monocytes # (Auto) 0.6, Eosinophils # (Auto) 0.4H, Basophils # (Auto) 0.1, Immature Granulocyte # (Auto) 0.0, Prothrombin Time 18.3H, INR Comment 1.5H, Sodium Level 136, Potassium Level 4.4, Chloride Level 102, Carbon Dioxide Level 24, Anion Gap 10, Blood Urea Nitrogen 10, Creatinine 0.82, Estimat Glomerular Filtration Rate 96, BUN/Creatinine Ratio 12, Glucose Level 87, Calcium Level 9.0, Corrected Calcium 9.7, Magnesium Level 1.9, Total Bilirubin 0.6, Aspartate Amino Transf (AST/SGOT) 30, Alanine Aminotransferase (ALT/SGPT) 41, Alkaline Phosphatase 70, Total Protein 6.6, Albumin 3.1L Microbiology 12/30/22 Gram Stain - Final, Complete 12/30/22 Body Fluid Culture - Final, Complete No growth 12/28/22 Blood Culture - Preliminary, Resulted No growth 12/28/22 MRSA Screen - Final, Complete MRSA not isolated 12/28/22 Urine Culture - Final, Complete NO GROWTH Assessment/Plan Assessment/Plan Assess & Plan/Chief Complaint sx right pleural effusion and chronic calculous cholecystitis. right thorocentesis 12/30 likely proceed with laparoscopic cholecystectomy as OP when cardiac cleared and able to ween down coumadin anticoagulation. recurrent right pl eff. will proceed with another thorocentesis today and send off again for cytology and labs including LDH. ERNST OLMOS MD Jan 04, 2023 16:26
--- NOTE | 2023-01-04 17:05 | OPERATIVE REPORT ---
DATE OF SERVICE: 01/04/2023 ADMITTING PHYSICIAN: Dr. Pham. PREOPERATIVE DIAGNOSIS: Recurrent right pleural effusion. POSTOPERATIVE DIAGNOSES: Blood-tinged serous transudative fluid where 1600 mL evacuated. PROCEDURE: Right thoracentesis. SURGEON: Ernst Olmos MD ANESTHESIA: Local. ESTIMATED BLOOD LOSS: Minimal. FINDINGS: 1600 mL of blood-tinged transudative fluid. DISPOSITION: The patient tolerated the procedure well. INDICATIONS: The patient is a 67-year-old male who presented to the emergency department with a 1-week history of worsening shortness of breath and weakness. He also does have underlying medical problems including COPD, ischemic cardiomyopathy and congestive heart failure. The patient is also on Coumadin. He had reported due to his weakness he had fell a few times. After admission, he underwent chest x-rays, which was consistent with the significant size right pleural effusion and he underwent a right thoracentesis for 2800 mL of blood-tinged transudative fluid was evacuated. Since that procedure, he has not had any recurrent shortness of breath, cough or sputum production and states that he is ambulating better with no exertional shortness of breath. A CT scan of the chest was performed, which did show recurrence of the right pleural effusion, which was also identified on followup chest x-ray and ultrasound. Due to this, we will proceed with thoracentesis of the recurrent right pleural effusion. The back was prepped and draped in standard surgical fashion. Before the procedure, the posterolateral back was marked by ultrasonography. The skin, subcutaneous tissue, muscle layers and parietal pleura were then anesthetized using 1% lidocaine. A vertical skin incision was then made using an 11 blade at approximately the eighth intercostal space. The trocar and catheter were then introduced withdrawing of dark blood-tinged transudative fluid. The catheter was then advanced over the trocar and connected to vacuum bottles where 1600 mL of the same type of fluid was evacuated. Once fully evacuated, the catheter was then removed under positive pressure ventilation and an Op-Site placed. The patient tolerated the procedure well. We will get a post-procedure chest x-ray and again send the fluid off for cytology and laboratory analysis. Job ID: [id number] DocumentID: [id number] Dictated Date: 01/04/2023 16:32:36 Wastewater Technician Date: 01/04/2023 17:03:00 Dictated By: ERNST OLMOS MD
--- NOTE | 2023-01-04 17:07 | Diagnostic Imaging Report ---
EXAMINATION: Chest, one view. HISTORY: Post thoracentesis. COMPARISON: 01/04/2023. FINDINGS: Right-sided pleural effusion has decreased in size and is now small. No pneumothorax is seen. Pacemaker is present. Left lung is clear. Heart size is normal. IMPRESSION: 1. Decrease in size of now small right pleural effusion without pneumothorax. Dictated by: Dictated on workstation # [id number]
[2023-01-04 17:08] LABS: BODY FLUID WBC TOTAL COUNT 3.317 10^3/uL
[2023-01-04 17:13] LABS: BODY FLUID APPEARENCE MKD BLDY; BODY FLUID COLOR RED; BODY FLUID PH 7.5; BODY FLUID SOURCE PLEURAL
[2023-01-04 17:28] LABS: ALBUMIN,BODY FLUID 2.1 G/DL; AMYLASE,BODY FLUID 38 U/L
[2023-01-04 17:30] LABS: GLUCOSE,BODY FLUID 87 MG/DL
[2023-01-04 17:38] LABS: LDH,BODY FLUID 467 U/L
[2023-01-04] MEDS: warFARin 5 MG (COUMADIN) TAB PO SCH (17:40)
--- NOTE | 2023-01-04 18:55 | Progress Note ---
Subjective Subjective/Events-last exam Pt seen at 1050. States he is feeling fine. Denies concerns. Objective Exam Last Set of Vital Signs Vital Signs Date Time Temp Pulse Resp B/P (MAP) Pulse Ox O2 Delivery O2 Flow Rate FiO2 01/04/23 15:45 37.1 65 20 121/71 (88) 92 Room Air 01/04/23 03:30 0.00 0.00 01/03/23 19:05 21 Capillary Refill : Less Than 3 Seconds I&O Intake and Output 01/04/23 00:00 Intake Total 1580 ml Output Total 1350 ml Balance 230 ml Intake Oral 1480 ml IV Total 100 ml Output Urine Total 1350 ml # Voids 3 # Bowel Movements 1 General: Alert, No Acute Distress Lungs: Other (decreased air movement at right base, but improved from ) Heart: Other (irregularly irregular) Extremities: No Edema Neuro: Normal Speech Psych/Mental Status: Mood NL Results/Procedures Lab Laboratory Tests 01/04/23 05:32: White Blood Count 7.0, Red Blood Count 4.11L, Hemoglobin 12.5L, Hematocrit 37L, Mean Corpuscular Volume 91, Mean Corpuscular Hemoglobin 30, Mean Corpuscular Hemoglobin Concent 34, Red Cell Distribution Width 12.3, Platelet Count 354, Mean Platelet Volume 10.3, Immature Granulocyte % (Auto) 1, Neutrophils (%) (Auto) 70, Lymphocytes (%) (Auto) 15, Monocytes (%) (Auto) 9, Eosinophils (%) (Auto) 5, Basophils (%) (Auto) 1, Neutrophils # (Auto) 4.9, Lymphocytes # (Auto) 1.0, Monocytes # (Auto) 0.6, Eosinophils # (Auto) 0.4H, Basophils # (Auto) 0.1, Immature Granulocyte # (Auto) 0.0, Prothrombin Time 18.3H, INR Comment 1.5H, Sodium Level 136, Potassium Level 4.4, Chloride Level 102, Carbon Dioxide Level 24, Anion Gap 10, Blood Urea Nitrogen 10, Creatinine 0.82, Estimat Glomerular Filtration Rate 96, BUN/Creatinine Ratio 12, Glucose Level 87, Calcium Level 9.0, Corrected Calcium 9.7, Magnesium Level 1.9, Total Bilirubin 0.6, Aspartate Amino Transf (AST/SGOT) 30, Alanine Aminotransferase (ALT/SGPT) 41, Alkaline Phosphatase 70, Total Protein 6.6, Albumin 3.1L 01/04/23 16:20: Body Fluid Source PLEURAL, Body Fluid Color RED, Body Fluid Appearance MKD BLDY, Body Fluid Specific [place] 1.010, Body Fluid pH 7.5, Body Fluid WBC 3.317, Body Fluid RBC 0.540, Body Fl Polynuclear WBCs (%)(Auto) 21.1, Body Fluid Mononuclear Cells % Auto 78.9, Body Fluid Slide Review Yes, Body Fluid Chloride 104, Body Fluid Glucose 87, Body Fluid Total Protein 4.0, Body Fluid Albumin 2.1, Body Fluid Lactate Dehydrogenase 467, Body Fluid Amylase 38 Microbiology 12/30/22 Gram Stain - Final, Complete 12/30/22 Body Fluid Culture - Final, Complete No growth 12/28/22 Blood Culture - Final, Complete No growth 12/28/22 MRSA Screen - Final, Complete MRSA not isolated 12/28/22 Urine Culture - Final, Complete NO GROWTH Radiology NAME: ROB SHELTON [facility] REC#: [id number] PT STATUS: ADM [place] : 1955 PHYSICIAN: SHEYLA RENO DO ADMIT DATE: 12/28/22/ICU Signed Date of Exam:12/28/22 ABDOMEN, FLAT & UPRIGHT/DECUB ABDOMEN, FLAT UPRIGHT/DECUB INDICATION: Abdominal pain. COMPARISON: Chest radiograph from earlier same day. TECHNIQUE: Supine and upright AP views of the abdomen. FINDINGS: Nonobstructive bowel gas pattern. No free intraperitoneal air. No abnormal soft tissue mineralizations. Please see chest radiograph report for details of pathology in the right lower hemithorax. IMPRESSION: No free intraperitoneal air or bowel obstruction. Dictated by: Dictated on workstation # [id number] Dict: 12/28/22 1623 Trans: 12/28/221941 AS6 [id number] Interpreted by: NANDO MEJIA MD Electronically signed by: NANDO MEJIA MD 12/28/221941 NAME: ROB SHELTON [facility] REC#: [id number] PT STATUS: REG ER : 1955 PHYSICIAN: SHEYLA RENO DO ADMIT DATE: 12/28/22/ER Draft Date of Exam:12/28/22 CHEST PA/LAT (2 VIEW) INDICATION: Hypoxia. PA and lateral views of the chest are obtained with comparison made to study of 08/27/2013. FINDINGS: There has been significant volume loss in the right lung with elevated right hemidiaphragm as well as right upper lobe atelectasis. There is also right pleural fluid and/or thickening. Left chest wall pacemaker device remains in place. There is no evidence of pneumothorax, and the left lung remains well expanded. IMPRESSION: Pleural fluid and atelectasis in the right lung with associated diaphragmatic elevation. Consideration could be given to bronchoscopy for further assessment, or diagnostic thoracentesis could be considered. Dictated on workstation # [id number] Dict: 12/28/22 1606 Trans: 12/28/22 1614 [id number] Interpreted by: REZA PRUETT MD Electronically signed by: Assessment/Plan Assessment/Plan (1) Nausea & vomiting Status: Resolved Assessment & Plan: Initially came in with complaint of nausea/vomiting after being treated for UTI (culture negative from 12/20 and this stay) and RVR. Now resolved. Qualifiers: Qualified Codes: R11.2 - Nausea with vomiting, unspecified (2) Pleural effusion Status: Acute Assessment & Plan: 01/03 s/p thoracentesis 12/30 with bloody fluid. Cytology negative for malignancy. LDH not done, unable to determine Light's criteria. Consider parapneumonic, but is recurring in spite of 6 days of broad spectrum antibiotics. Possible CHF related. Consider repeat thoracentesis today due to recurrence. 01/04 CXR showing slight improvement (3) Pneumonia Status: Acute Assessment & Plan: Possible parapneumonic effusion, started on meropnem on admit. Had leukocytosis and tachycardia on admit but was in a fib RVR, no lactic acidosis or end organ dysfunction, uncertain if true underlying infection. Meropenem day 7. Qualifiers: (4) Atrial flutter, chronic Status: Chronic Assessment & Plan: RVR on admit, improved at this time. Appreciate Cardiology recommendations. Warfarin was held for thoracentesis and later resumed, placed on treatment dose enox while resuming. (5) Chronic systolic (congestive) heart failure Status: Chronic (6) Coronary artery disease Status: Chronic (7) DVT prophylaxis Status: Acute Assessment & Plan: Enox/warfarin SUNDAY,VEE N MD Jan 04, 2023 18:55
[2023-01-04 19:23] VITALS: BP 129/71
[2023-01-05] VITALS (8 sets, daily range): BP systolic 100–146; BP diastolic 63–72
[2023-01-05] MEDS: KCL 20 MEQ TAB (K-DUR) PO SCH (05:30)
[2023-01-05 05:59] LABS: BASOPHILS # (AUTO) 0.1 10^3/uL (0.0-0.1); BASOPHILS % (AUTO) 1 % (0-10); EOSINOPHILS # (AUTO) 0.4 10^3/uL (0.0-0.3); EOSINOPHILS % (AUTO) 4 % (0-10); HEMATOCRIT 40 % (40-54); HEMOGLOBIN 13.1 g/dL (13.3-17.7); LYMPHOCYTES # (AUTO) 1.1 10^3/uL (1.0-4.0); LYMPHOCYTES % (AUTO) 12 % (12-44); MEAN CORPUSCULAR HEMOGLOBIN 30 pg (25-34); MEAN CORPUSCULAR HGB CONC 33 g/dL (32-36); MEAN CORPUSCULAR VOLUME 90 fL (80-99); MEAN PLATELET VOLUME 10.4 fL (9.0-12.2); MONOCYTES # (AUTO) 0.8 10^3/uL (0.0-1.0); MONOCYTES % (AUTO) 9 % (0-12); NEUTROPHILS # (AUTO) 6.5 10^3/uL (1.8-7.8); NEUTROPHILS % (AUTO) 73 % (42-75); PLATELET COUNT 385 10^3/uL (130-400); WHITE BLOOD COUNT 8.9 10^3/uL (4.3-11.0)
[2023-01-05 06:27] LABS: ALBUMIN 3.2 GM/DL (3.2-4.5); POTASSIUM 4.5 MMOL/L (3.6-5.0)
[2023-01-05 06:28] LABS: CALCIUM 9.2 MG/DL (8.5-10.1); INR 1.7 (0.8-1.4); PROTHROMBIN TIME PATIENT 20.2 SEC (12.2-14.7)
[2023-01-05 06:29] LABS: TOTAL PROTEIN 6.7 GM/DL (6.4-8.2)
[2023-01-05 06:31] LABS: BILIRUBIN,TOTAL 0.7 MG/DL (0.1-1.0)
[2023-01-05 06:33] LABS: CREATININE SERUM 0.93 MG/DL (0.60-1.30)
[2023-01-05 06:35] LABS: MAGNESIUM 1.9 MG/DL (1.6-2.4)
[2023-01-05] MEDS: SPIRONOLACTONE 25 MG (ALDACTONE) TAB PO SCH (08:16)
[2023-01-05] MEDS: lisINopril 5 MG (PRINIVIL) TABLET PO SCH (08:16)
[2023-01-05] MEDS: DIGOXIN 0.25 MG (LANOXIN) TAB PO SCH (08:16)
[2023-01-05] MEDS: TAMSULOSIN 0.4 MG (FLOMAX) CAP PO SCH (08:16)
[2023-01-05] MEDS: buPROPion SR 100 MG (WELLBUTRIN SR) TAB PO SCH ×2 (08:16→20:43)
[2023-01-05] MEDS: ASPIRIN E.C. 81 MG (ECOTRIN) TAB PO SCH (08:16)
[2023-01-05] MEDS: CEFDINIR 300 MG (OMNICEF) CAP PO SCH ×2 (08:16→20:43)
[2023-01-05] MEDS: DOCUSATE SODIUM 100 MG (COLACE) CAP PO SCH ×2 (08:18→20:39)
--- NOTE | 2023-01-05 08:18 | Diagnostic Imaging Report ---
INDICATION: Right pleural effusion. Frontal chest obtained at 5:45 a.m. and compared to 01/04/2023. Heart is normal size. Pacemaker is unchanged. There is some right perihilar and basilar scarring or atelectasis. There is a trace of right pleural fluid. There is no pneumothorax. Left lung is clear. IMPRESSION: Unchanged right perihilar scarring or atelectasis with trace right pleural effusion. No pneumothorax or other new finding. Dictated by: Dictated on workstation # [id number]
[2023-01-05] MEDS: SENNOSIDES 8.6 MG (SENOKOT) TAB PO SCH ×2 (08:19→20:39)
[2023-01-05] MEDS: ENOXAPARIN 100 MG/1 ML (LOVENOX) SYR SC SCH ×2 (09:51→21:30)
--- NOTE | 2023-01-05 10:14 | Progress Note ---
Subjective Subjective/Events-last exam States he is feeling fine. Denies concerns. His heart rate has been jumping up, he denies feeling it. Objective Exam Last Set of Vital Signs Vital Signs Date Time Temp Pulse Resp B/P (MAP) Pulse Ox O2 Delivery O2 Flow Rate FiO2 01/05/23 08:05 36.4 61 18 143/69 (93) 93 Room Air 01/04/23 03:30 0.00 0.00 01/03/23 19:05 21 Capillary Refill : Less Than 3 Seconds I&O Intake and Output 01/05/23 00:00 Intake Total 1450 ml Output Total 1600 ml Balance -150 ml Intake Oral 1450 ml Output Urine Total 1600 ml # Bowel Movements 1 General: Alert, No Acute Distress Lungs: Other (decreased air movement at base of right side, improved throughout remainder) Heart: Other (irregularly irregular, tachycardia) Extremities: No Edema Psych/Mental Status: Mood NL Results/Procedures Lab Laboratory Tests 01/04/23 16:20: Body Fluid Source PLEURAL, Body Fluid Color RED, Body Fluid Appearance MKD BLDY, Body Fluid Specific [place] 1.010, Body Fluid pH 7.5, Body Fluid WBC 3.317, Body Fluid RBC 0.540, Body Fl Polynuclear WBCs (%)(Auto) 21.1, Body Fluid Mononuclear Cells % Auto 78.9, Body Fluid Slide Review Yes, Body Fluid Chloride 104, Body Fluid Glucose 87, Body Fluid Total Protein 4.0, Body Fluid Albumin 2.1, Body Fluid Lactate Dehydrogenase 467, Body Fluid Amylase 38 01/04/23 19:12: Lactate Dehydrogenase 197 01/05/23 04:58: White Blood Count 8.9, Red Blood Count 4.38, Hemoglobin 13.1L, Hematocrit 40, Mean Corpuscular Volume 90, Mean Corpuscular Hemoglobin 30, Mean Corpuscular Hemoglobin Concent 33, Red Cell Distribution Width 12.3, Platelet Count 385, Mean Platelet Volume 10.4, Immature Granulocyte % (Auto) 1, Neutrophils (%) (Auto) 73, Lymphocytes (%) (Auto) 12, Monocytes (%) (Auto) 9, Eosinophils (%) (Auto) 4, Basophils (%) (Auto) 1, Neutrophils # (Auto) 6.5, Lymphocytes # (Auto) 1.1, Monocytes # (Auto) 0.8, Eosinophils # (Auto) 0.4H, Basophils # (Auto) 0.1, Immature Granulocyte # (Auto) 0.1, Prothrombin Time 20.2H, INR Comment 1.7H, Sodium Level 136, Potassium Level 4.5, Chloride Level 102, Carbon Dioxide Level 23, Anion Gap 11, Blood Urea Nitrogen 14, Creatinine 0.93, Estimat Glomerular Filtration Rate 89, BUN/Creatinine Ratio 15, Glucose Level 94, Calcium Level 9.2, Corrected Calcium 9.8, Magnesium Level 1.9, Total Bilirubin 0.7, Aspartate Amino Transf (AST/SGOT) 30, Alanine Aminotransferase (ALT/SGPT) 38, Alkaline Phosphatase 74, Total Protein 6.7, Albumin 3.2 Microbiology 12/30/22 Gram Stain - Final, Complete 12/30/22 Body Fluid Culture - Final, Complete No growth 12/28/22 Blood Culture - Final, Complete No growth 12/28/22 MRSA Screen - Final, Complete MRSA not isolated 12/28/22 Urine Culture - Final, Complete NO GROWTH Radiology NAME: ROB SHETLON [facility] REC#: [id number] PT STATUS: ADM [place] : 1955 PHYSICIAN: SHEYLA RENO DO ADMIT DATE: 12/28/22/ICU Signed Date of Exam:12/28/22 ABDOMEN, FLAT & UPRIGHT/DECUB ABDOMEN, FLAT UPRIGHT/DECUB INDICATION: Abdominal pain. COMPARISON: Chest radiograph from earlier same day. TECHNIQUE: Supine and upright AP views of the abdomen. FINDINGS: Nonobstructive bowel gas pattern. No free intraperitoneal air. No abnormal soft tissue mineralizations. Please see chest radiograph report for details of pathology in the right lower hemithorax. IMPRESSION: No free intraperitoneal air or bowel obstruction. Dictated by: Dictated on workstation # [id number] Dict: 12/28/221622 Trans: 12/28/221941 [id number] [id number] Interpreted by: NANDO MEJIA MD Electronically signed by: NANDO MEJIA MD 12/28/221941 NAME: ROB SHELTON [facility] REC#: [id number] PT STATUS: REG ER : 1955 PHYSICIAN: SHEYLA RENO DO ADMIT DATE: 12/28/22/ER Draft Date of Exam:12/28/22 CHEST PA/LAT (2 VIEW) INDICATION: Hypoxia. PA and lateral views of the chest are obtained with comparison made to study of 08/27/2013. FINDINGS: There has been significant volume loss in the right lung with elevated right hemidiaphragm as well as right upper lobe atelectasis. There is also right pleural fluid and/or thickening. Left chest wall pacemaker device remains in place. There is no evidence of pneumothorax, and the left lung remains well expanded. IMPRESSION: Pleural fluid and atelectasis in the right lung with associated diaphragmatic elevation. Consideration could be given to bronchoscopy for further assessment, or diagnostic thoracentesis could be considered. Dictated on workstation # [id number] Dict: 12/28/22 1606 Trans: 12/28/22 1614 [id number] Interpreted by: REZA PRUETT MD Electronically signed by: Assessment/Plan Assessment/Plan (1) Nausea & vomiting Status: Resolved Assessment & Plan: Initially came in with complaint of nausea/vomiting after being treated for UTI (culture negative from 12/20 and this stay) and RVR. Now resolved. Qualifiers: Qualified Codes: R11.2 - Nausea with vomiting, unspecified (2) Pleural effusion Status: Acute Assessment & Plan: 01/03 s/p thoracentesis 12/30 with bloody fluid. Cytology negative for malignancy. LDH not done, unable to determine Light's criteria. Consider parapneumonic, but is recurring in spite of 6 days of broad spectrum antibiotics. Possible CHF related. Consider repeat thoracentesis today due to recurrence. 01/04 CXR showing slight improvement 01/05 repeat thoracentesis done yesterday, pt continues to deny shortness of breath and has not required supplemental oxygen. Light's criteria met- likely an exudative effusion. (3) Pneumonia Status: Acute Assessment & Plan: Possible parapneumonic effusion, started on meropnem on admit. Had leukocytosis and tachycardia on admit but was in a fib RVR, no lactic acidosis or end organ dysfunction, uncertain if true underlying infection. Completed 7 days of meropenem. Qualifiers: (4) Atrial flutter, chronic Status: Chronic Assessment & Plan: RVR on admit, improved at this time. Appreciate Cardiology recommendations. Warfarin was held for thoracentesis and later resumed, placed on treatment dose enox while resuming. 01/05 having intermittent tachy, appreciate Cardiology recs (5) Chronic systolic (congestive) heart failure Status: Chronic (6) Coronary artery disease Status: Chronic (7) DVT prophylaxis Status: Acute Assessment & Plan: Enox/warfarin VEE BRAND MD Jan 05, 2023 10:14
--- NOTE | 2023-01-05 13:23 | Progress Note - Cardiology ---
Cardiology SOAP Progress Note Subjective: Gen malaise No focal weakness No cp or palp or syncope No n/v/d No shortness of breath at rest Objective: I&O/Vital Signs 01/05/23 01/05/23 01/05/23 01/05/23 04:59 06:51 07:01 08:00 Temp 36.3 Pulse 96 131 Resp 18 B/P (MAP) 146/65 (92) Pulse Ox 92 94 O2 Delivery Room Air Room Air Room Air 01/05/23 01/05/23 01/05/23 08:05 11:34 12:31 Temp 36.4 36.4 Pulse 61 65 88 Resp 18 18 B/P (MAP) 143/69 (93) 133/70 (91) Pulse Ox 93 94 O2 Delivery Room Air Room Air 01/05/23 00:00 Intake Total 1200 ml Output Total 1150 ml Balance 50 ml Weight (Pounds): 214 Weight (Ounces): 0.0 Weight (Calculated Kilograms): 97.651782 Constitutional: AAO x 3, well-developed, well-nourished Respiratory: No accessory muscle use, No respiratory distress; other (diminished RLL) Cardiovascular: irregularly irregular; No JVD; S1 and S2 Gastrointestional: tender (LLQ tenderness), soft; No guarding Extremities: no lower extremity edema bilateral Neurologic/Psychiatric: other (moves all extremities) Skin: No rash on exposed areas, No ulcerations on exposed areas Results/Procedures: Labs Laboratory Tests 01/04/23 16:20: Body Fluid Source PLEURAL, Body Fluid Color RED, Body Fluid Appearance MKD BLDY, Body Fluid Specific [place] 1.010, Body Fluid pH 7.5, Body Fluid WBC 3.317, Body Fluid RBC 0.540, Body Fl Polynuclear WBCs (%)(Auto) 21.1, Body Fluid Mononuclear Cells % Auto 78.9, Body Fluid Slide Review Yes, Body Fluid Chloride 104, Body Fluid Glucose 87, Body Fluid Total Protein 4.0, Body Fluid Albumin 2.1, Body Fluid Lactate Dehydrogenase 467, Body Fluid Amylase 38 01/04/23 19:12: Lactate Dehydrogenase 197 01/05/23 04:58: White Blood Count 8.9, Red Blood Count 4.38, Hemoglobin 13.1L, Hematocrit 40, Mean Corpuscular Volume 90, Mean Corpuscular Hemoglobin 30, Mean Corpuscular Hemoglobin Concent 33, Red Cell Distribution Width 12.3, Platelet Count 385, Mean Platelet Volume 10.4, Immature Granulocyte % (Auto) 1, Neutrophils (%) (Auto) 73, Lymphocytes (%) (Auto) 12, Monocytes (%) (Auto) 9, Eosinophils (%) (Auto) 4, Basophils (%) (Auto) 1, Neutrophils # (Auto) 6.5, Lymphocytes # (Auto) 1.1, Monocytes # (Auto) 0.8, Eosinophils # (Auto) 0.4H, Basophils # (Auto) 0.1, Immature Granulocyte # (Auto) 0.1, Prothrombin Time 20.2H, INR Comment 1.7H, Sodium Level 136, Potassium Level 4.5, Chloride Level 102, Carbon Dioxide Level 23, Anion Gap 11, Blood Urea Nitrogen 14, Creatinine 0.93, Estimat Glomerular Filtration Rate 89, BUN/Creatinine Ratio 15, Glucose Level 94, Calcium Level 9.2, Corrected Calcium 9.8, Magnesium Level 1.9, Total Bilirubin 0.7, Aspartate Amino Transf (AST/SGOT) 30, Alanine Aminotransferase (ALT/SGPT) 38, Alkaline Phosphatase 74, Total Protein 6.7, Albumin 3.2 Microbiology 01/04/23 Gram Stain, Resulted Pending 01/04/23 Anaerobic Culture, Resulted Pending 01/04/23 Body Fluid Culture - Preliminary, Resulted No growth 12/28/22 Blood Culture - Final, Complete No growth 12/28/22 MRSA Screen - Final, Complete MRSA not isolated 12/28/22 Urine Culture - Final, Complete NO GROWTH Laboratory Tests 01/04/23 05:32 01/05/23 04:58 A/P: Assessment: Acute illness: - UTI - management per Medical services - Acute abdomen - managed by Dr. Lau - clinically improving Large right pleural effusion - thoracentesis (2800 ml) on 12/30/[address] Lau - recurrent / persistent R pleural eff on CT of 01/03/23 - repeat thoracentesis on 01/04/23 Dizziness and poor balance since early December 2021 - Holter of 01-06-22 showed rare PVC, infreq PAC, A-fib throughout the study with controlled vent response. Av HR 70 bpm. No signif monster. No VT - symptoms improved after stopping Xarelto Permanent a-fib/flutter - first diagnosed on ECG of 12/06/17, now permanent - OAC with warfarin for stroke prophylaxis - Holter of 06/13/19: A fib throughout study, avg vent rate 91 bpm, no VT or significant monster - rate not well controlled Intolerant to Xarelto (marked dizziness and poor balance) CAD - Coronary artery disease with history of Promus 3x18 mm stent to the LAD per cardiac cath by Dr. Aaron in September 2010. - Most recent Cardiac cath of Aug 2013 showed patent LAD stent, LVEF 30-35%, and normal LVEDP - MPI of November 2018 showed anteroseptal and apical myocardial infarction with only a small amt of jacque-infarct ischemia. Anteroseptal and apical hypokinesis. Atrial flutter/fib seen throughout the study. LVEF 38%. - MPI of 11-14-21 showed: This study indicates apical and inferoseptal infarcts w ithout significant ischemia. Apical and inferoseptal hypokinesis. Well preserved global left ventricular systolic function with a calculated ejection fraction of 51%. Ischemic CM - Chronic systolic CHF, clinically compensated - S/p single chamber ICD: placement on 08/27/13 for SCD prophylaxis, functioning normally per interrogation of 10/20/21 - Echocardiogram of 01/01/18 showed mild impairment of LV systolic funciton with and LVEF of 35-40%, apical hypokinesis, enlargement of LA, PASP WNL - Echocardiogram of 05-25-21 showed LVEF 40-45%. LA mod dilated. PASP 25-30 mmHg - Echo on 01-01-25: LVEF 40-45%, R pleural eff HLP - statin therapy Carotid dz: - Mild carotid arterial disease per u/s of 06/11/21 HTN - controlled H/o Tobaccoism - quit in early January 2014. We have advised him to continue to refrain from tobacco use - Elevated PSA being followed by Dr Gonzalez - L-sided epididymoorchitis and hydrocele in 2018 or 2019, managed at [facility] and f/u with Dr Favio Aguirre (urologist) and with his pcp. Currently followed by Dr Gonzalez, according to the patient Plan: * Heart rate not well controlled. Increase Coreg * Sub-therapeutic INR (warfarin had been on hold d/t thoracentesis) - it has been resumed - Lovenox until INR 2.0 or greater. May hold warfarin & Lovenox for thoracentesis * Abdominal pain and UTI are being managed by Dr Pham * Monitor labs JERRY MCGUIRE MD [facility] CCDS Jan 05, 2023 13:23
--- NOTE | 2023-01-05 14:30 | Progress Note ---
Subjective Date Seen by a Provider: Jan 05, 2023 Time Seen by a Provider: 14:00 Subjective/Events-last exam doing well. no new complaints. no SOB/cough. having some rvr. on lovenox. Objective Exam Vital Signs Date Time Temp Pulse Resp B/P (MAP) Pulse Ox O2 Delivery O2 Flow Rate FiO2 01/05/23 12:31 88 01/05/23 11:34 36.4 65 18 133/70 (91) 94 Room Air 01/05/23 08:05 36.4 61 18 143/69 (93) 93 Room Air 01/05/23 08:00 Room Air 01/05/23 07:01 131 01/05/23 06:51 94 Room Air 01/05/23 04:59 36.3 96 18 146/65 (92) 92 Room Air 01/05/23 01:00 65 01/05/23 00:00 36.6 84 18 110/72 (85) 93 Room Air 01/04/23 20:02 Room Air 01/04/23 19:23 36.3 106 20 129/71 (90) 92 Room Air 01/04/23 19:00 131 01/04/23 15:45 37.1 65 20 121/71 (88) 92 Room Air I & O 01/05/23 07:00 Intake Total 1400 ml Output Total 1400 ml Balance 0 ml Capillary Refill : Less Than 3 Seconds General Appearance: No Apparent Distress HEENT: PERRL/EOMI Neck: Full Range of Motion Respiratory: Chest Non Tender, Decreased Breath Sounds, Wheezing Cardiovascular: Regular Rate, Rhythm Gastrointestinal: normal bowel sounds, non tender, soft Extremity: Normal Capillary Refill Neurologic/Psychiatric: Alert, Oriented x3 Skin: Normal Color Lymphatic: No Adenopathy Results Lab Laboratory Tests 01/04/23 16:20: Body Fluid Source PLEURAL, Body Fluid Color RED, Body Fluid Appearance MKD BLDY, Body Fluid Specific [place] 1.010, Body Fluid pH 7.5, Body Fluid WBC 3.317, Body Fluid RBC 0.540, Body Fl Polynuclear WBCs (%)(Auto) 21.1, Body Fluid Mononuclear Cells % Auto 78.9, Body Fluid Slide Review Yes, Body Fluid Chloride 104, Body Fluid Glucose 87, Body Fluid Total Protein 4.0, Body Fluid Albumin 2.1, Body F luid Lactate Dehydrogenase 467, Body Fluid Amylase 38 01/04/23 19:12: Lactate Dehydrogenase 197 01/05/23 04:58: White Blood Count 8.9, Red Blood Count 4.38, Hemoglobin 13.1L, Hematocrit 40, Mean Corpuscular Volume 90, Mean Corpuscular Hemoglobin 30, Mean Corpuscular Hemoglobin Concent 33, Red Cell Distribution Width 12.3, Platelet Count 385, Mean Platelet Volume 10.4, Immature Granulocyte % (Auto) 1, Neutrophils (%) (Auto) 73, Lymphocytes (%) (Auto) 12, Monocytes (%) (Auto) 9, Eosinophils (%) (Auto) 4, Basophils (%) (Auto) 1, Neutrophils # (Auto) 6.5, Lymphocytes # (Auto) 1.1, Monocytes # (Auto) 0.8, Eosinophils # (Auto) 0.4H, Basophils # (Auto) 0.1, Immature Granulocyte # (Auto) 0.1, Prothrombin Time 20.2H, INR Comment 1.7H, Sodium Level 136, Potassium Level 4.5, Chloride Level 102, Carbon Dioxide Level 23, Anion Gap 11, Blood Urea Nitrogen 14, Creatinine 0.93, Estimat Glomerular Filtration Rate 89, BUN/Creatinine Ratio 15, Glucose Level 94, Calcium Level 9.2, Corrected Calcium 9.8, Magnesium Level 1.9, Total Bilirubin 0.7, Aspartate Amino Transf (AST/SGOT) 30, Alanine Aminotransferase (ALT/SGPT) 38, Alkaline Phosphatase 74, Total Protein 6.7, Albumin 3.2 Microbiology 01/04/23 Gram Stain, Resulted Pending 01/04/23 Anaerobic Culture, Resulted Pending 01/04/23 Body Fluid Culture - Preliminary, Resulted No growth 12/28/22 Blood Culture - Final, Complete No growth 12/28/22 MRSA Screen - Final, Complete MRSA not isolated 12/28/22 Urine Culture - Final, Complete NO GROWTH Assessment/Plan Assessment/Plan Assess & Plan/Chief Complaint sx right pleural effusion and chronic calculous cholecystitis. right thorocentesis 12/30 likely proceed with laparoscopic cholecystectomy as OP when cardiac cleared and able to ween down coumadin anticoagulation. recurrent right pl eff. will proceed with another thorocentesis today and send off again for cytology and labs including LDH. may restart coumadin at any time per surgery. ERNST OLMOS MD Jan 05, 2023 14:30
[2023-01-05] MEDS: warFARin 5 MG (COUMADIN) TAB PO SCH (17:41)
[2023-01-06 04:59] VITALS: BP 106/69
[2023-01-06] MEDS: KCL 20 MEQ TAB (K-DUR) PO SCH (05:16)
[2023-01-06 05:45] LABS: BASOPHILS # (AUTO) 0.1 10^3/uL (0.0-0.1); BASOPHILS % (AUTO) 1 % (0-10); EOSINOPHILS # (AUTO) 0.4 10^3/uL (0.0-0.3); EOSINOPHILS % (AUTO) 5 % (0-10); HEMATOCRIT 40 % (40-54); HEMOGLOBIN 13.2 g/dL (13.3-17.7); LYMPHOCYTES # (AUTO) 1.2 10^3/uL (1.0-4.0); LYMPHOCYTES % (AUTO) 13 % (12-44); MEAN CORPUSCULAR HEMOGLOBIN 30 pg (25-34); MEAN CORPUSCULAR HGB CONC 33 g/dL (32-36); MEAN CORPUSCULAR VOLUME 90 fL (80-99); MONOCYTES # (AUTO) 0.7 10^3/uL (0.0-1.0); MONOCYTES % (AUTO) 8 % (0-12); NEUTROPHILS # (AUTO) 6.2 10^3/uL (1.8-7.8); NEUTROPHILS % (AUTO) 73 % (42-75); PLATELET COUNT 394 10^3/uL (130-400); WHITE BLOOD COUNT 8.6 10^3/uL (4.3-11.0)
[2023-01-06 05:46] LABS: PROTHROMBIN TIME PATIENT 22.7 SEC (12.2-14.7)
[2023-01-06 05:58] LABS: ALBUMIN 3.2 GM/DL (3.2-4.5); BILIRUBIN,TOTAL 0.8 MG/DL (0.1-1.0); CREATININE SERUM 1.1 MG/DL (0.60-1.30); POTASSIUM 4.7 MMOL/L (3.6-5.0); TOTAL PROTEIN 6.7 GM/DL (6.4-8.2)
[2023-01-06 08:00] VITALS: BP 105/68
[2023-01-06] MEDS: DIGOXIN 0.25 MG (LANOXIN) TAB PO SCH (08:30)
[2023-01-06] MEDS: lisINopril 5 MG (PRINIVIL) TABLET PO SCH (08:31)
[2023-01-06] MEDS: CEFDINIR 300 MG (OMNICEF) CAP PO SCH (08:31)
[2023-01-06] MEDS: TAMSULOSIN 0.4 MG (FLOMAX) CAP PO SCH (08:31)
[2023-01-06] MEDS: buPROPion SR 100 MG (WELLBUTRIN SR) TAB PO SCH ×2 (08:31→20:20)
[2023-01-06] MEDS: DOCUSATE SODIUM 100 MG (COLACE) CAP PO SCH ×2 (08:31→20:20)
[2023-01-06] MEDS: SPIRONOLACTONE 25 MG (ALDACTONE) TAB PO SCH (08:31)
[2023-01-06] MEDS: ASPIRIN E.C. 81 MG (ECOTRIN) TAB PO SCH (08:31)
[2023-01-06] MEDS: SENNOSIDES 8.6 MG (SENOKOT) TAB PO SCH ×2 (08:34→20:20)
[2023-01-06] MEDS: ENOXAPARIN 100 MG/1 ML (LOVENOX) SYR SC SCH (08:36)
--- NOTE | 2023-01-06 08:47 | Diagnostic Imaging Report ---
INDICATION: Pneumonia Frontal chest obtained at 4:05 a.m. compared to 01/05/2023. The heart is normal in size. Pacemaker is unchanged. There is right perihilar scarring versus infiltrate with a small right pleural effusion. IMPRESSION: Stable right perihilar scarring versus infiltrate with small right pleural effusion. No new abnormality in the chest. Dictated by: Dictated on workstation # [id number]
--- NOTE | 2023-01-06 09:16 | Progress Note - Cardiology ---
Cardiology SOAP Progress Note Subjective: Reports he was standing in the bathroom yesterday and the next thing he recalls he was on the floor He denies any c/o CP, palpitations, diaphoresis He denies any further symptoms Objective: I&O/Vital Signs 01/06/23 01/06/23 01/06/23 01/06/23 04:59 07:00 08:00 08:00 Temp 36.2 36.5 Pulse 56 88 84 Resp 18 18 B/P (MAP) 106/69 (81) 105/68 (80) Pulse Ox 93 94 O2 Delivery Nasal Cannula Nasal Cannula Room Air O2 Flow Rate 2.00 2.00 01/06/23 01/06/23 11:34 12:54 Temp 36.3 Pulse 87 96 Resp 18 B/P (MAP) 101/62 (75) Pulse Ox 94 O2 Delivery Nasal Cannula O2 Flow Rate 2.00 01/06/23 00:00 Intake Total 830 ml Output Total 775 ml Balance 55 ml Weight (Pounds): 214 Weight (Ounces): 0.0 Weight (Calculated Kilograms): 97.371784 Constitutional: AAO x 3, well-developed, well-nourished Respiratory: No accessory muscle use, No respiratory distress; other (d iminished RLL) Cardiovascular: irregularly irregular; No JVD; S1 and S2 Gastrointestional: tender (LLQ tenderness), soft; No guarding Extremities: no lower extremity edema bilateral Neurologic/Psychiatric: other (moves all extremities) Skin: No rash on exposed areas, No ulcerations on exposed areas Results/Procedures: Labs Laboratory Tests 01/05/23 18:11: Glucometer 129H 01/06/23 05:18: White Blood Count 8.6, Red Blood Count 4.40, Hemoglobin 13.2L, Hematocrit 40, Mean Corpuscular Volume 90, Mean Corpuscular Hemoglobin 30, Mean Corpuscular Hemoglobin Concent 33, Red Cell Distribution Width 12.6, Platelet Count 394, Mean Platelet Volume 10.0, Immature Granulocyte % (Auto) 1, Neutrophils (%) (Auto) 73, Lymphocytes (%) (Auto) 13, Monocytes (%) (Auto) 8, Eosinophils (%) (Auto) 5, Basophils (%) (Auto) 1, Neutrophils # (Auto) 6.2, Lymphocytes # (Auto) 1.2, Monocytes # (Auto) 0.7, Eosinophils # (Auto) 0.4H, Basophils # (Auto) 0.1, Immature Granulocyte # (Auto) 0.1, Prothrombin Time 22.7H, INR Comment 2.0H, Sodium Level 136, Potassium Level 4.7, Chloride Level 101, Carbon Dioxide Level 25, Anion Gap 10, Blood Urea Nitrogen 20H, Creatinine 1.10, Estimat Glomerular Filtration Rate 73, BUN/Creatinine Ratio 18, Glucose Level 100, Calcium Level 9.0, Corrected Calcium 9.6, Magnesium Level 2.0, Total Bilirubin 0.8, Aspartate Amino Transf (AST/SGOT) 33, Alanine Aminotransferase (ALT/SGPT) 41, Alkaline Phosphatase 79, Total Protein 6.7, Albumin 3.2 Microbiology 01/04/23 Gram Stain - Final, Resulted 01/04/23 Anaerobic Culture, Resulted Pending 01/04/23 Body Fluid Culture - Preliminary, Resulted No growth 12/28/22 Blood Culture - Final, Complete No growth 12/28/22 MRSA Screen - Final, Complete MRSA not isolated 12/28/22 Urine Culture - Final, Complete NO GROWTH A/P: Assessment: Acute illness: - UTI - management per Medical services - Acute abdomen - managed by Dr. Lau - clinically improving Large right pleural effusion - thoracentesis (2800 ml) on 12/30/[address] Lau - recurrent / persistent R pleural eff on CT of 01/03/23 - repeat thoracentesis on 01/04/23 Dizziness and poor balance since early December 2021 - Holter of 01-06-22 showed rare PVC, infreq PAC, A-fib throughout the study with controlled vent response. Av HR 70 bpm. No signif monster. No VT - symptoms improved after stopping Xarelto Permanent a-fib/flutter - first diagnosed on ECG of 12/06/17, now permanent - OAC with warfarin for stroke prophylaxis - Holter of 06/13/19: A fib throughout study, avg vent rate 91 bpm, no VT or significant monster - rate not well controlled Intolerant to Xarelto (marked dizziness and poor balance) CAD - Coronary artery disease with history of Promus 3x18 mm stent to the LAD per cardiac cath by Dr. Aaron in September 2010. - Most recent Cardiac cath of Aug 2013 showed patent LAD stent, LVEF 30-35%, and normal LVEDP - MPI of November 2018 showed anteroseptal and apical myocardial infarction with only a small amt of jacque-infarct ischemia. Anteroseptal and apical hypokinesis. Atrial flutter/fib seen throughout the study. LVEF 38%. - MPI of 11-14-21 showed: This study indicates apical and inferoseptal infarcts without significant ischemia. Apical and inferoseptal hypokinesis. Well preserved global left ventricular systolic function with a calculated ejection fraction of 51%. Ischemic CM - Chronic systolic CHF, clinically compensated - S/p single chamber ICD: placement on 08/27/13 for SCD prophylaxis, functioning normally per interrogation of 10/20/21 - Echocardiogram of 01/01/18 showed mild impairment of LV systolic funciton with and LVEF of 35-40%, apical hypokinesis, enlargement of LA, PASP WNL - Echocardiogram of 05-25-21 showed LVEF 40-45%. LA mod dilated. PASP 25-30 mmHg - Echo on 01-01-25: LVEF 40-45%, R pleural eff HLP - statin therapy Carotid dz: - Mild carotid arterial disease per u/s of 06/11/21 HTN - controlled H/o Tobaccoism - quit in early January 2014. We have advised him to continue to refrain from tobacco use - Elevated PSA being followed by Dr Gonzalez - L-sided epididymoorchitis and hydrocele in 2018 or 2019, managed at [facility] ER and f/u with Dr Favio Aguirre (urologist) and with his pcp. Currently followed by Dr Gonzalez, according to the patient Plan: * Syncopal episode yesterday - d/t postural orthostatic hypotension * We will stop UZIEL and aldactone - not suitable candidate at this time d/t symptomatic postural orthostatic hypotension * D/C Cardizem as well * Start NS@100ml/hr * INR therapeutic - stop Lovenox * Abdominal pain and UTI are being managed by Dr Pham * Monitor labs RUBEN LEGGETT Jan 06, 2023 09:16
[2023-01-06] MEDS: NS IV 1000 ML 1,000 ML IV SCH ×2 (11:03→20:20)
[2023-01-06 11:34] VITALS: BP 101/62
--- NOTE | 2023-01-06 12:25 | Progress Note - Cardiology ---
Cardiology SOAP Progress Note Subjective: Reports postural dizziness and syncope/near-syncope No palp No shortness of breath Gen weakness and malaise No n/v/d No cp Objective: I&O/Vital Signs 01/06/23 01/06/23 01/06/23 01/06/23 01:20 04:59 07:00 08:00 Temp 36.2 36.5 Pulse 63 56 88 84 Resp 18 18 B/P (MAP) 106/69 (81) 105/68 (80) Pulse Ox 93 94 O2 Delivery Nasal Cannula Nasal Cannula O2 Flow Rate 2.00 2.00 01/06/23 01/06/23 08:00 11:34 Temp 36.3 Pulse 87 Resp 18 B/P (MAP) 101/62 (75) Pulse Ox 94 O2 Delivery Room Air Nasal Cannula O2 Flow Rate 2.00 01/06/23 00:00 Intake Total 830 ml Output Total 775 ml Balance 55 ml Weight (Pounds): 214 Weight (Ounces): 0.0 Weight (Calculated Kilograms): 97.665582 Constitutional: AAO x 3, well-developed, well-nourished Respiratory: No accessory muscle use, No respiratory distress; other (dimin ished RLL) Cardiovascular: irregularly irregular; No JVD; S1 and S2 Gastrointestional: tender (LLQ tenderness), soft; No guarding Extremities: no lower extremity edema bilateral Neurologic/Psychiatric: other (moves all extremities) Skin: No rash on exposed areas, No ulcerations on exposed areas Results/Procedures: Labs Laboratory Tests 01/05/23 18:11: Glucometer 129H 01/06/23 05:18: White Blood Count 8.6, Red Blood Count 4.40, Hemoglobin 13.2L, Hematocrit 40, Mean Corpuscular Volume 90, Mean Corpuscular Hemoglobin 30, Mean Corpuscular Hemoglobin Concent 33, Red Cell Distribution Width 12.6, Platelet Count 394, Mean Platelet Volume 10.0, Immature Granulocyte % (Auto) 1, Neutrophils (%) (Auto) 73, Lymphocytes (%) (Auto) 13, Monocytes (%) (Auto) 8, Eosinophils (%) (Auto) 5, Basophils (%) (Auto) 1, Neutrophils # (Auto) 6.2, Lymphocytes # (Auto) 1.2, Monocytes # (Auto) 0.7, Eosinophils # (Auto) 0.4H, Basophils # (Auto) 0.1, Immature Granulocyte # (Auto) 0.1, Prothrombin Time 22.7H, INR Comment 2.0H, Sodium Level 136, Potassium Level 4.7, Chloride Level 101, Carbon Dioxide Level 25, Anion Gap 10, Blood Urea Nitrogen 20H, Creatinine 1.10, Estimat Glomerular Filtration Rate 73, BUN/Creatinine Ratio 18, Glucose Level 100, Calcium Level 9.0, Corrected Calcium 9.6, Magnesium Level 2.0, Total Bilirubin 0.8, Aspartate Amino Transf (AST/SGOT) 33, Alanine Aminotransferase (ALT/SGPT) 41, Alkaline Phosphatase 79, Total Protein 6.7, Albumin 3.2 Microbiology 01/04/23 Gram Stain - Final, Resulted 01/04/23 Anaerobic Culture, Resulted Pending 01/04/23 Body Fluid Culture - Preliminary, Resulted No growth 12/28/22 Blood Culture - Final, Complete No growth 12/28/22 MRSA Screen - Final, Complete MRSA not isolated 12/28/22 Urine Culture - Final, Complete NO GROWTH Laboratory Tests 01/05/23 04:58 01/06/23 05:18 A/P: Assessment: Postural hypotension - documented on 01/06/23 Acute illness: - UTI - management per Medical services - Acute abdomen - managed by Dr. Lau - clinically improving Large right pleural effusion - thoracentesis (2800 ml) on 12/30/[address] Lau - recurrent / persistent R pleural eff on CT of 01/03/23 - repeat thoracentesis on 01/04/23 Dizziness and poor balance since early December 2021 - Holter of 01-06-22 showed rare PVC, infreq PAC, A-fib throughout the study with controlled vent response. Av HR 70 bpm. No signif monster. No VT - symptoms improved after stopping Xarelto Permanent a-fib/flutter - first diagnosed on ECG of 12/06/17, now permanent - OAC with warfarin for stroke prophylaxis - Holter of 06/13/19: A fib throughout study, avg vent rate 91 bpm, no VT or significant monster - rate not well controlled Intolerant to Xarelto (marked dizziness and poor balance) CAD - Coronary artery disease with history of Promus 3x18 mm stent to the LAD per cardiac cath by Dr. Aaron in September 2010. - Most recent Cardiac cath of Aug 2013 showed patent LAD stent, LVEF 30-35%, and normal LVEDP - MPI of November 2018 showed anteroseptal and apical myocardial infarction with only a small amt of jacque-infarct ischemia. Anteroseptal and apical hypokinesis. Atrial flutter/fib seen throughout the study. LVEF 38%. - MPI of 11-14-21 showed: This study indicates apical and inferoseptal infarcts without significant ischemia. Apical and inferoseptal hypokinesis. Well preserved global left ventricular systolic function with a calculated ejection fraction of 51%. Ischemic CM - Chronic systolic CHF, clinically compensated - S/p single chamber ICD: placement on 08/27/13 for SCD prophylaxis, functioning normally per interrogation of 10/20/21 - Echocardiogram of 01/01/18 showed mild impairment of LV systolic funciton with and LVEF of 35-40%, apical hypokinesis, enlargement of LA, PASP WNL - Echocardiogram of 05-25-21 showed LVEF 40-45%. LA mod dilated. PASP 25-30 mmHg - Echo on 01-01-25: LVEF 40-45%, R pleural eff HLP - statin therapy Carotid dz: - Mild carotid arterial disease per u/s of 06/11/21 HTN - controlled H/o Tobaccoism - quit in early January 2014. We have advised him to continue to refrain from tobacco use - Elevated PSA being followed by Dr Gonzalez - Darrick-sided epididymoorchitis and hydrocele in 2018 or 2019, managed at [facility] ER and f/u with Dr Favio Aguirre (urologist) and with his pcp. Currently followed by Dr Gonzalez, according to the patient Plan: * Syncopal episode yesterday - d/t postural orthostatic hypotension * We will stop UZIEL and aldactone - not suitable candidate at this time d/t symptomatic postural orthostatic hypotension * D/C Cardizem as well * Start NS@100ml/hr * INR therapeutic - stop Lovenox * Abdominal pain and UTI are being managed by Dr Pham * Monitor labs JERRY MCGUIRE MD FACP FAC CCDS Jan 06, 2023 12:25
--- NOTE | 2023-01-06 13:37 | Progress Note ---
Subjective Subjective/Events-last exam Pt seen at 1100. He had an episode of severe lightheadedness with brief unresponsiveness after going to the bathroom yesterday. Today his back on a small amount of supplemental oxygen. He is reporting dizziness when he gets up. Objective Exam Last Set of Vital Signs Vital Signs Date Time Temp Pulse Resp B/P (MAP) Pulse Ox O2 Delivery O2 Flow Rate FiO2 01/06/23 12:54 96 01/06/23 11:34 36.3 18 101/62 (75) 94 Nasal Cannula 2.00 01/03/23 19:05 21 Capillary Refill : Less Than 3 Seconds I&O Intake and Output 01/06/23 00:00 Intake Total 1030 ml Output Total 1025 ml Balance 5 ml Intake Oral 1030 ml Output Urine Total 1025 ml General: Alert, No Acute Distress Lungs: Clear to Auscultation, Normal Air Movement Heart: Other (tachycardic) Extremities: No Edema Neuro: Normal Speech Results/Procedures Lab Laboratory Tests 01/05/23 18:11: Glucometer 129H 01/06/23 05:18: White Blood Count 8.6, Red Blood Count 4.40, Hemoglobin 13.2L, Hematocrit 40, Mean Corpuscular Volume 90, Mean Corpuscular Hemoglobin 30, Mean Corpuscular Hemoglobin Concent 33, Red Cell Distribution Width 12.6, Platelet Count 394, Mean Platelet Volume 10.0, Immature Granulocyte % (Auto) 1, Neutrophils (%) (Auto) 73, Lymphocytes (%) (Auto) 13, Monocytes (%) (Auto) 8, Eosinophils (%) (Auto) 5, Basophils (%) (Auto) 1, Neutrophils # (Auto) 6.2, Lymphocytes # (Auto) 1.2, Monocytes # (Auto) 0.7, Eosinophils # (Auto) 0.4H, Basophils # (Auto) 0.1, Immature Granulocyte # (Auto) 0.1, Prothrombin Time 22.7H, INR Comment 2.0H, Sodium Level 136, Potassium Level 4.7, Chloride Level 101, Carbon Dioxide Level 25, Anion Gap 10, Blood Urea Nitrogen 20H, Creatinine 1.10, Estimat Glomerular Filtration Rate 73, BUN/Creatinine Ratio 18, Glucose Level 100, Calcium Level 9.0, Corrected Calcium 9.6, Magnesium Level 2.0, Total Bilirubin 0.8, Aspartate Amino Transf (AST/SGOT) 33, Alanine Aminotransferase (ALT/SGPT) 41, Alkaline Phosphatase 79, Total Protein 6.7, Albumin 3.2 Microbiology 01/04/23 Gram Stain - Final, Resulted 01/04/23 Anaerobic Culture, Resulted Pending 01/04/23 Body Fluid Culture - Preliminary, Resulted No growth 12/28/22 Blood Culture - Final, Complete No growth 12/28/22 MRSA Screen - Final, Complete MRSA not isolated 12/28/22 Urine Culture - Final, Complete NO GROWTH Radiology NAME: [facility] REC#: [id number] PT STATUS: ADM [place] : 1955 PHYSICIAN: SHEYLA RENO DO ADMIT DATE: 12/28/22/ICU Signed Date of Exam:12/28/22 ABDOMEN, FLAT & UPRIGHT/DECUB ABDOMEN, FLAT UPRIGHT/DECUB INDICATION: Abdominal pain. COMPARISON: Chest radiograph from earlier same day. TECHNIQUE: Supine and upright AP views of the abdomen. FINDINGS: Nonobstructive bowel gas pattern. No free intraperitoneal air. No abnormal soft tissue mineralizations. Please see chest radiograph report for details of pathology in the right lower hemithorax. IMPRESSION: No free intraperitoneal air or bowel obstruction. Dictated by: Dictated on workstation # [id number] Dict: 12/28/221622 Trans: 12/28/221941 [id number] [id number] Interpreted by: NANDO MEJIA MD Electronically signed by: NANDO MEJIA MD 12/28/221941 NAME: ROB [facility] REC#: [id number] PT STATUS: REG ER : 1955 PHYSICIAN: SHEYLA RENO DO ADMIT DATE: 12/28/22/ER Draft Date of Exam:12/28/22 CHEST PA/LAT (2 VIEW) INDICATION: Hypoxia. PA and lateral views of the chest are obtained with comparison made to study of 08/27/2013. FINDINGS: There has been significant volume loss in the right lung with elevated right hemidiaphragm as well as right upper lobe atelectasis. There is also right pleural fluid and/or thickening. Left chest wall pacemaker device remains in place. There is no evidence of pneumothorax, and the left lung remains well expanded. IMPRESSION: Pleural fluid and atelectasis in the right lung with associated diaphragmatic elevation. Consideration could be given to bronchoscopy for further assessment, or diagnostic thoracentesis could be considered. Dictated on workstation # [id number] Dict: 12/28/22 1606 Trans: 12/28/22 1614 [id number] Interpreted by: REZA PRUETT MD Electronically signed by: Assessment/Plan Assessment/Plan (1) Nausea & vomiting Status: Resolved Assessment & Plan: Initially came in with complaint of nausea/vomiting after being treated for UTI (culture negative from 12/20 and this stay) and RVR. Now resolved. Qualifiers: Qualified Codes: R11.2 - Nausea with vomiting, unspecified (2) Pleural effusion Status: Acute Assessment & Plan: 01/03 s/p thoracentesis 12/30 with bloody fluid. Cytology negative for malignancy. LDH not done, unable to determine Light's criteria. Consider parapneumonic, but is recurring in spite of 6 days of broad spectrum antibiotics. Possible CHF related. Consider repeat thoracentesis today due to recurrence. 01/04 CXR showing slight improvement 01/05 repeat thoracentesis done yesterday, pt continues to deny shortness of breath and has not required supplemental oxygen. Light's criteria met- likely an exudative effusion. (3) Pneumonia Status: Acute Assessment & Plan: Possible parapneumonic effusion, started on meropnem on admit. Had leukocytosis and tachycardia on admit but was in a fib RVR, no lactic acidosis or end organ dysfunction, uncertain if true underlying infection. Completed 7 days of meropenem. Qualifiers: (4) Atrial flutter, chronic Status: Chronic Assessment & Plan: RVR on admit, improved at this time. Appreciate Cardiology recommendations. Warfarin was held for thoracentesis and later resumed, placed on treatment dose enox while resuming. 01/05 having intermittent tachy, appreciate Cardiology recs 01/06 Carvedilol decreased due to low BP, however today has severe orthostatic hypotension but also remaining tachycardic at times. Appreciate Cardiology recommendations. (5) Chronic systolic (congestive) heart failure Status: Chronic (6) Coronary artery disease Status: Chronic (7) DVT prophylaxis Status: Acute Assessment & Plan: warfarin VEE BRAND MD Jan 06, 2023 13:37
[2023-01-06 15:28] VITALS: BP 103/58
[2023-01-06 19:08] VITALS: BP 113/65
[2023-01-06] MEDS: warFARin 5 MG (COUMADIN) TAB PO SCH (19:15)
[2023-01-06 23:19] VITALS: BP 101/73
[2023-01-07 03:06] VITALS: BP 114/65
[2023-01-07] MEDS: NS IV 1000 ML 1,000 ML IV SCH (05:58)
[2023-01-07] MEDS: KCL 20 MEQ TAB (K-DUR) PO SCH (05:58)
[2023-01-07 06:19] LABS: BASOPHILS # (AUTO) 0.1 10^3/uL (0.0-0.1); BASOPHILS % (AUTO) 1 % (0-10); EOSINOPHILS # (AUTO) 0.5 10^3/uL (0.0-0.3); EOSINOPHILS % (AUTO) 6 % (0-10); HEMATOCRIT 37 % (40-54); HEMOGLOBIN 12.3 g/dL (13.3-17.7); LYMPHOCYTES # (AUTO) 0.9 10^3/uL (1.0-4.0); LYMPHOCYTES % (AUTO) 11 % (12-44); MEAN CORPUSCULAR HEMOGLOBIN 30 pg (25-34); MEAN CORPUSCULAR HGB CONC 34 g/dL (32-36); MEAN CORPUSCULAR VOLUME 90 fL (80-99); MEAN PLATELET VOLUME 9.6 fL (9.0-12.2); MONOCYTES # (AUTO) 0.7 10^3/uL (0.0-1.0); MONOCYTES % (AUTO) 9 % (0-12); NEUTROPHILS # (AUTO) 5.9 10^3/uL (1.8-7.8); NEUTROPHILS % (AUTO) 72 % (42-75); PLATELET COUNT 347 10^3/uL (130-400); WHITE BLOOD COUNT 8.2 10^3/uL (4.3-11.0)
[2023-01-07 06:31] LABS: PROTHROMBIN TIME PATIENT 23.5 SEC (12.2-14.7)
[2023-01-07 06:39] LABS: ALBUMIN 3.1 GM/DL (3.2-4.5); BILIRUBIN,TOTAL 0.6 MG/DL (0.1-1.0); CALCIUM 8.5 MG/DL (8.5-10.1); CREATININE SERUM 0.96 MG/DL (0.60-1.30); MAGNESIUM 1.8 MG/DL (1.6-2.4); POTASSIUM 4.3 MMOL/L (3.6-5.0); TOTAL PROTEIN 6.3 GM/DL (6.4-8.2)
--- NOTE | 2023-01-07 07:10 | Diagnostic Imaging Report ---
INDICATION: Dyspnea, follow-up pneumonia. COMPARISON: 01/06/2023. DISCUSSION: Single portable upright view of the chest was obtained. Underlying emphysema is again noted. Normal heart size. Left-sided pacemaker stable. Worsening infiltrates throughout the right lung which could be seen with atelectasis or pneumonia. Small right effusion is stable. IMPRESSION: 1. Stable small right pleural effusion. Infiltrates throughout the right lung are increased. Dictated by: Dictated on workstation # [id number]
--- NOTE | 2023-01-07 07:25 | Progress Note - Hospitalist ---
Subjective HPI/CC On Admission Date Seen by Provider: Jan 07, 2023 Time Seen by Provider: 11:00 This patient is a 67 year old male with a past medicla history significant for Chronic Atrial Flutter, CAD w/ stents, and HTN who presented to the ED yesterday for acute lower abd pain (03/20) and N/V for the past 1.5 weeks. He was recently here on 12/20 for cystitis at which point he was given a prescription for cefdinir 300mg PO BID. In the ED he was found to be in atrial flutter with RVR and was started on cardizem drip and given IV Metoprolol. He is on warfarin and asa at home. He reports being unable to keep down his medications at home. His vitals were otherwise unremarkable. His labwork revealed WBC 14.6, K+ 3.o. His urinalysis was postive for Protein, glucose, Leuk, RBC, WBC and few bacteria. It was sent for culture. His Coag study revelaed INR was appropriate at 2.7. CXR in the ED incidentally showed significant volume loss in right lung second to pleuratl fluid and atelectasis w/ associated diaphragmatic elevation and the recommendation by radiology for thoracentsis. The patient reports having some fatigue at this time but otherwise reports feeling well. He denies LH, CP, palpitations, abd pain, N/V, numbness/weakness at this time. Objective Exam Vital Signs Vital Signs Date Time Temp Pulse Resp B/P (MAP) Pulse Ox O2 Delivery O2 Flow Rate FiO2 01/07/23 08:30 92 Room Air 01/07/23 07:55 36.9 89 19 112/78 (89) 01/06/23 11:34 2.00 01/03/23 19:05 21 Capillary Refill : Less Than 3 Seconds Results/Procedures Lab Laboratory Tests 01/07/23 06:10 Patient resulted labs reviewed. Imaging: Reviewed Imaging Films Assessment/Plan Assessment and Plan Assess & Plan/Chief Complaint afib/flutter with RVR -The patient was having elevated HR in the 90's-100's that elevated up to the 120's this morning. EKG this morning showed a flutter with RVR. Was given cardizem 240mg PO this morning. Lovenox held at this time for planned thoracentesis. Cardiology consulted and helping manage. -Consult cardiology and appreciate recommendations UTI -Urine culture revealed No growth. Will continue abx for possible pneumonia, but does not appear to have UTI based on results. RLL pneumonia/effusion -Per 12/28 CXR report -> significant volume loss in right lung due to pleural fluid & atelectasis w/ associated diaphragm elevation -12/29 CXR showed similar effusion with increased infiltrate suggestive of RLL pneumonia. -12/30 CXR unchanged from previous -s/p thoracentesis 2800cc removed HTN HLD Diet: as tolerated DVT proph: SCD's with Coumadin Critical Care Critically Ill Patient DYAN MCFADDEN DO Jan 07, 2023 07:25
[2023-01-07 07:55] VITALS: BP 112/78
[2023-01-07] MEDS: TAMSULOSIN 0.4 MG (FLOMAX) CAP PO SCH (08:12)
[2023-01-07] MEDS: DIGOXIN 0.25 MG (LANOXIN) TAB PO SCH (08:12)
[2023-01-07] MEDS: DOCUSATE SODIUM 100 MG (COLACE) CAP PO SCH (08:12)
[2023-01-07] MEDS: ASPIRIN E.C. 81 MG (ECOTRIN) TAB PO SCH (08:12)
[2023-01-07] MEDS: SENNOSIDES 8.6 MG (SENOKOT) TAB PO SCH (08:13)
[2023-01-07] MEDS: buPROPion SR 100 MG (WELLBUTRIN SR) TAB PO SCH (08:13)
--- NOTE | 2023-01-07 11:57 | Discharge Summary ---
Discharge Summary Hospital Course Was the Problem List Reviewed?: Yes Problems/Dx: (1) Sepsis (2) Pneumonia Status: Acute Qualifiers: (3) Pleural effusion Status: Acute (4) Hypokalemia Status: Acute (5) Nausea & vomiting Status: Resolved Qualifiers: Qualified Codes: R11.2 - Nausea with vomiting, unspecified (6) Generalized weakness Status: Acute (7) Coronary artery disease Status: Chronic (8) Ischemic cardiomyopathy Status: Chronic (9) Chronic systolic (congestive) heart failure Status: Chronic Hospital Course Date of Admission: Dec 30, 2022 at 11:10 Admission Diagnosis : Family Physician/Provider: Noe Mace Date of Discharge: 01/07/23 Discharge Diagnosis: [ ] Hospital Course: Lengthy course after admitted for pleural effusion which resulted in 2 thoracentesis. IV abx maintained and completed. Cardiology consulted for AF. Coumadin maintained for OAC. Overall he did well and had no concerns at time of DC and was DC home. Labs and Pending Lab Test: Laboratory Tests 01/07/23 06:10: White Blood Count 8.2, Red Blood Count 4.06L, Hemoglobin 12.3L, Hematocrit 37L, Mean Corpuscular Volume 90, Mean Corpuscular Hemoglobin 30, Mean Corpuscular Hemoglobin Concent 34, Red Cell Distribution Width 12.4, Platelet Count 347, Mean Platelet Volume 9.6, Immature Granulocyte % (Auto) 1, Neutrophils (%) (Auto) 72, Lymphocytes (%) (Auto) 11L, Monocytes (%) (Auto) 9, Eosinophils (%) (Auto) 6, Basophils (%) (Auto) 1, Neutrophils # (Auto) 5.9, Lymphocytes # (Auto) 0.9L, Monocytes # (Auto) 0.7, Eosinophils # (Auto) 0.5H, Basophils # (Auto) 0.1, Immature Granulocyte # (Auto) 0.1, Prothrombin Time 23.5H, INR Comment 2.0H, Sodium Level 136, Potassium Level 4.3, Chloride Level 105, Carbon Dioxide Level 24, Anion Gap 7, Blood Urea Nitrogen 15, Creatinine 0.96, Estimat Glomerular Filtration Rate 86, BUN/Creatinine Ratio 16, Glucose Level 89, Calcium Level 8.5, Corrected Calcium 9.2, Magnesium Level 1.8, Total Bilirubin 0.6, Aspartate Amino Transf (AST/SGOT) 30, Alanine Aminotransferase (ALT/SGPT) 40, Alkaline Phosphatase 70, Total Protein 6.3L, Albumin 3.1L, Digoxin Level 0.48L Microbiology 01/04/23 Gram Stain - Final, Resulted 01/04/23 Anaerobic Culture, Resulted Pending 01/04/23 Body Fluid Culture - Preliminary, Resulted No growth 12/28/22 Blood Culture - Final, Complete No growth 12/28/22 MRSA Screen - Final, Complete MRSA not isolated 12/28/22 Urine Culture - Final, Complete NO GROWTH Home Meds Active Reported Dulcolax (Magnesium Hydroxide) 1,200 Mg Tab.chew 600 Mg PO Q6H PRN Tramadol HCl 50 Mg Tablet 50 Mg PO Q8H PRN Flomax (Tamsulosin HCl) 0.4 Mg Cap 0.4 Mg PO DAILY Tylenol Extra Strength (Acetaminophen) 500 Mg Tablet 2,000 Mg PO Q6H PRN TAKES 4 (500MG) TABS Atorvastatin Calcium 40 Mg Tablet 40 Mg PO DAILY Aspirin EC (Aspirin) 81 Mg Tablet.dr 81 Mg PO DAILY Warfarin Sodium 5 Mg Tablet 7.5 Mg PO TU,SA @HS TAKES 1 & (5MG) TABS Warfarin Sodium 5 Mg Tablet 5 Mg PO PERAZA,MO,WE,TH,FR @HS Digoxin 250 Mcg Tablet 250 Mcg PO DAILY Bupropion HCl Sr (Bupropion HCl) 200 Mg Tablet.er 200 Mg PO BID Lisinopril 5 Mg Tablet 5 Mg PO DAILY Cartia Xt (Diltiazem HCl) 240 Mg Cap.er.24h 240 Mg PO DAILY Carvedilol 12.5 Mg Tablet 12.5 Mg PO BID Assessment/Pt Instructions PCP 1 week Discharge Planning: <30 minutes discharge planning Discharge Instructions Discharge Diet: No Restrictions Activity as Tolerated: Yes Discharge Physical Examination Vital Signs Vital Signs Date Time Temp Pulse Resp B/P (MAP) Pulse Ox O2 Delivery O2 Flow Rate FiO2 01/07/23 08:30 92 Room Air 01/07/23 07:55 36.9 89 19 112/78 (89) 01/06/23 11:34 2.00 01/03/23 19:05 21 General Appearance: No Apparent Distress, WD/WN Respiratory: Lungs Clear, Normal Breath Sounds Allergies: Coded Allergies: No Known Drug Allergies (Unverified , 12/28/22) Discharge Summary Date of Admission Dec 30, 2022 at 11:10 Date of Discharge Discharge Date: Jan 07, 2023 Admission Diagnosis Atrial flutter w/ RVR, UTI Discharge Diagnosis afib/flutter with RVR -The patient was having elevated HR in the 90's-100's that elevated up to the 120's this morning. EKG this morning showed a flutter with RVR. Was given cardizem 240mg PO this morning. Lovenox held at this time for planned thoracentesis. Cardiology consulted and helping manage. -Consult cardiology and appreciate recommendations UTI -Urine culture revealed No growth. Will continue abx for possible pneumonia, but does not appear to have UTI based on results. RLL pneumonia/effusion -Per 12/28 CXR report -> significant volume loss in right lung due to pleural fluid & atelectasis w/ associated diaphragm elevation -12/29 CXR showed similar effusion with increased infiltrate suggestive of RLL pneumonia. -12/30 CXR unchanged from previous -s/p thoracentesis 2800cc removed HTN HLD Diet: as tolerated DVT proph: SCD's with Coumadin DYAN MCFADDEN DO Jan 07, 2023 11:57
[2023-01-07 12:13] VITALS: BP 130/82
--- NOTE | 2023-01-07 14:35 | Progress Note - Cardiology ---
Cardiology SOAP Progress Note Subjective: Feels well and wishes to go home Denies postural dizziness/syncope No n/v/d No focal weakness No shortness of breath No cp No swelling Objective: I&O/Vital Signs 01/07/23 01/07/23 01/07/23 01/07/23 03:06 07:00 07:55 08:00 Temp 36.5 36.9 Pulse 88 87 89 Resp 18 19 B/P (MAP) 114/65 (81) 112/78 (89) Pulse Ox 92 92 O2 Delivery Room Air Room Air Room Air 01/07/23 01/07/23 08:30 12:13 Temp 37.2 Pulse 121 Resp 20 B/P (MAP) 130/82 (98) Pulse Ox 92 93 O2 Delivery Room Air Room Air 01/07/23 00:00 Intake Total 1190 ml Output Total 950 ml Balance 240 ml Weight (Pounds): 214 Weight (Ounces): 0.0 Weight (Calculated Kilograms): 97.100491 Constitutional: AAO x 3, well-developed, well-nourished Respiratory: No accessory muscle use, No respiratory distress; other (diminished RLL) Cardiovascular: irregularly irregular; No JVD; S1 and S2 Gastrointestional: tender (LLQ tenderness), soft; No guarding Extremities: no lower extremity edema bilateral Neurologic/Psychiatric: other (moves all extremities) Skin: No rash on exposed areas, No ulcerations on exposed areas Results/Procedures: Labs Laboratory Tests 01/07/23 06:10: White Blood Count 8.2, Red Blood Count 4.06L, Hemoglobin 12.3L, Hematocrit 37L, Mean Corpuscular Volume 90, Mean Corpuscular Hemoglobin 30, Mean Corpuscular Hemoglobin Concent 34, Red Cell Distribution Width 12.4, Platelet Count 347, Mean Platelet Volume 9.6, Immature Granulocyte % (Auto) 1, Neutrophils (%) (Auto) 72, Lymphocytes (%) (Auto) 11L, Monocytes (%) (Auto) 9, Eosinophils (%) (Auto) 6, Basophils (%) (Auto) 1, Neutrophils # (Auto) 5.9, Lymphocytes # (Auto) 0.9L, Monocytes # (Auto) 0.7, Eosinophils # (Auto) 0.5H, Basophils # (Auto) 0.1, Immature Granulocyte # (Auto) 0.1, Prothrombin Time 23.5H, INR Comment 2.0H, Sodium Level 136, Potassium Level 4.3, Chloride Level 105, Carbon Dioxide Level 24, Anion Gap 7, Blood Urea Nitrogen 15, Creatinine 0.96, Estimat Glomerular Filtration Rate 86, BUN/Creatinine Ratio 16, Glucose Level 89, Calcium Level 8.5, Corrected Calcium 9.2, Magnesium Level 1.8, Total Bilirubin 0.6, Aspartate Amino Transf (AST/SGOT) 30, Alanine Aminotransferase (ALT/SGPT) 40, Alkaline Phosphatase 70, Total Protein 6.3L, Albumin 3.1L, Digoxin Level 0.48L Microbiology 01/04/23 Gram Stain - Final, Resulted 01/04/23 Anaerobic Culture, Resulted Pending 01/04/23 Body Fluid Culture - Preliminary, Resulted No growth 12/28/22 Blood Culture - Final, Complete No growth 12/28/22 MRSA Screen - Final, Complete MRSA not isolated 12/28/22 Urine Culture - Final, Complete NO GROWTH Laboratory Tests 01/06/23 05:18 01/07/23 06:10 A/P: Assessment: Postural hypotension - documented on 01/06/23 - much improved on 01/07/23 with complete resolution of symptoms (after hydration the day before) Acute illness: - UTI - management per Medical services - Acute abdomen - managed by Dr. Lau - clinically resolved Large right pleural effusion - thoracentesis (2800 ml) on 12/30/[address] Lau - recurrent / persistent R pleural eff on CT of 01/03/23 - repeat thoracentesis on 01/04/23 Dizziness and poor balance since early December 2021 - Holter of 01-06-22 showed rare PVC, infreq PAC, A-fib throughout the study with controlled vent response. Av HR 70 bpm. No signif monster. No VT - symptoms improved after stopping Xarelto Permanent a-fib/flutter - first diagnosed on ECG of 12/06/17, now permanent - OAC with warfarin for stroke prophylaxis - Holter of 06/13/19: A fib throughout study, avg vent rate 91 bpm, no VT or significant monster - rate not well controlled Intolerant to Xarelto (marked dizziness and poor balance) CAD - Coronary artery disease with history of Promus 3x18 mm stent to the LAD per cardiac cath by Dr. Aaron in September 2010. - Most recent Cardiac cath of Aug 2013 showed patent LAD stent, LVEF 30-35%, and normal LVEDP - MPI of November 2018 showed anteroseptal and apical myocardial infarction with only a small amt of jacque-infarct ischemia. Anteroseptal and apical hypokinesis. Atrial flutter/fib seen throughout the study. LVEF 38%. - MPI of 11-14-21 showed: This study indicates apical and inferoseptal infarcts without significant ischemia. Apical and inferoseptal hypokinesis. Well preserved global left ventricular systolic function with a calculated ejection fraction of 51%. Ischemic CM - Chronic systolic CHF, clinically compensated - S/p single chamber ICD: placement on 08/27/13 for SCD prophylaxis, functioning normally per interrogation of 10/20/21 - Echocardiogram of 01/01/18 showed mild impairment of LV systolic funciton with and LVEF of 35-40%, apical hypokinesis, enlargement of LA, PASP WNL - Echocardiogram of 05-25-21 showed LVEF 40-45%. LA mod dilated. PASP 25-30 mmHg - Echo on 01-01-25: LVEF 40-45%, R pleural eff HLP - statin therapy Carotid dz: - Mild carotid arterial disease per u/s of 06/11/21 HTN - controlled H/o Tobaccoism - quit in early January 2014. We have advised him to continue to refrain from tobacco use - Elevated PSA being followed by Dr Gonzalez - L-sided epididymoorchitis and hydrocele in 2018 or 2019, managed at [facility] ER and f/u with Dr Favio Aguirre (urologist) and with his pcp. Currently followed by Dr Gonzalez, according to the patient Plan: * Appears reasonable to discharge since symptoms have resolved. D/c carvedilol to reduce risk of postural hypotension. Continue dilt and dig for vent rate control. Dig level 0.48 on 01/07/23. Close outpt f/u advised. Advised to monitor bp at home * Abdominal pain and UTI are being managed by JERRY Reed MD FACP [facility] CCDS Jan 07, 2023 14:35
[2023-01-07 14:45] VITALS: BP 130/82
--- NOTE | 2023-01-09 13:29 | Physician Query Clarification ---
Physician Query-General Query to Physician: The medical record reflects the following clinical scenario: History/Risk factors: Admitted with Pneumonia and At. Fib Clinical Findings: Admission VS/Labs: HR 154, RR 18, BP 126/92, SpO2 95% sat on room air, T 37.3, WBC 14.6, Lactic acid 1.85 then 1.07 Treatment: ER: 2 L normal saline, Meropenem IV 1 6 hours from the 19th until the 25th also started on Vancomycin, Question: Can you further specify Sepsis per the clinical indicators above? Please document response in the Progress Notes or Discharge Summary. Sepsis in the setting of Pneumonia, present On Admission? Other, with explanation of clinical findings Clinically undetermined, no explanation for clinical findings In responding to this query, please exercise your independent professional judgment. The purpose of this communication is to more accurately reflect the complexity of your patients condition. The fact that a question is asked does not imply that any particular answer is desired or expected. Thank you for timely response to this clarification. Ingris Lucas MSN, RN Clinical [employer] B[employer] Machine Operator [email or web address] PHYSICIAN RESPONSE: Based on the clinical findings in the record, please respond to the query above on this document as an addendum. Physician Response: Physician Response sepsis on admit due to pneumonia If you have questions please contact: Compensation Supervisor: Ext: Thank you for your time and cooperation. Clinical [employer] B[employer] Machine Operator/Compensation Supervisor This is a permanent part of the medical record INGRIS LUCAS January 09, 2023 13:29 DYAN MCFADDEN DO January 09, 2023 15:49
== END 2023-01-07 14:45 | disposition home or self-care (01) | DRG 871 ==
LOC: EDUNIT# 14:08 → ER 14:11 → ICU 18:36 → 4TH 12-29 17:30 → OBSVTOIN 12-30 11:10 → 4TH 12-30 14:53
PROVIDERS: ADMIT Internal Medicine; ATTEND Internal Medicine
PROC: 0W993ZZ Drainage of Right Pleural Cavity, Percutaneous Approach (ICD-10-PCS; principal; 2022-12-30)
PROC: 0W993ZZ Drainage of Right Pleural Cavity, Percutaneous Approach (ICD-10-PCS; 2023-01-04)
DX: A41.9 Sepsis, unspecified organism (principal); J18.9 Pneumonia, unspecified organism; I48.92 Unspecified atrial flutter; J90 Pleural effusion, not elsewhere classified; K80.10 Calculus of gallbladder with chronic cholecystitis without obstruction; N39.0 Urinary tract infection, site not specified; I50.22 Chronic systolic (congestive) heart failure; J94.2 Hemothorax; I48.21 Permanent atrial fibrillation; Z79.82 Long term (current) use of aspirin; Z79.01 Long term (current) use of anticoagulants; Z79.899 Other long term (current) drug therapy; Z95.5 Presence of coronary angioplasty implant and graft; Z95.0 Presence of cardiac pacemaker; I25.5 Ischemic cardiomyopathy; I25.10 Atherosclerotic heart disease of native coronary artery without angina pectoris; I25.2 Old myocardial infarction; G43.909 Migraine, unspecified, not intractable, without status migrainosus; E87.6 Hypokalemia; E86.0 Dehydration; E78.00 Pure hypercholesterolemia, unspecified; I11.0 Hypertensive heart disease with heart failure; I95.1 Orthostatic hypotension; I77.9 Disorder of arteries and arterioles, unspecified; Z87.891 Personal history of nicotine dependence
CPT/HCPCS: 36415; 71045; 71046; 71250; 74019; 76705; 80053; 80162; 80306; 80320; 81000; 82042; 82150; 82438; 82945; 82947; 83605; 83615; 83690; 83735; 83986; 84100; 84157; 84315; 85007; 85025; 85027; 85610; 87040; 87070; 87075; 87081; 87088; 87205; 88112; 88305; 89051; 93005; 93306; 94664; 94760; 94761; G0378

== ENCOUNTER 2023-02-09 16:15 | Outpatient (RCR) | payer MEDICARE ==
[~2023-02-09 16:15] MED LIST changes: +TRM50T PO; +[UNRECOGNIZED DRUG - CODE] PO
[2023-02-09 16:40] LABS: INR 1.8 (0.8-1.4); PROTHROMBIN TIME PATIENT 20.9 SEC (12.2-14.7)
== END 2023-03-10 | disposition home or self-care (01) ==
LOC: LAB 16:15
PROVIDERS: ATTEND Internal Medicine Cardiovascular Disease
DX: I48.0 Paroxysmal atrial fibrillation (principal)
CPT/HCPCS: 36415; 85610

== ENCOUNTER → 2023-02-23 | Outpatient (CLI) | payer MEDICARE ==
[2023-02-23 08:32] LABS: HEMATOCRIT 35 % (40-54); HEMOGLOBIN 11.4 g/dL (13.3-17.7); MEAN CORPUSCULAR HEMOGLOBIN 30 pg (25-34); MEAN CORPUSCULAR HGB CONC 33 g/dL (32-36); MEAN CORPUSCULAR VOLUME 91 fL (80-99); MEAN PLATELET VOLUME 9.7 fL (9.0-12.2); PLATELET COUNT 251 10^3/uL (130-400); WHITE BLOOD COUNT 7.7 10^3/uL (4.3-11.0)
[2023-02-23 08:33] LABS: ALBUMIN 3.6 GM/DL (3.2-4.5); POTASSIUM 2.8 MMOL/L (3.6-5.0)
[2023-02-23 08:34] LABS: CALCIUM 9.4 MG/DL (8.5-10.1)
[2023-02-23 08:36] LABS: TOTAL PROTEIN 6.8 GM/DL (6.4-8.2)
[2023-02-23 08:37] LABS: BILIRUBIN,TOTAL 0.7 MG/DL (0.1-1.0)
[2023-02-23 08:39] LABS: CREATININE SERUM 0.92 MG/DL (0.60-1.30)
[2023-02-23 08:41] LABS: PROTHROMBIN TIME PATIENT 13.6 SEC (12.2-14.7)
== END ==
LOC: LAB 07:51
PROVIDERS: ATTEND Internal Medicine Cardiovascular Disease
DX: Z01.89 Encounter for other specified special examinations (principal)
CPT/HCPCS: 36415; 80053; 80162; 84443; 85027; 85610

== ENCOUNTER → 2023-02-24 | Outpatient (CLI) | payer MEDICARE ==
[2023-02-24 08:32] LABS: POTASSIUM 3.6 MMOL/L (3.6-5.0)
[2023-02-24 08:34] LABS: CALCIUM 9.4 MG/DL (8.5-10.1)
[2023-02-24 08:38] LABS: CREATININE SERUM 0.91 MG/DL (0.60-1.30)
[2023-02-24 08:40] LABS: MAGNESIUM 1.5 MG/DL (1.6-2.4)
== END ==
LOC: LAB 08:10
PROVIDERS: ATTEND Internal Medicine Cardiovascular Disease
DX: E87.6 Hypokalemia (principal); I48.0 Paroxysmal atrial fibrillation; R89.2 Abnormal level of other drugs, medicaments and biological substances in specimens from other organs, systems and tissues
CPT/HCPCS: 36415; 80048; 83735

== ENCOUNTER → 2023-02-27 | Outpatient (CLI) | payer MEDICARE ==
[2023-02-27 09:56] LABS: CREATININE SERUM 1.04 MG/DL (0.60-1.30); POTASSIUM 3.6 MMOL/L (3.6-5.0)
[2023-02-27 11:22] LABS: CALCIUM 9.3 MG/DL (8.5-10.1)
== END ==
LOC: LAB 08:09
PROVIDERS: ATTEND Internal Medicine Cardiovascular Disease
DX: I48.0 Paroxysmal atrial fibrillation (principal); E87.6 Hypokalemia
CPT/HCPCS: 36415; 80048; 83735